=== PATIENT | female | born 1945 | race Caucasian/White ===

== ENCOUNTER → 2016-04-26 | Outpatient (CLI) | payer MEDICARE ==
[2016-04-26 08:53] LABS: Cholesterol 144 mg/dL (<200); HDL Cholesterol 44 mg/dL (40-60); Triglycerides 267 mg/dL (<150)
== END | disposition home or self-care (01) ==
LOC: LABWHC1 07:55
PROVIDERS: ATTEND Internal Medicine Interventional Cardiology
DX: E78.00 Pure hypercholesterolemia, unspecified (principal)
CPT/HCPCS: 36415; 80061

== ENCOUNTER → 2016-08-18 | Outpatient (CLI) | payer MEDICARE ==
[2016-08-18 08:49] LABS: Basophils # (A) 0.1 k/uL (0-0.2); Basophils % (A) 1 %; CHCM 32.4; Eosinophils # (A) 0.1 k/uL (0-0.7); Eosinophils % (A) 1 %; HCT 47.7 % (34.0-46.0); HDW 2.73; HGB 15.3 gm/dL (11.4-16.0); Luc # (Auto) 0.25; Luc % (Auto) 3; Lymphocytes # (A) 3.6 k/uL (1.0-4.8); Lymphocytes % (A) 41 %; MCH 28.8 pg (25.0-35.0); Mean Platelet Volume 6.8; Monocytes # (A) 0.4 k/uL (0-1.0); Monocytes % (A) 5 %; Neutrophils # (A) 4.4 k/uL (1.3-7.7); Neutrophils % (A) 50 %; RDW 14.4 % (11.5-15.5); WBC 8.7 k/uL (3.8-10.6); WBC (Perox) 8.29
[2016-08-18 08:52] LABS: ALT 57 U/L (9-52); AST 35 U/L (14-36); Alkaline Phosphatase 93 U/L (38-126); Anion Gap 12 mmol/L; Blood Urea Nitrogen 15 mg/dL (7-17); Calcium 9.5 mg/dL (8.4-10.2); Carbon Dioxide 25 mmol/L (22-30); Chloride 106 mmol/L (98-107); Cholesterol 184 mg/dL (<200); Glucose 148 mg/dL (74-99); HDL Cholesterol 50 mg/dL (40-60); Non-African American GFR(MDRD) >60 (>60 ml/min/1.73 sqM); Potassium 4.7 mmol/L (3.5-5.1); Sodium 143 mmol/L (137-145); Total Bilirubin 0.6 mg/dL (0.2-1.3); Total Protein 7.4 g/dL (6.3-8.2); Triglycerides 270 mg/dL (<150)
== END | disposition home or self-care (01) ==
LOC: LABWHC1 08:01
PROVIDERS: ATTEND Family Medicine
DX: E11.9 Type 2 diabetes mellitus without complications (principal)
CPT/HCPCS: 36415; 80053; 80061; 82043; 83036; 84443; 85025

== ENCOUNTER → 2017-04-13 | Outpatient (CLI) | payer MEDICARE ==
--- NOTE | 2017-04-17 09:45 | MM ---
Reason for exam: screening (asymptomatic). Last mammogram was performed 1 year and 1 month ago. History: Patient is postmenopausal. Took estrogen for 17 years. Physical Findings: A clinical breast exam by your physician is recommended on an annual basis and results should be correlated with mammographic findings. MG 3D Screening Mammo W/Cad Bilateral CC and MLO view(s) were taken. Prior study comparison: March 20, 2016, left breast MG work up mamm w CAD LT. March 01, 2016, bilateral MG screening mammo w CAD. The breast tissue is heterogeneously dense. This may lower the sensitivity of mammography. Stable benign calcifications. There is no discrete abnormality. No significant changes when compared with prior studies. ASSESSMENT: Benign, BI-RAD 2 RECOMMENDATION: Routine screening mammogram of both breasts in 1 year.
== END | disposition home or self-care (01) ==
LOC: RADMAMWWP 08:10
PROVIDERS: ATTEND Family Medicine
DX: Z12.31 Encounter for screening mammogram for malignant neoplasm of breast (principal)
CPT/HCPCS: 77063; G0202

== ENCOUNTER → 2017-05-08 | Outpatient (CLI) | payer MEDICARE ==
[2017-05-08 07:33] LABS: ALT 100 U/L (9-52); AST 59 U/L (14-36); Cholesterol 141 mg/dL (<200); HDL Cholesterol 46 mg/dL (40-60); LDL Cholesterol,Calculated 22 mg/dL (0-99); Triglycerides 364 mg/dL (<150)
== END | disposition home or self-care (01) ==
LOC: LABWHC1 06:55
PROVIDERS: ATTEND Internal Medicine Interventional Cardiology
DX: E78.2 Mixed hyperlipidemia (principal)
CPT/HCPCS: 36415; 80061; 84450; 84460

== ENCOUNTER → 2017-07-18 | Outpatient (CLI) | payer MEDICARE ==
[2017-07-18 07:47] LABS: Basophils # (A) 0.1 k/uL (0-0.2); Basophils % (A) 1 %; Eosinophils # (A) 0.1 k/uL (0-0.7); Eosinophils % (A) 2 %; HCT 42.1 % (34.0-46.0); HGB 13.8 gm/dL (11.4-16.0); Lymphocytes # (A) 3.3 k/uL (1.0-4.8); Lymphocytes % (A) 48 %; MCH 28.5 pg (25.0-35.0); MCHC 32.7 g/dL (31.0-37.0); MCV 87.2 fL (80.0-100.0); Mean Platelet Volume 7.3; Monocytes # (A) 0.4 k/uL (0-1.0); Monocytes % (A) 6 %; Neutrophils # (A) 2.8 k/uL (1.3-7.7); Neutrophils % (A) 41 %; Platelet Count 222 k/uL (150-450); RBC 4.83 m/uL (3.80-5.40); RDW 14.2 % (11.5-15.5); WBC 6.9 k/uL (3.8-10.6)
[2017-07-18 13:08] LABS: ALT 77 U/L (9-52); AST 56 U/L (14-36); Albumin 4.1 g/dL (3.5-5.0); Alkaline Phosphatase 97 U/L (38-126); Anion Gap 14 mmol/L; Blood Urea Nitrogen 20 mg/dL (7-17); Calcium 9.7 mg/dL (8.4-10.2); Carbon Dioxide 26 mmol/L (22-30); Chloride 106 mmol/L (98-107); Cholesterol 143 mg/dL (<200); Glucose 133 mg/dL (74-99); HDL Cholesterol 54 mg/dL (40-60); LDL Cholesterol,Calculated 58 mg/dL (0-99); Potassium 4.2 mmol/L (3.5-5.1); Sodium 146 mmol/L (137-145); Total Bilirubin 0.5 mg/dL (0.2-1.3); Total Protein 6.9 g/dL (6.3-8.2); Triglycerides 156 mg/dL (<150)
[2017-07-18 13:10] LABS: T4, Free (Free Thyroxine) 1.21 ng/dL (0.78-2.19)
[2017-07-18 20:55] LABS: Hemoglobin A1C 8.5 % (4.0-6.0)
== END | disposition home or self-care (01) ==
LOC: LABWHC1 07:15
PROVIDERS: ATTEND Family Medicine
DX: E11.9 Type 2 diabetes mellitus without complications (principal); E03.9 Hypothyroidism, unspecified
CPT/HCPCS: 36415; 80053; 80061; 82043; 82570; 83036; 84439; 84443; 84481; 85025

== ENCOUNTER → 2017-11-21 | Outpatient (CLI) | payer MEDICARE ==
[2017-11-21 09:06] LABS: ALT 46 U/L (9-52); AST 31 U/L (14-36); Cholesterol 129 mg/dL (<200); HDL Cholesterol 40 mg/dL (40-60); LDL Cholesterol,Calculated 20 mg/dL (0-99); Triglycerides 345 mg/dL (<150)
[2017-11-21 16:06] LABS: Albumin 4.1 g/dL (3.5-5.0); Alkaline Phosphatase 90 U/L (38-126); Anion Gap 8 mmol/L; Blood Urea Nitrogen 18 mg/dL (7-17); Calcium 9.7 mg/dL (8.4-10.2); Carbon Dioxide 26 mmol/L (22-30); Chloride 106 mmol/L (98-107); Glucose 106 mg/dL (74-99); Potassium 4.5 mmol/L (3.5-5.1); Sodium 140 mmol/L (137-145); Total Bilirubin 0.4 mg/dL (0.2-1.3); Total Protein 6.4 g/dL (6.3-8.2)
== END | disposition home or self-care (01) ==
LOC: LABWHC1 06:57
PROVIDERS: ATTEND Internal Medicine Interventional Cardiology
DX: E78.2 Mixed hyperlipidemia (principal)
CPT/HCPCS: 36415; 80053; 80061

== ENCOUNTER → 2018-01-10 | Outpatient (CLI) | payer MEDICARE ==
[2018-01-10 08:51] LABS: ALT 48 U/L (9-52); AST 37 U/L (14-36); Albumin 3.9 g/dL (3.5-5.0); Alkaline Phosphatase 93 U/L (38-126); Anion Gap 10 mmol/L; Blood Urea Nitrogen 17 mg/dL (7-17); Calcium 9.5 mg/dL (8.4-10.2); Carbon Dioxide 24 mmol/L (22-30); Chloride 109 mmol/L (98-107); Cholesterol 129 mg/dL (<200); Glucose 162 mg/dL (74-99); HDL Cholesterol 37 mg/dL (40-60); LDL Cholesterol,Calculated 32 mg/dL (0-99); Potassium 4.5 mmol/L (3.5-5.1); Sodium 143 mmol/L (137-145); Total Bilirubin 0.6 mg/dL (0.2-1.3); Total Protein 6.5 g/dL (6.3-8.2); Triglycerides 302 mg/dL (<150)
[2018-01-10 20:03] LABS: Hemoglobin A1C 7.3 % (4.0-6.0)
== END | disposition home or self-care (01) ==
LOC: LABWHC1 07:28
PROVIDERS: ATTEND Family Medicine
DX: E11.9 Type 2 diabetes mellitus without complications (principal)
CPT/HCPCS: 36415; 80053; 80061; 83036

== ENCOUNTER → 2018-01-22 | Outpatient (CLI) | payer MEDICARE ==
--- NOTE | 2018-01-22 09:52 | US ---
EXAMINATION TYPE: US duplex aorta DATE OF EXAM: 01/22/2018 COMPARISON: NONE CLINICAL HISTORY: I10 Hypertension. EXAM MEASUREMENTS: Abdominal Aorta: Proximal: 2.5 x 2.4 cm Mid: 2.0 x 2.0 cm Distal: 1.6 x 1.6 cm Bifurcation: 1.4 x 1.0 cm 1.2 x 0.9 cm No evidence of AAA Aorta is successfully visualized through the bifurcation without aneurysmal change. IMPRESSION: No ultrasound evidence for AAA.
== END | disposition home or self-care (01) ==
LOC: RADUSWWP 08:41
PROVIDERS: ATTEND Family Medicine
DX: I10 Essential (primary) hypertension (principal)
CPT/HCPCS: 93979

== ENCOUNTER 2018-02-08 12:12 | Emergency (ER) | payer MEDICARE ==
--- NOTE | 2018-02-08 12:29 | ED ---
General Adult HPI - General Chief complaint: Syncope Stated complaint: Syncope Time Seen by Provider: 02/08/18 12:16 Source: patient, EMS, RN notes reviewed Mode of arrival: EMS Limitations: no limitations - History of Present Illness Initial comments: Patient is a pleasant 72-year-old female presenting to the emergency department following possible syncopal episode. Patient was at a . Patient states she felt like she was going to pass out and then does not remember what happened until EMS arrived. Patient agrees that she may have passed out for a couple of minutes. Patient states she has had possible near syncopal episodes in the past however that was usually associated with bowel problems. Patient has no abdominal pain at this point. No chest pain or dyspnea. No confusion. No headache. No weakness. Patient states at this time she feels normal. Patient denies any injury. - Related Data Home Medications Medication Instructions Recorded Confirmed Albuterol Inhaler [Ventolin Hfa 1 - 2 puff INHALATION RT-Q6H PRN 02/08/18 Inhaler] Aspirin EC [Ecotrin Low Dose] 81 mg PO HS 02/08/18 02/08/18 Budesonide/Formoterol Fumarate 2 puff INHALATION RT-BID PRN 02/08/18 02/08/18 [Symbicort 80-4.5 Mcg Inhaler] Calcium Carbonate/Vitamin D3 1 tab PO DAILY 02/08/18 02/08/18 [Caltrate 600 Plus D3 Tablet] Levothyroxine Sodium [Synthroid] 50 mcg PO DAILY 02/08/18 02/08/18 Losartan Potassium [Cozaar] 25 mg PO DAILY 02/08/18 02/08/18 Mometasone Furoate [Nasonex Nasal 2 spr EA NOSTRIL DAILY PRN 02/08/18 02/08/18 [place]] Multivitamins, Thera [Multivitamin 1 tab PO DAILY 02/08/18 02/08/18 (formulary)] Pioglitazone HCl 30 mg PO DAILY 02/08/18 02/08/18 Power Beets 1 tab PO DAILY 02/08/18 02/08/18 Tolterodine [Detrol] 2 mg PO BID 02/08/18 02/08/18 Turmeric Root Extract [Turmeric] 500 mg PO DAILY 02/08/18 02/08/18 glipiZIDE XL [Glucotrol XL] 2.5 mg PO AC-SUPPER 02/08/18 02/08/18 metFORMIN HCL 1,000 mg PO HS 02/08/18 02/08/18 metFORMIN HCL 500 mg PO QAM 02/08/18 02/08/18 Allergies Allergy/AdvReac Type Severity Reaction Status Date / Time amoxicillin [From Augmentin] Allergy Rash/Hives Verified 02/08/18 13:43 clavulanic acid Allergy Rash/Hives Verified 02/08/18 13:43 [From Augmentin] Sulfa (Sulfonamide Allergy Itching Verified 02/08/18 13:43 Antibiotics) Review of Systems ROS Statement: Those systems with pertinent positive or pertinent negative responses have been documented in the HPI. ROS Other: All systems not noted in ROS Statement are negative. Constitutional: Denies: fever Eyes: Denies: eye pain ENT: Denies: ear pain Respiratory: Denies: cough, dyspnea Cardiovascular: Denies: chest pain Endocrine: Denies: fatigue Gastrointestinal: Denies: abdominal pain Genitourinary: Denies: dysuria Musculoskeletal: Denies: back pain Skin: Denies: rash Neurological: Denies: headache, weakness, paresthesias, confusion Past Medical History Past Medical History: Diabetes Mellitus, Hyperlipidemia History of Any Multi-Drug Resistant Organisms: None Reported Past Surgical History: Adenoidectomy, Bladder Surgery, Section, Cholecystectomy, Tonsillectomy Additional Past Surgical History / Comment(s): x 3, 2 bladder suspension and 1 bowel lift Past Psychological History: No Psychological Hx Reported Smoking Status: Never smoker Past Alcohol Use History: Occasional Past Drug Use History: None Reported General Exam Limitations: no limitations General appearance: alert, in no apparent distress Head exam: Present: atraumatic Eye exam: Present: normal appearance, PERRL, EOMI. Absent: nystagmus ENT exam: Present: normal oropharynx Neck exam: Present: normal inspection Respiratory exam: Present: normal lung sounds bilaterally Cardiovascular Exam: Present: regular rate, normal rhythm Expanded Peripheral pulses: 2+: Radial (R), Radial (L), Posterior Tibialis (R), Posterior Tibialis (L) GI/Abdominal exam: Present: soft. Absent: tenderness Extremities exam: Present: normal inspection. Absent: pedal edema, calf tenderness Neurological exam: Present: alert, oriented X3, CN II-XII intact. Absent: motor sensory deficit Expanded Neurological exam: Present: protecting the airway Patient oriented to: Present: person, place, time Speech: Present: fluid speech Cranial nerves: EOM's Intact: Normal, Facial Sensation: Normal Sensory exam: Upper Extremity Light Touch: Normal, Lower Extremity Light Touch: Normal Motor strength exam: RUE: 5, LUE: 5, RLE: 5, LLE: 5 Eye Response: (4) open spontaneously Motor Response: (6) obeys commands Verbal Response: (5) oriented Psychiatric exam: Present: normal affect, normal mood Skin exam: Present: normal color Course Vital Signs 02/08/18 02/08/18 02/08/18 12:13 12:30 13:30 Temperature 97.4 F L Pulse Rate 75 68 75 Respiratory 16 12 15 Rate Blood Pressure 138/74 138/74 163/82 O2 Sat by Pulse 93 L 97 96 Oximetry 02/08/18 14:00 Temperature Pulse Rate 75 Respiratory 14 Rate Blood Pressure 151/72 O2 Sat by Pulse 97 Oximetry - Reevaluation(s) Reevaluation #1: 02/08/18 12:30 Ultrasound and 01/22/2018 shows no evidence of abdominal aortic aneurysm. Patient states this was done secondary to questionable findings when x-rays were done by chiropractor. EKG Findings - EKG Comments: EKG Findings:: Normal sinus rhythm 71. HI 160. QRS 74. QT 408. QTC 443. Normal axis. Normal QRS. No acute ST change. Medical Decision Making - Medical Decision Making Patient reevaluated and resting comfortably in bed. Patient remains symptom- free at this time. Patient updated on results. Patient recommended admission for further evaluation for syncope. This does include echo and carotid Doppler and medicine and cardiology evaluation as well as monitoring on telemetry. Despite this patient refuses. Patient does them straight medical decision making. Family is present. Patient is agreeable that she will follow-up with her doctor and tumbling barrel painter on Sunday. - Lab Data Result diagrams: 02/08/18 12:28 02/08/18 12:28 Lab Results 02/08/18 02/08/18 02/08/18 Range/Units 12:28 12:28 12:28 WBC 6.7 (3.8-10.6) k/uL RBC 4.43 (3.80-5.40) m/uL Hgb 12.7 (11.4-16.0) gm/dL Hct 38.8 (34.0-46.0) % MCV 87.5 (80.0-100.0) fL MCH 28.6 (25.0-35.0) pg MCHC 32.7 (31.0-37.0) g/dL RDW 14.0 (11.5-15.5) % Plt Count 187 (150-450) k/uL Neutrophils % 54 % Lymphocytes % 36 % Monocytes % 6 % Eosinophils % 2 % Basophils % 1 % Neutrophils # 3.7 (1.3-7.7) k/uL Lymphocytes # 2.4 (1.0-4.8) k/uL Monocytes # 0.4 (0-1.0) k/uL Eosinophils # 0.1 (0-0.7) k/uL Basophils # 0.0 (0-0.2) k/uL PT (9.0-12.0) sec INR (<1.2) APTT (22.0-30.0) sec D-Dimer (<0.60) mg/L FEU Sodium 144 (137-145) mmol/L Potassium 4.6 (3.5-5.1) mmol/L Chloride 109 H (98-107) mmol/L Carbon Dioxide 24 (22-30) mmol/L Anion Gap 11 mmol/L BUN 20 H (7-17) mg/dL Creatinine 0.74 (0.52-1.04) mg/dL Est GFR (CKD-EPI)AfAm >90 (>60 ml/min/1.73 sqM) Est GFR (CKD-EPI)NonAf 81 (>60 ml/min/1.73 sqM) Glucose 156 H (74-99) mg/dL POC Glucose (mg/dL) (75-99) mg/dL POC Glu Char Filter Tank Tender ID Calcium 9.6 (8.4-10.2) mg/dL Magnesium 1.5 L (1.6-2.3) mg/dL Total Bilirubin 0.5 (0.2-1.3) mg/dL AST 37 H (14-36) U/L ALT 45 (9-52) U/L Alkaline Phosphatase 86 (38-126) U/L Total Creatine Kinase 61 (30-135) U/L CK-MB (CK-2) 1.2 (0.0-2.4) ng/mL CK-MB (CK-2) Rel Index 2.0 Troponin I <0.012 (0.000-0.034) ng/mL Total Protein 6.5 (6.3-8.2) g/dL Albumin 3.9 (3.5-5.0) g/dL Urine Color Urine Appearance (Clear) Urine pH (5.0-8.0) Ur Specific [place] (1.001-1.035) Urine Protein (Negative) Urine Glucose (UA) (Negative) Urine Ketones (Negative) Urine Blood (Negative) Urine Nitrite (Negative) Urine Bilirubin (Negative) Urine Urobilinogen (<2.0) mg/dL Ur Leukocyte Esterase (Negative) Urine RBC (0-5) /hpf Urine WBC (0-5) /hpf Ur Squamous Epith Cells (0-4) /hpf Urine Mucus (None) /hpf 02/08/18 02/08/18 02/08/18 Range/Units 12:28 12:38 15:05 WBC (3.8-10.6) k/uL RBC (3.80-5.40) m/uL Hgb (11.4-16.0) gm/dL Hct (34.0-46.0) % MCV (80.0-100.0) fL MCH (25.0-35.0) pg MCHC (31.0-37.0) g/dL RDW (11.5-15.5) % Plt Count (150-450) k/uL Neutrophils % % Lymphocytes % % Monocytes % % Eosinophils % % Basophils % % Neutrophils # (1.3-7.7) k/uL Lymphocytes # (1.0-4.8) k/uL Monocytes # (0-1.0) k/uL Eosinophils # (0-0.7) k/uL Basophils # (0-0.2) k/uL PT 9.5 (9.0-12.0) sec INR 1.0 (<1.2) APTT 20.0 L (22.0-30.0) sec D-Dimer 0.82 H (<0.60) mg/L FEU Sodium (137-145) mmol/L Potassium (3.5-5.1) mmol/L Chloride (98-107) mmol/L Carbon Dioxide (22-30) mmol/L Anion Gap mmol/L BUN (7-17) mg/dL Creatinine (0.52-1.04) mg/dL Est GFR (CKD-EPI)AfAm (>60 ml/min/1.73 sqM) Est GFR (CKD-EPI)NonAf (>60 ml/min/1.73 sqM) Glucose (74-99) mg/dL POC Glucose (mg/dL) 136 H (75-99) mg/dL POC Glu Char Filter Tank Tender ID Pavithra Zaragoza Calcium (8.4-10.2) mg/dL Magnesium (1.6-2.3) mg/dL Total Bilirubin (0.2-1.3) mg/dL AST (14-36) U/L ALT (9-52) U/L Alkaline Phosphatase (38-126) U/L Total Creatine Kinase (30-135) U/L CK-MB (CK-2) (0.0-2.4) ng/mL CK-MB (CK-2) Rel Index Troponin I (0.000-0.034) ng/mL Total Protein (6.3-8.2) g/dL Albumin (3.5-5.0) g/dL Urine Color Light Yellow Urine Appearance Clear (Clear) Urine pH 7.0 (5.0-8.0) Ur Specific [place] 1.027 (1.001-1.035) Urine Protein Negative (Negative) Urine Glucose (UA) Negative (Negative) Urine Ketones Negative (Negative) Urine Blood Negative (Negative) Urine Nitrite Positive H (Negative) Urine Bilirubin Negative (Negative) Urine Urobilinogen <2.0 (<2.0) mg/dL Ur Leukocyte Esterase Negative (Negative) Urine RBC 3 (0-5) /hpf Urine WBC 2 (0-5) /hpf Ur Squamous Epith Cells <1 (0-4) /hpf Urine Mucus Occasional H (None) /hpf - Radiology Data Radiology results: report reviewed (Computed tomography scan of the brain reveals no acute process. CT angios chest shows no acute process.), image reviewed (Chest x-ray shows possible density right lateral first rib region.) Disposition Clinical Impression: Syncope Disposition: HOME SELF-CARE Condition: Stable Instructions: Syncope (ED) Additional Instructions: Please follow-up with primary care physician Sunday. Please also follow-up with a tumbling barrel painter in the beginning of the week. Return for chest pain, abnormal heart rate, confusion, weakness, passing out, abdominal pain, worsening symptoms or any other concerns. Is patient prescribed a controlled substance at d/c from ED?: No Referrals: Reuben Almeida MD [Primary Care Provider] - 1-2 days Rosemarie Jacome MD [STAFF PHYSICIAN] - 1-2 days Time of Disposition: 15:43
[2018-02-08 12:40] LABS: Glucose,Whole Blood 136 mg/dL (75-99)
[2018-02-08 12:51] LABS: Basophils % (A) 1 %; Eosinophils # (A) 0.1 k/uL (0-0.7); Eosinophils % (A) 2 %; HCT 38.8 % (34.0-46.0); HGB 12.7 gm/dL (11.4-16.0); Lymphocytes # (A) 2.4 k/uL (1.0-4.8); Lymphocytes % (A) 36 %; MCH 28.6 pg (25.0-35.0); MCHC 32.7 g/dL (31.0-37.0); MCV 87.5 fL (80.0-100.0); Mean Platelet Volume 7.2; Monocytes # (A) 0.4 k/uL (0-1.0); Monocytes % (A) 6 %; Neutrophils # (A) 3.7 k/uL (1.3-7.7); Neutrophils % (A) 54 %; Platelet Count 187 k/uL (150-450); RBC 4.43 m/uL (3.80-5.40); WBC 6.7 k/uL (3.8-10.6)
--- NOTE | 2018-02-08 13:00 | XR ---
EXAMINATION TYPE: XR chest 2V DATE OF EXAM: 02/08/2018 COMPARISON: NONE HISTORY: Syncope TECHNIQUE: Frontal and lateral views of the chest are obtained. FINDINGS: There is no focal air space opacity, pleural effusion, or pneumothorax seen. The cardiac silhouette size is within normal limits. The osseous structures are intact, asymmetric increased de nsity noted along the lateral right first rib as compared to left. There are overlying cardiac leads. Surgical clips present in the right upper quadrant. IMPRESSION: No acute cardiopulmonary process. Indeterminate increased density superimposed over the lateral first rib on the right. Consider apical lordotic chest x-ray, bone scan, chest CT as indicate d.
[2018-02-08 13:04] LABS: ALT 45 U/L (9-52); AST 37 U/L (14-36); Albumin 3.9 g/dL (3.5-5.0); Alkaline Phosphatase 86 U/L (38-126); Anion Gap 11 mmol/L; Blood Urea Nitrogen 20 mg/dL (7-17); Calcium 9.6 mg/dL (8.4-10.2); Carbon Dioxide 24 mmol/L (22-30); Chloride 109 mmol/L (98-107); Glucose 156 mg/dL (74-99); Magnesium 1.5 mg/dL (1.6-2.3); Potassium 4.6 mmol/L (3.5-5.1); Sodium 144 mmol/L (137-145); Total Bilirubin 0.5 mg/dL (0.2-1.3); Total Protein 6.5 g/dL (6.3-8.2)
[2018-02-08 13:11] LABS: Creatine Kinase 61 U/L (30-135)
--- NOTE | 2018-02-08 13:21 | CT ---
EXAMINATION TYPE: CT brain wo con DATE OF EXAM: 02/08/2018 COMPARISON: None INDICATION: Dizziness, possible syncopal episode DLP: 959.5 mGycm, Automated exposure control for dose reduction was used. CONTRAST: None CT of the brain is performed utilizing 3 mm thick sections through the posterior fossa and 3 mm thick sections through the remaining calvarium. Study is performed within 24 hours of arrival to the hosp [facility]. No abnormal hyperdensity is present to suggest an acute intracranial hemorrhage. No mass lesion is evident. No acute infarcts are evident. There is some periventricular white matter hypodensity, most likely on the basis of chronic white matter ischemic change. Ventricles and sulci are appropriate for the patient age. Paranasal sinuses and mastoid air cells within the [id number] are clear. IMPRESSIONS: 1. Mild Chronic appearing periventricular white matter ischemic type changes.
[2018-02-08 13:23] LABS: Prothrombin Time 9.5 sec (9.0-12.0)
[2018-02-08 13:26] LABS: Creatine Kinase MB 1.2 ng/mL (0.0-2.4); Troponin I <0.012 ng/mL (0.000-0.034)
[2018-02-08 13:41] LABS: D-Dimer 0.82 mg/L FEU (<0.60)
[2018-02-08] MEDS ORDERED: MAGNESIUM SULFATE-D5W PMX 1 GM in DEXTROSE/WATER 1 100ML.BAG IVPB ONE (13:44)
--- NOTE | 2018-02-08 14:50 | CT ---
EXAMINATION TYPE: CT angio chest DATE OF EXAM: 02/08/2018 COMPARISON: None HISTORY: Weakness, Dizziness CT DLP: 292.7 mGycm CONTRAST: CT chest with contrast and 3D reconstruction with MIP imaging is performed without and with IV Contra st, patient injected with 100 ml mL of Isovue 370. Contrast-enhanced CT of the chest was performed through the course of the pulmonary arteries with lindsay g and mediastinal window settings submitted. 3D reconstruction with MIP imaging was also performed. PULMONARY ARTERIES: The pulmonary arteries and their major tributaries are patent. I do not see gordon dence for sizable filling defect to suggest pulmonary embolic process. LUNGS: The lungs are clear and free of infiltrate. No evidence for atelectasis. No pulmonary nodule or mass is detected. No pleural effusion. MEDIASTINUM: Thoracic aorta is of normal caliber,however, evaluation is limited given timing of the contrast bolus. If there is concern for thoracic aortic pathology consider KAVITA. Correlate clinicall y . The heart is not enlarged. No evidence for mediastinal mass. No mediastinal lymph nodes greater than 1cm. HILAR STRUCTURES: No evidence for mass. No hilar lymph nodes greater than 1 cm. UPPER ABDOMEN: No significant abnormality is seen. IMPRESSION: 1. No evidence for Pulmonary embolism at this time.
[2018-02-08 15:21] LABS: Appearance,Urine Clear (Clear); Bilirubin,Urine Negative (Negative); Blood,Urine Negative (Negative); Color,Urine Light Yellow; Glucose,Urine (UA) Negative (Negative); Ketones,Urine Negative (Negative); Leukocyte Esterase,Urine Negative (Negative); Mucus,Urine Occasional /hpf; Nitrite,Urine Positive (Negative); Protein,Urine Negative (Negative); RBC,Urine 3 /hpf (0-5); Specific Gravity,Urine 1.027 (1.001-1.035); Squamous Epithelial Cell,Urine <1 /hpf (0-4); Urobilinogen,Urine <2.0 mg/dL (<2.0); WBC,Urine 2 /hpf (0-5)
[2018-02-08 16:05] VITALS: BP 158/86; PULSE 76; RESP 18; TEMP 97.3
== END 2018-02-08 16:08 | disposition home or self-care (01) ==
LOC: EC 12:12
DX: R55 Syncope and collapse (principal); E11.9 Type 2 diabetes mellitus without complications; Z88.0 Allergy status to penicillin; Z88.2 Allergy status to sulfonamides; Z79.82 Long term (current) use of aspirin; Z79.84 Long term (current) use of oral hypoglycemic drugs; Z79.899 Other long term (current) drug therapy
CPT/HCPCS: 36415; 93005; 85379; 80053; 82550; 82553; 83735; 84484; 85025; 85610; 85730; 81001; 71046; 70450; 71275; 99285; 96365; J3475; Q9967

== ENCOUNTER → 2018-06-11 | Outpatient (CLI) | payer MEDICARE ==
--- NOTE | 2018-06-13 11:45 | MM ---
Reason for exam: screening (asymptomatic). Last mammogram was performed 1 year and 2 months ago. History: Patient is postmenopausal. Took estrogen for 17 years. Physical Findings: A clinical breast exam by your physician is recommended on an annual basis and results should be correlated with mammographic findings. MG 3D Screening Mammo W/Cad Bilateral CC and MLO view(s) were taken. Prior study comparison: April 13, 2017, bilateral MG 3d screening mammo w/cad. March 20, 2016, left breast MG work up mamm w CAD LT. The breast tissue is heterogeneously dense. This may lower the sensitivity of mammography. Benign calcifications bilaterally. No significant changes when compared with prior studies. ASSESSMENT: Benign, BI-RAD 2 RECOMMENDATION: Routine screening mammogram of both breasts in 1 year.
== END | disposition home or self-care (01) ==
LOC: RADMAMWWP 08:40
PROVIDERS: ATTEND Family Medicine
DX: Z12.31 Encounter for screening mammogram for malignant neoplasm of breast (principal)
CPT/HCPCS: 77063; 77067

== ENCOUNTER → 2018-07-15 | Outpatient (CLI) | payer MEDICARE ==
--- NOTE | 2018-07-16 13:30 | BD ---
EXAMINATION TYPE: Axial Bone Density DATE OF EXAM: 07/15/2018 COMPARISON: DEXA bone scan March 20, 2016 CLINICAL HISTORY: Disorder of the bone per order. Height: 62 Weight: 155.1 FRAX RISK QUESTIONS: Alcohol (3 or more units per day): no Family History (Parent hip fracture): no Glucocorticoids (More than 3mos): no (Ex: prednisone, prednisolone, methylprednisolone, dexamethasone, and hydrocortisone). History of Fracture in Adulthood: no Secondary Osteoporosis: 1. Type 1 Diabetes: no 2. Hyperthyroidism: no 3. Menopause before 45: yes 4. Malnutrition: no 5. Chronic liver disease: no Rheumatoid Arthritis: yes Current Tobacco Use: no RISK FACTORS HISTORY OF: Family History of Osteoporosis: yes Active: yes Diet low in dairy products/other sources of calcium: yes Postmenopausal woman: hysterectomy age 32 Lost more than 2 inches in height since high school: no MEDICATIONS: metformin, blood pressure meds, cholesterol meds, diabetic meds Thyroid Medications: levothyroxine How Lon plus years Additional History: EXAM MEASUREMENTS: Bone mineral densitometry was performed using the [employer] System. Bone mineral density as measured about the Lumbar spine is: ----- L1-L4(G/cm2): 1.043 T Score Values are as follows: ----- L2: -1.8 ----- L3: -0.7 ----- L4: -0.7 ----- L1-L4: -1.1 Bone mineral density has: increased 0.1 % since study of: 03.20.2016 Bone mineral density about the R hip (g/cm2): 0.933 Bone mineral density about the L hip (g/cm2):1.030 T Score values are as follows: -----R Neck: -0.8 -----L Neck: -0.1 -----R Total: -0.8 -----L Total: 0.2 Bone mineral density has: increased 1.5 % since study of: 03.20.2016 IMPRESSION: Osteopenia (T Score between -2.5 and -1) remains present overall in the low back. Bone density fairly stable from prior. There remains slightly increased risk of fracture and the patient may be considered for treatment. Re-Screen 2-5 years. NOTE: T-SCORE=SD OF THE YOUNG ADULT MEAN.
== END | disposition home or self-care (01) ==
LOC: RADBDWWP 07:10
PROVIDERS: ATTEND Family Medicine
DX: M85.88 Other specified disorders of bone density and structure, other site (principal); Z78.0 Asymptomatic menopausal state
CPT/HCPCS: 77080

== ENCOUNTER → 2018-07-26 | Outpatient (CLI) | payer MEDICARE ==
[2018-07-26 09:39] LABS: Basophils # (A) 0.1 k/uL (0-0.2); Basophils % (A) 1 %; Eosinophils # (A) 0.2 k/uL (0-0.7); Eosinophils % (A) 2 %; HCT 40.3 % (34.0-46.0); HGB 12.9 gm/dL (11.4-16.0); Lymphocytes # (A) 2.7 k/uL (1.0-4.8); Lymphocytes % (A) 38 %; MCH 28.5 pg (25.0-35.0); MCHC 32.1 g/dL (31.0-37.0); MCV 88.9 fL (80.0-100.0); Mean Platelet Volume 7.5; Monocytes # (A) 0.3 k/uL (0-1.0); Monocytes % (A) 5 %; Neutrophils # (A) 3.8 k/uL (1.3-7.7); Neutrophils % (A) 53 %; Platelet Count 232 k/uL (150-450); RBC 4.53 m/uL (3.80-5.40); RDW 14.7 % (11.5-15.5); WBC 7.1 k/uL (3.8-10.6)
[2018-07-26 17:24] LABS: Albumin 4.4 g/dL (3.80-4.90); Albumin/Globulin Ratio 2.32 (1.60-3.17); Anion Gap 8.8 mmol/L (4.00-12.00); Calcium 9.5 mg/dL (8.7-10.3); Carbon Dioxide 24.2 mmol/L (21.6-31.8); Globulin 1.9 g/dL (1.6-3.3); LDL Cholesterol,Calculated 29.6 mg/dL (0.0-131.0); Potassium 4.4 mmol/L (3.5-5.5); Total Bilirubin 0.6 mg/dL (0.3-1.2); Total Protein 6.3 g/dL (6.2-8.2); VLDL Calculation 54.4 mg/dL (5.00-40.00)
[2018-07-26 19:43] LABS: Hemoglobin A1C 7.3 % (4.0-6.0)
== END | disposition home or self-care (01) ==
LOC: LABWHC1 08:44
PROVIDERS: ATTEND Family Medicine
DX: E11.9 Type 2 diabetes mellitus without complications (principal); E03.9 Hypothyroidism, unspecified
CPT/HCPCS: 36415; 80053; 80061; 82043; 82570; 83036; 84443; 85025

== ENCOUNTER → 2018-12-11 | Outpatient (CLI) | payer MEDICARE ==
[2018-12-11 11:46] LABS: African American GFR (CKD) 83.6 (60.0-200.0)
== END | disposition home or self-care (01) ==
LOC: LABWHC1 07:36
PROVIDERS: ATTEND Otolaryngology
DX: H93.3X1 Disorders of right acoustic nerve (principal)
CPT/HCPCS: 36415; 82565; 84520

== ENCOUNTER → 2019-02-24 | Outpatient (CLI) | payer MEDICARE ==
[2019-02-24 16:53] LABS: Chol/HDL Ratio 3.61; LDL Cholesterol,Calculated 34.2 mg/dL (0.0-131.0); VLDL Calculation 64.8 mg/dL (5.00-40.00)
== END | disposition home or self-care (01) ==
LOC: LABWHC1 08:54
PROVIDERS: ATTEND Nurse Practitioner Adult Health
DX: E78.2 Mixed hyperlipidemia (principal)
CPT/HCPCS: 36415; 80061; 84450; 84460

== ENCOUNTER → 2019-04-19 | Outpatient (CLI) | payer MEDICARE ==
[2019-04-19 10:30] LABS: Basophils % (A) 0 %; Eosinophils # (A) 0.1 k/uL (0-0.7); Eosinophils % (A) 2 %; HCT 41.1 % (34.0-46.0); HGB 13.1 gm/dL (11.4-16.0); Lymphocytes # (A) 2.9 k/uL (1.0-4.8); Lymphocytes % (A) 42 %; MCH 28.8 pg (25.0-35.0); MCHC 31.9 g/dL (31.0-37.0); MCV 90.3 fL (80.0-100.0); Mean Platelet Volume 7.7; Monocytes # (A) 0.3 k/uL (0-1.0); Monocytes % (A) 5 %; Neutrophils # (A) 3.3 k/uL (1.3-7.7); Neutrophils % (A) 48 %; Platelet Count 217 k/uL (150-450); RBC 4.55 m/uL (3.80-5.40); RDW 14.1 % (11.5-15.5); WBC 6.9 k/uL (3.8-10.6)
[2019-04-19 17:18] LABS: African American GFR (CKD) 83.6 (60.0-200.0); Albumin 4.3 g/dL (3.80-4.90); Albumin/Globulin Ratio 2.53 (1.60-3.17); BUN/Creat Ratio 22.5 Ratio (12.00-20.00); Calcium 9.4 mg/dL (8.7-10.3); Chol/HDL Ratio 2.82; Globulin 1.7 g/dL (1.6-3.3); LDL Cholesterol,Calculated 26.4 mg/dL (0.0-131.0); Non-African American GFR(CKD) 72.1 (60.0-200.0); Potassium 4.2 mmol/L (3.5-5.5); Total Bilirubin 0.6 mg/dL (0.2-1.2); VLDL Calculation 55.6 mg/dL (5.00-40.00)
[2019-04-19 17:54] LABS: Hemoglobin A1C 7.7 % (4.0-6.0)
== END | disposition home or self-care (01) ==
LOC: LABWHC1 10:07
PROVIDERS: ATTEND Family Medicine
DX: E11.9 Type 2 diabetes mellitus without complications (principal)
CPT/HCPCS: 36415; 80053; 80061; 82043; 82570; 83036; 84443; 85025

== ENCOUNTER → 2019-12-01 | Outpatient (CLI) | payer MEDICARE ==
[2019-12-01 15:54] LABS: Albumin 4.5 g/dL (3.80-4.90); Albumin/Globulin Ratio 2.25 (1.60-3.17); Anion Gap 7.7 mmol/L (4.00-12.00); BUN/Creat Ratio 18.75 Ratio (12.00-20.00); Calcium 9.3 mg/dL (8.7-10.3); Carbon Dioxide 24.3 mmol/L (21.6-31.8); Chol/HDL Ratio 3.07; LDL Cholesterol,Calculated 38.2 mg/dL (0.0-131.0); Non-African American GFR(CKD) 71.6 (60.0-200.0); Potassium 4.6 mmol/L (3.5-5.5); Total Bilirubin 0.5 mg/dL (0.2-1.2); Total Protein 6.5 g/dL (6.2-8.2); VLDL Calculation 48.8 mg/dL (5.00-40.00)
[2019-12-01 17:14] LABS: Hemoglobin A1C 6.9 % (4.0-6.0)
== END | disposition home or self-care (01) ==
LOC: LABWHC1 09:35
PROVIDERS: ATTEND Internal Medicine Interventional Cardiology
DX: E11.9 Type 2 diabetes mellitus without complications (principal); I10 Essential (primary) hypertension; E78.2 Mixed hyperlipidemia
CPT/HCPCS: 36415; 80053; 80061; 83036

== ENCOUNTER 2020-01-16 09:59 | Emergency (ER) | payer MEDICARE ==
[2020-01-16] MEDS ORDERED: ONDANSETRON 4 MG/2 ML VIAL IVP STA (10:14)
[2020-01-16] MEDS ORDERED: SODIUM CHLORIDE 0.9% 1,000 ML IV STA (10:14)
--- NOTE | 2020-01-16 10:16 | ED ---
General Adult HPI - General Chief complaint: Nausea/Vomiting/Diarrhea Stated complaint: nausea, vomiting Time Seen by Provider: 01/16/20 10:04 Source: EMS, RN notes reviewed Mode of arrival: EMS Limitations: no limitations - History of Present Illness Initial comments: 74-year-old female with a past medical history of diabetes mellitus, hyperlipidemia, cholecystectomy presents to the emergency room for chief complaint of nausea vomiting diarrhea. Patient reports that this started early this morning. States she has had about 3 bouts of diarrhea. Denies any melena or hematochezia. Patient has also had a few bouts of vomiting that has since resolved. Patient has had nonbilious, non-bloody vomit. She denies any abdominal pain whatsoever. Denies fevers or chills. Denies cough congestion. States that these episodes are making her feel weak. Patient was at home, does not reside in a jail nor has she visited any hospitals or nursing homes. Patient has no other complaints at this time including shortness of breath, chest pain, abdominal pain, headache, or visual changes. - Related Data Home Medications Medication Instructions Recorded Confirmed Calcium Carbonate/Vitamin D3 1 tab PO DAILY 02/08/18 01/16/20 [Caltrate 600 Plus D3 Tablet] Levothyroxine Sodium [Synthroid] 50 mcg PO DAILY 02/08/18 01/16/20 Multivitamins, Thera [Multivitamin 1 tab PO DAILY 02/08/18 01/16/20 (formulary)] Pioglitazone HCl 30 mg PO DAILY 02/08/18 01/16/20 glipiZIDE XL [Glucotrol XL] 2.5 mg PO AC-SUPPER 02/08/18 01/16/20 metFORMIN HCL 1,000 mg PO HS 02/08/18 01/16/20 metFORMIN HCL 500 mg PO QAM 02/08/18 01/16/20 Candesartan Cilexetil 8 mg PO DAILY 01/16/20 01/16/20 Fluticasone Nasal [place] [Flonase 1 spr EA NOSTRIL DAILY PRN 01/16/20 01/16/20 Nasal [place]] Previous Rx's Medication Instructions Recorded Cephalexin [Keflex] 500 mg PO Q12H 10 Days #20 cap 01/16/20 Loperamide [Imodium] 2 mg PO ONCE PRN 1 Days #2 capsule 01/16/20 Ondansetron [Zofran ODT] 4 mg PO Q8HR PRN #15 tab 01/16/20 Allergies Allergy/AdvReac Type Severity Reaction Status Date / Time amoxicillin [From Augmentin] Allergy Rash/Hives Verified 01/16/20 10:54 clavulanic acid Allergy Rash/Hives Verified 01/16/20 10:54 [From Augmentin] Sulfa (Sulfonamide Allergy Itching Verified 01/16/20 10:54 Antibiotics) Review of Systems ROS Statement: Those systems with pertinent positive or pertinent negative responses have been documented in the HPI. ROS Other: All systems not noted in ROS Statement are negative. Past Medical History Past Medical History: Diabetes Mellitus, Hyperlipidemia History of Any Multi-Drug Resistant Organisms: None Reported Past Surgical History: Adenoidectomy, Bladder Surgery, Section, Cholecystectomy, Tonsillectomy Additional Past Surgical History / Comment(s): x 3, 2 bladder suspension and 1 bowel lift Past Psychological History: No Psychological Hx Reported Smoking Status: Never smoker Past Alcohol Use History: Occasional Past Drug Use History: None Reported General Exam Limitations: no limitations General appearance: alert, in no apparent distress Head exam: Present: atraumatic, normocephalic, normal inspection Eye exam: Present: normal appearance, PERRL, EOMI. Absent: scleral icterus, conjunctival injection, periorbital swelling ENT exam: Present: normal exam, mucous membranes moist Neck exam: Present: normal inspection, full ROM. Absent: tenderness, meningismus, lymphadenopathy Respiratory exam: Present: normal lung sounds bilaterally. Absent: respiratory distress, wheezes, rales, rhonchi, stridor Cardiovascular Exam: Present: regular rate, normal rhythm, normal heart sounds. Absent: systolic murmur, diastolic murmur, rubs, gallop, clicks GI/Abdominal exam: Present: soft, normal bowel sounds. Absent: distended, tenderness, guarding, rebound, rigid Neurological exam: Present: alert Course Vital Signs 01/16/20 10:00 Temperature 97.6 F Pulse Rate 86 Respiratory 17 Rate Blood Pressure 178/85 O2 Sat by Pulse 96 Oximetry Medical Decision Making - Medical Decision Making Vitals are stable. CBC is unremarkable. CMP shows mild hyperglycemia, patient does have a history of NIDDM, was given a liter of fluids. Mild transaminitis is chronic, history of cholecystectomy. Urinalysis does show evidence of urinary tract infection. Patient was started on Keflex. At this time patient likely has a viral infection causing nausea vomiting diarrhea. She will be treated with Imodium 1 dose here in the emergency room. She will also be given Zofran. On reevaluation she is feeling much better after fluids and Zofran. Patient is ready for discharge home. I did discuss strict return parameters that she is agreeable to. She will otherwise follow-up with her doctor.I discussed this case with attending Dr. Alonzo who agrees with this assessment and treatment plan. - Lab Data Result diagrams: 01/16/20 10:17 01/16/20 10:17 Lab Results 01/16/20 01/16/20 01/16/20 Range/Units 10: 10: 10:17 WBC 8.3 (3.8-10.6) k/uL RBC 4.68 (3.80-5.40) m/uL Hgb 12.9 (11.4-16.0) gm/dL Hct 41.1 (34.0-46.0) % MCV 87.7 (80.0-100.0) fL MCH 27.5 (25.0-35.0) pg MCHC 31.3 (31.0-37.0) g/dL RDW 14.1 (11.5-15.5) % Plt Count 189 (150-450) k/uL Neutrophils % 60 % Lymphocytes % 32 % Monocytes % 4 % Eosinophils % 1 % Basophils % 1 % Neutrophils # 4.9 (1.3-7.7) k/uL Lymphocytes # 2.7 (1.0-4.8) k/uL Monocytes # 0.3 (0-1.0) k/uL Eosinophils # 0.1 (0-0.7) k/uL Basophils # 0.1 (0-0.2) k/uL Sodium 141 (137-145) mmol/L Potassium 3.9 (3.5-5.1) mmol/L Chloride 109 H (98-107) mmol/L Carbon Dioxide 23 (22-30) mmol/L Anion Gap 9 mmol/L BUN 17 (7-17) mg/dL Creatinine 0.66 (0.52-1.04) mg/dL Est GFR (CKD-EPI)AfAm >90 (>60 ml/min/1.73 sqM) Est GFR (CKD-EPI)NonAf 86 (>60 ml/min/1.73 sqM) Glucose 213 H (74-99) mg/dL Calcium 9.2 (8.4-10.2) mg/dL Total Bilirubin 0.5 (0.2-1.3) mg/dL AST 40 H (14-36) U/L ALT 35 H (4-34) U/L Alkaline Phosphatase 89 (38-126) U/L Total Protein 6.7 (6.3-8.2) g/dL Albumin 4.2 (3.5-5.0) g/dL Amylase 43 (30-110) U/L Lipase 64 (23-300) U/L Urine Color Yellow Urine Appearance Clear (Clear) Urine pH 5.5 (5.0-8.0) Ur Specific [place] 1.014 (1.001-1.035) Urine Protein 1+ H (Negative) Urine Glucose (UA) Negative (Negative) Urine Ketones Negative (Negative) Urine Blood Negative (Negative) Urine Nitrite Negative (Negative) Urine Bilirubin Negative (Negative) Urine Urobilinogen <2.0 (<2.0) mg/dL Ur Leukocyte Esterase Large H (Negative) Urine WBC 30 H (0-5) /hpf Ur Squamous Epith Cells 2 (0-4) /hpf Urine Bacteria Rare H (None) /hpf Hyaline Casts 8 H (0-2) /lpf Urine Mucus Rare H (None) /hpf Disposition Clinical Impression: Nausea vomiting and diarrhea Disposition: HOME SELF-CARE Condition: Good Instructions (If sedation given, give patient instructions): Acute Nausea and Vomiting (ED), Acute Diarrhea (ED) Additional Instructions: Please take antibiotic as directed. If you're still having diarrhea tonight take Imodium. Drink plenty of fluids. If you have any worsening symptoms return to the emergency room. Prescriptions: Loperamide [Imodium] 2 mg PO ONCE PRN 1 Days #2 capsule PRN Reason: Diarrhea Cephalexin [Keflex] 500 mg PO Q12H 10 Days #20 cap Ondansetron [Zofran ODT] 4 mg PO Q8HR PRN #15 tab PRN Reason: Nausea Is patient prescribed a controlled substance at d/c from ED?: No Referrals: Reuben Almeida MD [Primary Care Provider] - 1-2 days Time of Disposition: :13
[2020-01-16 10:31] LABS: Basophils # (A) 0.1 k/uL (0-0.2); Basophils % (A) 1 %; Eosinophils # (A) 0.1 k/uL (0-0.7); Eosinophils % (A) 1 %; HCT 41.1 % (34.0-46.0); HGB 12.9 gm/dL (11.4-16.0); Lymphocytes # (A) 2.7 k/uL (1.0-4.8); Lymphocytes % (A) 32 %; MCH 27.5 pg (25.0-35.0); MCHC 31.3 g/dL (31.0-37.0); MCV 87.7 fL (80.0-100.0); Mean Platelet Volume 7.2; Monocytes # (A) 0.3 k/uL (0-1.0); Monocytes % (A) 4 %; Neutrophils # (A) 4.9 k/uL (1.3-7.7); Neutrophils % (A) 60 %; Platelet Count 189 k/uL (150-450); RBC 4.68 m/uL (3.80-5.40); RDW 14.1 % (11.5-15.5); WBC 8.3 k/uL (3.8-10.6)
[2020-01-16 10:34] LABS: Appearance,Urine Clear (Clear); Bacteria,Urine Rare /hpf; Bilirubin,Urine Negative (Negative); Blood,Urine Negative (Negative); Color,Urine Yellow; Glucose,Urine (UA) Negative (Negative); Hyaline Casts,Urine 8 /lpf (0-2); Ketones,Urine Negative (Negative); Leukocyte Esterase,Urine Large (Negative); Mucus,Urine Rare /hpf; Nitrite,Urine Negative (Negative); PH, Urine 5.5 (5.0-8.0); Protein,Urine 1+ (Negative); Specific Gravity,Urine 1.014 (1.001-1.035); Squamous Epithelial Cell,Urine 2 /hpf (0-4); Urobilinogen,Urine <2.0 mg/dL (<2.0); WBC,Urine 30 /hpf (0-5)
[2020-01-16 10:49] LABS: ALT 35 U/L (4-34); AST 40 U/L (14-36); African American GFR (CKD) >90 (>60 ml/min/1.73 sqM); Albumin 4.2 g/dL (3.5-5.0); Alkaline Phosphatase 89 U/L (38-126); Amylase 43 U/L (30-110); Anion Gap 9 mmol/L; Blood Urea Nitrogen 17 mg/dL (7-17); Calcium 9.2 mg/dL (8.4-10.2); Carbon Dioxide 23 mmol/L (22-30); Chloride 109 mmol/L (98-107); Glucose 213 mg/dL (74-99); Non-African American GFR(CKD) 86 (>60 ml/min/1.73 sqM); Potassium 3.9 mmol/L (3.5-5.1); Sodium 141 mmol/L (137-145); Total Bilirubin 0.5 mg/dL (0.2-1.3); Total Protein 6.7 g/dL (6.3-8.2)
[2020-01-16] MEDS ORDERED: CEPHALEXIN 500MG STARTER PACK 4 CAP BTL PO STA (11:11)
[2020-01-16] MEDS ORDERED: LOPERAMIDE 2 MG CAP PO STA (11:12)
[2020-01-16 11:27] VITALS: BP 159/74; PULSE 77; RESP 18; TEMP 98
== END 2020-01-16 11:27 | disposition home or self-care (01) ==
LOC: EC 09:59
DX: R11.2 Nausea with vomiting, unspecified (principal); R19.7 Diarrhea, unspecified; N39.0 Urinary tract infection, site not specified; E11.65 Type 2 diabetes mellitus with hyperglycemia; Z79.84 Long term (current) use of oral hypoglycemic drugs; Z88.0 Allergy status to penicillin; Z88.1 Allergy status to other antibiotic agents; Z88.2 Allergy status to sulfonamides; Z90.49 Acquired absence of other specified parts of digestive tract; Z90.89 Acquired absence of other organs
CPT/HCPCS: 36415; 80053; 81001; 82150; 83690; 85025; 87077; 87086; 87186; 96360; 99284

== ENCOUNTER → 2020-02-23 | Outpatient (CLI) | payer MEDICARE ==
--- NOTE | 2020-02-24 09:43 | MM ---
Reason for exam: screening (asymptomatic). Last mammogram was performed 1 year and 8 months ago. History: Patient is postmenopausal. Took estrogen for 17 years. Physical Findings: A clinical breast exam by your physician is recommended on an annual basis and results should be correlated with mammographic findings. MG 3D Screening Mammo W/Cad Bilateral CC and MLO view(s) were taken. Prior study comparison: June 11, 2018, bilateral MG 3d screening mammo w/cad. April 13, 2017, bilateral MG 3d screening mammo w/cad. The breast tissue is heterogeneously dense. This may lower the sensitivity of mammography. Stable benign calcifications. There is no discrete abnormality. No significant changes when compared with prior studies. ASSESSMENT: Benign, BI-RAD 2 RECOMMENDATION: Routine screening mammogram of both breasts in 1 year.
== END | disposition home or self-care (01) ==
LOC: RADMAMWWP 09:08
PROVIDERS: ATTEND Family Medicine
DX: Z12.31 Encounter for screening mammogram for malignant neoplasm of breast (principal)
CPT/HCPCS: 77063; 77067

== ENCOUNTER → 2020-07-14 | Outpatient (CLI) | payer MEDICARE ==
[2020-07-14 14:50] LABS: Basophils # (A) 0.05 X 10*3/uL (0.00-0.10); Basophils % (A) 0.7 %; Eosinophils # (A) 0.09 X 10*3/uL (0.04-0.35); Eosinophils % (A) 1.3 %; HCT 40.1 % (37.2-46.3); HGB 12.7 g/dL (12.0-15.0); Lymphocytes # (A) 2.85 X 10*3/uL (0.90-5.00); Lymphocytes % (A) 40.8 %; MCH 28.6 pg (27.0-32.0); MCHC 31.7 g/dL (32.0-37.0); MCV 90.3 fL (80.0-97.0); Monocytes # (A) 0.56 X 10*3/uL (0.20-1.00); Neutrophils # (A) 3.41 X 10*3/uL (1.80-7.70); Neutrophils % (A) 48.8 %; Platelet Count 232 X 10*3/uL (140-440); RBC 4.44 X 10*6/uL (4.10-5.20); RDW 13.6 % (11.5-14.5); WBC 6.99 X 10*3/uL (4.50-10.00)
[2020-07-14 17:43] LABS: Albumin 4.6 g/dL (3.80-4.90); Albumin/Globulin Ratio 2.42 (1.60-3.17); Anion Gap 13.3 mmol/L (4.00-12.00); BUN/Creat Ratio 23.33 Ratio (12.00-20.00); Carbon Dioxide 20.7 mmol/L (21.6-31.8); Chol/HDL Ratio 3.95; Globulin 1.9 g/dL (1.6-3.3); LDL Cholesterol,Calculated 54.4 mg/dL (0.0-131.0); Non-African American GFR(CKD) 62.1 (60.0-200.0); Potassium 4.8 mmol/L (3.5-5.5); Total Bilirubin 0.5 mg/dL (0.2-1.2); Total Protein 6.5 g/dL (6.2-8.2); VLDL Calculation 69.6 mg/dL (5.00-40.00)
[2020-07-14 20:03] LABS: Urine Creatinine 89.9 mg/dL
== END | disposition home or self-care (01) ==
LOC: LABWHC1 10:16
PROVIDERS: ATTEND Family Medicine
DX: E03.9 Hypothyroidism, unspecified (principal); E11.9 Type 2 diabetes mellitus without complications
CPT/HCPCS: 36415; 80053; 80061; 82043; 82570; 83036; 84443; 84481; 85025

== ENCOUNTER 2020-07-16 05:15 | Emergency (ER) | payer MEDICARE ==
[2020-07-16] MEDS ORDERED: SODIUM CHLORIDE 0.9% 1,000 ML IV STA (05:21)
--- NOTE | 2020-07-16 05:21 | ED ---
Syncope HPI - General Stated Complaint: Syncopy Time Seen by Provider: 07/16/20 05:21 Source: RN notes reviewed, old records reviewed Limitations: no limitations - History of Present Illness Initial Comments: This is a 74-year-old female to the ER for evaluation patient she presents today for evaluation regards to syncopal event. Patient here in the patient patient became increasingly stressed out has syncopal event in the patient room. After patient syncopal event she feels no headache no chest pain no shortness breath or abdominal pain. No prior history of similar syncopal events MD Complaint: loss of consciousness, almost passed out, collapsed -: minutes(s) Prodromal Symptoms: none -: second(s) Witnessed: yes - by bystander, yes - by EMS Injuries Sustained Associated with Event: None Current Symptoms: back to baseline History: previous syncopal episode Context: standing up Treatments Prior to Arrival: none - Related Data Home Medications Medication Instructions Recorded Confirmed Calcium Carbonate/Vitamin D3 1 tab PO DAILY 02/08/18 01/16/20 [Caltrate 600 Plus D3 Tablet] Levothyroxine Sodium [Synthroid] 50 mcg PO DAILY 02/08/18 01/16/20 Multivitamins, Thera [Multivitamin 1 tab PO DAILY 02/08/18 01/16/20 (formulary)] Pioglitazone HCl 30 mg PO DAILY 02/08/18 01/16/20 glipiZIDE XL [Glucotrol XL] 2.5 mg PO AC-SUPPER 02/08/18 01/16/20 metFORMIN HCL 1,000 mg PO HS 02/08/18 01/16/20 metFORMIN HCL 500 mg PO QAM 02/08/18 01/16/20 Candesartan Cilexetil 8 mg PO DAILY 01/16/20 01/16/20 Fluticasone Nasal [place] [Flonase 1 spr EA NOSTRIL DAILY PRN 01/16/20 01/16/20 Nasal [place]] Previous Rx's Medication Instructions Recorded Cephalexin [Keflex] 500 mg PO Q12H 10 Days #20 cap 01/16/20 Loperamide [Imodium] 2 mg PO ONCE PRN 1 Days #2 capsule 01/16/20 Ondansetron [Zofran ODT] 4 mg PO Q8HR PRN #15 tab 01/16/20 Allergies Allergy/AdvReac Type Severity Reaction Status Date / Time amoxicillin [From Augmentin] Allergy Rash/Hives Verified 07/16/20 05:27 clavulanic acid Allergy Rash/Hives Verified 07/16/20 05:27 [From Augmentin] Sulfa (Sulfonamide Allergy Itching Verified 07/16/20 05:27 Antibiotics) Review of Systems ROS Statement: Those systems with pertinent positive or pertinent negative responses have been documented in the HPI. ROS Other: All systems not noted in ROS Statement are negative. Past Medical History Past Medical History: Diabetes Mellitus, Hyperlipidemia History of Any Multi-Drug Resistant Organisms: None Reported Past Surgical History: Adenoidectomy, Bladder Surgery, Section, [place] cystectomy, Tonsillectomy Additional Past Surgical History / Comment(s): x 3, 2 bladder suspension and 1 bowel lift Past Psychological History: No Psychological Hx Reported Smoking Status: Never smoker Past Alcohol Use History: Occasional Past Drug Use History: None Reported General Exam General appearance: alert, in no apparent distress Head exam: Present: atraumatic, normocephalic, normal inspection Eye exam: Present: normal appearance, PERRL, EOMI. Absent: scleral icterus, conjunctival injection, periorbital swelling ENT exam: Present: normal exam, mucous membranes moist Neck exam: Present: normal inspection. Absent: tenderness, meningismus, lymphadenopathy Respiratory exam: Present: normal lung sounds bilaterally. Absent: respiratory distress, wheezes, rales, rhonchi, stridor Cardiovascular Exam: Present: regular rate, normal rhythm, normal heart sounds. Absent: systolic murmur, diastolic murmur, rubs, gallop, clicks GI/Abdominal exam: Present: soft, normal bowel sounds. Absent: distended, tenderness, guarding, rebound, rigid Extremities exam: Present: normal inspection, full ROM, normal capillary refill. Absent: tenderness, pedal edema, joint swelling, calf tenderness Back exam: Present: normal inspection Neurological exam: Present: alert, oriented X3, CN II-XII intact Psychiatric exam: Present: normal affect, normal mood Skin exam: Present: warm, dry, intact, normal color. Absent: rash Course Vital Signs 07/16/20 05:21 Temperature 99.3 F Pulse Rate 84 Respiratory 20 Rate Blood Pressure 107/72 O2 Sat by Pulse 96 Oximetry - Reevaluation(s) Reevaluation #1: 07/16/20 05:35 Medical record is reviewed Medical Decision Making - Lab Data Result diagrams: 07/16/20 05:36 07/16/20 05:36 Lab Results 07/16/20 07/16/20 07/16/20 Range/Units 05:36 05:36 05:36 WBC 7.4 (3.8-10.6) k/uL RBC 4.38 (3.80-5.40) m/uL Hgb 12.6 (11.4-16.0) gm/dL Hct 38.4 (34.0-46.0) % MCV 87.5 (80.0-100.0) fL MCH 28.8 (25.0-35.0) pg MCHC 32.9 (31.0-37.0) g/dL RDW 14.0 (11.5-15.5) % Plt Count 211 (150-450) k/uL MPV 7.5 Neutrophils % 52 % Lymphocytes % 37 % Monocytes % 6 % Eosinophils % 1 % Basophils % 1 % Neutrophils # 3.9 (1.3-7.7) k/uL Lymphocytes # 2.8 (1.0-4.8) k/uL Monocytes # 0.5 (0-1.0) k/uL Eosinophils # 0.1 (0-0.7) k/uL Basophils # 0.1 (0-0.2) k/uL PT 9.6 (9.0-12.0) sec INR 0.9 (<1.2) APTT 21.5 L (22.0-30.0) sec D-Dimer 2.17 H (<0.60) mg/L FEU Sodium 138 (137-145) mmol/L Potassium 4.3 (3.5-5.1) mmol/L Chloride 105 (98-107) mmol/L Carbon Dioxide 24 (22-30) mmol/L Anion Gap 9 mmol/L BUN 23 H (7-17) mg/dL Creatinine 0.84 (0.52-1.04) mg/dL Est GFR (CKD-EPI)AfAm 78 (>60 ml/min/1.73 sqM) Est GFR (CKD-EPI)NonAf 68 (>60 ml/min/1.73 sqM) Glucose 182 H (74-99) mg/dL Calcium 9.8 (8.4-10.2) mg/dL Phosphorus 2.6 (2.5-4.5) mg/dL Magnesium 1.6 (1.6-2.3) mg/dL Total Bilirubin 0.4 (0.2-1.3) mg/dL AST 33 (14-36) U/L ALT 29 (4-34) U/L Alkaline Phosphatase 98 (38-126) U/L Troponin I (0.000-0.034) ng/mL Total Protein 6.6 (6.3-8.2) g/dL Albumin 4.1 (3.5-5.0) g/dL 07/16/20 Range/Units 05:36 WBC (3.8-10.6) k/uL RBC (3.80-5.40) m/uL Hgb (11.4-16.0) gm/dL Hct (34.0-46.0) % MCV (80.0-100.0) fL MCH (25.0-35.0) pg MCHC (31.0-37.0) g/dL RDW (11.5-15.5) % Plt Count (150-450) k/uL MPV Neutrophils % % Lymphocytes % % Monocytes % % Eosinophils % % Basophils % % Neutrophils # (1.3-7.7) k/uL Lymphocytes # (1.0-4.8) k/uL Monocytes # (0-1.0) k/uL Eosinophils # (0-0.7) k/uL Basophils # (0-0.2) k/uL PT (9.0-12.0) sec INR (<1.2) APTT (22.0-30.0) sec D-Dimer (<0.60) mg/L FEU Sodium (137-145) mmol/L Potassium (3.5-5.1) mmol/L Chloride (98-107) mmol/L Carbon Dioxide (22-30) mmol/L Anion Gap mmol/L BUN (7-17) mg/dL Creatinine (0.52-1.04) mg/dL Est GFR (CKD-EPI)AfAm (>60 ml/min/1.73 sqM) Est GFR (CKD-EPI)NonAf (>60 ml/min/1.73 sqM) Glucose (74-99) mg/dL Calcium (8.4-10.2) mg/dL Phosphorus (2.5-4.5) mg/dL Magnesium (1.6-2.3) mg/dL Total Bilirubin (0.2-1.3) mg/dL AST (14-36) U/L ALT (4-34) U/L Alkaline Phosphatase (38-126) U/L Troponin I <0.012 (0.000-0.034) ng/mL Total Protein (6.3-8.2) g/dL Albumin (3.5-5.0) g/dL Disposition Clinical Impression: Vasovagal syncope, Dehydration Disposition: HOME SELF-CARE Condition: Good Instructions (If sedation given, give patient instructions): Syncope (ED) Is patient prescribed a controlled substance at d/c from ED?: No Referrals: Reuben Almeida MD [Primary Care Provider] - 1-2 days
[2020-07-16 05:27] VITALS: RESP 20; TEMP 99.3
[2020-07-16 05:46] LABS: Basophils # (A) 0.1 k/uL (0-0.2); Basophils % (A) 1 %; Eosinophils # (A) 0.1 k/uL (0-0.7); Eosinophils % (A) 1 %; HCT 38.4 % (34.0-46.0); HGB 12.6 gm/dL (11.4-16.0); Lymphocytes # (A) 2.8 k/uL (1.0-4.8); Lymphocytes % (A) 37 %; MCH 28.8 pg (25.0-35.0); MCHC 32.9 g/dL (31.0-37.0); MCV 87.5 fL (80.0-100.0); Mean Platelet Volume 7.5; Monocytes # (A) 0.5 k/uL (0-1.0); Monocytes % (A) 6 %; Neutrophils # (A) 3.9 k/uL (1.3-7.7); Neutrophils % (A) 52 %; Platelet Count 211 k/uL (150-450); RBC 4.38 m/uL (3.80-5.40); WBC 7.4 k/uL (3.8-10.6)
[2020-07-16 05:56] LABS: Albumin 4.1 g/dL (3.5-5.0); Calcium 9.8 mg/dL (8.4-10.2); Magnesium 1.6 mg/dL (1.6-2.3); Phosphorus 2.6 mg/dL (2.5-4.5); Potassium 4.3 mmol/L (3.5-5.1); Total Bilirubin 0.4 mg/dL (0.2-1.3); Total Protein 6.6 g/dL (6.3-8.2)
[2020-07-16 06:08] LABS: INR 0.9 (<1.2); Partial Thromboplastin Time 21.5 sec (22.0-30.0); Prothrombin Time 9.6 sec (9.0-12.0)
[2020-07-16 06:19] LABS: D-Dimer 2.17 mg/L FEU (<0.60)
[2020-07-16 07:38] VITALS: BP 132/71; PULSE 80
--- NOTE | 2020-07-16 07:46 | CT ---
EXAMINATION TYPE: CT angio chest DATE OF EXAM: 07/16/2020 COMPARISON: 02/08/2018 HISTORY: 74-year-old female shortness of breath, Elevated d-dimer TECHNIQUE: Contiguous axial scanning of the chest performed with IV Contrast, patient injected with 1 00 mL of Isovue 370. Coronal/sagittal MIP reconstructions performed. CT DLP: 344.8 mGycm Automated exposure control for dose reduction was used. FINDINGS: Heart upper limits of normal size without pericardial effusion. No flattening of the interventricular septum or reflux of contrast into the hepatic veins. Borderline ectatic ascending aorta 3.5 cm. There is direct takeoff of the left vertebral artery direc tly from the aortic arch. There is cupu-zd-nhlxuald focal stenosis of the proximal left subclavian ar starla of approximately 50%. While there is satisfactory opacification pulmonary arterial system, there is mild breathing motion a rtifact. No evidence for pulmonary embolus. Some borderline-sized bilateral hilar and subcarinal lymph nodes measuring up to 1.2 cm, relatively s imilar. Mildly enlarged 1.0 cm right pericardiac lymph node is new. Mild biapical pleural-parenchymal scarring. Suggestion of some septal lines in the upper lungs. Bandl ruperto subpleural opacities appear segment right lower lobe, probably atelectasis or scarring. Some maty tional septal lines in the lower lungs and mild diffuse bronchial wall thickening. Mild dependent ate lectasis. No tami consolidation or pleural effusion. Mild perisplenic ascites of uncertain etiology. Trace perihepatic ascites. 1.3 cm enlarged gastrohepa tic ligament lymph node of uncertain etiology. Cholecystectomy clips. Bones: [facility] within the lower thoracic spine. IMPRESSION: 1. NO EVIDENCE FOR PULMONARY EMBOLUS. 2. SCATTERED MILD SEPTAL LINES IN THE UPPER AND LOWER LUNGS MAY REFLECT SUBTLE UNDERLYING INTERSTITIA L FIBROSIS. GIVEN MILD UPPER ABDOMINAL ASCITES FLUID, CORRELATE WITH PATIENT'S FLUID STATUS AND BNP T O EXCLUDE MILD PULMONARY VASCULAR CONGESTION. IF NO SIGNS OF FLUID OVERLOAD, FURTHER CLINICAL CORRELA TION IS RECOMMENDED TO THE ETIOLOGY OF THE PATIENT'S MILD ASCITES. 3. BORDERLINE TO MILDLY ENLARGED SUBCARINAL AND HILAR LYMPH NODES MEASURING UP TO 1.2 CM, RELATIVELY UNCHANGED. HOWEVER, A 1.0 CM RIGHT PERICARDIAC LYMPH NODE AND A 1.3 CM GASTROHEPATIC LIGAMENT LYMPH N ODE IN THE UPPER ABDOMEN ARE NEW. THESE ARE PROBABLY REACTIVE. 3 MONTH FOLLOW-UP CT RECOMMENDED TO EN SURE STABILITY/RESOLUTION.
== END 2020-07-16 08:25 | disposition home or self-care (01) ==
LOC: EC 05:15
DX: R55 Syncope and collapse (principal); E86.0 Dehydration; E78.5 Hyperlipidemia, unspecified; E11.9 Type 2 diabetes mellitus without complications; Z79.84 Long term (current) use of oral hypoglycemic drugs
CPT/HCPCS: 93005; 85379; 83880; 80053; 83735; 84100; 84484; 85025; 85610; 85730; 71275; 99284; 96360; 96361; Q9967

== ENCOUNTER → 2020-09-30 | Outpatient (CLI) | payer MEDICARE ==
--- NOTE | 2020-10-02 06:25 | BD ---
EXAMINATION TYPE: Axial Bone Density DATE OF EXAM: 09/30/2020 COMPARISON: 07.15.2018 CLINICAL HISTORY: 75 YR OLD FEMALE.....ICD-10 CODE: Z78.0 POST MENOPAUSAL Height: 61.4 Weight: 155 FRAX RISK QUESTIONS: Family History (Parent hip fracture): NOT HIP FX, SPINE FXs Glucocorticoids (More than 3mos): YES (Ex: prednisone, prednisolone, methylprednisolone, dexamethasone, and hydrocortisone). History of Fracture in Adulthood: YES Secondary Osteoporosis: YES 3. Menopause before 45: YES RISK FACTORS HISTORY OF: HX OF RT FOOT FX AN ADULT Family History of Osteoporosis: YES, HER MOTHER AND SISTER, WITH VERTEBRAL FXS Diet low in dairy products/other sources of calcium: YES Postmenopausal woman: YES, IN HER EARLY 40s Take estrogen and/or progesterone medications: YES, IN THE PAST FOR ABOUT 17 YRS Lost more than 2 inches in height since high school: YES Hyperparathyroidism: NO Adrenal Insufficiency: NO MEDICATIONS: Prednisone or other steroids: YES, FOR ASTHMA, FOR YRS Thyroid Medications: YES, SYNTHROID FOR 40 + YRS Additional Medications: BLOOD THINNER, CHOLESTEROL MEDS, REFLUX MEDS, METFORMIN AND GLUCOSIDE, VIT D AND CALCIUM, Additional History: CHOLESTEROL, REFLUX, DIABETIC, OSTEOARTHRITIS, EXAM MEASUREMENTS: Bone mineral densitometry was performed using the [employer] System. Bone mineral density as measured about the Lumbar spine is: ----- L1-L4(G/cm2): 1.057 T Score Values are as follows: ----- L1: -0.4 ----- L2: -1.7 ----- L3: -1.3 ----- L4: -0.8 ----- L1-L4: -1.0 Bone mineral density has: Decreased -2.5% since study of: 07.15.2018 Bone mineral density about the R hip (g/cm2): 0.879 Bone mineral density about the L hip (g/cm2): 1.018 T Score values are as follows: -----R Neck: -1.0 -----L Neck: -0.6 -----R Total: -1.0 -----L Total: 0.1 Bone mineral density has: Decreased -2.1% since study of: 07.15.2018 FRAX%s: THERE IS A 23.6% CHANCE FOR A MAJOR OSTEOPOROTIC FX AND A 4.2% FOR HIP......PROBABILITY FO R FX IN 10 YRS TIME IMPRESSION: Osteopenia (T Score between -2.5 and -1) remains present. There remains slightly increased risk of fracture and the patient may be considered for treatment. Re-Screen 2-5 years. NOTE: T-SCORE=SD OF THE YOUNG ADULT MEAN.
== END | disposition home or self-care (01) ==
LOC: RADBDWWP 09:10
PROVIDERS: ATTEND Family Medicine
DX: Z13.820 Encounter for screening for osteoporosis (principal); M85.89 Other specified disorders of bone density and structure, multiple sites; Z78.0 Asymptomatic menopausal state
CPT/HCPCS: 77080

== ENCOUNTER → 2021-01-18 | Outpatient (CLI) | payer MEDICARE ==
[2021-01-19 03:12] LABS: Chol/HDL Ratio 3.63 Ratio; HDL Cholesterol 37.5 mg/dL (40.00-60.00); LDL Cholesterol,Calculated 42.5 mg/dL (0.0-131.0)
[2021-01-19 04:35] LABS: African American GFR (CKD) 101.9 (60.0-200.0); Albumin 4.5 g/dL (3.8-4.9); Albumin/Globulin Ratio 1.88 (1.60-3.17); Anion Gap 17.6 mmol/L (4.00-12.00); BUN/Creat Ratio 29.17 Ratio (12.00-20.00); Blood Urea Nitrogen 17.5 mg/dL (9.0-27.0); Calcium 9.6 mg/dL (8.7-10.3); Carbon Dioxide 17.4 mmol/L (21.6-31.8); Globulin 2.4 g/dL (1.6-3.3); Non-African American GFR(CKD) 87.9 (60.0-200.0); Potassium 4.7 mmol/L (3.5-5.5); Total Bilirubin 0.4 mg/dL (0.30-1.20); Total Protein 6.9 g/dL (6.2-8.2)
== END | disposition home or self-care (01) ==
LOC: LABWHC1 09:29
PROVIDERS: ATTEND Internal Medicine Interventional Cardiology
DX: E11.9 Type 2 diabetes mellitus without complications (principal); E78.2 Mixed hyperlipidemia
CPT/HCPCS: 36415; 80053; 80061; 83036

== ENCOUNTER → 2021-07-27 | Outpatient (CLI) | payer MEDICARE ==
--- NOTE | 2021-07-29 10:41 | MM ---
Reason for exam: screening (asymptomatic). Last mammogram was performed 1 year and 5 months ago. History: Patient is postmenopausal. Took estrogen for 17 years. Physical Findings: A clinical breast exam by your physician is recommended on an annual basis and results should be correlated with mammographic findings. MG 3D Screening Mammo W/Cad Bilateral CC and MLO view(s) were taken. Technologist: Felicia Malin RT (R)(M) Prior study comparison: February 23, 2020, bilateral MG 3d screening mammo w/cad. June 11, 2018, bilateral MG 3d screening mammo w/cad. The breast tissue is heterogeneously dense. This may lower the sensitivity of mammography. No significant changes when compared with prior studies. ASSESSMENT: Negative, BI-RAD 1 RECOMMENDATION: Routine screening mammogram of both breasts in 1 year.
== END | disposition home or self-care (01) ==
LOC: RADMAMWWP 11:36
PROVIDERS: ATTEND Family Medicine
DX: Z12.31 Encounter for screening mammogram for malignant neoplasm of breast (principal)
CPT/HCPCS: 77063; 77067

== ENCOUNTER → 2021-07-28 | Outpatient (CLI) | payer MEDICARE ==
[2021-07-28 14:36] LABS: African American GFR (CKD) 50.1 (60.0-200.0); Anion Gap 11.2 mmol/L (10.00-18.00); BUN/Creat Ratio 20.42 Ratio (12.00-20.00); Blood Urea Nitrogen 24.5 mg/dL (9.0-27.0); Calcium 9.6 mg/dL (8.7-10.3); Carbon Dioxide 22.8 mmol/L (20.0-27.5); Non-African American GFR(CKD) 43.3 (60.0-200.0); Potassium 4.7 mmol/L (3.5-5.5)
== END | disposition home or self-care (01) ==
LOC: LABWHC1 10:22
PROVIDERS: ATTEND Family Medicine
DX: R94.4 Abnormal results of kidney function studies (principal)
CPT/HCPCS: 36415; 80048

== ENCOUNTER → 2021-08-25 | Outpatient (CLI) | payer MEDICARE ==
[2021-08-25 10:44] LABS: ALT 11 U/L (8-44); AST 26 U/L (13-35); African American GFR (CKD) 45.5 (60.0-200.0); BUN/Creat Ratio 14.77 Ratio (12.00-20.00); Blood Urea Nitrogen 19.2 mg/dL (9.0-27.0); Calcium 9.2 mg/dL (8.7-10.3); Carbon Dioxide 22.3 mmol/L (20.0-27.5); Chloride 105 mmol/L (96-109); Chol/HDL Ratio 5.54 Ratio; Glucose 137 mg/dL (70-110); LDL Cholesterol,Calculated 103.1 mg/dL (0.0-131.0); Non-African American GFR(CKD) 39.3 (60.0-200.0); Potassium 4.6 mmol/L (3.5-5.5); Sodium 139 mmol/L (135-145)
== END | disposition home or self-care (01) ==
LOC: LABWHC1 07:16
PROVIDERS: ATTEND Nurse Practitioner Adult Health
DX: I10 Essential (primary) hypertension (principal); E78.2 Mixed hyperlipidemia; R94.4 Abnormal results of kidney function studies
CPT/HCPCS: 36415; 80048; 80061; 84450; 84460

== ENCOUNTER 2021-09-21 21:04 | Inpatient (IN) | payer MEDICARE ==
[2021-09-21 23:09] LABS: Appearance,Urine Clear (Clear); Bilirubin,Urine Negative (Negative); Blood,Urine Negative (Negative); Color,Urine Yellow; Glucose,Urine (UA) Negative (Negative); Ketones,Urine 1+ (Negative); Leukocyte Esterase,Urine Negative (Negative); Nitrite,Urine Negative (Negative); PH, Urine 5.5 (5.0-8.0); Protein,Urine Trace (Negative); Specific Gravity,Urine 1.021 (1.001-1.035); Urobilinogen,Urine <2.0 mg/dL (<2.0)
--- NOTE | 2021-09-21 23:14 | XR ---
EXAMINATION TYPE: XR KUB DATE OF EXAM: 09/21/2021 COMPARISON: NONE HISTORY: Back pain TECHNIQUE: 2 views upright FINDINGS: Bowel gas pattern is normal. No sign of intestinal obstruction or pneumoperitoneum. Fecal p attern is normal. There are clips from cholecystectomy. No evidence of a mass. IMPRESSION: Nonacute abdomen.
--- NOTE | 2021-09-22 01:04 | ED ---
General Adult HPI - General Chief complaint: Back Pain/Injury Stated complaint: Lower right side back pain/Abd pain Time Seen by Provider: 09/22/21 00:53 Source: patient Mode of arrival: ambulatory Limitations: no limitations - History of Present Illness Initial comments: This patient is 76-year-old woman who presents with low back and abdominal cramping type pain. She states that it had come on around 3 in afternoon after she had returned home from a balance class. She states that she tried to manage pain is at home but they kept recurring into the evening so she came here for evaluation. Onset/Timin -: hour(s) Location: back, abdomen Radiation: non-radiation Quality: other (Cramping) Consistency: intermittent Improves with: none Worsens with: none Associated Symptoms: denies other symptoms Treatments Prior to Arrival: none - Related Data Home Medications Medication Instructions Recorded Confirmed Calcium Carbonate/Vitamin D3 1 tab PO DAILY 02/08/18 07/16/20 [Caltrate 600 Plus D3 Tablet] Levothyroxine Sodium [Synthroid] 50 mcg PO DAILY 02/08/18 07/16/20 Multivitamins, Thera [Multivitamin 1 tab PO HS 02/08/18 07/16/20 (formulary)] Pioglitazone HCl 30 mg PO DAILY 02/08/18 07/16/20 glipiZIDE XL [Glucotrol XL] 2.5 mg PO AC-SUPPER 02/08/18 07/16/20 metFORMIN HCL 1,000 mg PO HS 02/08/18 07/16/20 metFORMIN HCL 500 mg PO QAM 02/08/18 07/16/20 Candesartan Cilexetil 8 mg PO DAILY 01/16/20 07/16/20 Fluticasone Nasal [place] [Flonase 1 spr EA NOSTRIL DAILY PRN 01/16/20 07/16/20 Nasal [place]] Evolocumab [Repatha Sureclick] 140 mg SQ Q14D 07/16/20 07/16/20 L.acidoph,Paracasei, B.lactis 1 cap PO HS 07/16/20 07/16/20 [Probiotic] Multivitamins, Thera [Multivitamin 1 tab PO HS 07/16/20 07/16/20 (formulary)] Rosuvastatin Calcium [Crestor] 20 mg PO DAILY 07/16/20 07/16/20 Allergies Allergy/AdvReac Type Severity Reaction Status Date / Time amoxicillin [From Augmentin] Allergy Rash/Hives Verified 09/21/21 22:39 clavulanic acid Allergy Rash/Hives Verified 09/21/21 22:39 [From Augmentin] Sulfa (Sulfonamide Allergy Itching Verified 09/21/21 22:39 Antibiotics) Review of Systems ROS Statement: Those systems with pertinent positive or pertinent negative responses have been documented in the HPI. ROS Other: All systems not noted in ROS Statement are negative. Constitutional: Denies: fever Respiratory: Denies: cough, dyspnea Cardiovascular: Denies: chest pain, palpitations Gastrointestinal: Reports: abdominal pain. Denies: nausea, vomiting, diarrhea, constipation Genitourinary: Denies: dysuria, hematuria Musculoskeletal: Reports: back pain Skin: Denies: rash Neurological: Denies: headache, weakness, numbness Past Medical History Past Medical History: Diabetes Mellitus, Hyperlipidemia History of Any Multi-Drug Resistant Organisms: None Reported Past Surgical History: Adenoidectomy, Bladder Surgery, Section, Cholecystectomy, Tonsillectomy Additional Past Surgical History / Comment(s): x 3, 2 bladder suspension and 1 bowel lift Past Psychological History: No Psychological Hx Reported Smoking Status: Never smoker Past Alcohol Use History: Rare Past Drug Use History: None Reported General Exam Limitations: no limitations General appearance: alert, in no apparent distress Head exam: Present: atraumatic, normocephalic Eye exam: Present: normal appearance. Absent: scleral icterus, conjunctival injection Neck exam: Present: normal inspection Respiratory exam: Present: normal lung sounds bilaterally. Absent: respiratory distress, wheezes, rales, rhonchi, stridor Cardiovascular Exam: Present: regular rate, normal rhythm, normal heart sounds. Absent: systolic murmur, diastolic murmur, rubs, gallop GI/Abdominal exam: Present: soft, tenderness (There is mild diffuse tenderness without rebound or guarding). Absent: distended, guarding, rebound, rigid, mass Extremities exam: Present: normal inspection, normal capillary refill. Absent: pedal edema, calf tenderness Back exam: Present: normal inspection. Absent: CVA tenderness (R), CVA tenderness (L) Neurological exam: Present: alert Skin exam: Present: warm, dry, intact, normal color. Absent: rash Course Vital Signs 09/21/21 09/22/21 22:34 02:12 Pulse Rate 68 66 Respiratory 20 18 Rate Blood Pressure 196/84 129/65 O2 Sat by Pulse 99 99 Oximetry Medical Decision Making - Lab Data Result diagrams: 09/22/21 00:55 09/22/21 00:55 Lab Results 09/21/21 09/22/21 09/22/21 Range/Units 22:53 00:55 00:55 WBC 10.7 H (3.8-10.6) k/uL RBC 4.64 (3.80-5.40) m/uL Hgb 12.5 (11.4-16.0) gm/dL Hct 40.3 (34.0-46.0) % MCV 86.9 (80.0-100.0) fL MCH 26.9 (25.0-35.0) pg MCHC 31.0 (31.0-37.0) g/dL RDW 14.2 (11.5-15.5) % Plt Count 238 (150-450) k/uL MPV 7.7 Neutrophils % 76 % Lymphocytes % 18 % Monocytes % 4 % Eosinophils % 1 % Basophils % 1 % Neutrophils # 8.2 H (1.3-7.7) k/uL Lymphocytes # 1.9 (1.0-4.8) k/uL Monocytes # 0.4 (0-1.0) k/uL Eosinophils # 0.1 (0-0.7) k/uL Basophils # 0.1 (0-0.2) k/uL Sodium 138 (137-145) mmol/L Potassium 4.7 (3.5-5.1) mmol/L Chloride 106 (98-107) mmol/L Carbon Dioxide 21 L (22-30) mmol/L Anion Gap 11 mmol/L BUN 23 H (7-17) mg/dL Creatinine 1.11 H (0.52-1.04) mg/dL Est GFR (CKD-EPI)AfAm 55 (>60 ml/min/1.73 sqM) Est GFR (CKD-EPI)NonAf 48 (>60 ml/min/1.73 sqM) Glucose 150 H (74-99) mg/dL Calcium 9.5 (8.4-10.2) mg/dL Total Bilirubin 0.8 (0.2-1.3) mg/dL AST 28 (14-36) U/L ALT 12 (4-34) U/L Alkaline Phosphatase 90 (38-126) U/L Total Protein 7.4 (6.3-8.2) g/dL Albumin 4.5 (3.5-5.0) g/dL Urine Color Yellow Urine Appearance Clear (Clear) Urine pH 5.5 (5.0-8.0) Ur Specific [place] 1.021 (1.001-1.035) Urine Protein Trace H (Negative) Urine Glucose (UA) Negative (Negative) Urine Ketones 1+ H (Negative) Urine Blood Negative (Negative) Urine Nitrite Negative (Negative) Urine Bilirubin Negative (Negative) Urine Urobilinogen <2.0 (<2.0) mg/dL Ur Leukocyte Esterase Negative (Negative) Disposition Clinical Impression: Calculus of kidney, Ascites, Abdominal pain Disposition: [facility] Condition: Good Is patient prescribed a controlled substance at d/c from ED?: No Referrals: Reuben Almeida MD [Primary Care Provider] - 1-2 days Time of Disposition: 03:00
[2021-09-22 01:13] LABS: Basophils # (A) 0.1 k/uL (0-0.2); Basophils % (A) 1 %; Eosinophils # (A) 0.1 k/uL (0-0.7); Eosinophils % (A) 1 %; HCT 40.3 % (34.0-46.0); HGB 12.5 gm/dL (11.4-16.0); Lymphocytes # (A) 1.9 k/uL (1.0-4.8); Lymphocytes % (A) 18 %; MCH 26.9 pg (25.0-35.0); MCV 86.9 fL (80.0-100.0); Mean Platelet Volume 7.7; Monocytes # (A) 0.4 k/uL (0-1.0); Monocytes % (A) 4 %; Neutrophils # (A) 8.2 k/uL (1.3-7.7); Neutrophils % (A) 76 %; Platelet Count 238 k/uL (150-450); RBC 4.64 m/uL (3.80-5.40); RDW 14.2 % (11.5-15.5); WBC 10.7 k/uL (3.8-10.6)
[2021-09-22 01:30] LABS: Albumin 4.5 g/dL (3.5-5.0); Calcium 9.5 mg/dL (8.4-10.2); Potassium 4.7 mmol/L (3.5-5.1); Total Bilirubin 0.8 mg/dL (0.2-1.3); Total Protein 7.4 g/dL (6.3-8.2)
--- NOTE | 2021-09-22 01:40 | CT ---
EXAMINATION TYPE: CT abdomen pelvis wo con DATE OF EXAM: 09/22/2021 COMPARISON: None HISTORY: Abdominal pain CT DLP: 596.6 mGycm Automated exposure control for dose reduction was used. Images obtained from the diaphragm to the floor the pelvis with no contrast. There is right pleural effusion. Heart size is normal. There is no pericardial effusion. Liver and sp duy are intact. There are clips from cholecystectomy. There is abdominal ascites fluid in the upper abdomen. There is no adrenal mass. The right kidney shows moderate hydronephrosis and hydroureter. Th ere appears to be calculus in the distal right ureter that measures 3 mm. Urinary bladder is large. T here is some wall thickening on the left lateral urinary bladder. Left kidney shows no sign of obstru ction. There is apparent large diverticulum of the urinary bladder on the left side. No inguinal jennifer ia. No free fluid in the pelvis. There are multiple distended fluid-filled small bowel loops througho ut the abdomen. No free air. Lumbar vertebrae have normal alignment. No compression fracture. The bon y pelvis is intact. The hip joints are intact. Appendix not seen. IMPRESSION: Right pleural effusion. Abdominal ascites fluid in the upper abdomen. Moderately severe hydronephrosis and hydroureter ureter on the right side with apparent obstructing d istal ureteral calculus. Significant bladder deformity with diverticulum and irregular wall thickening. Bladder tumor is possi ble. Follow-up is recommended. Distended fluid-filled small bowel loops suggestive of ileus.
[2021-09-22] MEDS ORDERED: MORPHINE SULFATE 4 MG/ML SYRINGE IV STA ×2 (02:08→03:01)
[2021-09-22] MEDS ORDERED: ONDANSETRON 4 MG/2 ML VIAL IVP STA (02:27)
[2021-09-22] MEDS ORDERED: NALOXONE 0.4 MG/ML 1 ML VIAL IV PRN (03:08)
[2021-09-22] MEDS ORDERED: MORPHINE SULFATE 4 MG/ML SYRINGE IV PRN (03:08)
[2021-09-22] MEDS ORDERED: ONDANSETRON 4 MG/2 ML VIAL IVP PRN (03:08)
[2021-09-22] MEDS ORDERED: ACETAMINOPHEN TAB 325 MG TAB PO PRN (03:08)
--- NOTE | 2021-09-22 03:50 | P.HPIM ---
History of Present Illness H&P Date: 09/22/21 The patient is 76-year-old female with a PMH of type II DM and hyperlipidemia who presents to the emergency room with complaints of right flank pain. Patient reports her symptoms started earlier today at around 3 PM with right flank pain, 8 out of 10, radiating to the entire abdomen, aching and colicky in nature, with no alleviating features. The patient reports pain has improved significantly a fter receiving pain medications in the emergency room. Reports nausea with 3-4 episodes of vomiting since symptom onset. Denies any urinary complaints, or fever. Also denies chest discomfort, shortness of breath, diarrhea. CT abdomen and pelvis revealed 3 mm right-sided obstructing distal ureteral calculus with severe hydronephrosis and hydroureter as well as abdominal ascites and significant bladder deformity with diverticulum, consistent with possible tumor. Patient denied urinary complaints including hematuria. Laboratory evaluation was remarkable for diabetes count 10.7, BUN 23, creatinine 1.11, and an unremarkable UA. Review of systems: Pertinent positives and negatives as discussed in HPI, a complete review of systems was performed and all other systems are negative. Physical examination: General: non toxic, no distress, appears at stated age, overweight Derm: no unusual rashes/lesions, warm Head: atraumatic, normocephalic, symmetric Eyes: EOMI, no lid lag, anicteric sclera, pupils equal round reactive to light ENT: Nose and ears atraumatic Neck: No cervical lymphadenopathy, trachea midline, supple Mouth: no lip lesion, mucus membranes moist Cardiovascular: S1S2 reg, no murmur, positive dorsalis pedis pulse bilateral, no edema Lungs: CTA bilateral, no rhonchi, no rales, no accessory muscle use Abdominal: soft, mild right flank tenderness, no guarding Ext: muscle strength 5 out of 5 in all 4 extremities grossly, no gross muscle atrophy, no contractures, Neuro: CN II-XI grossly intact, no gross focal neuro deficits Psych: Alert, oriented, appropriate affect Assessment/plan 3 mm Right ureteral stone with hydronephrosis -IV fluids -Urology consulted -Pain control -Antiemetics Bladder abnormality with possible tumor -Ascites may be malignant -Urology consulted for guidance regarding transurethral bladder biopsy versus IR guided diagnostic paracentesis Chronic conditions: Hyperlipidemia, type II DM -Insulin sliding scale blood glucose monitoring -Continue with home meds DVT prophylaxis -Heparin subcu The patient is admitted with an anticipated greater than 2 midnight stay for evaluation of ureteral stone CODE STATUS: Full Code Discussed with: Patient Anticipated discharge date: 09/[address]: Home Past Medical History Past Medical History: Diabetes Mellitus, Hyperlipidemia History of Any Multi-Drug Resistant Organisms: None Reported Past Surgical History: Adenoidectomy, Bladder Surgery, Section, Cholecystectomy, Tonsillectomy Additional Past Surgical History / Comment(s): x 3, 2 bladder suspension and 1 bowel lift Past Psychological History: No Psychological Hx Reported Smoking Status: Never smoker Past Alcohol Use History: Rare Past Drug Use History: None Reported - Past Family History Father Family Medical History: Hypertension Medications and Allergies Home Medications Medication Instructions Recorded Confirmed Type Calcium Carbonate/Vitamin D3 1 tab PO DAILY 02/08/18 07/16/20 History [Caltrate 600 Plus D3 Tablet] Levothyroxine Sodium [Synthroid] 50 mcg PO DAILY 02/08/18 07/16/20 History Multivitamins, Thera [Multivitamin 1 tab PO HS 02/08/18 07/16/20 History (formulary)] Pioglitazone HCl 30 mg PO DAILY 02/08/18 07/16/20 History glipiZIDE XL [Glucotrol XL] 2.5 mg PO AC-SUPPER 02/08/18 07/16/20 History metFORMIN HCL 1,000 mg PO HS 02/08/18 07/16/20 History metFORMIN HCL 500 mg PO QAM 02/08/18 07/16/20 History Candesartan Cilexetil 8 mg PO DAILY 01/16/20 07/16/20 History Fluticasone Nasal [place] [Flonase 1 spr EA NOSTRIL DAILY PRN 01/16/20 07/16/20 History Nasal [place]] Evolocumab [Repatha Sureclick] 140 mg SQ Q14D 07/16/20 07/16/20 History L.acidoph,Paracasei, B.lactis 1 cap PO HS 07/16/20 07/16/20 History [Probiotic] Multivitamins, Thera [Multivitamin 1 tab PO HS 07/16/20 07/16/20 History (formulary)] Rosuvastatin Calcium [Crestor] 20 mg PO DAILY 07/16/20 07/16/20 History Allergies Allergy/AdvReac Type Severity Reaction Status Date / Time amoxicillin [From Augmentin] Allergy Rash/Hives Verified 09/21/21 22:39 clavulanic acid Allergy Rash/Hives Verified 09/21/21 22:39 [From Augmentin] Sulfa (Sulfonamide Allergy Itching Verified 09/21/21 22:39 Antibiotics) Physical Exam Vitals: Vital Signs Pulse Resp BP Pulse Ox 09/22/21 02:12 66 18 129/65 99 09/21/21 22:34 68 20 196/84 99 Intake and Output 09/21/21 09/21/21 09/22/21 14:59 22:59 06:59 Other: Weight 66.224 kg Results CBC & Chem 7: 09/22/21 00:55 09/22/21 00:55 Labs: Abnormal Lab Results - Last 24 Hours (Table) 09/21/21 09/22/21 09/22/21 Range/Units 22:53 00:55 00:55 WBC 10.7 H (3.8-10.6) k/uL Neutrophils # 8.2 H (1.3-7.7) k/uL Carbon Dioxide 21 L (22-30) mmol/L BUN 23 H (7-17) mg/dL Creatinine 1.11 H (0.52-1.04) mg/dL Glucose 150 H (74-99) mg/dL Urine Protein Trace H (Negative) Urine Ketones 1+ H (Negative)
[2021-09-22 07:33] LABS: Glucose,Whole Blood 128 mg/dL (75-99)
[2021-09-22] MEDS: HEPARIN SODIUM,PORCINE/PF 5,000 UNIT/0.5 ML SYRINGE SQ SCH ×3 (07:39→23:35)
[2021-09-22] MEDS: INSULIN ASPART (NovoLOG) 100 UNIT/ML VIAL SQ SCH ×4 (07:39→20:55)
--- NOTE | 2021-09-22 07:55 | P.GSCN ---
History of Present Illness Consult date: 09/22/21 History of present illness: 76 yo female we were asked to see for a possible right ureteral stone, hydronephrosis right and a possible bladder mass. The patient came to the er with severe back pain on the right since yesterday. In hind sight she states that it has gone on for some time to a milder degree. SHe had a ct scan in the er identifying severe hydro on the right possibly due to a stone near the uvj. The bladder also is irregular on ct scan. the ua is negative. there is also ascites on the ct scan of indeterminate etiology. SHe has not had hematuria, fevers. She has not had previous stones.SHe is diabetic. THere is no histroy of cancer. SHe has had a chelcystectomy and two bladder suspensions in the past. Review of Systems All systems: negative - Constitutional Denies fever, Denies weight loss - EENT Eyes: denies blurred vision Ears, nose, mouth and throat: Denies dysphagia - Cardiovascular Denies chest pain, Denies shortness of breath - Respiratory Denies cough, Denies 7 - Gastrointestinal Reports as per HPI - Genitourinary Genitourinary: Denies dysuria, Denies hematuria - Integumentary Denies rash, Denies unusual bruising - Neurological Denies headaches, Denies syncope - Hematologic/Lymphatic Denies easy bleeding, Denies easy bruising Past Medical History Past Medical History: Diabetes Mellitus, Hyperlipidemia History of Any Multi-Drug Resistant Organisms: None Reported Past Surgical History: Adenoidectomy, Bladder Surgery, Section, Cholecystectomy, Tonsillectomy Additional Past Surgical History / Comment(s): x 3, 2 bladder suspension and 1 bowel lift Past Psychological History: No Psychological Hx Reported Smoking Status: Never smoker Past Alcohol Use History: Rare Past Drug Use History: None Reported - Past Family History Father Family Medical History: Hypertension Medications and Allergies Home Medications Medication Instructions Recorded Confirmed Type Calcium Carbonate/Vitamin D3 1 tab PO DAILY 02/08/18 07/16/20 History [Caltrate 600 Plus D3 Tablet] Levothyroxine Sodium [Synthroid] 50 mcg PO DAILY 02/08/18 07/16/20 History Pioglitazone HCl 30 mg PO DAILY 02/08/18 07/16/20 History glipiZIDE XL [Glucotrol XL] 2.5 mg PO AC-SUPPER 02/08/18 07/16/20 History Candesartan Cilexetil 8 mg PO DAILY 01/16/20 07/16/20 History Fluticasone Nasal [place] [Flonase 1 spr EA NOSTRIL DAILY PRN 01/16/20 07/16/20 History Nasal [place]] Evolocumab [Repatha Sureclick] 140 mg SQ Q14D 07/16/20 09/22/21 History L.acidoph,Paracasei, B.lactis 1 cap PO HS 07/16/20 07/16/20 History [Probiotic] Multivitamins, Thera [Multivitamin 1 tab PO HS 07/16/20 07/16/20 History (formulary)] Rosuvastatin Calcium [Crestor] 20 mg PO DAILY 07/16/20 07/16/20 History Allergies Allergy/AdvReac Type Severity Reaction Status Date / Time amoxicillin [From Augmentin] Allergy Rash/Hives Verified 09/22/21 07:15 clavulanic acid Allergy Rash/Hives Verified 09/22/21 07:15 [From Augmentin] Sulfa (Sulfonamide Allergy Itching Verified 09/22/21 07:15 Antibiotics) Surgical - Exam Vital Signs Pulse Resp BP Pulse Ox 68 20 196/84 99 09/21/21 22:34 09/21/21 22:34 09/21/21 22:34 09/21/21 22:34 - General mild discomfort well developed, well nourished - Eyes PERRL - ENT no hearing loss - Neck no masses - Respiratory normal expansion, normal respiratory effort - Cardiovascular Rhythm: regular - Abdomen slight tenderness in the rlq Abdomen: soft - Integumentary no rash, no growths - Neurologic normal coordination, normal sensation - Musculoskeletal normal posture - Psychiatric oriented to time, oriented to person, oriented to place, speech is normal, memory intact Results - Labs 09/22/21 00:55 09/22/21 00:55 Abnormal Lab Results - Last 24 Hours (Table) 09/21/21 09/22/21 09/22/21 Range/Units 22:53 00:55 00:55 WBC 10.7 H (3.8-10.6) k/uL Neutrophils # 8.2 H (1.3-7.7) k/uL Carbon Dioxide 21 L (22-30) mmol/L BUN 23 H (7-17) mg/dL Creatinine 1.11 H (0.52-1.04) mg/dL Glucose 150 H (74-99) mg/dL POC Glucose (mg/dL) (75-99) mg/dL Urine Protein Trace H (Negative) Urine Ketones 1+ H (Negative) 09/22/21 Range/Units 07:32 WBC (3.8-10.6) k/uL Neutrophils # (1.3-7.7) k/uL Carbon Dioxide (22-30) mmol/L BUN (7-17) mg/dL Creatinine (0.52-1.04) mg/dL Glucose (74-99) mg/dL POC Glucose (mg/dL) 128 H (75-99) mg/dL Urine Protein (Negative) Urine Ketones (Negative) Diabetes panel 09/22/21 Range/Units 00:55 Sodium 138 (137-145) mmol/L Potassium 4.7 (3.5-5.1) mmol/L Chloride 106 (98-107) mmol/L Carbon Dioxide 21 L (22-30) mmol/L BUN 23 H (7-17) mg/dL Creatinine 1.11 H (0.52-1.04) mg/dL Glucose 150 H (74-99) mg/dL Calcium 9.5 (8.4-10.2) mg/dL AST 28 (14-36) U/L ALT 12 (4-34) U/L Alkaline Phosphatase 90 (38-126) U/L Total Protein 7.4 (6.3-8.2) g/dL Albumin 4.5 (3.5-5.0) g/dL Calcium panel 09/22/21 Range/Units 00:55 Calcium 9.5 (8.4-10.2) mg/dL Albumin 4.5 (3.5-5.0) g/dL Pituitary panel 09/22/21 Range/Units 00:55 Sodium 138 (137-145) mmol/L Potassium 4.7 (3.5-5.1) mmol/L Chloride 106 (98-107) mmol/L Carbon Dioxide 21 L (22-30) mmol/L BUN 23 H (7-17) mg/dL Creatinine 1.11 H (0.52-1.04) mg/dL Glucose 150 H (74-99) mg/dL Calcium 9.5 (8.4-10.2) mg/dL Adrenal panel 09/22/21 Range/Units 00:55 Sodium 138 (137-145) mmol/L Potassium 4.7 (3.5-5.1) mmol/L Chloride 106 (98-107) mmol/L Carbon Dioxide 21 L (22-30) mmol/L BUN 23 H (7-17) mg/dL Creatinine 1.11 H (0.52-1.04) mg/dL Glucose 150 H (74-99) mg/dL Calcium 9.5 (8.4-10.2) mg/dL Total Bilirubin 0.8 (0.2-1.3) mg/dL AST 28 (14-36) U/L ALT 12 (4-34) U/L Alkaline Phosphatase 90 (38-126) U/L Total Protein 7.4 (6.3-8.2) g/dL Albumin 4.5 (3.5-5.0) g/dL - Imaging CT scan - abdomen: report reviewed, image reviewed CT scan - pelvis: report reviewed, image reviewed Assessment and Plan Assessment: Impression: rt sided abdominal pain with significant hydro, chronic, possibly due to a stone at the uvj. Abnormal bladder on ct scan. Ascites of indetermiante etiology Plan: cysto with right retrograde, possible stone manipulation, possible stent.
[2021-09-22] MEDS: SODIUM CHLORIDE 0.9% 1,000 ML IV SCH ×2 (09:00→16:13)
[2021-09-22] MEDS ORDERED: IV FLUID CONTINUATION 1,000 ML IV ONE (12:40)
[2021-09-22 12:55] LABS: Glucose,Whole Blood 111 mg/dL (75-99)
[2021-09-22] MEDS ORDERED: DEXAMETHASONE SOD PHOSPHATE 4 MG/ML 1 ML VIAL IVP ONE (12:55)
[2021-09-22] MEDS ORDERED: fentaNYL (PF) 50 MCG/ML 2 ML AMP ONE (13:40)
[2021-09-22] MEDS ORDERED: SUCCINYLCHOLINE CHLORIDE 100 MG/5 ML SYR IV ONE (13:40)
[2021-09-22] MEDS ORDERED: ePHEDrine 50 MG/ML 1 ML VIAL ONE (13:40)
[2021-09-22] MEDS ORDERED: PROPOFOL 10 MG/ML 20 ML VIAL IV ONE (13:40)
[2021-09-22] MEDS ORDERED: LIDOCAINE 2% INJ 20 MG/ML (2 ML VIAL) ONE (13:40)
[2021-09-22] MEDS ORDERED: IOPAMIDOL-370 50ML BTL MISCELLANE ONE (14:21)
[2021-09-22] MEDS ORDERED: PANTOPRAZOLE 40 MG TABLET PO PRN (14:26)
--- NOTE | 2021-09-22 14:46 | P.PN ---
Subjective Progress Note Date: 09/22/21 Hospital course: The patient is 76-year-old female with a past medical history of type II DM, hypothyroidism and hyperlipidemia. She presented to the emergency room overnight with complaints of sudden onset right flank pain. She underwent full evaluation and was found to have leukocytosis with WBC count of 10.7, BUN of 23, creatinine 1.11, and GFR 48. Urinalysis negative for blood or infection. KUB negative for acute process showing nonacute abdomen. CT abdomen and pelvis re vealing moderately severe hydronephrosis and hydroureter of right side with apparent obstructing distal ureteral calculus along with significant bladder deformity with diverticulum and irregular wall thickening, unable to rule out bladder tumor. Patient was admitted under our services of consultation to urology. Physical examination: Patient seen and fully evaluated at bedside this morning. Patient currently reports pain is being managed appropriately, states it remains but with medication administered and as long she does not move it is tolerable. Patient preparing to go down for cystoscopy General: non toxic, no distress, appears at stated age Derm: warm, dry Head: atraumatic, normocephalic, symmetric Eyes: EOMI, no lid lag, anicteric sclera Mouth: no lip lesion, mucus membranes moist Cardiovascular: S1S2 reg, no murmur, positive posterior tibial pulse bilateral, Lungs: CTA bilateral, no rhonchi, no rales , no accessory muscle use Abdominal: soft, tenderness upon palpation to right lower quadrant, left lower quadrant, and suprapubic region no guarding, no appreciable organomegaly Ext: no gross muscle atrophy, no edema, no contractures Neuro: CN II-XI grossly intact, no focal neuro deficits Psych: Alert, oriented, appropriate affect Assessment and plan of care: Obstructing distal ureteral calculus with severe hydronephrosis and hydroureter of right-side -IV fluids -Urology following, planning to take patient for cystoscopy with possible stone manipulation versus stent -Pain control -Antiemetics Bladder abnormality, CT revealing significant bladder deformity unable to rule out bladder tumor -Ascites may be malignant -Urology consulted for guidance regarding transurethral bladder biopsy versus IR guided diagnostic paracentesis Hypertension -Monitor vital signs and continue daily medication regimen with candesartan. Hypothyroidism -Continue daily medication regimen with the levothyroxine. Diabetes mellitus -Hold oral hypoglycemic medications and patient placed on glycemic protocol with NovoLog sliding scale. CODE STATUS: Full code DVT prophylaxis: Heparin Discussed with: Patient and RN Anticipated discharge date: Clinical course to determine Anticipated discharge place: Home A total of 39 minutes was spent on the care of this complex patient more than 50% of the time was spent in counseling and care coordination. I reviewed the documentation as provided by the SERA above, who is the original author of this note. I agree with the documented assessment and plan, with the following changes: none Objective - Vital Signs Vital signs: Vital Signs Temp 97.6 F 09/22/21 12:42 Pulse 60 09/22/21 12:42 Resp 18 09/22/21 12:50 BP 140/68 09/22/21 12:42 Pulse Ox 97 09/22/21 12:42 FiO2 Intake & Output 09/21/21 09/22/21 09/22/21 18:59 06:59 18:59 Intake Total 300 Balance 300 Weight 66.224 kg Intake: IV 300 - Labs CBC & Chem 7: 09/22/21 00:55 09/22/21 00:55 Labs: Abnormal Lab Results - Last 24 Hours (Table) 09/21/21 09/22/21 09/22/21 Range/Units 22:53 00:55 00:55 WBC 10.7 H (3.8-10.6) k/uL Neutrophils # 8.2 H (1.3-7.7) k/uL Carbon Dioxide 21 L (22-30) mmol/L BUN 23 H (7-17) mg/dL Creatinine 1.11 H (0.52-1.04) mg/dL Glucose 150 H (74-99) mg/dL POC Glucose (mg/dL) (75-99) mg/dL Urine Protein Trace H (Negative) Urine Ketones 1+ H (Negative) 09/22/21 09/22/21 Range/Units 07:32 12:53 WBC (3.8-10.6) k/uL Neutrophils # (1.3-7.7) k/uL Carbon Dioxide (22-30) mmol/L BUN (7-17) mg/dL Creatinine (0.52-1.04) mg/dL Glucose (74-99) mg/dL POC Glucose (mg/dL) 128 H 111 H (75-99) mg/dL Urine Protein (Negative) Urine Ketones (Negative)
--- NOTE | 2021-09-22 14:57 | P.OP ---
Date of Procedure: 09/22/21 Preoperative Diagnosis: Right-sided hydronephrosis due to presumed distal ureteral calculus. Postoperative Diagnosis: Right-sided hydronephrosis due to extrinsic compressing cystic pelvic mass Procedure(s) Performed: Cystoscopy, right ureteroscopy with retrograde pyelogram, placement of 6 x 26 stent Anesthesia: AHSAN Surgeon: Mati Reyes Estimated Blood Loss (ml): 0 Pathology: none sent Condition: stable Disposition: PACU Indications for Procedure: Patient is a 76-year-old female who came to the hospital sudden severe right lower quadrant and right sided pain. She had a computed tomography scan identifying a right-sided hydronephrosis a presumed distal ureteral calculus on the right new-onset ascites and what appeared to be an irregular bladder with a diverticulum. She come for cystoscopy retrograde pyelogram and stone extraction if possible. Description of Procedure: Patient brought to the operating suite. Given general anesthesia. Placed lithotomy position with sterile prep and drape. Cystoscopy was performed identifying a very distorted bladder due to an extrinsic mass. Eventually finding the right ureteral orifice. I attempted to intubated with an 8 cone-tip catheter and it is very difficult. I then passed the ureteroscope up the ureter and find that there is a significant extrinsic compression in the intramural tunnel such that I cannot advance the scope. I dilated the orifice enough such that a retrograde pyelogram can be performed and there is a marked lateral displacement of the ureter with significant compression due to a pelvic mass. I'm able to get an 035 wire up into the very tortuous ureter up into the kidney. Over the wire pass a double-J catheter 6 x 26 and coils in the proximal ureter that is dilated and the bladder. I again reinspected the bladder there is no urothelial abnormality other than extrinsic compression. I do a bimanual examination at the end of the procedure and there is indeed a ballotable cystic pelvic mass that is quite large. Impression pelvic mass causing distortion of right ureter and hydronephrosis treated with double-J catheter. The patient will get a gynecologic consultation to assess the pelvic mass and ascites.
[2021-09-22 15:19] LABS: Glucose,Whole Blood 123 mg/dL (75-99)
[2021-09-22] MEDS ORDERED: ONDANSETRON 4 MG/2 ML VIAL IVP ONE (15:29)
--- NOTE | 2021-09-22 15:54 | FL ---
EXAMINATION TYPE: FL guidance operating room DATE OF EXAM: 09/22/2021 HISTORY: Fluoroscopy time 1 minute and 10 seconds of fluoroscopy provided. IMPRESSION: 1. Fluoroscopy time.
[2021-09-22 17:30] LABS: Glucose,Whole Blood 140 mg/dL (75-99)
--- NOTE | 2021-09-22 18:54 | P.OBCN ---
History of Present Illness Consult date: 09/22/21 Requesting physician: Deyvi Morrison Reason for consult: pelvic pain, pelvic mass Chief complaint: Lower abdominal pain. History of present illness: This patient is a pleasant 76-year-old 3 para 3 female who was admitted to the emergency department yesterday with complaints of lower abdominal and back pain. Patient states that the pain came on sometime in the afternoon and became worse to the point where she felt she needed to come to the emergency department for evaluation. Patient subsequently had a CT which showed moderately severe hydronephrosis on the right side with an obstruction with a calculus. She also had a questionable large bladder diverticulum with irregular wall thickening. There was concern for bladder tumor. Patient was subsequently taken to the operating room by Dr. Reyes and had a cystoscopy with a right ureteral stent placement. At the time of cystoscopy no bladder mass was noted and there was no bladder diverticulum. On bimanual examination under anesthesia however he was able to feel a large cystic mass of the pelvis. Patient's past gynecologic history is significant for a hysterectomy and left salpingo- oophorectomy. Patient states this was done for uterine fibroids and recurrent infections. She did have her right ovary left behind. She's had 3 sections. Patient has not seen a grant coordinator in many years but has had no sign ificant problems. I did order a stat pelvic ultrasound which is not read at this time but visually looking at the images it appears she has a 9.7 x 16.7 cm midline cystic pelvic mass that does have some nodularity and solid components. I also ordered a CA-125 which is pending at this time. Patient's pain does appear to be tolerable at this moment. Review of Systems Constitutional: Reports as per HPI Gastrointestinal: Reports change in bowel habits Genitourinary: Reports as per HPI, Reports pelvic pain Menstruation: Reports amenorrhea Past Medical History Past Medical History: Diabetes Mellitus, Hyperlipidemia History of Any Multi-Drug Resistant Organisms: None Reported Past Surgical History: Adenoidectomy, Bladder Surgery, Section, Cholecystectomy, Hysterectomy, Tonsillectomy Additional Past Surgical History / Comment(s): x 3, 2 bladder suspension and 1 bowel lift; total abdominal hysterectomy and left salpingo- oophorectomy Smoking Status: Never smoker - Past Family History Father Family Medical History: Hypertension Medications and Allergies Home Medications Medication Instructions Recorded Confirmed Type Calcium Carbonate/Vitamin D3 1 tab PO DAILY 02/08/18 09/22/21 History [Caltrate 600 Plus D3 Tablet] Levothyroxine Sodium [Synthroid] 50 mcg PO DAILY 02/08/18 09/22/21 History Pioglitazone HCl 30 mg PO DAILY 02/08/18 09/22/21 History Candesartan Cilexetil 8 mg PO DAILY 01/16/20 09/22/21 History Fluticasone Nasal [place] [Flonase 1 spr EA NOSTRIL DAILY PRN 01/16/20 09/22/21 History Nasal [place]] Evolocumab [Repatha Sureclick] 140 mg SQ Q14D 07/16/20 09/22/21 History Albuterol Sulfate [Ventolin HFA] 1 - 2 puff INHALATION RT-Q6H PRN 09/22/21 09/22/21 History Glucosam/Chond/Hyalu/Cf Borate 1 tab PO DAILY 09/22/21 09/22/21 History [Move Free Joint Health Tablet] Multivit-Min/FA/Lycopen/Lutein 1 tab PO DAILY 09/22/21 09/22/21 History [Centrum Silver Tablet] Omeprazole Magnesium [PriLOSEC] 20 mg PO DAILY PRN 09/22/21 09/22/21 History Sertraline HCl [Zoloft] 50 mg PO DAILY 09/22/21 09/22/21 History Allergies Allergy/AdvReac Type Severity Reaction Status Date / Time amoxicillin [From Augmentin] Allergy Rash/Hives Verified 09/22/21 07:15 clavulanic acid Allergy Rash/Hives Verified 09/22/21 07:15 [From Augmentin] Sulfa (Sulfonamide Allergy Itching Verified 09/22/21 07:15 Antibiotics) Exam Vital Signs Temp Pulse Pulse Pulse Pulse Resp BP 09/22/21 17:29 69 09/22/21 16:58 65 09/22/21 16:43 70 09/22/21 16:28 97.4 F L 68 16 09/22/21 15:58 72 16 09/22/21 15:38 70 16 09/22/21 15:23 70 16 09/22/21 15:08 76 16 09/22/21 14:53 97.8 F 83 18 09/22/21 12:50 18 09/22/21 12:42 97.6 F 60 20 09/22/21 10:54 65 18 114/97 09/22/21 08:57 65 18 148/71 09/22/21 07:34 97.7 F 63 16 133/68 09/22/21 04:10 98.0 F 70 18 159/78 09/22/21 02:12 66 18 129/65 09/21/21 22:34 68 20 196/84 BP BP Pulse Ox 09/22/21 17:29 157/70 09/22/21 16:58 103/58 09/22/21 16:43 165/66 09/22/21 16:28 171/74 98 09/22/21 15:58 96 09/22/21 15:38 172/80 97 09/22/21 15:23 170/76 96 09/22/21 15:08 170/78 99 09/22/21 14:53 179/84 100 09/22/21 12:50 09/22/21 12:42 140/68 97 09/22/21 10:54 94 L 09/22/21 08:57 96 09/22/21 07:34 97 09/22/21 04:10 92 L 09/22/21 02:12 99 09/21/21 22:34 99 Intake and Output 09/22/21 09/22/21 09/22/21 06:59 14:59 22:59 Intake Total 600 390 Output Total 0 Balance 600 390 Intake: IV 600 350 Intake, IV Titration 40 Amount Sodium Chloride 0.9% 1, 40 000 ml @ 20 mls/hr IV . Q24H [facility] Rx#:[id number] Output: Estimated Blood Loss 0 Other: # Voids 1 Weight 66.224 kg - OBG Physical Exam Abdomen: Examination is limited to her abdomen. She localizes her tenderness to the mid pelvic area. There is no rebound or guarding Results Result Diagrams: 09/22/21 00:55 09/22/21 00:55 Abnormal Lab Results - Last 24 Hours (Table) 09/21/21 09/22/21 09/22/21 Range/Units 22:53 00:55 00:55 WBC 10.7 H (3.8-10.6) k/uL Neutrophils # 8.2 H (1.3-7.7) k/uL Carbon Dioxide 21 L (22-30) mmol/L BUN 23 H (7-17) mg/dL Creatinine 1.11 H (0.52-1.04) mg/dL Glucose 150 H (74-99) mg/dL POC Glucose (mg/dL) (75-99) mg/dL Urine Protein Trace H (Negative) Urine Ketones 1+ H (Negative) 09/22/21 09/22/21 09/22/21 Range/Units 07:32 12:53 15:16 WBC (3.8-10.6) k/uL Neutrophils # (1.3-7.7) k/uL Carbon Dioxide (22-30) mmol/L BUN (7-17) mg/dL Creatinine (0.52-1.04) mg/dL Glucose (74-99) mg/dL POC Glucose (mg/dL) 128 H 111 H 123 H (75-99) mg/dL Urine Protein (Negative) Urine Ketones (Negative) 09/22/21 Range/Units 17:29 WBC (3.8-10.6) k/uL Neutrophils # (1.3-7.7) k/uL Carbon Dioxide (22-30) mmol/L BUN (7-17) mg/dL Creatinine (0.52-1.04) mg/dL Glucose (74-99) mg/dL POC Glucose (mg/dL) 140 H (75-99) mg/dL Urine Protein (Negative) Urine Ketones (Negative) Assessment and Plan Assessment: This is a pleasant 76-year-old 3 para 3 female with fairly sudden onset of right sided back pain and lower pelvic pain. Preliminary gynecologic evaluation does suggest a large cystic pelvic mass with some excrescences and probable solid component. There is also questionable septation on the imaging. Does appear to be near the bladder but this is typical in a patient whose had a hysterectomy. CA-125 is pending and the official ultrasound reading is pending. I had a long discussion with the patient and her daughter in regards to my concerns. Certainly one has to worry about bleeding ovarian neoplasm. In speaking with Dr. Reyes, it appears this patient did have a CT at [facility] in the last 6 months and apparently this mass was not present. Plan is to await the final results of her blood tests and ultrasound. Most likely we'll recommend referral to a [facility]OOFER oncologist for further evaluation and treatment. This can be done as an outpatient if the patient stable and pain is controlled. Thank you very much for this consultation. I will continue to follow with you. (1) Pelvic pain Current Visit: Yes Status: Acute Code(s): R10.2 - PELVIC AND PERINEAL PAIN SNOMED Code(s): 31417642 (2) Pelvic mass Current Visit: Yes Status: Acute Code(s): R19.00 - INTRA-ABD AND PELVIC SWELLING, MASS AND LUMP, UNSP SITE SNOMED Code(s): 42304127 (3) Ascites Current Visit: Yes Status: Acute Code(s): R18.8 - OTHER ASCITES SNOMED Code(s): 619481669
[2021-09-22 19:49] VITALS: RESP 18
[2021-09-22 20:23] LABS: Glucose,Whole Blood 228 mg/dL (75-99)
--- NOTE | 2021-09-22 22:20 | US ---
EXAMINATION TYPE: US pelvis complete transvag DATE OF EXAM: 09/22/2021 COMPARISON: CT 2021 CLINICAL HISTORY: Pelvic mass seen on recent CT TECHNIQUE: Transabdominal sonographic images of the pelvis were acquired. Transvaginal sonographic i mages were medically necessary to better assess the following anatomy: right ovary Date of LMP: History of hysterectomy EXAM MEASUREMENTS: Right Ovary: not seen 1. Uterus: surgically absent 2. Endometrium: surgically absent 3. Right Ovary: not seen 4. Left Ovary: surgically absent 5. Bilateral Adnexa: 16.7 x 9.7 x 12.5cm complex vascular mass seen midline pelvis and right adnexa 6. Posterior cul-de-sac: no free fluid IMPRESSION: The complex cystic/solid mass may be ovarian in etiology. Soft tissue characterization is limited and , therefore, consideration of MRI is suggested.
[2021-09-23 05:56] VITALS: TEMP 97.8
[2021-09-23] MEDS ORDERED: LEVOTHYROXINE 50 MCG TAB PO SCH (06:30)
[2021-09-23 06:49] LABS: Glucose,Whole Blood 120 mg/dL (75-99)
--- NOTE | 2021-09-23 06:56 | P.PN ---
Progress Note - Text Progress Note Date: 09/23/21 Patient is seen this morning and states that she has rested overnight and has no significant pain. Ultrasound report confirms a 16.7 x 9.7 x 12.5 cm complex mass in the midline the pelvis and right adnexa. CA-125 is elevated at 189. Unfortunately these findings in conjunction with the ascites is consistent with possible ovarian neoplasm. I discussed this with the patient and have recommended she see (gynecologic oncologist) at [facility] for evaluation and treatment. I will begin this referral process this morning. From my standpoint patient is clear for discharge to follow up with him as an outpatient. Thank you very much for this consultation.
[2021-09-23] MEDS: INSULIN ASPART (NovoLOG) 100 UNIT/ML VIAL SQ SCH (07:03)
[2021-09-23 07:25] VITALS: BP 161/69; PULSE 62
[2021-09-23] MEDS: HEPARIN SODIUM,PORCINE/PF 5,000 UNIT/0.5 ML SYRINGE SQ SCH (07:25)
--- NOTE | 2021-09-23 07:30 | P.PN ---
Subjective Progress Note Date: 09/23/21 The patient underwent cystoscopy and placement of stent in the right ureter. The patient has a pelvic mass that appears to be consistent with an ovarian neoplasm on the right. Dr. Morrison has seen the patient and his arranging for referral to a ASSESSMENT EXPERT oncologist in the [facility]. We appreciate this. I will see the patient follow-up for the stent placement this has been discussed with the patient. Objective - Vital Signs Vital signs: Vital Signs Temp 97.8 F 09/23/21 04:40 Pulse 62 09/23/21 07:24 Resp 18 09/23/21 04:40 BP 161/69 09/23/21 07:24 Pulse Ox 97 09/23/21 07:24 FiO2 Intake & Output 09/22/21 09/23/21 09/23/21 18:59 06:59 18:59 Intake Total 990 240 Output Total 0 Balance 990 240 Weight 66.224 kg Intake: IV 950 Intake, IV Titration 40 Amount Sodium Chloride 0.9% 1, 40 000 ml @ 20 mls/hr IV . Q24H [facility] Rx#:[id number] Oral 240 Output: Estimated Blood Loss 0 Other: Voiding Method Toilet # Voids 1 2 - Labs CBC & Chem 7: 09/22/21 00:55 09/22/21 00:55 Labs: Abnormal Lab Results - Last 24 Hours (Table) 09/22/21 09/22/21 09/22/21 Range/Units 00:55 07:32 12:53 POC Glucose (mg/dL) 128 H 111 H (75-99) mg/dL CA 125 Antigen 189.0 H (0.0-30.1) U/mL 09/22/21 09/22/21 09/22/21 Range/Units 15:16 17:29 20:21 POC Glucose (mg/dL) 123 H 140 H 228 H (75-99) mg/dL CA 125 Antigen (0.0-30.1) U/mL 09/23/21 Range/Units 06:47 POC Glucose (mg/dL) 120 H (75-99) mg/dL CA 125 Antigen (0.0-30.1) U/mL
[2021-09-23] MEDS ORDERED: SERTRALINE 50 MG TAB PO SCH (09:00)
[2021-09-23] MEDS ORDERED: LOSARTAN 50 MG TAB PO SCH (09:00)
[2021-09-23] MEDS ORDERED: MULTIVITAMINS, THERA 1 EACH TAB PO SCH (09:00)
[2021-09-23] MEDS ORDERED: CALCIUM CARB-VIT D 500 MG-5 MCG TAB PO SCH (09:00)
[2021-09-23 10:33] LABS: HCT 37.5 % (37.2-46.3); HGB 11.4 g/dL (12.0-15.0); MCHC 30.4 g/dL (32.0-37.0); MCV 88.9 fL (80.0-97.0); Mean Platelet Volume 10.3 fL (9.5-12.2); NRBC Per 100 WBC 0 /100 WBCS (0.0-0.0); Platelet Count 240 X 10*3/uL (140-440); RBC 4.22 X 10*6/uL (4.10-5.20); RDW 14.8 % (11.5-14.5); WBC 8.27 X 10*3/uL (4.50-10.00)
[2021-09-23 10:56] LABS: African American GFR (CKD) 38.3 (60.0-200.0); Albumin 4.2 g/dL (3.8-4.9); Albumin/Globulin Ratio 1.75 (1.60-3.17); Anion Gap 11.2 mmol/L (10.00-18.00); Calcium 9.1 mg/dL (8.7-10.3); Carbon Dioxide 22.8 mmol/L (20.0-27.5); Globulin 2.4 g/dL (1.6-3.3); Magnesium 1.9 mg/dL (1.5-2.4); Potassium 4.9 mmol/L (3.5-5.5); Total Bilirubin 0.4 mg/dL (0.30-1.20); Total Protein 6.6 g/dL (6.2-8.2)
[2021-09-23 11:10] LABS: Glucose,Whole Blood 154 mg/dL (75-99)
--- NOTE | 2021-09-23 11:43 | P.DS ---
Providers Date of admission: 09/22/21 03:08 Expected date of discharge: 09/23/21 Attending physician: Jorge Riley MD Consults: 09/22/21 03:08 Consult Physician Routine Consulting Provider: Mati Reyes Consult Reason/Comments: Kidney stone. Bladder wall irregularity Do you want consulting provider notified?: Yes 09/22/21 15:04 Consult Physician Urgent Consulting Provider: Deyvi Morrison Consult Reason/Comments: Lg pelvic mass w/ ascites causing distortion of R ureter & hydronephrosis Do you want consulting provider notified?: Yes Primary care physician: [facility] Course: Discharge Diagnosis: Obstructing distal ureteral calculus with severe hydronephrosis and hydroureter of right-side, status post cystoscopy with right ureteroscopy with retrograde pyelogram resulting in placement of 6 x 26 stent. Patient to follow up outpatient with Dr. Reyes in 3 weeks. Complex pelvic mass measuring 16.7 x 9.7 x 12.5 cm accompanied by surrounding ascites and elevated CA-125 marker of 189. Findings consistent with possible ovarian neoplasm. Patient recommended to follow up with gynecologic oncologist, Dr. Howard Figueroa at [facility]. Hypertension/. Monitor vital signs and continue daily medication regimen with candesartan. Hypothyroidism. Continue daily medication regimen with the levothyroxine. Diabetes mellitus. Continue daily medication regimen with pioglitazone. Hospital Course: The patient is 76-year-old female with a past medical history of type II DM, hypothyroidism and hyperlipidemia. She presented to the emergency room overnight with complaints of sudden onset right flank pain. She underwent full evaluation and was found to have leukocytosis with WBC count of 10.7, BUN of 23, creatinine 1.11, and GFR 48. Urinalysis negative for blood or infection. KUB negative for acute process showing nonacute abdomen. CT abdomen and pelvis revealing moderately severe hydronephrosis and hydroureter of right side with apparent obstructing distal ureteral calculus along with significant bladder de formity with diverticulum and irregular wall thickening, unable to rule out bladder tumor. Patient was admitted under our services of consultation to urology. Patient underwent cystoscopy with right ureteroscopy with retrograde pyelogram resulting in placement of 6 x 26 stent. During examination, Dr. Reyes performed a bimanual examination and noted a large cystic pelvic mass with surrounding ascites causing distortion of right ureter and hydronephrosis. RADIOLOGIST DIAGNOSTIC consult was placed. Patient was seen and fully evaluated by Dr. Morrison, chain machine operator. A pelvic/transvaginal ultrasound was then completed confirming a 16.7 x 9.7 x 12.5 cm complex mass in the midline pelvis and right adnexa. CTA/125 marker was elevated at 189. These findings in conjunction with the ascites is consistent with possible ovarian neoplasm, gynecology recommending patient follow-up with gynecologic oncologist at [facility] for evaluation and treatment. Dr. Morrison initiating referral process at this time. Patient is medically stable. She is being discharged at this time and to follow up with PCP in 1-2 days, Dr. Reyes (urologist) in [address] Howard Figueroa at [facility] as soon as possible. Again, referral was started and patient given contact information to call for appointment today. Physical examination: General: non toxic, no distress, appears at stated age Derm: warm, dry Head: atraumatic, normocephalic, symmetric Eyes: EOMI, no lid lag, anicteric sclera Mouth: no lip lesion, mucus membranes moist Cardiovascular: S1S2 reg, no murmur, positive posterior tibial pulse bilateral, Lungs: CTA bilateral, no rhonchi, no rales , no accessory muscle use Abdominal: soft, patient reports that she can feel slightly uncomfortable when we palpate suprapubic region but reports currently pain is much much improved, no appreciable organomegaly Ext: no gross muscle atrophy, no edema, no contractures Neuro: CN II-XI grossly intact, no focal neuro deficits Psych: Alert, oriented, appropriate affect A total of 35 minutes of time were spent preparing this complex discharge summary. Pt was discharged on 09/23/21 at 11:36 AM. I reviewed the documentation as provided by the SERA above, who is the original author of this note. I agree with the documented assessment and plan, with the following changes: none Patient Condition at Discharge: Stable Plan - Discharge Summary Discharge Rx Participant: No New Discharge Prescriptions: New HYDROcodone/APAP 7.5-325MG [[place] 7.5-325] 1 tab PO Q4H PRN 3 Days #18 tab PRN Reason: Pain Continue Levothyroxine Sodium [Synthroid] 50 mcg PO DAILY Calcium Carbonate/Vitamin D3 [Caltrate 600 Plus D3 20 Mcg (800 Iu)] 1 tab PO DAILY Pioglitazone HCl 30 mg PO DAILY Candesartan Cilexetil 8 mg PO DAILY Fluticasone Nasal [place] [Flonase Nasal [place]] 1 spr EA NOSTRIL DAILY PRN PRN Reason: Allergy Symptoms Evolocumab [Repatha Sureclick] 140 mg SQ Q14D Albuterol Sulfate [Ventolin HFA] 1 - 2 puff INHALATION RT-Q6H PRN PRN Reason: Shortness Of Breath Sertraline HCl [Zoloft] 50 mg PO DAILY Multivit-Min/FA/Lycopen/Lutein [Centrum Silver Tablet] 1 tab PO DAILY Omeprazole Magnesium [PriLOSEC] 20 mg PO DAILY PRN PRN Reason: GERD Glucosam/Chond/Hyalu/Cf Borate [Move Free Joint Health Tablet] 1 tab PO DAILY Discharge Medication List Calcium Carbonate/Vitamin D3 [Caltrate 600 Plus D3 20 Mcg (800 Iu)] 1 tab PO DAILY 02/08/18 [History] Levothyroxine Sodium [Synthroid] 50 mcg PO DAILY 02/08/18 [History] Pioglitazone HCl 30 mg PO DAILY 02/08/18 [History] Candesartan Cilexetil 8 mg PO DAILY 01/16/20 [History] Fluticasone Nasal [place] [Flonase Nasal [place]] 1 spr EA NOSTRIL DAILY PRN 01/16/20 [History] Evolocumab [Repatha Sureclick] 140 mg SQ Q14D 07/16/20 [History] Albuterol Sulfate [Ventolin HFA] 1 - 2 puff INHALATION RT-Q6H PRN 09/22/21 [History] Glucosam/Chond/Hyalu/Cf Borate [Move Free Joint Health Tablet] 1 tab PO DAILY 09/22/21 [History] Multivit-Min/FA/Lycopen/Lutein [Centrum Silver Tablet] 1 tab PO DAILY 09/22/21 [History] Omeprazole Magnesium [PriLOSEC] 20 mg PO DAILY PRN 09/22/21 [History] Sertraline HCl [Zoloft] 50 mg PO DAILY 09/22/21 [History] HYDROcodone/APAP 7.5-325MG [[place] 7.5-325] 1 tab PO Q4H PRN 3 Days #18 tab 09/23/21 [Rx] Follow up Appointment(s)/Referral(s): Reuben Almeida MD [Primary Care Provider] - 1-2 days Mati Reyes MD [STAFF PHYSICIAN] - 3 Weeks Patient Instructions/Handouts: Acute Abdominal Pain (DC) Activity/Diet/Wound Care/Special Instructions: Activity: As tolerated. Take breaks as needed. Diet: Heart healthy and carb consistent diet. Avoid salts, or foods with hidden salts such as canned or boxed foods and frozen dinners. Extra salt makes your heart work harder and traps the fluid in your body for longer. Special Instructions: Take all of your medications as directed and remember to keep all of your doctor's appointments and follow-up as needed. Remember, as we discussed stay determined and call for follow-up with gynecologic oncologist, Dr. Howard Figueroa at [facility] [address] [place] [phone] [facility] [phone] Thank you for allowing us to participate in your care, it was truly a pleasure having you for our patient!!! I wish you nothing but the best, good luck with everything!!! Discharge Disposition: HOME SELF-CARE
== END 2021-09-23 12:17 | disposition home or self-care (01) | DRG 660 ==
LOC: EC 21:04 → 5NMEDONC 09-22 03:08
PROVIDERS: ADMIT Internal Medicine; ATTEND Internal Medicine
PROC: 0T768DZ Dilation of Right Ureter with Intraluminal Device, Via Natural or Artificial Opening Endoscopic (ICD-10-PCS; principal; 2021-09-22 08:40)
PROC: BT1D1ZZ Fluoroscopy of Right Kidney, Ureter and Bladder using Low Osmolar Contrast (ICD-10-PCS; 2021-09-22 08:40)
DX: N13.2 Hydronephrosis with renal and ureteral calculous obstruction (principal); R18.8 Other ascites; D72.829 Elevated white blood cell count, unspecified; E03.9 Hypothyroidism, unspecified; E11.9 Type 2 diabetes mellitus without complications; E78.5 Hyperlipidemia, unspecified; N32.3 Diverticulum of bladder; I10 Essential (primary) hypertension; Z79.84 Long term (current) use of oral hypoglycemic drugs; Z79.890 Hormone replacement therapy; Z88.1 Allergy status to other antibiotic agents; Z88.2 Allergy status to sulfonamides; Z88.8 Allergy status to other drugs, medicaments and biological substances; Z79.899 Other long term (current) drug therapy; Z82.49 Family history of ischemic heart disease and other diseases of the circulatory system; Z90.710 Acquired absence of both cervix and uterus; Z90.49 Acquired absence of other specified parts of digestive tract; D49.59 Neoplasm of unspecified behavior of other genitourinary organ
CPT/HCPCS: 36415; 74018; 74176; 76830; 76856; 80053; 81003; 83735; 85025; 85027; 86304; 96374; 96375; 96376; 99285

== ENCOUNTER 2021-10-23 08:18 | Emergency (ER) | payer MEDICARE ==
[2021-10-23 08:26] VITALS: TEMP 98.9
[2021-10-23] MEDS ORDERED: MORPHINE SULFATE 2 MG/ML SYRINGE IVP STA (08:40)
[2021-10-23] MEDS ORDERED: SODIUM CHLORIDE 0.9% 1,000 ML IV STA (08:40)
[2021-10-23] MEDS ORDERED: ONDANSETRON 4 MG/2 ML VIAL IVP STA (08:40)
[2021-10-23] MEDS ORDERED: FAMOTIDINE 20 MG/2 ML VIAL IV STA (08:41)
--- NOTE | 2021-10-23 08:43 | ED ---
General Adult HPI - General Chief complaint: Abdominal Pain Stated complaint: nausea/vomiting Time Seen by Provider: 10/23/21 08:22 Source: patient, EMS, RN notes reviewed Mode of arrival: EMS Limitations: no limitations - History of Present Illness Initial comments: Patient is a pleasant 76-year-old female presenting to the emergency Department with abdominal discomfort. Onset of symptoms was last night. Patient does have some associated nausea and has vomited a couple of times this morning. Nausea remains. No constipation. Patient did have some diarrhea yesterday. Patient does have history of some abdominal discomfort chronically from recent diagnosis of ovarian cancer with metastasis. Patient did have surgery however it has spread father than anticipated and no significant surgical procedure was done. Patient is seen, Dr. Slaughter. Patient does have plans of upcoming chemotherapy. Discomfort today is worse from normal. No fever. - Related Data Home Medications Medication Instructions Recorded Confirmed Calcium Carbonate/Vitamin D3 1 tab PO DAILY 02/08/18 09/22/21 [Caltrate 600 Plus D3 20 Mcg (800 Iu)] Levothyroxine Sodium [Synthroid] 50 mcg PO DAILY 02/08/18 09/22/21 Pioglitazone HCl 30 mg PO DAILY 02/08/18 09/22/21 Candesartan Cilexetil 8 mg PO DAILY 01/16/20 09/22/21 Fluticasone Nasal [place] [Flonase 1 spr EA NOSTRIL DAILY PRN 01/16/20 09/22/21 Nasal [place]] Evolocumab [Repatha Sureclick] 140 mg SQ Q14D 07/16/20 09/22/21 Albuterol Sulfate [Ventolin HFA] 1 - 2 puff INHALATION RT-Q6H PRN 09/22/21 09/22/21 Glucosam/Chond/Hyalu/Cf Borate 1 tab PO DAILY 09/22/21 09/22/21 [Move Free Joint Health Tablet] Multivit-Min/FA/Lycopen/Lutein 1 tab PO DAILY 09/22/21 09/22/21 [Centrum Silver Tablet] Omeprazole Magnesium [PriLOSEC] 20 mg PO DAILY PRN 09/22/21 09/22/21 Sertraline HCl [Zoloft] 50 mg PO DAILY 09/22/21 09/22/21 Previous Rx's Medication Instructions Recorded HYDROcodone/APAP 7.5-325MG [[place] 1 tab PO Q4H PRN 3 Days #18 tab 09/23/21 7.5-325] Allergies Allergy/AdvReac Type Severity Reaction Status Date / Time amoxicillin [From Augmentin] Allergy Rash/Hives Verified 10/23/21 08:27 clavulanic acid Allergy Rash/Hives Verified 10/23/21 08:27 [From Augmentin] Sulfa (Sulfonamide Allergy Itching Verified 10/23/21 08:27 Antibiotics) Review of Systems ROS Statement: Those systems with pertinent positive or pertinent negative responses have been documented in the HPI. ROS Other: All systems not noted in ROS Statement are negative. Constitutional: Denies: fever Eyes: Denies: eye pain ENT: Denies: ear pain Respiratory: Denies: cough Cardiovascular: Denies: chest pain Endocrine: Denies: fatigue Gastrointestinal: Reports: as per HPI, abdominal pain, nausea, vomiting Genitourinary: Denies: dysuria Musculoskeletal: Denies: back pain Skin: Denies: rash Neurological: Denies: weakness Past Medical History Past Medical History: Asthma, Cancer, Diabetes Mellitus, Hyperlipidemia Additional Past Medical History / Comment(s): Ovarian cancer History of Any Multi-Drug Resistant Organisms: None Reported Past Surgical History: Adenoidectomy, Bladder Surgery, Section, Cholecystectomy, Hysterectomy, Tonsillectomy Additional Past Surgical History / Comment(s): x 3, 2 bladder suspension and 1 bowel lift; total abdominal hysterectomy and left salpingo- oophorectomy Past Anesthesia/Blood Transfusion Reactions: Previous Problems w/ Anesthesia Additional Past Anesthesia/Blood Transfusion Reaction / Comment(s): years ago had a problem with anesthesia in [place], but has had anesthesia several times since then and has had no problem Past Psychological History: No Psychological Hx Reported Smoking Status: Never smoker Past Alcohol Use History: None Reported Past Drug Use History: None Reported - Past Family History Father Family Medical History: Hypertension General Exam Limitations: no limitations General appearance: alert, in no apparent distress Head exam: Present: normocephalic Eye exam: Present: normal appearance Neck exam: Present: normal inspection Respiratory exam: Present: normal lung sounds bilaterally Cardiovascular Exam: Present: regular rate, normal rhythm Expanded Peripheral pulses: 2+: Posterior Tibialis (R), Posterior Tibialis (L), Dorsalis Pedis (R), Dorsalis Pedis (L) GI/Abdominal exam: Present: soft, tenderness (Moderate diffuse tenderness), normal bowel sounds. Absent: guarding, rebound, rigid, pulsatile mass Extremities exam: Present: normal inspection Neurological exam: Present: alert Psychiatric exam: Present: normal affect, normal mood Skin exam: Present: normal color Course Vital Signs 10/23/21 10/23/21 08:20 10:37 Temperature 98.9 F Pulse Rate 78 67 Respiratory 16 15 Rate Blood Pressure 166/80 121/62 O2 Sat by Pulse 98 95 Oximetry Medical Decision Making - Medical Decision Making Patient reevaluated and resting comfortably in bed. Patient is feeling much better. Abdomen soft and nontender. Case was discussed with Dr. Gtz including computed tomography scan who is comfortable with patient discharge and follow- up. - Lab Data Result diagrams: 10/23/21 09:02 10/23/21 09:02 Lab Results 10/23/21 10/23/21 10/23/21 Range/Units 09:02 09:02 09:02 WBC 9.4 (3.8-10.6) k/uL RBC 4.66 (3.80-5.40) m/uL Hgb 13.4 (11.4-16.0) gm/dL Hct 40.8 (34.0-46.0) % MCV 87.5 (80.0-100.0) fL MCH 28.7 (25.0-35.0) pg MCHC 32.9 (31.0-37.0) g/dL RDW 14.1 (11.5-15.5) % Plt Count 252 (150-450) k/uL MPV 8.0 Neutrophils % 70 % Lymphocytes % 24 % Monocytes % 5 % Eosinophils % 0 % Basophils % 0 % Neutrophils # 6.6 (1.3-7.7) k/uL Lymphocytes # 2.2 (1.0-4.8) k/uL Monocytes # 0.5 (0-1.0) k/uL Eosinophils # 0.0 (0-0.7) k/uL Basophils # 0.0 (0-0.2) k/uL PT 10.4 (9.0-12.0) sec INR 0.9 (<1.2) APTT 22.2 (22.0-30.0) sec Sodium (137-145) mmol/L Potassium (3.5-5.1) mmol/L Chloride (98-107) mmol/L Carbon Dioxide (22-30) mmol/L Anion Gap mmol/L BUN (7-17) mg/dL Creatinine (0.52-1.04) mg/dL Est GFR (CKD-EPI)AfAm (>60 ml/min/1.73 sqM) Est GFR (CKD-EPI)NonAf (>60 ml/min/1.73 sqM) Glucose (74-99) mg/dL Calcium (8.4-10.2) mg/dL Total Bilirubin (0.2-1.3) mg/dL AST (14-36) U/L ALT (4-34) U/L Alkaline Phosphatase (38-126) U/L Total Protein (6.3-8.2) g/dL Albumin (3.5-5.0) g/dL Amylase (30-110) U/L Lipase (23-300) U/L Urine Color Yellow Urine Appearance Cloudy H (Clear) Urine pH 5.5 (5.0-8.0) Ur Specific [place] 1.023 (1.001-1.035) Urine Protein 1+ H (Negative) Urine Glucose (UA) Negative (Negative) Urine Ketones 1+ H (Negative) Urine Blood Negative (Negative) Urine Nitrite Positive H (Negative) Urine Bilirubin Negative (Negative) Urine Urobilinogen <2.0 (<2.0) mg/dL Ur Leukocyte Esterase Large H (Negative) Urine RBC 9 H (0-5) /hpf Urine WBC 50 H (0-5) /hpf Ur Squamous Epith Cells 6 H (0-4) /hpf Urine Bacteria Moderate H (None) /hpf Urine Mucus Occasional H (None) /hpf 10/23/21 Range/Units 09:02 WBC (3.8-10.6) k/uL RBC (3.80-5.40) m/uL Hgb (11.4-16.0) gm/dL Hct (34.0-46.0) % MCV (80.0-100.0) fL MCH (25.0-35.0) pg MCHC (31.0-37.0) g/dL RDW (11.5-15.5) % Plt Count (150-450) k/uL MPV Neutrophils % % Lymphocytes % % Monocytes % % Eosinophils % % Basophils % % Neutrophils # (1.3-7.7) k/uL Lymphocytes # (1.0-4.8) k/uL Monocytes # (0-1.0) k/uL Eosinophils # (0-0.7) k/uL Basophils # (0-0.2) k/uL PT (9.0-12.0) sec INR (<1.2) APTT (22.0-30.0) sec Sodium 138 (137-145) mmol/L Potassium 4.4 (3.5-5.1) mmol/L Chloride 108 H (98-107) mmol/L Carbon Dioxide 18 L (22-30) mmol/L Anion Gap 12 mmol/L BUN 18 H (7-17) mg/dL Creatinine 1.06 H (0.52-1.04) mg/dL Est GFR (CKD-EPI)AfAm 58 (>60 ml/min/1.73 sqM) Est GFR (CKD-EPI)NonAf 51 (>60 ml/min/1.73 sqM) Glucose 157 H (74-99) mg/dL Calcium 8.9 (8.4-10.2) mg/dL Total Bilirubin 0.8 (0.2-1.3) mg/dL AST 22 (14-36) U/L ALT 10 (4-34) U/L Alkaline Phosphatase 87 (38-126) U/L Total Protein 6.7 (6.3-8.2) g/dL Albumin 4.1 (3.5-5.0) g/dL Amylase 47 (30-110) U/L Lipase 71 (23-300) U/L Urine Color Urine Appearance (Clear) Urine pH (5.0-8.0) Ur Specific [place] (1.001-1.035) Urine Protein (Negative) Urine Glucose (UA) (Negative) Urine Ketones (Negative) Urine Blood (Negative) Urine Nitrite (Negative) Urine Bilirubin (Negative) Urine Urobilinogen (<2.0) mg/dL Ur Leukocyte Esterase (Negative) Urine RBC (0-5) /hpf Urine WBC (0-5) /hpf Ur Squamous Epith Cells (0-4) /hpf Urine Bacteria (None) /hpf Urine Mucus (None) /hpf - Radiology Data Radiology results: report reviewed (Computed tomography scan of abdomen and pelvis shows improved right hydronephrosis with ureter stent. Questionable partial small bowel obstruction, improved from prior. No complete obstruction. No suspicious findings. Large pelvic mass redemonstrated.) Disposition Clinical Impression: Abdominal pain, Pelvic mass, Vomiting Disposition: HOME SELF-CARE Condition: Stable Instructions (If sedation given, give patient instructions): Abdominal Pain (ED) Additional Instructions: Please do follow-up with your primary care physician, oncologist, and surgeon beginning of the week. Return for increased pain, vomiting, fever, worsening or changing symptoms or any other concerns. Is patient prescribed a controlled substance at d/c from ED?: No Referrals: Reuben Almeida MD [Primary Care Provider] - 1-2 days Time of Disposition: 12:04
[2021-10-23 09:13] LABS: Basophils % (A) 0 %; Eosinophils % (A) 0 %; HCT 40.8 % (34.0-46.0); HGB 13.4 gm/dL (11.4-16.0); Lymphocytes # (A) 2.2 k/uL (1.0-4.8); Lymphocytes % (A) 24 %; MCH 28.7 pg (25.0-35.0); MCHC 32.9 g/dL (31.0-37.0); MCV 87.5 fL (80.0-100.0); Monocytes # (A) 0.5 k/uL (0-1.0); Monocytes % (A) 5 %; Neutrophils # (A) 6.6 k/uL (1.3-7.7); Neutrophils % (A) 70 %; Platelet Count 252 k/uL (150-450); RBC 4.66 m/uL (3.80-5.40); RDW 14.1 % (11.5-15.5); WBC 9.4 k/uL (3.8-10.6)
[2021-10-23 09:19] LABS: Appearance,Urine Cloudy (Clear); Bacteria,Urine Moderate /hpf; Bilirubin,Urine Negative (Negative); Blood,Urine Negative (Negative); Color,Urine Yellow; Glucose,Urine (UA) Negative (Negative); Ketones,Urine 1+ (Negative); Leukocyte Esterase,Urine Large (Negative); Mucus,Urine Occasional /hpf; Nitrite,Urine Positive (Negative); PH, Urine 5.5 (5.0-8.0); Protein,Urine 1+ (Negative); RBC,Urine 9 /hpf (0-5); Specific Gravity,Urine 1.023 (1.001-1.035); Squamous Epithelial Cell,Urine 6 /hpf (0-4); Urobilinogen,Urine <2.0 mg/dL (<2.0); WBC,Urine 50 /hpf (0-5)
[2021-10-23 09:25] LABS: INR 0.9 (<1.2); Partial Thromboplastin Time 22.2 sec (22.0-30.0); Prothrombin Time 10.4 sec (9.0-12.0)
[2021-10-23 09:27] LABS: Albumin 4.1 g/dL (3.5-5.0); Calcium 8.9 mg/dL (8.4-10.2); Potassium 4.4 mmol/L (3.5-5.1); Total Bilirubin 0.8 mg/dL (0.2-1.3); Total Protein 6.7 g/dL (6.3-8.2)
--- NOTE | 2021-10-23 10:46 | CT ---
EXAMINATION TYPE: CT abdomen pelvis w con DATE OF EXAM: 10/23/2021 HISTORY: Nausea, vomiting, diarrhea, RLQ pain moves to Lt. Possible ovarian CA, no official diagnosis CT DLP: 941.5mGycm Automated Exposure Control for Dose Reduction was Utilized. CONTRAST: CT scan of the abdomen and pelvis is performed without oral but with IV Contrast, patient injected wi th 80 mL of Isovue 370. COMPARISON: CT abdomen and pelvis September 22, 2021 FINDINGS: LUNG BASES: Stable small to tiny right pleural effusion. LIVER/GB: Cholecystectomy clips are redemonstrated. PANCREAS: Truncated appearance to distal pancreas redemonstrated. SPLEEN: Posterior curvilinear calcification in the spleen redemonstrated. ADRENALS: No significant abnormality is seen. KIDNEYS: Symmetric, especially uptake and excretion with benign thin-walled cyst centrally in the lef t kidney and small simple appearing thin-walled cyst anteriorly in the right kidney. Some cortical th inning bilaterally. There is distal right ureter stent now identified with improved right-sided hydro nephrosis. BOWEL: A few slightly more prominent fluid-filled small bowel loops in the left abdomen with air-flui d levels. No greater than 3.0 cm dilatation. Findings less prominent versus prior. Stomach poorly dis tended and thus suboptimally evaluated. No large bowel dilatation. UTERUS/ADNEXA: Persistent heterogeneous well-defined oval-shaped right pelvic mass with local mass ef fect measuring 15.8 x 8.9 cm axial image 74 x 14.9 cm cranial caudal dimension sagittal image 74. LYMPH NODES: Low dense masses upper to mid abdomen above right renal artery could reflect low dense a denopathy aortocaval space for reference 2.1 x 2.0 cm lesion axial image 31. OSSEOUS STRUCTURES: Some sclerosis and right vallecular prominence in region of left superior acetabu lum redemonstrated. OTHER: Mild calcified plaque of the aorta extends into branch vessels. Small amount of upper abdomina l nonsimple ascites similar to prior. IMPRESSION: Improved right-sided hydronephrosis after ureter stent placement. No delayed excretion cu rrently. Possible partial small bowel obstruction improved from prior. No complete obstruction. No leon spicious new acute findings. Large right pelvic mass suspicious for ovarian carcinoma redemonstrated with local mass effect.
[2021-10-23] MEDS ORDERED: ONDANSETRON 4 MG ODT STARTER PACK 2 TAB BTL PO STA (12:04)
[2021-10-23 12:25] VITALS: BP 116/62; PULSE 65; RESP 16
== END 2021-10-23 12:45 | disposition home or self-care (01) ==
LOC: EC 08:18
DX: N13.30 Unspecified hydronephrosis (principal); R19.00 Intra-abdominal and pelvic swelling, mass and lump, unspecified site; E11.9 Type 2 diabetes mellitus without complications; J45.909 Unspecified asthma, uncomplicated; Z88.2 Allergy status to sulfonamides; Z88.1 Allergy status to other antibiotic agents; Z88.0 Allergy status to penicillin; Z79.84 Long term (current) use of oral hypoglycemic drugs
CPT/HCPCS: 36415; 80053; 82150; 83690; 85025; 85610; 85730; 81001; 87086; 74177; 99284; 96374; 96375; 96361; J2405; J2270; S0119; Q9967

== ENCOUNTER 2021-11-18 06:47 | Emergency (ER) | payer MEDICARE ==
[2021-11-18 06:51] VITALS: RESP 18; TEMP 97.8
[2021-11-18] MEDS ORDERED: SODIUM CHLORIDE 0.9% 1,000 ML IV STA (07:31)
--- NOTE | 2021-11-18 07:35 | ED ---
General Adult HPI - General Chief complaint: Syncope Stated complaint: Syncope Time Seen by Provider: 11/18/21 07:10 Source: patient, EMS, RN notes reviewed, old records reviewed Mode of arrival: EMS Limitations: no limitations - History of Present Illness Initial comments: This is a 76-year-old female with a past medical history significant for stage I V ovarian cancer. Patient was supposed to get up early this morning and have a port placed. Patient states she went and took a very hot bath and when she went to get up she was unable to get out of the bathtub and she had a couple episodes of near syncope. Patient did vomit one time as well. Patient states currently she feels much better she is not is lightheaded. Patient denied any chest pain shortness of breath or difficulty breathing. Patient denied any palpitations. Patient states prior to this episode she had been eating and drinking normally. Patient denies any recent fever chills. Patient denies any swelling to the legs or tenderness to the legs. Patient states her ovarian cancer is metastatic throughout her abdomen and into her lungs - Related Data Home Medications Medication Instructions Recorded Confirmed Levothyroxine Sodium [Synthroid] 50 mcg PO DAILY 02/08/18 11/16/21 Pioglitazone HCl 30 mg PO DAILY 02/08/18 11/16/21 Evolocumab [Repatha Sureclick] 140 mg SQ Q14D 07/16/20 11/16/21 Albuterol Sulfate [Ventolin HFA] 1 - 2 puff INHALATION RT-Q6H PRN 09/22/21 11/16/21 Omeprazole Magnesium [PriLOSEC] 20 mg PO DAILY 09/22/21 11/16/21 Acetaminophen/Diphenhydramine 1 tab PO HS 11/16/21 11/16/21 [Tylenol PM 500-25mg] Docusate [Colace] 100 mg PO DAILY PRN 11/16/21 11/16/21 L.acidoph,Paracasei, B.lactis 1 each PO DAILY 11/16/21 11/16/21 [Probiotic] OLANZapine [ZyPREXA] 2.5 mg PO HS 11/16/21 11/16/21 Ondansetron [Zofran] 4 mg PO DIRECTED PRN 11/16/21 11/16/21 Sennosides/Docusate Sodium [Senna 1 each PO DIRECTED PRN 11/16/21 11/16/21 Plus 8.6-50 mg Tablet] Previous Rx's Medication Instructions Recorded HYDROcodone/APAP 7.5-325MG [[place] 1 tab PO Q4H PRN 3 Days #18 tab 09/23/21 7.5-325] Allergies Allergy/AdvReac Type Severity Reaction Status Date / Time amoxicillin [From Augmentin] Allergy Rash/Hives/ Verified 11/18/21 06:51 itching clavulanic acid Allergy Rash/Hives/ Verified 11/18/21 06:51 [From Augmentin] itching Sulfa (Sulfonamide Allergy Itching Verified 11/18/21 06:51 Antibiotics) Review of Systems ROS Statement: Those systems with pertinent positive or pertinent negative responses have been documented in the HPI. ROS Other: All systems not noted in ROS Statement are negative. Past Medical History Past Medical History: Cancer, Diabetes Mellitus, GERD/Reflux, Hyperlipidemia, Osteoarthritis (OA), Thyroid Disorder Additional Past Medical History / Comment(s): Ovarian cancer(started Chemo 11/14/21), constipation, hx hiatal hernia, "Dr watching liver enzymes", urinary incontinence, vertigo History of Any Multi-Drug Resistant Organisms: None Reported Past Surgical History: Adenoidectomy, Bladder Surgery, Section, Cholecystectomy, Hysterectomy, Tonsillectomy Additional Past Surgical History / Comment(s): x 3, 2 bladder suspension and 1 bowel lift; Past Anesthesia/Blood Transfusion Reactions: Previous Problems w/ Anesthesia, Postoperative Nausea & Vomiting (PONV) Additional Past Anesthesia/Blood Transfusion Reaction / Comment(s): years ago had a problem with anesthesia(vomiting) in [place], but has had anesthesia several times since then and has had no problem, recent vertigo Past Psychological History: No Psychological Hx Reported Smoking Status: Never smoker - Past Family History Brother(s) Family Medical History: Cancer General Exam - General Exam Comments Initial Comments: GENERAL: Patient is well-developed and well-nourished. Patient is nontoxic and well- hydrated and is in mild distress. ENT: Neck is soft and supple. No significant lymphadenopathy is noted. Oropharynx is clear. Moist mucous membranes. Neck has full range of motion without eliciting any pain. EYES: The sclera were anicteric and conjunctiva were pink and moist. Extraocular movements were intact and pupils were equal round and reactive to light. Eyelids were unremarkable. PULMONARY: Unlabored respirations. Good breath sounds bilaterally. No audible rales rhonchi or wheezing was noted. CARDIOVASCULAR: There is a regular rate and rhythm without any murmurs gallops or rubs. ABDOMEN: Patient's abdomen is diffusely mildly tender she states this is been the way it has been since she was diagnosed with ovarian cancer. SKIN: Skin is clear with no lesions or rashes and otherwise unremarkable. NEUROLOGIC: Patient is alert and oriented x3. Cranial nerves II through XII are grossly intact. Motor and sensory are also intact. Normal speech, volume and content. Symmetrical smile. MUSCULOSKELETAL: Normal extremities with adequate strength and full range of motion. LYMPHATICS: No significant lymphadenopathy is noted PSYCHIATRIC: Normal psychiatric evaluation. Limitations: no limitations Course Vital Signs 11/18/21 11/18/21 06:47 09:45 Temperature 97.8 F Pulse Rate 85 Pulse Rate [ 75 Sitting Automatic Stacker] Pulse Rate [ 79 Standing Automatic Stacker ] Pulse Rate [ 73 Supine Automatic Stacker] Respiratory 18 Rate Blood Pressure 153/69 Blood Pressure 164/76 [Left Arm Sitting] Blood Pressure 166/73 [Left Arm Standing] Blood Pressure 166/76 [Left Arm Supine] O2 Sat by Pulse 94 L Oximetry Medical Decision Making - Medical Decision Making EKG shows sinus rhythm at 76 bpm ID interval 166 QRS is 145 Q-T intervals 422 QTC is 453 per patient's EKG shows left bundle branch block. Dr. Manuel came down to the emergency department to see the patient. Patient was no longer lightheaded with standing and she was able to ambulate around the emergency department without problem. Patient was requesting to go home and follow-up as an outpatient. - Lab Data Result diagrams: 11/18/21 08:00 11/18/21 08:00 Lab Results 11/18/21 11/18/21 11/18/21 Range/Units 08:00 08:00 08:00 WBC 4.7 (3.8-10.6) k/uL RBC 4.03 (3.80-5.40) m/uL Hgb 11.4 (11.4-16.0) gm/dL Hct 35.3 (34.0-46.0) % MCV 87.7 (80.0-100.0) fL MCH 28.3 (25.0-35.0) pg MCHC 32.3 (31.0-37.0) g/dL RDW 14.0 (11.5-15.5) % Plt Count 100 L D (150-450) k/uL MPV 8.1 Neutrophils % 77 % Lymphocytes % 17 % Monocytes % 3 % Eosinophils % 1 % Basophils % 0 % Neutrophils # 3.7 (1.3-7.7) k/uL Lymphocytes # 0.8 L (1.0-4.8) k/uL Monocytes # 0.1 (0-1.0) k/uL Eosinophils # 0.1 (0-0.7) k/uL Basophils # 0.0 (0-0.2) k/uL PT 9.8 (9.0-12.0) sec INR 0.9 (<1.2) APTT 16.6 L (22.0-30.0) sec Sodium 138 (137-145) mmol/L Potassium 4.5 (3.5-5.1) mmol/L Chloride 112 H (98-107) mmol/L Carbon Dioxide 20 L (22-30) mmol/L Anion Gap 6 mmol/L BUN 22 H (7-17) mg/dL Creatinine 1.01 (0.52-1.04) mg/dL Est GFR (CKD-EPI)AfAm 62 (>60 ml/min/1.73 sqM) Est GFR (CKD-EPI)NonAf 54 (>60 ml/min/1.73 sqM) Glucose 161 H (74-99) mg/dL Plasma Lactic Acid Renaldo (0.7-2.0) mmol/L Calcium 8.5 (8.4-10.2) mg/dL Magnesium 1.6 (1.6-2.3) mg/dL Total Bilirubin 0.6 (0.2-1.3) mg/dL AST 26 (14-36) U/L ALT 13 (4-34) U/L Alkaline Phosphatase 79 (38-126) U/L Troponin I (0.000-0.034) ng/mL Total Protein 6.3 (6.3-8.2) g/dL Albumin 3.8 (3.5-5.0) g/dL 11/18/21 11/18/21 Range/Units 08:00 08:00 WBC (3.8-10.6) k/uL RBC (3.80-5.40) m/uL Hgb (11.4-16.0) gm/dL Hct (34.0-46.0) % MCV (80.0-100.0) fL MCH (25.0-35.0) pg MCHC (31.0-37.0) g/dL RDW (11.5-15.5) % Plt Count (150-450) k/uL MPV Neutrophils % % Lymphocytes % % Monocytes % % Eosinophils % % Basophils % % Neutrophils # (1.3-7.7) k/uL Lymphocytes # (1.0-4.8) k/uL Monocytes # (0-1.0) k/uL Eosinophils # (0-0.7) k/uL Basophils # (0-0.2) k/uL PT (9.0-12.0) sec INR (<1.2) APTT (22.0-30.0) sec Sodium (137-145) mmol/L Potassium (3.5-5.1) mmol/L Chloride (98-107) mmol/L Carbon Dioxide (22-30) mmol/L Anion Gap mmol/L BUN (7-17) mg/dL Creatinine (0.52-1.04) mg/dL Est GFR (CKD-EPI)AfAm (>60 ml/min/1.73 sqM) Est GFR (CKD-EPI)NonAf (>60 ml/min/1.73 sqM) Glucose (74-99) mg/dL Plasma Lactic Acid Renaldo 1.3 (0.7-2.0) mmol/L Calcium (8.4-10.2) mg/dL Magnesium (1.6-2.3) mg/dL Total Bilirubin (0.2-1.3) mg/dL AST (14-36) U/L ALT (4-34) U/L Alkaline Phosphatase (38-126) U/L Troponin I <0.012 (0.000-0.034) ng/mL Total Protein (6.3-8.2) g/dL Albumin (3.5-5.0) g/dL Disposition Clinical Impression: Orthostatic hypotension Disposition: HOME SELF-CARE Condition: Good Instructions (If sedation given, give patient instructions): Hypotension (ED) Is patient prescribed a controlled substance at d/c from ED?: No Referrals: Reuben Almeida MD [Primary Care Provider] - 1-2 days Time of Disposition: 10:48
--- NOTE | 2021-11-18 08:29 | XR ---
EXAMINATION TYPE: XR chest 2V DATE OF EXAM: 11/18/2021 COMPARISON: CTA chest July 16, 2020 HISTORY: Syncope. TECHNIQUE: Frontal and lateral views of the chest are obtained. FINDINGS: There is no suspicious focal air space opacity, pleural effusion, or pneumothorax seen. T he cardiac silhouette size remains within normal limits. Overlying EKG leads on current study. Cholec ystectomy clips are redemonstrated. Bridging osteophytes in the thoracic spine redemonstrated. IMPRESSION: No acute cardiopulmonary process.
[2021-11-18 08:36] LABS: Basophils % (A) 0 %; Eosinophils # (A) 0.1 k/uL (0-0.7); Eosinophils % (A) 1 %; HCT 35.3 % (34.0-46.0); HGB 11.4 gm/dL (11.4-16.0); Lymphocytes # (A) 0.8 k/uL (1.0-4.8); Lymphocytes % (A) 17 %; MCH 28.3 pg (25.0-35.0); MCHC 32.3 g/dL (31.0-37.0); MCV 87.7 fL (80.0-100.0); Mean Platelet Volume 8.1; Monocytes # (A) 0.1 k/uL (0-1.0); Monocytes % (A) 3 %; Neutrophils # (A) 3.7 k/uL (1.3-7.7); Neutrophils % (A) 77 %; RBC 4.03 m/uL (3.80-5.40); WBC 4.7 k/uL (3.8-10.6)
[2021-11-18 08:40] LABS: INR 0.9 (<1.2); Prothrombin Time 9.8 sec (9.0-12.0)
[2021-11-18 08:41] LABS: Albumin 3.8 g/dL (3.5-5.0); Calcium 8.5 mg/dL (8.4-10.2); Magnesium 1.6 mg/dL (1.6-2.3); Potassium 4.5 mmol/L (3.5-5.1); Total Bilirubin 0.6 mg/dL (0.2-1.3); Total Protein 6.3 g/dL (6.3-8.2)
[2021-11-18 08:58] LABS: Platelet Count 100 k/uL (150-450)
[2021-11-18 09:21] LABS: Partial Thromboplastin Time 16.6 sec (22.0-30.0)
[2021-11-18 09:47] VITALS: BP 166/76; PULSE 73
--- NOTE | 2021-11-18 10:21 | P.PN ---
Progress Note - Text Progress Note Date: 11/18/21 Notified by ER the patient was present for syncopal episode. Patient cleared by ER provider. Patient was scheduled for port placement today. Rescheduled for Sunday, November 21. All questions addressed.
--- NOTE | 2021-11-25 23:36 | P.GSCN ---
History of Present Illness Consult date: 11/18/21 History of present illness: REASON FOR CONSULTATION: Syncopal episode HISTORY OF PRESENT ILLNESS: The patient is a 76-year-old female who was scheduled for elective port placement. She had a syncopal episode this morning with fainting. No reports of DVT. No reports of pulmonary embolism. Diagnostic studies demonstrated no pulmonary embolism. PAST MEDICAL HISTORY: See list and reviewed PAST SURGICAL HISTORY: See list and reviewed MEDICATIONS: See list and reviewed ALLERGIES: See list and reviewed SOCIAL HISTORY: See list and reviewed FAMILY HISTORY: See list and reviewed REVIEW OF ORGAN SYSTEMS: CONSTITUTIONAL: No fevers or chills. No recent weight loss. EYES: Denies any trouble with vision. No glasses. HEENT: No difficulties with hearing. No nosebleeds. No difficulty swallowing. RESPIRATORY: Has chronic obstructive pulmonary disease. CARDIOVASCULAR: Denies any chest pain, palpitations, or recent heart attacks. GASTROINTESTINAL: Has gastroesophageal reflux disease. Has postoperative nausea or vomiting GENITOURINARY: Denies any blood in urine or increased urinary frequency. Ovarian cancer. NEUROLOGICAL: Denies any numbness or tingling along the distal extremities. No seizure disorders or headaches. MUSCULOSKELETAL: Has back pain, stiffness or joint arthritis. SKIN: No current skin cancer. No rash. PSYCHIATRIC: Denies current depression or suicidal thoughts. ENDOCRINE: Has hypothyroidism. Has diabetes type 2. HEME/LYMPHATIC: Denies any lumps and bumps around the neck. No recent deep venous thrombosis. ALLERGY/IMMUNOLOGY: No immunoglobulin therapy. No immune deficiencies. BREAST: Denies current breast lumps, pain or nipple discharge. PHYSICAL EXAM: VITALS: Reviewed Vital Signs Temp Pulse Resp BP Pulse Ox 97.8 F 85 18 153/69 94 L 11/18/21 06:47 11/18/21 06:47 11/18/21 06:47 11/18/21 06:47 11/18/21 06:47 CONSTITUTIONAL: Well developed and in no acute distress. EYES: Conjuctivae without sclera icterus. Extraocular movements grossly inta ct. HEAD, EARS, NOSE, THROAT: Moist buccal mucosa. Head is atraumatic, normocephalic. Hears conversational speech. No nasal drainage. NECK: Supple. No JV distention. No thyroidomegaly. RESPIRATORY: Non-labored respirations and equal bilateral excursions. No gross wheezes. CARDIOVASCULAR: Palpable 2+ radial pulses. ABDOMEN: Nontender. LYMPH: No neck lymphadenopathy. MUSCULOSKELETAL: Nail and fingers with good capillary refill. SKIN: Warm and well perfused with good skin turgor. NEUROLOGIC: Cranial nerves II through XII grossly intact. No focal or lateralizing signs. PSYCH: Appropriate affect. Alert and oriented to person, place and time. Displays appropriate insight. CLINCAL LABS: Reviewed. WBC normal. Platelets low. RADIOLOGY: Report reviewed demonstrates no acute process on chest x-ray EKG: Left bundle branch block ASSESSMENT: 1. Syncopal episode 2. Ovarian cancer PLAN: 1. IV fluid hydration. 2. Follow-up for port placement rescheduled Thank you for this kind consultation. Past Medical History Past Medical History: Cancer, Diabetes Mellitus, GERD/Reflux, Hyperlipidemia, Osteoarthritis (OA), Thyroid Disorder Additional Past Medical History / Comment(s): Ovarian cancer(started Chemo 05/07), constipation, hx hiatal hernia, "Dr watching liver enzymes", urinary incontinence, vertigo History of Any Multi-Drug Resistant Organisms: None Reported Past Surgical History: Adenoidectomy, Bladder Surgery, Section, Cholecystectomy, Hysterectomy, Tonsillectomy Additional Past Surgical History / Comment(s): x 3, 2 bladder suspension and 1 bowel lift; Past Anesthesia/Blood Transfusion Reactions: Previous Problems w/ Anesthesia, Postoperative Nausea & Vomiting (PONV) Additional Past Anesthesia/Blood Transfusion Reaction / Comm: years ago had a pr oblem with anesthesia(vomiting) in [place], but has had anesthesia several times since then and has had no problem, recent vertigo Past Psychological History: No Psychological Hx Reported Smoking Status: Never smoker - Past Family History Brother(s) Family Medical History: Cancer Medications and Allergies Home Medications Medication Instructions Recorded Confirmed Type Levothyroxine Sodium [Synthroid] 50 mcg PO DAILY 02/08/18 11/21/21 History Pioglitazone HCl 30 mg PO DAILY 02/08/18 11/21/21 History Evolocumab [Repatha Sureclick] 140 mg SQ Q14D 07/16/20 11/21/21 History Albuterol Sulfate [Ventolin HFA] 1 - 2 puff INHALATION RT-Q6H PRN 09/22/21 11/21/21 History Omeprazole Magnesium [PriLOSEC] 20 mg PO DAILY 09/22/21 11/21/21 History Acetaminophen/Diphenhydramine 1 tab PO HS 11/16/21 11/21/21 History [Tylenol PM 500-25mg] Docusate [Colace] 100 mg PO DAILY PRN 11/16/21 11/21/21 History L.acidoph,Paracasei, B.lactis 1 cap PO DAILY 11/16/21 11/21/21 History [Probiotic] OLANZapine [ZyPREXA] 2.5 mg PO HS 11/16/21 11/21/21 History Ondansetron [Zofran] 4 mg PO TID 11/16/21 11/21/21 History Sennosides/Docusate Sodium [Senna 1 tab PO DAILY PRN 11/16/21 11/21/21 History Plus 8.6-50 mg Tablet] Acetaminophen Tab [Tylenol] 1,000 mg PO Q6HR PRN 11/18/21 11/21/21 History Dicyclomine HCl 10 mg PO TID 11/18/21 11/21/21 History HYDROcodone/APAP 10-325MG [[place] 1 tab PO Q6H PRN 11/18/21 11/21/21 History 10-325] Loratadine [Claritin] 10 mg PO DAILY 11/18/21 11/21/21 History Ondansetron Odt [Zofran ODT] 4 mg PO Q6H PRN 11/18/21 11/21/21 History Acetaminophen Tab [Tylenol Tab] 1,000 mg PO Q6HR PRN #10 tablet 11/21/21 Rx Allergies Allergy/AdvReac Type Severity Reaction Status Date / Time amoxicillin [From Augmentin] Allergy Rash/Hives/ Verified 11/21/21 06:53 itching clavulanic acid Allergy Rash/Hives/ Verified 11/21/21 06:53 [From Augmentin] itching Sulfa (Sulfonamide Allergy Itching Verified 11/21/21 06:53 Antibiotics) Surgical - Exam Vital Signs Temp Pulse Resp BP Pulse Ox 97.8 F 85 18 153/69 94 L 11/18/21 06:47 11/18/21 06:47 11/18/21 06:47 11/18/21 06:47 11/18/21 06:47 Results - Labs 11/18/21 08:00 11/18/21 08:00 Abnormal Lab Results - Last 24 Hours (Table) 11/18/21 11/18/21 11/18/21 Range/Units 08:00 08:00 08:00 Plt Count 100 L D (150-450) k/uL Lymphocytes # 0.8 L (1.0-4.8) k/uL APTT 16.6 L (22.0-30.0) sec Chloride 112 H (98-107) mmol/L Carbon Dioxide 20 L (22-30) mmol/L BUN 22 H (7-17) mg/dL Glucose 161 H (74-99) mg/dL Diabetes panel 11/18/21 Range/Units 08:00 Sodium 138 (137-145) mmol/L Potassium 4.5 (3.5-5.1) mmol/L Chloride 112 H (98-107) mmol/L Carbon Dioxide 20 L (22-30) mmol/L BUN 22 H (7-17) mg/dL Creatinine 1.01 (0.52-1.04) mg/dL Glucose 161 H (74-99) mg/dL Calcium 8.5 (8.4-10.2) mg/dL AST 26 (14-36) U/L ALT 13 (4-34) U/L Alkaline Phosphatase 79 (38-126) U/L Total Protein 6.3 (6.3-8.2) g/dL Albumin 3.8 (3.5-5.0) g/dL Calcium panel 11/18/21 Range/Units 08:00 Calcium 8.5 (8.4-10.2) mg/dL Albumin 3.8 (3.5-5.0) g/dL Pituitary panel 11/18/21 Range/Units 08:00 Sodium 138 (137-145) mmol/L Potassium 4.5 (3.5-5.1) mmol/L Chloride 112 H (98-107) mmol/L Carbon Dioxide 20 L (22-30) mmol/L BUN 22 H (7-17) mg/dL Creatinine 1.01 (0.52-1.04) mg/dL Glucose 161 H (74-99) mg/dL Calcium 8.5 (8.4-10.2) mg/dL Adrenal panel 11/18/21 Range/Units 08:00 Sodium 138 (137-145) mmol/L Potassium 4.5 (3.5-5.1) mmol/L Chloride 112 H (98-107) mmol/L Carbon Dioxide 20 L (22-30) mmol/L BUN 22 H (7-17) mg/dL Creatinine 1.01 (0.52-1.04) mg/dL Glucose 161 H (74-99) mg/dL Calcium 8.5 (8.4-10.2) mg/dL Total Bilirubin 0.6 (0.2-1.3) mg/dL AST 26 (14-36) U/L ALT 13 (4-34) U/L Alkaline Phosphatase 79 (38-126) U/L Total Protein 6.3 (6.3-8.2) g/dL Albumin 3.8 (3.5-5.0) g/dL
== END 2021-11-18 11:30 | disposition home or self-care (01) ==
LOC: EC 06:47
DX: I95.1 Orthostatic hypotension (principal); E11.9 Type 2 diabetes mellitus without complications; K21.9 Gastro-esophageal reflux disease without esophagitis; E78.5 Hyperlipidemia, unspecified; M19.90 Unspecified osteoarthritis, unspecified site; E07.9 Disorder of thyroid, unspecified; Z88.0 Allergy status to penicillin; Z88.1 Allergy status to other antibiotic agents; Z88.2 Allergy status to sulfonamides; Z79.899 Other long term (current) drug therapy; Z79.84 Long term (current) use of oral hypoglycemic drugs; Z79.4 Long term (current) use of insulin
CPT/HCPCS: 36415; 71046; 80053; 83605; 83735; 84484; 85025; 85610; 85730; 93005; 99284

== ENCOUNTER 2021-11-21 06:41 | Day surgery (SDC) | payer MEDICARE ==
[2021-11-16 12:08] VITALS: BMI 25.6
--- NOTE | 2021-11-18 07:31 | P.PN ---
Progress Note - Text Progress Note Date: 11/18/21 Case canceled. Patient in the emergency room due to syncopal episode
[~2021-11-21 06:41] MED LIST: DEXAMETHASONE SOD PHOSPHATE 4 MG/ML 1 ML VIAL IV ONE; HYDROmorphone 0.5 MG/0.5 ML SYRINGE IVP PRN; LACTATED RINGERS 1,000 ML IV SCH; MIDAZOLAM 2 MG/2 ML VIAL IV PRN; ONDANSETRON 4 MG/2 ML VIAL IVP ONE; Pre Op ABX Message 1 EACH MISC MISCELLANE ONE
[2021-11-21] MEDS ORDERED: ONDANSETRON 4 MG/2 ML VIAL ONE (06:54)
[2021-11-21 07:23] LABS: Glucose,Whole Blood 119 mg/dL (70-110)
[2021-11-21] MEDS ORDERED: ONDANSETRON 4 MG/2 ML VIAL IVP ONE (07:24)
[2021-11-21] MEDS ORDERED: DEXAMETHASONE SOD PHOSPHATE 4 MG/ML 1 ML VIAL IVP ONE (07:24)
--- NOTE | 2021-11-21 07:34 | P.GSHP ---
History of Present Illness H&P Date: 11/21/21 CHIEF COMPLAINT: Ovarian cancer HISTORY OF PRESENT ILLNESS: The patient is a 76-year-old female diagnosed with ovarian cancer. She needs a Mediport placement for chemotherapy. PAST MEDICAL HISTORY: See list and reviewed PAST SURGICAL HISTORY: See list and reviewed CURRENT MEDICATIONS: See list and reviewed ALLERGIES: See list and reviewed SOCIAL HISTORY: See list and reviewed FAMILY HISTORY: See list and reviewed REVIEW OF ORGAN SYSTEMS: CONSTITUTIONAL: No fevers or chills RESPIRATORY: No pneumonia. No dyspnea on exertion. CARDIOVASCULAR: No recent chest pain. No history of blood clots PHYSICAL EXAMINATION: Vital signs: Stable GENERAL: Well developed and in no acute distress. Pleasant. HEENT: No sclera icterus. Extraocular movements grossly intact. Moist buccal mucosa. Head is atraumatic, normocephalic. Hears conversational speech. No nasal drainage. NECK: Supple without lymphadenopathy. No JV distention. CHEST: Non-labored respirations and equal bilateral excursions. CARDIOVASCULAR: Regular rate and rhythm. Palpable 2+ radial pulses. ABDOMEN: Nontender. MUSCULOSKELETAL: No clubbing, cyanosis or edema. NEUROLOGIC: No focal or lateralizing signs. PSYCH: Appropriate affect. Alert and oriented to person, place and time. ASSESSMENT: 1. Ovarian cancer 2. Need for chemotherapeutic access. PLAN: 1. Port-A-Cath placement for chemotherapy access Past Medical History Past Medical History: Cancer, Diabetes Mellitus, GERD/Reflux, Hyperlipidemia, Osteoarthritis (OA), Thyroid Disorder Additional Past Medical History / Comment(s): Ovarian cancer(started Chemo 11/14/21), constipation, hx hiatal hernia, "Dr watching liver enzymes", urinary incontinence, vertigo History of Any Multi-Drug Resistant Organisms: None Reported Past Surgical History: Adenoidectomy, Bladder Surgery, Section, Cholecystectomy, Hysterectomy, Tonsillectomy Additional Past Surgical History / Comment(s): x 3, 2 bladder suspension and 1 bowel lift; Past Anesthesia/Blood Transfusion Reactions: Previous Problems w/ Anesthesia, Postoperative Nausea & Vomiting (PONV) Additional Past Anesthesia/Blood Transfusion Reaction / Comment(s): years ago had a problem with anesthesia(vomiting) in [place], but has had anesthesia several times since then and has had no problem, recent vertigo Past Psychological History: No Psychological Hx Reported Smoking Status: Never smoker - Past Family History Father Family Medical History: Hypertension Brother(s) Family Medical History: Cancer Medications and Allergies Home Medications Medication Instructions Recorded Confirmed Type Levothyroxine Sodium [Synthroid] 50 mcg PO DAILY 02/08/18 11/21/21 History Pioglitazone HCl 30 mg PO DAILY 02/08/18 11/21/21 History Evolocumab [Repatha Sureclick] 140 mg SQ Q14D 07/16/20 11/21/21 History Albuterol Sulfate [Ventolin HFA] 1 - 2 puff INHALATION RT-Q6H PRN 09/22/21 11/21/21 History Omeprazole Magnesium [PriLOSEC] 20 mg PO DAILY 09/22/21 11/21/21 History Acetaminophen/Diphenhydramine 1 tab PO HS 11/16/21 11/21/21 History [Tylenol PM 500-25mg] Docusate [Colace] 100 mg PO DAILY PRN 11/16/21 11/21/21 History L.acidoph,Paracasei, B.lactis 1 cap PO DAILY 11/16/21 11/21/21 History [Probiotic] OLANZapine [ZyPREXA] 2.5 mg PO HS 11/16/21 11/21/21 History Ondansetron [Zofran] 4 mg PO TID 11/16/21 11/21/21 History Sennosides/Docusate Sodium [Senna 1 tab PO DAILY PRN 11/16/21 11/21/21 History Plus 8.6-50 mg Tablet] Acetaminophen Tab [Tylenol Tab] 1,000 mg PO Q6HR PRN 11/18/21 11/21/21 History Dicyclomine HCl 10 mg PO TID 11/18/21 11/21/21 History HYDROcodone/APAP 10-325MG [[place] 1 tab PO Q6H PRN 11/18/21 11/21/21 History 10-325] Loratadine [Claritin] 10 mg PO DAILY 11/18/21 11/21/21 History Ondansetron Odt [Zofran Odt] 4 mg PO Q6H PRN 11/18/21 11/21/21 History Allergies Allergy/AdvReac Type Severity Reaction Status Date / Time amoxicillin [From Augmentin] Allergy Rash/Hives/ Verified 11/21/21 06:53 itching clavulanic acid Allergy Rash/Hives/ Verified 11/21/21 06:53 [From Augmentin] itching Sulfa (Sulfonamide Allergy Itching Verified 11/21/21 06:53 Antibiotics) Surgical - Exam Vital Signs Temp Pulse Resp BP Pulse Ox 97.6 F 76 18 156/69 98 11/21/21 07:06 11/21/21 07:06 11/21/21 07:06 11/21/21 07:06 11/21/21 07:06 Results - Labs Abnormal Lab Results - Last 24 Hours (Table) 11/21/21 Range/Units 07:21 POC Glucose (mg/dL) 119 H (70-110) mg/dL
[2021-11-21] MEDS ORDERED: MIDAZOLAM 2 MG/2 ML VIAL ONE (08:10)
[2021-11-21] MEDS ORDERED: PROPOFOL 10 MG/ML 20 ML VIAL IV ONE (08:10)
[2021-11-21] MEDS ORDERED: fentaNYL (PF) 50 MCG/ML 2 ML AMP ONE (08:10)
[2021-11-21] MEDS ORDERED: HEPARIN SODIUM,PORCINE 100 UNIT/ML 5 ML VIAL IV ONE (08:47)
[2021-11-21] MEDS ORDERED: BUPIVACAIN-EPI 0.25%-1:200,000 30 ML VIAL SQ ONE (08:47)
[2021-11-21 09:28] VITALS: TEMP 97.8
--- NOTE | 2021-11-21 09:29 | P.OP ---
Date of Procedure: 11/21/21 Description of Procedure: SURGEON: BRISA MENDENHALL MD CHEF & OWNER: None. PREOPERATIVE DIAGNOSES: 1. Ovarian cancer 2. Need for chemotherapeutic access. 3. Diabetes type 2, [id number] 4. Hypothyroidism 5. Hyperlipidemia 6. Gastroesophageal reflux disease 7. Postoperative nausea or vomiting POSTOPERATIVE DIAGNOSES: 1. Breast cancer, right 2. Need for chemotherapeutic access. 3. Diabetes type 2, [id number] 4. Hypothyroidism 5. Hyperlipidemia 6. Gastroesophageal reflux disease 7. Postoperative nausea or vomiting PROCEDURES PERFORMED: 1. Ultrasound guided central venous access of the right internal jugular venous vein. 2. Fluoroscopic guidance for central venous access right internal jugular vein less than 1 seconds. 3. Placement of right internal jugular power port 6 Israeli by Wisr, Xcela Plus Port ANESTHESIA: LMA sedation with local. ESTIMATED BLOOD LOSS: 5 mL. SPECIMENS REMOVED: None. COMPLICATIONS: None. FINDINGS: 1. No thrombus encountered along the right carotid artery or internal jugular vein. 2. Access of the right internal jugular vein under ultrasound guidance. 3. Fluoroscopy of less than 1 seconds. INDICATIONS: The patient is a 76-year-old female recently diagnosed with ovarian cancer. She presents for chemotherapeutic access. Benefits and risks of surgical intervention were described including bleeding, infection, mechanical problems with his port. Informed consent was obtained. DESCRIPTION OR PROCEDURE: Patient was brought into the operating room, laid in supine position. After adequate IV sedation, the chest and right neck were prepped and draped in a standard sterile fashion including the shoulder with ChloraPrep. Timeout protocol was confirmed with the surgical team regarding the patient's name, procedure to be performed including preoperative medications for which she received IV antibiotics. Bilateral SCDs were placed. An ultrasound was used to capture views of the right internal jugular vein including right carotid artery, which was patent and without thrombus along its course. The right IJ was then localized using anesthetic for the skin. A 16 Israeli needle was used to access the IJ. A guidewire was advanced into the IJ with dark nonpulsatile venous blood. Two fingerbreadths distal to the clavicle, on the lateral third, a transverse 1.5 to 2 cm incision was deepened into the skin after localizing the skin. A pocket was created for the port. The port on the back table was flushed with heparinized saline and then attached to the catheter tubing. An adapter was fastened to the actual port site over the tubing. The port easily had fit snug into the pocket. A subcutaneous tunneler was placed along the open end of the tubing and brought out through the separate stab incision. Fluoroscopic guidance confirmed no kinking along the tubing and the port site. Next, the J-wire was exchanged for a catheter sheath for which the tubing was cut to 23 cm and then advanced through the catheter sheath. The Peel-away sheath was then removed and the tubing was secured at the junction of the superior vena cava as well as the right atrium. The tubing was found to be crossed however functional. This was all done under fluoroscopic guidance under 1 seconds. Easy pullback as well as return and aspiration was obtained of the port site. The skin incision was closed using layers using 3-0 Vicryl for the subcu followed by 4-0 Monocryl in a running subcuticular fashion. At the stick site this was also reapproximated using 4-0 Monocryl. The incisions were covered with Optifoam, The skin was cleansed and Exofin liquid glue was applied. Optifoam dressing was placed over the port site. A total of 30 mL of local anesthetic was placed. At the end of the procedure, needle, sponge, and instrument count was verified correct by medical or surgical instrument maker. Heparin lock of 5 mL was placed. The patient was awoken and pain free and taken to the second stage postanesthesia care unit. The patient tolerated the procedure well. Plan - Discharge Summary Discharge Rx Participant: No New Discharge Prescriptions: New Acetaminophen Tab [Tylenol Tab] 1,000 mg PO Q6HR PRN #10 tablet PRN Reason: Pain Continue Levothyroxine Sodium [Synthroid] 50 mcg PO DAILY Pioglitazone HCl 30 mg PO DAILY Evolocumab [Repatha Sureclick] 140 mg SQ Q14D Albuterol Sulfate [Ventolin HFA] 1 - 2 puff INHALATION RT-Q6H PRN PRN Reason: Shortness Of Breath Sennosides/Docusate Sodium [Senna Plus 8.6-50 mg Tablet] 1 tab PO DAILY PRN PRN Reason: Constipation L.acidoph,Paracasei, B.lactis [Probiotic] 1 cap PO DAILY Loratadine [Claritin] 10 mg PO DAILY Ondansetron Odt [Zofran ODT] 4 mg PO Q6H PRN PRN Reason: Nausea Dicyclomine HCl 10 mg PO TID Omeprazole Magnesium [PriLOSEC] 20 mg PO DAILY Acetaminophen/Diphenhydramine [Tylenol PM 500-25mg] 1 tab PO HS Docusate [Colace] 100 mg PO DAILY PRN PRN Reason: Constipation Ondansetron [Zofran] 4 mg PO TID OLANZapine [ZyPREXA] 2.5 mg PO HS HYDROcodone/APAP 10-325MG [[place] 10-325] 1 tab PO Q6H PRN PRN Reason: Pain Acetaminophen Tab [Tylenol] 1,000 mg PO Q6HR PRN PRN Reason: Pain Or Fever > 100.5 Discharge Medication List Levothyroxine Sodium [Synthroid] 50 mcg PO DAILY 02/08/18 [History] Pioglitazone HCl 30 mg PO DAILY 02/08/18 [History] Evolocumab [Repatha Sureclick] 140 mg SQ Q14D 07/16/20 [History] Albuterol Sulfate [Ventolin HFA] 1 - 2 puff INHALATION RT-Q6H PRN 09/22/21 [History] Omeprazole Magnesium [PriLOSEC] 20 mg PO DAILY 09/22/21 [History] Acetaminophen/Diphenhydramine [Tylenol PM 500-25mg] 1 tab PO HS 11/16/21 [History] Docusate [Colace] 100 mg PO DAILY PRN 11/16/21 [History] L.acidoph,Paracasei, B.lactis [Probiotic] 1 cap PO DAILY 11/16/21 [History] OLANZapine [ZyPREXA] 2.5 mg PO HS 11/16/21 [History] Ondansetron [Zofran] 4 mg PO TID 11/16/21 [History] Sennosides/Docusate Sodium [Senna Plus 8.6-50 mg Tablet] 1 tab PO DAILY PRN 11/16/21 [History] Acetaminophen Tab [Tylenol] 1,000 mg PO Q6HR PRN 11/18/21 [History] Dicyclomine HCl 10 mg PO TID 11/18/21 [History] HYDROcodone/APAP 10-325MG [[place] 10-325] 1 tab PO Q6H PRN 11/18/21 [History] Loratadine [Claritin] 10 mg PO DAILY 11/18/21 [History] Ondansetron Odt [Zofran ODT] 4 mg PO Q6H PRN 11/18/21 [History] Acetaminophen Tab [Tylenol Tab] 1,000 mg PO Q6HR PRN #10 tablet 11/21/21 [Rx] Follow up Appointment(s)/Referral(s): Brisa Mendenhall MD [STAFF PHYSICIAN] - As Needed Patient Instructions/Handouts: Implanted Venous Access Port (GEN), How to Care for Your Implanted Venous Access Port (DC) Activity/Diet/Wound Care/Special Instructions: Remove dressing on Nov 28. May shower. No bathtub soaks for 2 weeks, Dec 05. No wide motions of the right arm to prevent dislodge of your port for 2 weeks, Dec 05 EXPECT BRUISING AND SLEEP WITH 2 TO 3 PILLOWS. BRUISING RESOLVES IN 2 TO 3 WEEKS. Take Tylenol, Aleve or ibuprofen for pain as needed Discharge Disposition: HOME SELF-CARE
[2021-11-21] MEDS ORDERED: hydrALAZINE HCL 20 MG/ML 1 ML VIAL IV ONE (09:46)
[2021-11-21 10:16] VITALS: RESP 18
--- NOTE | 2021-11-21 10:16 | XR ---
EXAMINATION TYPE: XR chest 1V confirm line [facility] DATE OF EXAM: 11/21/2021 COMPARISON: 11/18/2021 HISTORY: Line placement TECHNIQUE: Single frontal view of the chest is obtained. FINDINGS: There is no focal air space opacity, pleural effusion, or pneumothorax seen. The cardiac silhouette size is within normal limits. The osseous structures are intact. Port catheter seen with the tip overlying the SVC. Subsegmental changes at the left lung base. Arthropathy of the shoulders with diffuse osteopenia. Hypertrophic and degenerative changes of the spine. Surgical clips in the ri ght upper quadrant. IMPRESSION: 1. Basilar atelectasis favored over pneumonia. 2. Mediport catheter seen with the tip overlying the SVC and no sizable pneumothorax.
[2021-11-21 10:26] VITALS: BP 106/67; PULSE 80
--- NOTE | 2021-11-21 10:38 | FL ---
EXAMINATION TYPE: FL guided central line placemt HISTORY: Fluoroscopy time Impression: 1. Fluoroscopy support provided to the referring physician.
== END 2021-11-21 10:44 | disposition home or self-care (01) ==
LOC: OR 06:41
PROVIDERS: ATTEND Surgery Plastic and Reconstructive Surgery
DX: C56.9 Malignant neoplasm of unspecified ovary (principal); C50.911 Malignant neoplasm of unspecified site of right female breast; E11.69 Type 2 diabetes mellitus with other specified complication; E78.5 Hyperlipidemia, unspecified; Z79.4 Long term (current) use of insulin; E03.9 Hypothyroidism, unspecified; K21.9 Gastro-esophageal reflux disease without esophagitis; R11.2 Nausea with vomiting, unspecified; M19.90 Unspecified osteoarthritis, unspecified site; Z88.0 Allergy status to penicillin; Z88.2 Allergy status to sulfonamides; Z88.8 Allergy status to other drugs, medicaments and biological substances; Z79.890 Hormone replacement therapy; Z79.899 Other long term (current) drug therapy; Z80.9 Family history of malignant neoplasm, unspecified; Z82.49 Family history of ischemic heart disease and other diseases of the circulatory system; Z90.49 Acquired absence of other specified parts of digestive tract
CPT/HCPCS: 77001; 36561; C1788; J2250; J0360; J1642; J1100; J2405; J3010; J2704

== ENCOUNTER 2021-12-11 10:54 | Emergency (ER) | payer MEDICARE ==
[2021-12-11 11:36] VITALS: RESP 16
[2021-12-11] MEDS ORDERED: ASPIRIN 81 MG PO STA (11:36)
--- NOTE | 2021-12-11 11:39 | ED ---
General Adult HPI - General Chief complaint: Chest Pain Stated complaint: weakness,SOB Time Seen by Provider: 12/11/21 11:13 Source: patient, family, RN notes reviewed Mode of arrival: ambulatory Limitations: no limitations - History of Present Illness Initial comments: Patient is a pleasant 76-year-old female presenting to the emergency Department with general weakness. Patient received her second dose of chemotherapy 6 days ago. Symptoms have been present for the past 3-4 days. Past couple of days patient has had some associated chest discomfort and dyspnea that has been intermittent. None at this time. Patient feels fatigued and generally weak. No isolated area of weakness nor confusion. Patient does have history of stage IV ovarian cancer. - Related Data Home Medications Medication Instructions Recorded Confirmed Levothyroxine Sodium [Synthroid] 50 mcg PO DAILY 02/08/18 11/21/21 Pioglitazone HCl 30 mg PO DAILY 02/08/18 11/21/21 Evolocumab [Repatha Sureclick] 140 mg SQ Q14D 07/16/20 11/21/21 Albuterol Sulfate [Ventolin HFA] 1 - 2 puff INHALATION RT-Q6H PRN 09/22/21 11/21/21 Omeprazole Magnesium [PriLOSEC] 20 mg PO DAILY 09/22/21 11/21/21 Acetaminophen/Diphenhydramine 1 tab PO HS 11/16/21 11/21/21 [Tylenol PM 500-25mg] Docusate [Colace] 100 mg PO DAILY PRN 11/16/21 11/21/21 L.acidoph,Paracasei, B.lactis 1 cap PO DAILY 11/16/21 11/21/21 [Probiotic] OLANZapine [ZyPREXA] 2.5 mg PO HS 11/16/21 11/21/21 Ondansetron [Zofran] 4 mg PO TID 11/16/21 11/21/21 Sennosides/Docusate Sodium [Senna 1 tab PO DAILY PRN 11/16/21 11/21/21 Plus 8.6-50 mg Tablet] Acetaminophen Tab [Tylenol] 1,000 mg PO Q6HR PRN 11/18/21 11/21/21 Dicyclomine HCl 10 mg PO TID 11/18/21 11/21/21 HYDROcodone/APAP 10-325MG [Raymond 1 tab PO Q6H PRN 11/18/21 11/21/21 10-325] Loratadine [Claritin] 10 mg PO DAILY 11/18/21 11/21/21 Ondansetron Odt [Zofran ODT] 4 mg PO Q6H PRN 11/18/21 11/21/21 Previous Rx's Medication Instructions Recorded Acetaminophen Tab [Tylenol Tab] 1,000 mg PO Q6HR PRN #10 tablet 11/21/21 Allergies Allergy/AdvReac Type Severity Reaction Status Date / Time amoxicillin [From Augmentin] Allergy Rash/Hives/ Verified 12/11/21 11:03 itching clavulanic acid Allergy Rash/Hives/ Verified 12/11/21 11:03 [From Augmentin] itching Sulfa (Sulfonamide Allergy Itching Verified 12/11/21 11:03 Antibiotics) Review of Systems ROS Statement: Those systems with pertinent positive or pertinent negative responses have been documented in the HPI. ROS Other: All systems not noted in ROS Statement are negative. Constitutional: Denies: fever Eyes: Denies: eye pain ENT: Denies: ear pain Respiratory: Reports: as per HPI. Denies: cough Cardiovascular: Reports: as per HPI, chest pain Endocrine: Reports: fatigue Gastrointestinal: Denies: abdominal pain Genitourinary: Denies: dysuria Musculoskeletal: Denies: back pain Skin: Denies: rash Neurological: Reports: as per HPI. Denies: confusion Past Medical History Past Medical History: Cancer, Diabetes Mellitus, GERD/Reflux, Hyperlipidemia, Osteoarthritis (OA), Thyroid Disorder Additional Past Medical History / Comment(s): Ovarian cancer(started Chemo 11/14/21), constipation, hx hiatal hernia, "Dr watching liver enzymes", urinary incontinence, vertigo History of Any Multi-Drug Resistant Organisms: None Reported Past Surgical History: Adenoidectomy, Bladder Surgery, Section, Cholecystectomy, Hysterectomy, Tonsillectomy Additional Past Surgical History / Comment(s): x 3, 2 bladder suspension and 1 bowel lift; Past Anesthesia/Blood Transfusion Reactions: Previous Problems w/ Anesthesia, Postoperative Nausea & Vomiting (PONV) Additional Past Anesthesia/Blood Transfusion Reaction / Comment(s): years ago had a problem with anesthesia(vomiting) in [place], but has had anesthesia several times since then and has had no problem, recent vertigo Past Psychological History: No Psychological Hx Reported Smoking Status: Never smoker - Past Family History Father Family Medical History: Hypertension Brother(s) Family Medical History: Cancer General Exam Limitations: no limitations General appearance: alert, in no apparent distress Head exam: Present: normocephalic Eye exam: Present: normal appearance ENT exam: Present: mucous membranes dry Neck exam: Present: normal inspection Respiratory exam: Present: normal lung sounds bilaterally Cardiovascular Exam: Present: regular rate, normal rhythm Expanded Peripheral pulses: 2+: Radial (R), Radial (L), Posterior Tibialis (R), Posterior Tibialis (L) GI/Abdominal exam: Present: soft. Absent: tenderness Extremities exam: Present: normal inspection. Absent: pedal edema, calf tenderness Neurological exam: Present: alert Psychiatric exam: Present: normal affect, normal mood Skin exam: Present: normal color Course Vital Signs 12/11/21 12/11/21 12/11/21 10:58 11:18 13:32 Temperature 98 F 98.2 F 98.1 F Pulse Rate 78 76 73 Pulse Rate [ 73 Bilateral] Respiratory 18 16 16 Rate Blood Pressure 157/76 157/77 157/77 O2 Sat by Pulse 99 98 98 Oximetry EKG Findings - EKG Comments: EKG Findings:: Sinus rhythm with a rate of 74. MS 171. QRS 129. QT 414. QTC 441. Left axis. Left bundle branch block. No acute ST change. Medical Decision Making - Medical Decision Making Patient reevaluated. Patient and family updated. Case was discussed with Dr. Hdez, who will admit covering for Dr. Thompson. - Lab Data Result diagrams: 12/11/21 11:42 12/11/21 11:38 Lab Results 12/11/21 12/11/21 12/11/21 Range/Units 11:38 11:38 11:38 WBC (3.8-10.6) k/uL RBC (3.80-5.40) m/uL Hgb (11.4-16.0) gm/dL Hct (34.0-46.0) % MCV (80.0-100.0) fL MCH (25.0-35.0) pg MCHC (31.0-37.0) g/dL RDW (11.5-15.5) % Plt Count (150-450) k/uL MPV Neutrophils % % Lymphocytes % % Monocytes % % Eosinophils % % Basophils % % Neutrophils # (1.3-7.7) k/uL Lymphocytes # (1.0-4.8) k/uL Monocytes # (0-1.0) k/uL Eosinophils # (0-0.7) k/uL Basophils # (0-0.2) k/uL PT (9.0-12.0) sec INR (<1.2) APTT (22.0-30.0) sec D-Dimer (<0.60) mg/L FEU Sodium 139 (137-145) mmol/L Potassium 4.6 (3.5-5.1) mmol/L Chloride 105 (98-107) mmol/L Carbon Dioxide 21 L (22-30) mmol/L Anion Gap 13 mmol/L BUN 33 H (7-17) mg/dL Creatinine 1.21 H (0.52-1.04) mg/dL Est GFR (CKD-EPI)AfAm 50 (>60 ml/min/1.73 sqM) Est GFR (CKD-EPI)NonAf 43 (>60 ml/min/1.73 sqM) Glucose 147 H (74-99) mg/dL Calcium 8.9 (8.4-10.2) mg/dL Magnesium 1.6 (1.6-2.3) mg/dL Total Bilirubin 0.4 (0.2-1.3) mg/dL AST 24 (14-36) U/L ALT 13 (4-34) U/L Alkaline Phosphatase 86 (38-126) U/L Troponin I <0.012 (0.000-0.034) ng/mL NT-Pro-B Natriuret Pep 86 pg/mL Total Protein 6.8 (6.3-8.2) g/dL Albumin 4.2 (3.5-5.0) g/dL Urine Color Urine Appearance (Clear) Urine pH (5.0-8.0) Ur Specific [place] (1.001-1.035) Urine Protein (Negative) Urine Glucose (UA) (Negative) Urine Ketones (Negative) Urine Blood (Negative) Urine Nitrite (Negative) Urine Bilirubin (Negative) Urine Urobilinogen (<2.0) mg/dL Ur Leukocyte Esterase (Negative) Urine RBC (0-5) /hpf Urine WBC (0-5) /hpf Urine WBC Clumps (None) /hpf Ur Squamous Epith Cells (0-4) /hpf Urine Bacteria (None) /hpf Urine Mucus (None) /hpf 12/11/21 12/11/21 12/11/21 Range/Units 11:42 11:42 13:32 WBC 3.5 L (3.8-10.6) k/uL RBC 4.29 (3.80-5.40) m/uL Hgb 12.0 (11.4-16.0) gm/dL Hct 37.9 (34.0-46.0) % MCV 88.3 (80.0-100.0) fL MCH 27.9 (25.0-35.0) pg MCHC 31.6 (31.0-37.0) g/dL RDW 15.1 (11.5-15.5) % Plt Count 112 L (150-450) k/uL MPV 7.9 Neutrophils % 51 % Lymphocytes % 42 % Monocytes % 1 % Eosinophils % 4 % Basophils % 1 % Neutrophils # 1.8 (1.3-7.7) k/uL Lymphocytes # 1.5 (1.0-4.8) k/uL Monocytes # 0.0 (0-1.0) k/uL Eosinophils # 0.1 (0-0.7) k/uL Basophils # 0.0 (0-0.2) k/uL PT 9.5 (9.0-12.0) sec INR 0.8 (<1.2) APTT 23.2 (22.0-30.0) sec D-Dimer 2.85 H (<0.60) mg/L FEU Sodium (137-145) mmol/L Potassium (3.5-5.1) mmol/L Chloride (98-107) mmol/L Carbon Dioxide (22-30) mmol/L Anion Gap mmol/L BUN (7-17) mg/dL Creatinine (0.52-1.04) mg/dL Est GFR (CKD-EPI)AfAm (>60 ml/min/1.73 sqM) Est GFR (CKD-EPI)NonAf (>60 ml/min/1.73 sqM) Glucose (74-99) mg/dL Calcium (8.4-10.2) mg/dL Magnesium (1.6-2.3) mg/dL Total Bilirubin (0.2-1.3) mg/dL AST (14-36) U/L ALT (4-34) U/L Alkaline Phosphatase (38-126) U/L Troponin I (0.000-0.034) ng/mL NT-Pro-B Natriuret Pep pg/mL Total Protein (6.3-8.2) g/dL Albumin (3.5-5.0) g/dL Urine Color Light Yellow Urine Appearance Cloudy H (Clear) Urine pH 6.5 (5.0-8.0) Ur Specific [place] 1.037 H (1.001-1.035) Urine Protein Negative (Negative) Urine Glucose (UA) Negative (Negative) Urine Ketones Negative (Negative) Urine Blood Negative (Negative) Urine Nitrite Positive H (Negative) Urine Bilirubin Negative (Negative) Urine Urobilinogen <2.0 (<2.0) mg/dL Ur Leukocyte Esterase Large H (Negative) Urine RBC 4 (0-5) /hpf Urine WBC 121 H (0-5) /hpf Urine WBC Clumps Few H (None) /hpf Ur Squamous Epith Cells 4 (0-4) /hpf Urine Bacteria Occasional H (None) /hpf Urine Mucus Rare H (None) /hpf - Radiology Data Radiology results: report reviewed (CT angios shows no pulmonary embolism. Small right effusion. Smaller diabetes with gastrophrenic ligament lymph node.) Disposition Clinical Impression: Chest pain, Urinary tract infection Disposition: ADMITTED IP TO THIS HOSP Is patient prescribed a controlled substance at d/c from ED?: No Referrals: Reuben Almeida MD [Primary Care Provider] - 1-2 days Time of Disposition: 14:25
[2021-12-11 11:55] LABS: Basophils % (A) 1 %; Eosinophils # (A) 0.1 k/uL (0-0.7); Eosinophils % (A) 4 %; HCT 37.9 % (34.0-46.0); Lymphocytes # (A) 1.5 k/uL (1.0-4.8); Lymphocytes % (A) 42 %; MCH 27.9 pg (25.0-35.0); MCHC 31.6 g/dL (31.0-37.0); MCV 88.3 fL (80.0-100.0); Mean Platelet Volume 7.9; Monocytes % (A) 1 %; Neutrophils # (A) 1.8 k/uL (1.3-7.7); Neutrophils % (A) 51 %; Platelet Count 112 k/uL (150-450); RBC 4.29 m/uL (3.80-5.40); RDW 15.1 % (11.5-15.5); WBC 3.5 k/uL (3.8-10.6)
[2021-12-11 12:10] LABS: INR 0.8 (<1.2); Partial Thromboplastin Time 23.2 sec (22.0-30.0); Prothrombin Time 9.5 sec (9.0-12.0)
[2021-12-11 12:15] LABS: Albumin 4.2 g/dL (3.5-5.0); Calcium 8.9 mg/dL (8.4-10.2); Magnesium 1.6 mg/dL (1.6-2.3); Potassium 4.6 mmol/L (3.5-5.1); Total Bilirubin 0.4 mg/dL (0.2-1.3); Total Protein 6.8 g/dL (6.3-8.2)
[2021-12-11] MEDS ORDERED: SODIUM CHLORIDE 0.9% 500 ML 500 ML IV STA (12:33)
--- NOTE | 2021-12-11 13:34 | CT ---
EXAMINATION TYPE: CT angio chest CT DLP: 262 mGycm, Automated exposure control for dose reduction was used. DATE OF EXAM: 12/11/2021 1:02 PM COMPARISON: 08/03/2020, CT abdomen pelvis 10/23/2021. CLINICAL INDICATION:Female, 76 years old with history of dyspnea TECHNIQUE/CONTRAST: CTA scan of the thorax is performed with IV Contrast, patient injected with 62ml mL of Isovue 370, pu lmonary embolism protocol. MIP images are created and reviewed. FINDINGS: Pulmonary Artery: There is no evidence for a filling defect within the pulmonary vasculature to sugge st acute pulmonary embolism. The pulmonary artery is of normal size. Lungs/Pleura: Small right pleural effusion. Airway: Large airways are patent. Heart: Heart is within normal limits for size. Lipomatous hypertrophy of the interatrial septum. Vasculature: Mild atherosclerotic calcifications are present throughout the aorta and its branches. R ight chest wall [id number] with distal tip terminating in the superior vena cava. Mediastinum: No gross evidence of adenopathy. Musculoskeletal: Mild degenerative disc disease changes are present throughout the thoracolumbar spin e. Soft Tissues: Unremarkable. Lower neck: No significant findings. Upper Abdomen: Small amount of ascites is seen in the abdomen. The gallbladder is surgically absent. Gastrohepatic ligament lymph nodes measuring up to 9 mm. IMPRESSION: 1. No evidence of pulmonary embolism. 2. Small right pleural effusion. 3. Small ascites with gastrohepatic ligament lymph node. Findings are seen on prior CT on 10/23/2021.
[2021-12-11 13:48] LABS: Appearance,Urine Cloudy (Clear); Bacteria,Urine Occasional /hpf; Bilirubin,Urine Negative (Negative); Blood,Urine Negative (Negative); Color,Urine Light Yellow; Glucose,Urine (UA) Negative (Negative); Ketones,Urine Negative (Negative); Leukocyte Esterase,Urine Large (Negative); Mucus,Urine Rare /hpf; Nitrite,Urine Positive (Negative); PH, Urine 6.5 (5.0-8.0); Protein,Urine Negative (Negative); RBC,Urine 4 /hpf (0-5); Specific Gravity,Urine 1.037 (1.001-1.035); Squamous Epithelial Cell,Urine 4 /hpf (0-4); Urobilinogen,Urine <2.0 mg/dL (<2.0); WBC,Urine 121 /hpf (0-5)
[2021-12-11] MEDS ORDERED: NALOXONE 0.4 MG/ML 1 ML VIAL IV PRN (14:26)
[2021-12-11] MEDS ORDERED: SODIUM CHLORIDE 0.9% 1,000 ML IV SCH (14:30)
[2021-12-11 14:50] VITALS: BP 158/86
[2021-12-11] MEDS ORDERED: LEVOFLOXACIN 750 MG TAB PO STA (14:55)
--- NOTE | 2021-12-11 14:56 | ED ---
Medical Decision Making - Medical Decision Making Patient and family are refusing admission. Patient does demonstrate medical decision making. Patient is receptive to antibiotics and oral dose will be provided here prior to patient leaving AGAINST MEDICAL ADVICE. prescription also written. Need for close follow-up recommended and they do demonstrate understanding for this as well. - Lab Data Result diagrams: 12/11/21 11:42 12/11/21 11:38 Lab Results 12/11/21 12/11/21 12/11/21 Range/Units 11:38 11:38 11:38 WBC (3.8-10.6) k/uL RBC (3.80-5.40) m/uL Hgb (11.4-16.0) gm/dL Hct (34.0-46.0) % MCV (80.0-100.0) fL MCH (25.0-35.0) pg MCHC (31.0-37.0) g/dL RDW (11.5-15.5) % Plt Count (150-450) k/uL MPV Neutrophils % % Lymphocytes % % Monocytes % % Eosinophils % % Basophils % % Neutrophils # (1.3-7.7) k/uL Lymphocytes # (1.0-4.8) k/uL Monocytes # (0-1.0) k/uL Eosinophils # (0-0.7) k/uL Basophils # (0-0.2) k/uL PT (9.0-12.0) sec INR (<1.2) APTT (22.0-30.0) sec D-Dimer (<0.60) mg/L FEU Sodium 139 (137-145) mmol/L Potassium 4.6 (3.5-5.1) mmol/L Chloride 105 (98-107) mmol/L Carbon Dioxide 21 L (22-30) mmol/L Anion Gap 13 mmol/L BUN 33 H (7-17) mg/dL Creatinine 1.21 H (0.52-1.04) mg/dL Est GFR (CKD-EPI)AfAm 50 (>60 ml/min/1.73 sqM) Est GFR (CKD-EPI)NonAf 43 (>60 ml/min/1.73 sqM) Glucose 147 H (74-99) mg/dL Calcium 8.9 (8.4-10.2) mg/dL Magnesium 1.6 (1.6-2.3) mg/dL Total Bilirubin 0.4 (0.2-1.3) mg/dL AST 24 (14-36) U/L ALT 13 (4-34) U/L Alkaline Phosphatase 86 (38-126) U/L Troponin I <0.012 (0.000-0.034) ng/mL NT-Pro-B Natriuret Pep 86 pg/mL Total Protein 6.8 (6.3-8.2) g/dL Albumin 4.2 (3.5-5.0) g/dL Urine Color Urine Appearance (Clear) Urine pH (5.0-8.0) Ur Specific [place] (1.001-1.035) Urine Protein (Negative) Urine Glucose (UA) (Negative) Urine Ketones (Negative) Urine Blood (Negative) Urine Nitrite (Negative) Urine Bilirubin (Negative) Urine Urobilinogen (<2.0) mg/dL Ur Leukocyte Esterase (Negative) Urine RBC (0-5) /hpf Urine WBC (0-5) /hpf Urine WBC Clumps (None) /hpf Ur Squamous Epith Cells (0-4) /hpf Urine Bacteria (None) /hpf Urine Mucus (None) /hpf 12/11/21 12/11/21 12/11/21 Range/Units 11:42 11:42 13:32 WBC 3.5 L (3.8-10.6) k/uL RBC 4.29 (3.80-5.40) m/uL Hgb 12.0 (11.4-16.0) gm/dL Hct 37.9 (34.0-46.0) % MCV 88.3 (80.0-100.0) fL MCH 27.9 (25.0-35.0) pg MCHC 31.6 (31.0-37.0) g/dL RDW 15.1 (11.5-15.5) % Plt Count 112 L (150-450) k/uL MPV 7.9 Neutrophils % 51 % Lymphocytes % 42 % Monocytes % 1 % Eosinophils % 4 % Basophils % 1 % Neutrophils # 1.8 (1.3-7.7) k/uL Lymphocytes # 1.5 (1.0-4.8) k/uL Monocytes # 0.0 (0-1.0) k/uL Eosinophils # 0.1 (0-0.7) k/uL Basophils # 0.0 (0-0.2) k/uL PT 9.5 (9.0-12.0) sec INR 0.8 (<1.2) APTT 23.2 (22.0-30.0) sec D-Dimer 2.85 H (<0.60) mg/L FEU Sodium (137-145) mmol/L Potassium (3.5-5.1) mmol/L Chloride (98-107) mmol/L Carbon Dioxide (22-30) mmol/L Anion Gap mmol/L BUN (7-17) mg/dL Creatinine (0.52-1.04) mg/dL Est GFR (CKD-EPI)AfAm (>60 ml/min/1.73 sqM) Est GFR (CKD-EPI)NonAf (>60 ml/min/1.73 sqM) Glucose (74-99) mg/dL Calcium (8.4-10.2) mg/dL Magnesium (1.6-2.3) mg/dL Total Bilirubin (0.2-1.3) mg/dL AST (14-36) U/L ALT (4-34) U/L Alkaline Phosphatase (38-126) U/L Troponin I (0.000-0.034) ng/mL NT-Pro-B Natriuret Pep pg/mL Total Protein (6.3-8.2) g/dL Albumin (3.5-5.0) g/dL Urine Color Light Yellow Urine Appearance Cloudy H (Clear) Urine pH 6.5 (5.0-8.0) Ur Specific [place] 1.037 H (1.001-1.035) Urine Protein Negative (Negative) Urine Glucose (UA) Negative (Negative) Urine Ketones Negative (Negative) Urine Blood Negative (Negative) Urine Nitrite Positive H (Negative) Urine Bilirubin Negative (Negative) Urine Urobilinogen <2.0 (<2.0) mg/dL Ur Leukocyte Esterase Large H (Negative) Urine RBC 4 (0-5) /hpf Urine WBC 121 H (0-5) /hpf Urine WBC Clumps Few H (None) /hpf Ur Squamous Epith Cells 4 (0-4) /hpf Urine Bacteria Occasional H (None) /hpf Urine Mucus Rare H (None) /hpf Disposition Clinical Impression: Chest pain, Urinary tract infection Disposition: Left Against Medical Advice Instructions (If sedation given, give patient instructions): Chest Pain (ED), Urinary Tract Infection in Women (ED) Additional Instructions: You're leaving AGAINST MEDICAL ADVICE. Please do follow-up with primary care physician and oncologist tomorrow. Prescription for antibiotics has been sent to pharmacy. Please start this tomorrow morning. Return for chest pain, difficulty breathing, increased weakness, worsening symptoms or any other complaint Prescriptions: Levofloxacin [Levaquin] 500 mg PO DAILY #9 tab Is patient prescribed a controlled substance at d/c from ED?: No Referrals: Reuben Almeida MD [Primary Care Provider] - 1-2 days
[2021-12-11 15:16] VITALS: PULSE 75; TEMP 98.2
[2021-12-11] MEDS ORDERED: FAMOTIDINE 20 MG TAB PO SCH ×2 (21:00)
[2021-12-12] MEDS ORDERED: LEVOFLOXACIN 750MG-D5W PMX 750 MG in DEXTROSE/WATER 1 150ML.BAG IVPB SCH (16:00)
== END 2021-12-11 15:20 | disposition left against medical advice (07) ==
LOC: EC 10:54 → 6NMEDSUR 14:26 → UNDOADMOB 14:26 → EC 15:20
DX: N39.0 Urinary tract infection, site not specified (principal); R07.89 Other chest pain; E11.9 Type 2 diabetes mellitus without complications; E78.5 Hyperlipidemia, unspecified; I10 Essential (primary) hypertension; K21.9 Gastro-esophageal reflux disease without esophagitis; Z79.83 Long term (current) use of bisphosphonates; E07.9 Disorder of thyroid, unspecified; Z79.899 Other long term (current) drug therapy; Z88.0 Allergy status to penicillin; Z88.8 Allergy status to other drugs, medicaments and biological substances; Z88.2 Allergy status to sulfonamides
CPT/HCPCS: 36415; 93005; 85379; 83880; 80053; 83735; 84484; 85025; 85610; 85730; 81001; 87086; 71275; 99285; 96360; Q9967

== ENCOUNTER 2021-12-25 09:28 | Emergency (ER) | payer MEDICARE ==
[2021-12-25 09:41] VITALS: TEMP 97.4
--- NOTE | 2021-12-25 11:24 | CT ---
EXAMINATION TYPE: CT brain ezequiel head con DATE OF EXAM: 12/25/2021 COMPARISON: Prior CT brain report 2018 HISTORY: Falling injury with headache and neck pain. CT DLP: 1014 mGycm. Automated Exposure Control for Dose Reduction was Utilized. TECHNIQUE: CT scan of the head and cervical spine are performed without contrast. FINDINGS: There is no acute intracranial hemorrhage or midline shift identified. The ventricles an d sulci are within normal limits in size for patient's age. Mild to moderate low-attenuation in the periventricular white matter. The globes are intact and the visualized sinuses are clear. Small right frontal acute scalp hematoma axial image 32. The calvarium is intact. Cervical spine is visualized in its entirety from C1 through upper thoracic levels and demonstrates s traightened alignment without evidence of acute fracture or dislocation. Prevertebral soft tissue ap pears within normal limits. The C1-C2 articulation is within normal limits on the coronal images. V ertebral body heights are maintained. Moderate multilevel disc space narrowing C4-C5 through the C6-C 7 levels. Posterior spur disc complexes efface the anterior thecal sac at these levels on sagittal an d axial images. Uncovertebral facet degenerative changes cause some multilevel moderate bilateral scotty ral foraminal narrowing. Partial visualization of Mediport catheter in the right upper thorax. Lung a pices show no pneumothorax. At least tiny right pleural effusion is partially imaged. Thyroid gland s omewhat small in size. IMPRESSION: 1. There is no acute fracture or dislocation evident in the cervical spine. 2. No acute intracranial hemorrhage or midline shift is seen.
[2021-12-25] MEDS ORDERED: SODIUM CHLORIDE 0.9% 1,000 ML IV ONE (11:30)
[2021-12-25 12:19] LABS: Anisocytosis Slight; Basophils % (A) 0 %; Eosinophils % (A) 0 %; HCT 34.9 % (34.0-46.0); HGB 11.9 gm/dL (11.4-16.0); Lymphocytes # (A) 1.8 k/uL (1.0-4.8); Lymphocytes % (A) 24 %; MCH 29.4 pg (25.0-35.0); MCV 86.5 fL (80.0-100.0); Mean Platelet Volume 7.4; Monocytes # (A) 0.3 k/uL (0-1.0); Monocytes % (A) 4 %; Neutrophils # (A) 5.3 k/uL (1.3-7.7); Neutrophils % (A) 69 %; Platelet Count 165 k/uL (150-450); RBC 4.04 m/uL (3.80-5.40); RDW 16.1 % (11.5-15.5); WBC 7.6 k/uL (3.8-10.6)
[2021-12-25 12:21] LABS: Calcium 8.7 mg/dL (8.4-10.2); Potassium 4.1 mmol/L (3.5-5.1); Total Bilirubin 0.4 mg/dL (0.2-1.3); Total Protein 6.4 g/dL (6.3-8.2)
[2021-12-25 12:45] VITALS: RESP 18
[2021-12-25] MEDS ORDERED: hydrALAZINE HCL 20 MG/ML 1 ML VIAL IVP STA (13:03)
[2021-12-25 13:15] LABS: Appearance,Urine Clear (Clear); Bilirubin,Urine Negative (Negative); Blood,Urine Negative (Negative); Color,Urine Light Yellow; Glucose,Urine (UA) Negative (Negative); Ketones,Urine Negative (Negative); Leukocyte Esterase,Urine Small (Negative); Mucus,Urine Rare /hpf; Nitrite,Urine Negative (Negative); PH, Urine 5.5 (5.0-8.0); Protein,Urine Trace (Negative); RBC,Urine 2 /hpf (0-5); Specific Gravity,Urine 1.016 (1.001-1.035); Squamous Epithelial Cell,Urine <1 /hpf (0-4); Urobilinogen,Urine <2.0 mg/dL (<2.0); WBC,Urine 6 /hpf (0-5)
--- NOTE | 2021-12-25 13:49 | ED ---
Fall HPI - General Chief Complaint: Fall Stated Complaint: fall, hit head Time Seen by Provider: 12/25/21 09:43 Source: patient, RN notes reviewed Mode of arrival: ambulatory Limitations: no limitations - History of Present Illness Initial Comments: 76-year-old female presents emergency Department chief complaint of a fall. Patient states she was on the bathroom, got up quickly to wash her hands when she became lightheaded and fell the ground. Patient states she's passed out several times in the past [facility]. She presented emergency department for evaluation she has swelling on the right side of her forehead. Patient states she is under chemotherapy treatment for ovarian cancer. Patient states she is scheduled for treatment his upcoming week she also states she was recently treated for UTI. She hasn't once of neck, back or any extremity injury. Patient denies any chest pain no palpitations no other complaints. - Related Data Home Medications Medication Instructions Recorded Confirmed Levothyroxine Sodium [Synthroid] 50 mcg PO DAILY 02/08/18 12/11/21 Pioglitazone HCl 30 mg PO DAILY 02/08/18 12/11/21 Evolocumab [Repatha Sureclick] 140 mg SQ Q14D 07/16/20 12/11/21 Albuterol Sulfate [Ventolin HFA] 1 - 2 puff INHALATION RT-Q6H PRN 09/22/21 12/11/21 Acetaminophen/Diphenhydramine 1 tab PO HS PRN 11/16/21 12/11/21 [Tylenol PM 500-25mg] Docusate [Colace] 100 mg PO DAILY PRN 11/16/21 12/11/21 L.acidoph,Paracasei, B.lactis 1 cap PO DAILY 11/16/21 12/11/21 [Probiotic] OLANZapine [ZyPREXA] 2.5 mg PO HS 11/16/21 12/11/21 Ondansetron [Zofran] 4 mg PO TID PRN 11/16/21 12/11/21 Sennosides/Docusate Sodium [Senna 1 tab PO DAILY PRN 11/16/21 12/11/21 Plus 8.6-50 mg Tablet] Acetaminophen Tab [Tylenol] 1,000 mg PO Q6HR PRN 11/18/21 12/11/21 Dicyclomine HCl 10 mg PO TID PRN 11/18/21 12/11/21 HYDROcodone/APAP 10-325MG [[place] 1 tab PO Q6H PRN 11/18/21 12/11/21 10-325] Loratadine [Claritin] 10 mg PO DAILY 11/18/21 12/11/21 Ondansetron Odt [Zofran ODT] 4 mg PO Q6H PRN 11/18/21 12/11/21 Previous Rx's Medication Instructions Recorded Levofloxacin [Levaquin] 500 mg PO DAILY #9 tab 12/11/21 Allergies Allergy/AdvReac Type Severity Reaction Status Date / Time amoxicillin [From Augmentin] Allergy Rash/Hives/ Verified 12/25/21 09:41 itching clavulanic acid Allergy Rash/Hives/ Verified 12/25/21 09:41 [From Augmentin] itching Sulfa (Sulfonamide Allergy Itching Verified 12/25/21 09:41 Antibiotics) Review of Systems ROS Statement: Those systems with pertinent positive or pertinent negative responses have been documented in the HPI. ROS Other: All systems not noted in ROS Statement are negative. Past Medical History Past Medical History: Cancer, Diabetes Mellitus, GERD/Reflux, Hyperlipidemia, Osteoarthritis (OA), Thyroid Disorder Additional Past Medical History / Comment(s): Ovarian cancer(started Chemo 11/14/21), constipation, hx hiatal hernia, "Dr watching liver enzymes", urinary incontinence, vertigo History of Any Multi-Drug Resistant Organisms: None Reported Past Surgical History: Adenoidectomy, Bladder Surgery, Section, Cholecystectomy, Hysterectomy, Tonsillectomy Additional Past Surgical History / Comment(s): x 3, 2 bladder suspension and 1 bowel lift; Past Anesthesia/Blood Transfusion Reactions: Previous Problems w/ Anesthesia, Postoperative Nausea & Vomiting (PONV) Additional Past Anesthesia/Blood Transfusion Reaction / Comment(s): years ago had a problem with anesthesia(vomiting) in [place], but has had anesthesia several times since then and has had no problem, recent vertigo Past Psychological History: No Psychological Hx Reported Smoking Status: Never smoker Past Alcohol Use History: None Reported Past Drug Use History: None Reported - Past Family History Father Family Medical History: Hypertension Brother(s) Family Medical History: Cancer General Exam Limitations: no limitations General appearance: alert, in no apparent distress Head exam: Present: atraumatic, normocephalic. Absent: normal inspection (Right forehead hematoma) Eye exam: Present: normal appearance, PERRL, EOMI. Absent: scleral icterus, conjunctival injection, periorbital swelling ENT exam: Present: normal exam, mucous membranes moist Neck exam: Present: normal inspection, full ROM. Absent: tenderness, meningismus, lymphadenopathy Respiratory exam: Present: normal lung sounds bilaterally. Absent: respiratory distress, wheezes, rales, rhonchi, stridor Cardiovascular Exam: Present: regular rate, normal rhythm, normal heart sounds. Absent: systolic murmur, diastolic murmur, rubs, gallop, clicks Neurological exam: Present: alert, oriented X3, CN II-XII intact, reflexes normal. Absent: motor sensory deficit Skin exam: Present: warm, dry, intact, normal color. Absent: rash Course Vital Signs 12/25/21 12/25/21 12/25/21 09:38 12:43 12:44 Temperature 97.4 F L Pulse Rate 70 Pulse Rate [ 69 71 Pulse Oximetery ] Respiratory 20 16 18 Rate Blood Pressure 175/81 Blood Pressure 209/76 209/85 [Right Arm Supine] O2 Sat by Pulse 99 99 99 Oximetry 12/25/21 12:45 Temperature Pulse Rate Pulse Rate [ 73 Pulse Oximetery ] Respiratory 18 Rate Blood Pressure Blood Pressure 204/97 [Right Arm Supine] O2 Sat by Pulse 99 Oximetry Medical Decision Making - Medical Decision Making 76-year-old presented for fall, head injury. CT is obtained which is unremarkable. Patient is labs reveal any acute findings. Patient is asy mptomatic patient will be [facility] to [facility] return parameters were discussed. - Lab Data Result diagrams: 12/25/21 11:55 12/25/21 11:55 Lab Results 12/25/21 12/25/21 12/25/21 Range/Units 11:55 11:55 11:55 WBC 7.6 (3.8-10.6) k/uL RBC 4.04 (3.80-5.40) m/uL Hgb 11.9 (11.4-16.0) gm/dL Hct 34.9 (34.0-46.0) % MCV 86.5 (80.0-100.0) fL MCH 29.4 (25.0-35.0) pg MCHC 34.0 (31.0-37.0) g/dL RDW 16.1 H (11.5-15.5) % Plt Count 165 (150-450) k/uL MPV 7.4 Neutrophils % 69 % Lymphocytes % 24 % Monocytes % 4 % Eosinophils % 0 % Basophils % 0 % Neutrophils # 5.3 (1.3-7.7) k/uL Lymphocytes # 1.8 (1.0-4.8) k/uL Monocytes # 0.3 (0-1.0) k/uL Eosinophils # 0.0 (0-0.7) k/uL Basophils # 0.0 (0-0.2) k/uL Anisocytosis Slight Sodium 140 (137-145) mmol/L Potassium 4.1 (3.5-5.1) mmol/L Chloride 107 (98-107) mmol/L Carbon Dioxide 23 (22-30) mmol/L Anion Gap 10 mmol/L BUN 21 H (7-17) mg/dL Creatinine 0.89 (0.52-1.04) mg/dL Est GFR (CKD-EPI)AfAm 72 (>60 ml/min/1.73 sqM) Est GFR (CKD-EPI)NonAf 62 (>60 ml/min/1.73 sqM) Glucose 116 H (74-99) mg/dL Calcium 8.7 (8.4-10.2) mg/dL Total Bilirubin 0.4 (0.2-1.3) mg/dL AST 26 (14-36) U/L ALT 11 (4-34) U/L Alkaline Phosphatase 95 (38-126) U/L Troponin I (0.000-0.034) ng/mL Total Protein 6.4 (6.3-8.2) g/dL Albumin 4.0 (3.5-5.0) g/dL Urine Color Light Yellow Urine Appearance Clear (Clear) Urine pH 5.5 (5.0-8.0) Ur Specific [place] 1.016 (1.001-1.035) Urine Protein Trace H (Negative) Urine Glucose (UA) Negative (Negative) Urine Ketones Negative (Negative) Urine Blood Negative (Negative) Urine Nitrite Negative (Negative) Urine Bilirubin Negative (Negative) Urine Urobilinogen <2.0 (<2.0) mg/dL Ur Leukocyte Esterase Small H (Negative) Urine RBC 2 (0-5) /hpf Urine WBC 6 H (0-5) /hpf Ur Squamous Epith Cells <1 (0-4) /hpf Urine Mucus Rare H (None) /hpf 12/25/21 Range/Units 11:55 WBC (3.8-10.6) k/uL RBC (3.80-5.40) m/uL Hgb (11.4-16.0) gm/dL Hct (34.0-46.0) % MCV (80.0-100.0) fL MCH (25.0-35.0) pg MCHC (31.0-37.0) g/dL RDW (11.5-15.5) % Plt Count (150-450) k/uL MPV Neutrophils % % Lymphocytes % % Monocytes % % Eosinophils % % Basophils % % Neutrophils # (1.3-7.7) k/uL Lymphocytes # (1.0-4.8) k/uL Monocytes # (0-1.0) k/uL Eosinophils # (0-0.7) k/uL Basophils # (0-0.2) k/uL Anisocytosis Sodium (137-145) mmol/L Potassium (3.5-5.1) mmol/L Chloride (98-107) mmol/L Carbon Dioxide (22-30) mmol/L Anion Gap mmol/L BUN (7-17) mg/dL Creatinine (0.52-1.04) mg/dL Est GFR (CKD-EPI)AfAm (>60 ml/min/1.73 sqM) Est GFR (CKD-EPI)NonAf (>60 ml/min/1.73 sqM) Glucose (74-99) mg/dL Calcium (8.4-10.2) mg/dL Total Bilirubin (0.2-1.3) mg/dL AST (14-36) U/L ALT (4-34) U/L Alkaline Phosphatase (38-126) U/L Troponin I <0.012 (0.000-0.034) ng/mL Total Protein (6.3-8.2) g/dL Albumin (3.5-5.0) g/dL Urine Color Urine Appearance (Clear) Urine pH (5.0-8.0) Ur Specific [place] (1.001-1.035) Urine Protein (Negative) Urine Glucose (UA) (Negative) Urine Ketones (Negative) Urine Blood (Negative) Urine Nitrite (Negative) Urine Bilirubin (Negative) Urine Urobilinogen (<2.0) mg/dL Ur Leukocyte Esterase (Negative) Urine RBC (0-5) /hpf Urine WBC (0-5) /hpf Ur Squamous Epith Cells (0-4) /hpf Urine Mucus (None) /hpf Disposition Clinical Impression: Fall, Forehead contusion Disposition: HOME SELF-CARE Condition: Stable Instructions (If sedation given, give patient instructions): Head Injury (ED) Additional Instructions: Please return to the Emergency Department if symptoms worsen or any other concerns. Is patient prescribed a controlled substance at d/c from ED?: No Referrals: Reuben Almeida MD [Primary Care Provider] - 1-2 days Time of Disposition: 13:48
[2021-12-25 14:12] VITALS: BP 168/82; PULSE 89
== END 2021-12-25 14:28 | disposition home or self-care (01) ==
LOC: EC 09:28
DX: S00.83XA Contusion of other part of head, initial encounter (principal); E11.9 Type 2 diabetes mellitus without complications; K21.9 Gastro-esophageal reflux disease without esophagitis; Z79.83 Long term (current) use of bisphosphonates; E78.5 Hyperlipidemia, unspecified; E07.9 Disorder of thyroid, unspecified; Z79.899 Other long term (current) drug therapy; Z88.2 Allergy status to sulfonamides; Z88.0 Allergy status to penicillin; Z88.8 Allergy status to other drugs, medicaments and biological substances; W19.XXXA Unspecified fall, initial encounter
CPT/HCPCS: 36415; 93005; 80053; 84484; 85025; 81001; 72125; 70450; 99284; 96374; 96361; J0360

== ENCOUNTER 2021-12-29 13:34 | Emergency (ER) | payer MEDICARE ==
[2021-12-29 13:41] VITALS: RESP 18; TEMP 98.1
[2021-12-29] MEDS ORDERED: SODIUM CHLORIDE 0.9% 500 ML 500 ML IV STA (13:55)
--- NOTE | 2021-12-29 14:04 | ED ---
General Adult HPI - General Chief complaint: Syncope Stated complaint: Syncope Time Seen by Provider: 12/29/21 13:34 Source: patient, EMS, RN notes reviewed, old records reviewed Mode of arrival: EMS Limitations: no limitations - History of Present Illness Initial comments: This is a 76-year-old female who presents emergency department with past medical history significant for ovarian cancer. Patient had her last chemo treatment on Sunday. According to EMS family found the patient slumped up against the wall in the bathroom patient states earlier today she was lightheaded but after she ate breakfast she didn't feel lightheaded any longer. Patient states she does not remember being lightheaded in the bathroom falling. Patient has no complaints currently. Patient states she has no headache she has no numbness or weakness. Patient states she has no neck pain. Patient denies any chest pain palpitations difficulty breathing shortness of breath. Patient denies any recent fever chills or cough. Patient denies any abdominal pain patient denies any nausea vomiting diarrhea. - Related Data Home Medications Medication Instructions Recorded Confirmed Levothyroxine Sodium [Synthroid] 50 mcg PO DAILY 02/08/18 12/30/21 Evolocumab [Repatha Sureclick] 140 mg SQ Q14D 07/16/20 12/30/21 Albuterol Sulfate [Ventolin HFA] 1 - 2 puff INHALATION RT-Q6H PRN 09/22/21 12/30/21 Docusate [Colace] 100 mg PO DAILY PRN 11/16/21 12/30/21 L.acidoph,Paracasei, B.lactis 1 cap PO DAILY 11/16/21 12/30/21 [Probiotic] OLANZapine [ZyPREXA] 2.5 mg PO DIRECTED 11/16/21 12/30/21 Ondansetron [Zofran] 4 mg PO Q8H PRN 11/16/21 12/30/21 Sennosides/Docusate Sodium [Senna 2 tab PO HS PRN 11/16/21 12/30/21 Plus 8.6-50 mg Tablet] Acetaminophen Tab [Tylenol] 500 mg PO Q6HR PRN 11/18/21 12/30/21 Dicyclomine HCl 10 mg PO TID PRN 11/18/21 12/30/21 HYDROcodone/APAP 10-325MG [[place] 1 tab PO Q6H PRN 11/18/21 12/30/21 10-325] Loratadine [Claritin] 20 mg PO Q6H PRN 11/18/21 12/30/21 Omeprazole 20 mg PO DAILY 12/29/21 12/30/21 Pioglitazone [Actos] 15 mg PO DAILY 12/29/21 12/30/21 Previous Rx's Medication Instructions Recorded amLODIPine [Norvasc] 5 mg PO DAILY #7 tab 12/30/21 Allergies Allergy/AdvReac Type Severity Reaction Status Date / Time amoxicillin [From Augmentin] Allergy Rash/Hives/ Verified 12/30/21 14:56 itching clavulanic acid Allergy Rash/Hives/ Verified 12/30/21 14:56 [From Augmentin] itching Sulfa (Sulfonamide Allergy Itching Verified 12/30/21 14:56 Antibiotics) Review of Systems ROS Statement: Those systems with pertinent positive or pertinent negative responses have been documented in the HPI. ROS Other: All systems not noted in ROS Statement are negative. Past Medical History Past Medical History: Cancer, Diabetes Mellitus, GERD/Reflux, Hyperlipidemia, Osteoarthritis (OA), Thyroid Disorder Additional Past Medical History / Comment(s): Ovarian cancer(started Chemo 11/14/21), constipation, hx hiatal hernia, "Dr watching liver enzymes", urinary incontinence, vertigo History of Any Multi-Drug Resistant Organisms: None Reported Past Surgical History: Adenoidectomy, Bladder Surgery, Section, Cholecystectomy, Hysterectomy, Tonsillectomy Additional Past Surgical History / Comment(s): x 3, 2 bladder suspension and 1 bowel lift; Past Anesthesia/Blood Transfusion Reactions: Previous Problems w/ Anesthesia, Postoperative Nausea & Vomiting (PONV) Additional Past Anesthesia/Blood Transfusion Reaction / Comment(s): years ago had a problem with anesthesia(vomiting) in [place], but has had anesthesia several times since then and has had no problem, recent vertigo Past Psychological History: No Psychological Hx Reported Smoking Status: Never smoker Past Alcohol Use History: None Reported Past Drug Use History: None Reported - Past Family History Father Family Medical History: Hypertension Brother(s) Family Medical History: Cancer General Exam - General Exam Comments Initial Comments: GENERAL: Patient is well-developed and well-nourished. Patient is nontoxic and well- hydrated and is in mild distress. ENT: Neck is soft and supple. No significant lymphadenopathy is noted. Oropharynx is clear. Moist mucous membranes. Neck has full range of motion without eliciting any pain. EYES: The sclera were anicteric and conjunctiva were pink and moist. Extraocular movements were intact and pupils were equal round and reactive to light. Eyelids were unremarkable. PULMONARY: Unlabored respirations. Good breath sounds bilaterally. No audible rales rhonchi or wheezing was noted. CARDIOVASCULAR: There is a regular rate and rhythm without any murmurs gallops or rubs. ABDOMEN: Soft and nontender with normal bowel sounds. SKIN: Patient has some old bruising around the right ear and the right orbit patient states she sort of been evaluated for that it doesn't bother her at this time. NEUROLOGIC: Patient is alert and oriented x3. Cranial nerves II through XII are grossly intact. Motor and sensory are also intact. Normal speech, volume and content. Symmetrical smile. MUSCULOSKELETAL: Normal extremities with adequate strength and full range of motion. No lower extremity swelling or edema. No calf tenderness. LYMPHATICS: No significant lymphadenopathy is noted PSYCHIATRIC: Normal psychiatric evaluation. Limitations: no limitations Course Vital Signs 12/29/21 12/29/21 12/29/21 13:35 14:10 16:52 Temperature 98.1 F Pulse Rate 66 62 Pulse Rate [ 65 Sitting] Pulse Rate [ 73 Standing] Pulse Rate [ 64 Supine] Respiratory 18 18 Rate Blood Pressure 174/73 157/68 Blood Pressure 196/86 [Sitting] Blood Pressure 167/83 [Standing] Blood Pressure 178/78 [Supine] O2 Sat by Pulse 98 96 Oximetry Medical Decision Making - Medical Decision Making EKG shows sinus rhythm at 60 bpm AK interval 172 QRS is 131 Q-T intervals 468 QTC is 416. Patient's EKG shows a left bundle branch block. Patient's chest x-ray shows small pleural effusion. I went back in and reevaluated the patient she was feeling back to her baseline. I recommended patient stay overnight to be further evaluated and kept on a monitor. Patient states she's been in the hospital she did not want to stay she wanted to go home and she states she'll be more careful in the near future. Daughter states she will stay with the patient and help her anywhere she needs to go in the house. - Lab Data Result diagrams: 12/29/21 14:08 12/29/21 14:08 Lab Results 12/29/21 12/29/21 12/29/21 Range/Units 14:08 14:08 14:08 WBC 4.3 (3.8-10.6) k/uL RBC 3.75 L (3.80-5.40) m/uL Hgb 10.7 L (11.4-16.0) gm/dL Hct 33.2 L (34.0-46.0) % MCV 88.4 (80.0-100.0) fL MCH 28.6 (25.0-35.0) pg MCHC 32.3 (31.0-37.0) g/dL RDW 16.2 H (11.5-15.5) % Plt Count 121 L (150-450) k/uL MPV 7.9 Neutrophils % 68 % Lymphocytes % 27 % Monocytes % 3 % Eosinophils % 1 % Basophils % 1 % Neutrophils # 2.9 (1.3-7.7) k/uL Lymphocytes # 1.1 (1.0-4.8) k/uL Monocytes # 0.1 (0-1.0) k/uL Eosinophils # 0.0 (0-0.7) k/uL Basophils # 0.0 (0-0.2) k/uL Anisocytosis Slight PT 9.9 (9.0-12.0) sec INR 0.9 (<1.2) APTT 21.3 L (22.0-30.0) sec Sodium 139 (137-145) mmol/L Potassium 4.7 (3.5-5.1) mmol/L Chloride 105 (98-107) mmol/L Carbon Dioxide 23 (22-30) mmol/L Anion Gap 11 mmol/L BUN 27 H (7-17) mg/dL Creatinine 1.17 H (0.52-1.04) mg/dL Est GFR (CKD-EPI)AfAm 52 (>60 ml/min/1.73 sqM) Est GFR (CKD-EPI)NonAf 45 (>60 ml/min/1.73 sqM) Glucose 163 H (74-99) mg/dL Calcium 8.6 (8.4-10.2) mg/dL Magnesium 1.7 (1.6-2.3) mg/dL Total Bilirubin 0.6 (0.2-1.3) mg/dL AST 26 (14-36) U/L ALT 13 (4-34) U/L Alkaline Phosphatase 72 (38-126) U/L Troponin I (0.000-0.034) ng/mL Total Protein 6.2 L (6.3-8.2) g/dL Albumin 3.8 (3.5-5.0) g/dL 12/29/21 Range/Units 14:08 WBC (3.8-10.6) k/uL RBC (3.80-5.40) m/uL Hgb (11.4-16.0) gm/dL Hct (34.0-46.0) % MCV (80.0-100.0) fL MCH (25.0-35.0) pg MCHC (31.0-37.0) g/dL RDW (11.5-15.5) % Plt Count (150-450) k/uL MPV Neutrophils % % Lymphocytes % % Monocytes % % Eosinophils % % Basophils % % Neutrophils # (1.3-7.7) k/uL Lymphocytes # (1.0-4.8) k/uL Monocytes # (0-1.0) k/uL Eosinophils # (0-0.7) k/uL Basophils # (0-0.2) k/uL Anisocytosis PT (9.0-12.0) sec INR (<1.2) APTT (22.0-30.0) sec Sodium (137-145) mmol/L Potassium (3.5-5.1) mmol/L Chloride (98-107) mmol/L Carbon Dioxide (22-30) mmol/L Anion Gap mmol/L BUN (7-17) mg/dL Creatinine (0.52-1.04) mg/dL Est GFR (CKD-EPI)AfAm (>60 ml/min/1.73 sqM) Est GFR (CKD-EPI)NonAf (>60 ml/min/1.73 sqM) Glucose (74-99) mg/dL Calcium (8.4-10.2) mg/dL Magnesium (1.6-2.3) mg/dL Total Bilirubin (0.2-1.3) mg/dL AST (14-36) U/L ALT (4-34) U/L Alkaline Phosphatase (38-126) U/L Troponin I <0.012 (0.000-0.034) ng/mL Total Protein (6.3-8.2) g/dL Albumin (3.5-5.0) g/dL Disposition Clinical Impression: Syncope and collapse Disposition: HOME SELF-CARE Condition: Good Instructions (If sedation given, give patient instructions): Syncope (ED) Is patient prescribed a controlled substance at d/c from ED?: No Referrals: Reuben Almeida MD [Primary Care Provider] - 1-2 days Time of Disposition: 15:38
[2021-12-29 14:20] LABS: Anisocytosis Slight; Basophils % (A) 1 %; Eosinophils % (A) 1 %; HCT 33.2 % (34.0-46.0); HGB 10.7 gm/dL (11.4-16.0); Lymphocytes # (A) 1.1 k/uL (1.0-4.8); Lymphocytes % (A) 27 %; MCH 28.6 pg (25.0-35.0); MCHC 32.3 g/dL (31.0-37.0); MCV 88.4 fL (80.0-100.0); Mean Platelet Volume 7.9; Monocytes # (A) 0.1 k/uL (0-1.0); Monocytes % (A) 3 %; Neutrophils # (A) 2.9 k/uL (1.3-7.7); Neutrophils % (A) 68 %; Platelet Count 121 k/uL (150-450); RBC 3.75 m/uL (3.80-5.40); RDW 16.2 % (11.5-15.5); WBC 4.3 k/uL (3.8-10.6)
--- NOTE | 2021-12-29 14:27 | XR ---
EXAMINATION TYPE: XR chest 2V DATE OF EXAM: 12/29/2021 COMPARISON: 11/21/2021 TECHNIQUE: PA and lateral views submitted. HISTORY: Chest pain FINDINGS: Mediport catheter is seen. There is no evidence of pneumothorax. Small right pleural effusion. No ove rt failure. Heart size normal. No consolidative pneumonia. IMPRESSION: 1. Small right pleural effusion
[2021-12-29 14:36] LABS: INR 0.9 (<1.2); Prothrombin Time 9.9 sec (9.0-12.0)
[2021-12-29 14:46] LABS: Albumin 3.8 g/dL (3.5-5.0); Calcium 8.6 mg/dL (8.4-10.2); Magnesium 1.7 mg/dL (1.6-2.3); Potassium 4.7 mmol/L (3.5-5.1); Total Bilirubin 0.6 mg/dL (0.2-1.3); Total Protein 6.2 g/dL (6.3-8.2)
[2021-12-29 14:47] LABS: Partial Thromboplastin Time 21.3 sec (22.0-30.0)
[2021-12-29 16:54] VITALS: BP 157/68; PULSE 62
== END 2021-12-29 16:54 | disposition home or self-care (01) ==
LOC: EC 13:34
DX: E11.9 Type 2 diabetes mellitus without complications (principal); K21.9 Gastro-esophageal reflux disease without esophagitis; E78.5 Hyperlipidemia, unspecified; E07.9 Disorder of thyroid, unspecified; M19.90 Unspecified osteoarthritis, unspecified site; Z88.1 Allergy status to other antibiotic agents; Z88.2 Allergy status to sulfonamides; Z79.890 Hormone replacement therapy
CPT/HCPCS: 36415; 71046; 80053; 83735; 84484; 85025; 85610; 85730; 93005; 96360; 99284

== ENCOUNTER 2021-12-30 11:58 | Emergency (ER) | payer MEDICARE ==
[2021-12-30 12:22] VITALS: TEMP 98
[2021-12-30] MEDS ORDERED: SODIUM CHLORIDE 0.9% 1,000 ML IV STA (12:31)
--- NOTE | 2021-12-30 12:34 | ED ---
General Adult HPI - General Chief complaint: Dizziness Stated complaint: from jakob Brownlee Time Seen by Provider: 12/30/21 12:23 Source: patient, family, RN notes reviewed Mode of arrival: wheelchair Limitations: no limitations - History of Present Illness Initial comments: Patient is a pleasant 76-year-old female presenting to emergency department with concerns with lightheadedness. Patient has stage IV ovarian cancer. Patient did have chemotherapy being of the week. Patient has general lightheadedness that is intermittent. Patient denies dyspnea or chest pain. No headache or confusion. No isolated area of weakness. Patient feels she has been eating and drinking well. Patient did have syncopal episodes several times. Patient did hurt her head one time however did have a negative computed tomography scan following this. Patient did go to[facility]. Patient had systolic blood pressure of 200, repeat was 190. - Related Data Home Medications Medication Instructions Recorded Confirmed Levothyroxine Sodium [Synthroid] 50 mcg PO DAILY 02/08/18 12/30/21 Evolocumab [Repatha Sureclick] 140 mg SQ Q14D 07/16/20 12/30/21 Albuterol Sulfate [Ventolin HFA] 1 - 2 puff INHALATION RT-Q6H PRN 09/22/21 12/30/21 Docusate [Colace] 100 mg PO DAILY PRN 11/16/21 12/30/21 L.acidoph,Paracasei, B.lactis 1 cap PO DAILY 11/16/21 12/30/21 [Probiotic] OLANZapine [ZyPREXA] 2.5 mg PO DIRECTED 11/16/21 12/30/21 Ondansetron [Zofran] 4 mg PO Q8H PRN 11/16/21 12/30/21 Sennosides/Docusate Sodium [Senna 2 tab PO HS PRN 11/16/21 12/30/21 Plus 8.6-50 mg Tablet] Acetaminophen Tab [Tylenol] 500 mg PO Q6HR PRN 11/18/21 12/30/21 Dicyclomine HCl 10 mg PO TID PRN 11/18/21 12/30/21 HYDROcodone/APAP 10-325MG [[place] 1 tab PO Q6H PRN 11/18/21 12/30/21 10-325] Loratadine [Claritin] 20 mg PO Q6H PRN 11/18/21 12/30/21 Omeprazole 20 mg PO DAILY 12/29/21 12/30/21 Pioglitazone [Actos] 15 mg PO DAILY 12/29/21 12/30/21 Previous Rx's Medication Instructions Recorded amLODIPine [Norvasc] 5 mg PO DAILY #7 tab 12/30/21 Allergies Allergy/AdvReac Type Severity Reaction Status Date / Time amoxicillin [From Augmentin] Allergy Rash/Hives/ Verified 12/30/21 14:56 itching clavulanic acid Allergy Rash/Hives/ Verified 12/30/21 14:56 [From Augmentin] itching Sulfa (Sulfonamide Allergy Itching Verified 12/30/21 14:56 Antibiotics) Review of Systems ROS Statement: Those systems with pertinent positive or pertinent negative responses have been documented in the HPI. ROS Other: All systems not noted in ROS Statement are negative. Constitutional: Denies: fever Eyes: Denies: eye pain ENT: Denies: ear pain Respiratory: Denies: cough, dyspnea Cardiovascular: Denies: chest pain Endocrine: Denies: fatigue Gastrointestinal: Denies: abdominal pain Genitourinary: Denies: dysuria Musculoskeletal: Denies: back pain Skin: Denies: rash Neurological: Denies: headache, weakness Past Medical History Past Medical History: Cancer, Diabetes Mellitus, GERD/Reflux, Hyperlipidemia, Osteoarthritis (OA), Thyroid Disorder Additional Past Medical History / Comment(s): Ovarian cancer(started Chemo 11/14/21), constipation, hx hiatal hernia, "Dr watching liver enzymes", urinary incontinence, vertigo History of Any Multi-Drug Resistant Organisms: None Reported Past Surgical History: Adenoidectomy, Bladder Surgery, Section, Cholecystectomy, Hysterectomy, Tonsillectomy Additional Past Surgical History / Comment(s): x 3, 2 bladder suspension and 1 bowel lift; Past Anesthesia/Blood Transfusion Reactions: Previous Problems w/ Anesthesia, Postoperative Nausea & Vomiting (PONV) Additional Past Anesthesia/Blood Transfusion Reaction / Comment(s): years ago had a problem with anesthesia(vomiting) in [place], but has had anesthesia several times since then and has had no problem, recent vertigo Past Psychological History: No Psychological Hx Reported Smoking Status: Never smoker Past Alcohol Use History: None Reported Past Drug Use History: None Reported - Past Family History Father Family Medical History: Hypertension Brother(s) Family Medical History: Cancer General Exam Limitations: no limitations General appearance: alert, in no apparent distress Head exam: Present: other (Right forehead ecchymosis) Eye exam: Present: normal appearance, PERRL, EOMI ENT exam: Present: normal oropharynx Neck exam: Present: normal inspection Respiratory exam: Present: normal lung sounds bilaterally Cardiovascular Exam: Present: regular rate, normal rhythm GI/Abdominal exam: Present: soft. Absent: tenderness Neurological exam: Present: alert, CN II-XII intact. Absent: motor sensory deficit Expanded Neurological exam: Present: protecting the airway Speech: Present: fluid speech Cranial nerves: EOM's Intact: Normal Motor strength exam: RUE: 5, LUE: 5, RLE: 5, LLE: 5 Eye Response: (4) open spontaneously Motor Response: (6) obeys commands Verbal Response: (5) oriented Psychiatric exam: Present: normal affect, normal mood Skin exam: Present: other (Right forehead ecchymosis) Course Vital Signs 12/30/21 12/30/21 12/30/21 12:17 12:58 14:00 Temperature 98 F Pulse Rate 66 69 Respiratory 16 18 Rate Blood Pressure 166/72 199/88 Blood Pressure 200/78 [Left Arm Sitting] Blood Pressure 185/73 [Standing] Blood Pressure 203/86 [Supine] O2 Sat by Pulse 99 99 Oximetry 12/30/21 12/30/21 12/30/21 14:36 15:17 15:30 Temperature Pulse Rate 68 68 76 Respiratory 18 14 Rate Blood Pressure 215/95 218/95 208/84 Blood Pressure [Left Arm Sitting] Blood Pressure [Standing] Blood Pressure [Supine] O2 Sat by Pulse 98 98 98 Oximetry 12/30/21 16:00 Temperature Pulse Rate 82 Respiratory 14 Rate Blood Pressure 171/71 Blood Pressure [Left Arm Sitting] Blood Pressure [Standing] Blood Pressure [Supine] O2 Sat by Pulse 98 Oximetry EKG Findings - EKG Comments: EKG Findings:: Sinus rhythm rate 67. MS 171. QRS 133. QT 436. QTc 451. Left axis. Left bundle branch block. Septal Q waves. No acute ST change. Medical Decision Making - Medical Decision Making Patient reevaluated and feeling much better. Blood pressure improved. Patient and family are requesting discharge home. Offered admission however they refused. They will by a home monitor for blood pressure and will be provided a few Norvasc if needed. - Lab Data Result diagrams: 12/30/21 12:43 12/30/21 12:43 Lab Results 12/30/21 12/30/21 12/30/21 Range/Units 12:43 12:43 12:43 WBC 3.9 (3.8-10.6) k/uL RBC 3.67 L (3.80-5.40) m/uL Hgb 10.5 L (11.4-16.0) gm/dL Hct 32.1 L (34.0-46.0) % MCV 87.6 (80.0-100.0) fL MCH 28.6 (25.0-35.0) pg MCHC 32.7 (31.0-37.0) g/dL RDW 16.2 H (11.5-15.5) % Plt Count 120 L (150-450) k/uL MPV 8.1 Neutrophils % 47 % Lymphocytes % 48 % Monocytes % 2 % Eosinophils % 1 % Basophils % 1 % Neutrophils # 1.9 (1.3-7.7) k/uL Lymphocytes # 1.9 (1.0-4.8) k/uL Monocytes # 0.1 (0-1.0) k/uL Eosinophils # 0.1 (0-0.7) k/uL Basophils # 0.0 (0-0.2) k/uL Anisocytosis Slight PT 9.8 (9.0-12.0) sec INR 0.9 (<1.2) APTT 22.5 (22.0-30.0) sec D-Dimer 1.82 H (<0.60) mg/L FEU Sodium 140 (137-145) mmol/L Potassium 4.3 (3.5-5.1) mmol/L Chloride 106 (98-107) mmol/L Carbon Dioxide 24 (22-30) mmol/L Anion Gap 10 mmol/L BUN 24 H (7-17) mg/dL Creatinine 0.84 (0.52-1.04) mg/dL Est GFR (CKD-EPI)AfAm 77 (>60 ml/min/1.73 sqM) Est GFR (CKD-EPI)NonAf 67 (>60 ml/min/1.73 sqM) Glucose 131 H (74-99) mg/dL Calcium 8.7 (8.4-10.2) mg/dL Magnesium 1.6 (1.6-2.3) mg/dL Total Bilirubin 0.4 (0.2-1.3) mg/dL AST 24 (14-36) U/L ALT 12 (4-34) U/L Alkaline Phosphatase 71 (38-126) U/L Total Protein 5.9 L (6.3-8.2) g/dL Albumin 3.7 (3.5-5.0) g/dL - Radiology Data Radiology results: image reviewed (Chest x-ray shows no acute process) Disposition Clinical Impression: Lightheadedness, Hypertension Disposition: HOME SELF-CARE Condition: Stable Instructions (If sedation given, give patient instructions): Dizziness (ED), Hypertension (ED) Additional Instructions: Prescription sent to pharmacy. Please take one daily if needed for systolic blood pressure greater than 160. Return for increased blood pressure, lightheadedness or passing out, worsening symptoms or any other concerns. Please do follow-up with your primary care physician and oncologist being the week for further evaluation Prescriptions: amLODIPine [Norvasc] 5 mg PO DAILY #7 tab Is patient prescribed a controlled substance at d/c from ED?: No Referrals: Reuben Almeida MD [Primary Care Provider] - 1-2 days Time of Disposition: 16:32
[2021-12-30 13:13] LABS: Anisocytosis Slight; Basophils % (A) 1 %; Eosinophils # (A) 0.1 k/uL (0-0.7); Eosinophils % (A) 1 %; HCT 32.1 % (34.0-46.0); HGB 10.5 gm/dL (11.4-16.0); Lymphocytes # (A) 1.9 k/uL (1.0-4.8); Lymphocytes % (A) 48 %; MCH 28.6 pg (25.0-35.0); MCHC 32.7 g/dL (31.0-37.0); MCV 87.6 fL (80.0-100.0); Mean Platelet Volume 8.1; Monocytes # (A) 0.1 k/uL (0-1.0); Monocytes % (A) 2 %; Neutrophils # (A) 1.9 k/uL (1.3-7.7); Neutrophils % (A) 47 %; Platelet Count 120 k/uL (150-450); RBC 3.67 m/uL (3.80-5.40); RDW 16.2 % (11.5-15.5); WBC 3.9 k/uL (3.8-10.6)
[2021-12-30 13:22] LABS: Albumin 3.7 g/dL (3.5-5.0); Calcium 8.7 mg/dL (8.4-10.2); Magnesium 1.6 mg/dL (1.6-2.3); Potassium 4.3 mmol/L (3.5-5.1); Total Bilirubin 0.4 mg/dL (0.2-1.3); Total Protein 5.9 g/dL (6.3-8.2)
[2021-12-30 13:33] LABS: INR 0.9 (<1.2); Partial Thromboplastin Time 22.5 sec (22.0-30.0); Prothrombin Time 9.8 sec (9.0-12.0)
--- NOTE | 2021-12-30 13:55 | XR ---
EXAMINATION TYPE: XR chest 2V DATE OF EXAM: 12/30/2021 COMPARISON: 12/29/2021 HISTORY: Shortness of breath TECHNIQUE: Frontal and lateral views of the chest are obtained. FINDINGS: Scattered senescent parenchymal changes noted. No evidence for infiltrate. No evidence for atelectasis. Heart size is stable. Mediastinal structures are stable and grossly unremarkable. No evidence for hilar prominence. Degenerative changes dorsal spine. IMPRESSION: 1. No evidence for acute pulmonary disease.
[2021-12-30] MEDS ORDERED: hydrALAZINE HCL 20 MG/ML 1 ML VIAL IVP STA (15:07)
[2021-12-30 15:18] VITALS: RESP 14
--- NOTE | 2021-12-30 15:27 | CT ---
EXAMINATION TYPE: CT angio chest DATE OF EXAM: 12/30/2021 COMPARISON: None HISTORY: htn CT DLP: 262.1 mGycm CONTRAST: CT chest with contrast and 3D reconstruction with MIP imaging is performed with IV Contrast, patient injected with 50cc mL of Isovue 300. Contrast-enhanced CT of the chest was performed through the course of the pulmonary arteries with lindsay g and mediastinal window settings submitted. 3D reconstruction with MIP imaging was also performed. PULMONARY ARTERIES: The pulmonary arteries and their major tributaries are patent. I do not see gordon dence for sizable filling defect to suggest pulmonary embolic process. LUNGS: The lungs are clear and free of infiltrate. There is a small right-sided pleural effusion note d with mild compressive atelectasis. MEDIASTINUM: Thoracic aorta is of normal caliber. The heart is not enlarged. No evidence for mediastinal mass. No mediastinal lymph nodes greater than 1cm. HILAR STRUCTURES: No evidence for mass. No hilar lymph nodes greater than 1 cm. UPPER ABDOMEN: Small amount of upper abdominal ascites noted. IMPRESSION: 1. No evidence for Pulmonary embolism at this time.
[2021-12-30 16:43] VITALS: BP 167/79; PULSE 83
== END 2021-12-30 16:43 | disposition home or self-care (01) ==
LOC: EC 11:58
DX: I10 Essential (primary) hypertension (principal); R42 Dizziness and giddiness; I44.7 Left bundle-branch block, unspecified; E11.9 Type 2 diabetes mellitus without complications; K21.9 Gastro-esophageal reflux disease without esophagitis; E78.5 Hyperlipidemia, unspecified; M19.90 Unspecified osteoarthritis, unspecified site; E07.9 Disorder of thyroid, unspecified; Z79.890 Hormone replacement therapy; Z79.899 Other long term (current) drug therapy; Z88.0 Allergy status to penicillin; Z88.1 Allergy status to other antibiotic agents; Z88.2 Allergy status to sulfonamides
CPT/HCPCS: 36415; 93005; 85379; 80053; 83735; 85025; 85610; 85730; 71046; 71275; 99284; 96374; 96361; J0360; Q9967

== ENCOUNTER 2022-01-31 14:40 | Inpatient (IN) | payer MEDICARE ==
[2022-01-31] MEDS ORDERED: SODIUM CHLORIDE 0.9% 500 ML 500 ML IV STA (14:57)
--- NOTE | 2022-01-31 15:05 | ED ---
General Adult HPI - General Chief complaint: Weakness Stated complaint: near syncope Time Seen by Provider: 01/31/22 14:40 Source: patient, EMS, RN notes reviewed, old records reviewed Mode of arrival: EMS Limitations: no limitations - History of Present Illness Initial comments: 76-year-old female presents to the emergency room via ambulance with complaints of generalized weakness and dehydration. Patient is undergoing chemotherapy for ovarian cancer, last chemotherapy was last week Sunday. She states that she normally goes to [facility] for IV fluids to prevent dehydration every Sunday and . Last hydration therapy was last week. Patient was too weak to go today so the family called EMS. She denies any pain or discomfort. On exam patient has a left arm pronator drift. Speech is slurred. Denies any headaches. No recent trauma. No chest pain or shortness of breath. -: hour(s) Radiation: non-radiation Severity scale (1-10): 0 Associated Symptoms: malaise, weakness, other (dehydration) Treatments Prior to Arrival: none - Related Data Home Medications Medication Instructions Recorded Confirmed Levothyroxine Sodium [Synthroid] 50 mcg PO DAILY 02/08/18 01/31/22 Evolocumab [Repatha Sureclick] 140 mg SQ Q14D 07/16/20 01/31/22 Albuterol Sulfate [Ventolin HFA] 1 - 2 puff INHALATION RT-Q6H PRN 09/22/21 01/31/22 Docusate [Colace] 100 mg PO DAILY PRN 11/16/21 01/31/22 L.acidoph,Paracasei, B.lactis 1 cap PO DAILY 11/16/21 01/31/22 [Probiotic] OLANZapine [ZyPREXA] 2.5 mg PO DIRECTED 11/16/21 01/31/22 Ondansetron [Zofran] 4 mg PO Q8H PRN 11/16/21 01/31/22 Sennosides/Docusate Sodium [Senna 2 tab PO HS PRN 11/16/21 01/31/22 Plus 8.6-50 mg Tablet] Acetaminophen Tab [Tylenol] 1,000 mg PO Q6HR PRN 11/18/21 01/31/22 Dicyclomine HCl 10 mg PO TID PRN 11/18/21 01/31/22 HYDROcodone/APAP 10-325MG [[place] 1 tab PO Q6H PRN 11/18/21 01/31/22 10-325] Loratadine [Claritin] 10 mg PO DAILY 11/18/21 01/31/22 Omeprazole 20 mg PO DAILY 12/29/21 01/31/22 Pioglitazone [Actos] 15 mg PO DAILY 12/29/21 01/31/22 Ciprofloxacin HCl [Cipro] 500 mg PO Q12HR 01/31/22 01/31/22 Previous Rx's Medication Instructions Recorded amLODIPine [Norvasc] 5 mg PO DAILY #7 tab 12/30/21 Allergies Allergy/AdvReac Type Severity Reaction Status Date / Time amoxicillin [From Augmentin] Allergy Rash/Hives/ Verified 01/31/22 16:37 itching clavulanic acid Allergy Rash/Hives/ Verified 01/31/22 16:37 [From Augmentin] itching Sulfa (Sulfonamide Allergy Itching Verified 01/31/22 16:37 Antibiotics) Review of Systems ROS Statement: Those systems with pertinent positive or pertinent negative responses have been documented in the HPI. ROS Other: All systems not noted in ROS Statement are negative. Past Medical History Past Medical History: Cancer, Diabetes Mellitus, GERD/Reflux, Hyperlipidemia, Osteoarthritis (OA), Thyroid Disorder Additional Past Medical History / Comment(s): Ovarian cancer(started Chemo 11/14/21), constipation, hx hiatal hernia, "Dr watching liver enzymes", urinary incontinence, vertigo History of Any Multi-Drug Resistant Organisms: None Reported Past Surgical History: Adenoidectomy, Bladder Surgery, Section, Cholecystectomy, Hysterectomy, Tonsillectomy Additional Past Surgical History / Comment(s): x 3, 2 bladder suspension and 1 bowel lift; Past Anesthesia/Blood Transfusion Reactions: Previous Problems w/ Anesthesia, Postoperative Nausea & Vomiting (PONV) Additional Past Anesthesia/Blood Transfusion Reaction / Comment(s): years ago had a problem with anesthesia(vomiting) in [place], but has had anesthesia several times since then and has had no problem, recent vertigo Past Psychological History: No Psychological Hx Reported Smoking Status: Never smoker Past Alcohol Use History: None Reported Past Drug Use History: None Reported - Past Family History Father Family Medical History: Hypertension Brother(s) Family Medical History: Cancer General Exam Limitations: no limitations, language barrier (slurred speech) General appearance: alert, in no apparent distress Head exam: Present: atraumatic, normocephalic Eye exam: Present: normal appearance, EOMI. Absent: scleral icterus, conjunctival injection, nystagmus ENT exam: Present: mucous membranes dry Neck exam: Present: normal inspection. Absent: tenderness, meningismus Respiratory exam: Present: normal lung sounds bilaterally. Absent: respiratory distress, accessory muscle use Cardiovascular Exam: Present: regular rate GI/Abdominal exam: Present: soft. Absent: distended, tenderness, guarding, rebound, rigid Extremities exam: Present: normal capillary refill Neurological exam: Present: alert, oriented X3 Expanded Patient oriented to: Present: person, place, time Speech: Present: expressive aphasia (slurred speech) Cranial nerves: EOM's Intact: Normal, Gag Reflex: Normal, Tongue Deviation: Normal, Facial Sensation: Normal Cerebellar function: Finger to Nose: Abnormal Left, Heel to Munoz: Normal Upper motor neuron: Pronator Drift: Abnormal Left Motor strength exam: RUE: 5, LUE: 3, RLE: 4, LLE: 4 Eye Response: (4) open spontaneously Motor Response: (6) obeys commands Verbal Response: (5) oriented [place] Total: 15 Psychiatric exam: Present: normal affect, normal mood Skin exam: Present: warm, dry. Absent: cyanosis, diaphoretic Course Vital Signs 01/31/22 01/31/22 14:41 17:12 Temperature 98.1 F Pulse Rate 68 71 Respiratory 18 18 Rate Blood Pressure 132/70 169/71 O2 Sat by Pulse 97 96 Oximetry - Reevaluation(s) Reevaluation #1: 01/31/22 15:04 Dr. Renee at bedside to evaluate patient. Time: 15:04 Reevaluation #2: 01/31/22 17:07 On reassessment after patient was hydrated with IV and oral fluids, her speech is clear with no evidence of pronator drift on the left. CT was negative for any acute intracranial process. Patient will be admitted for hypomagnesemia 1.3 is likely the cause of her weakness. Time: 17:07 Medical Decision Making - Medical Decision Making Patient presents with weakness and slurred speech that started earlier this afternoon. She is undergoing chemotherapy for ovarian cancer and was scheduled to go to [facility] for hydration therapy but was too weak. Upon arrival to the emergency room she did have a left pronator drift and speech was slurred. Vital signs are stable, she's been afebrile. CT of the brain performed shows cortical atrophy, age-related chronic small vessel ischemic change. No mention of an acute intracranial process. Chest x-ray shows a small right-sided effusion that is nonspecific similar to x- ray performed 12/30/2021. Electrolytes show mild dehydration. Glucose 112. Troponin is negative at 0.012 and EKG shows normal sinus. No changes compared to old dated 12-30-21. Labs show stable hemoglobin at 9.3. Leukopenia 2.5 Urinalysis does show leukocytosis with some bacteria, due to patient's leukopenia she will be treated with Rocephin for UTI, urine sent for culture. Patient was given IV fluids with improvement of motor function. She no longer has any focal neurological deficits, no left pronator drift. Speech is clear. She is tolerating oral fluids. Patient's weakness is likely due to mild dehydration with a magnesium level of 1.3. She was given magnesium supplementation in the emergency room and will be admitted. Patient and family are agreeable to this plan of care. Case discussed with Dr. Renee who was also at patient's bedside. - Lab Data Result diagrams: 01/31/22 15:53 01/31/22 15:53 Lab Results 01/31/22 01/31/22 01/31/22 Range/Units 15:53 15:53 15:53 WBC 2.5 L (3.8-10.6) k/uL RBC 2.94 L (3.80-5.40) m/uL Hgb 9.3 L (11.4-16.0) gm/dL Hct 26.8 L (34.0-46.0) % MCV 91.2 (80.0-100.0) fL MCH 31.5 (25.0-35.0) pg MCHC 34.5 (31.0-37.0) g/dL RDW 15.6 H (11.5-15.5) % Plt Count 119 L (150-450) k/uL MPV 9.3 Neutrophils % 58 % Lymphocytes % 36 % Monocytes % 3 % Eosinophils % 1 % Basophils % 0 % Neutrophils # 1.4 (1.3-7.7) k/uL Lymphocytes # 0.9 L (1.0-4.8) k/uL Monocytes # 0.1 (0-1.0) k/uL Eosinophils # 0.0 (0-0.7) k/uL Basophils # 0.0 (0-0.2) k/uL PT 10.6 (9.0-12.0) sec INR 1.0 (<1.2) APTT 24.1 (22.0-30.0) sec Sodium 136 L (137-145) mmol/L Potassium 4.6 (3.5-5.1) mmol/L Chloride 108 H (98-107) mmol/L Carbon Dioxide 17 L (22-30) mmol/L Anion Gap 11 mmol/L BUN 30 H (7-17) mg/dL Creatinine 0.98 (0.52-1.04) mg/dL Est GFR (CKD-EPI)AfAm 64 (>60 ml/min/1.73 sqM) Est GFR (CKD-EPI)NonAf 55 (>60 ml/min/1.73 sqM) Glucose 112 H (74-99) mg/dL Plasma Lactic Acid Renaldo (0.7-2.0) mmol/L Calcium 8.3 L (8.4-10.2) mg/dL Magnesium 1.3 L (1.6-2.3) mg/dL Total Bilirubin 0.3 (0.2-1.3) mg/dL AST 26 (14-36) U/L ALT 15 (4-34) U/L Alkaline Phosphatase 75 (38-126) U/L Troponin I (0.000-0.034) ng/mL Total Protein 5.7 L (6.3-8.2) g/dL Albumin 3.5 (3.5-5.0) g/dL Urine Color Urine Appearance (Clear) Urine pH (5.0-8.0) Ur Specific [place] (1.001-1.035) Urine Protein (Negative) Urine Glucose (UA) (Negative) Urine Ketones (Negative) Urine Blood (Negative) Urine Nitrite (Negative) Urine Bilirubin (Negative) Urine Urobilinogen (<2.0) mg/dL Ur Leukocyte Esterase (Negative) Urine RBC (0-5) /hpf Urine WBC (0-5) /hpf Ur Squamous Epith Cells (0-4) /hpf Urine Bacteria (None) /hpf Urine Mucus (None) /hpf 01/31/22 01/31/22 01/31/22 Range/Units 15:53 15:53 16:54 WBC (3.8-10.6) k/uL RBC (3.80-5.40) m/uL Hgb (11.4-16.0) gm/dL Hct (34.0-46.0) % MCV (80.0-100.0) fL MCH (25.0-35.0) pg MCHC (31.0-37.0) g/dL RDW (11.5-15.5) % Plt Count (150-450) k/uL MPV Neutrophils % % Lymphocytes % % Monocytes % % Eosinophils % % Basophils % % Neutrophils # (1.3-7.7) k/uL Lymphocytes # (1.0-4.8) k/uL Monocytes # (0-1.0) k/uL Eosinophils # (0-0.7) k/uL Basophils # (0-0.2) k/uL PT (9.0-12.0) sec INR (<1.2) APTT (22.0-30.0) sec Sodium (137-145) mmol/L Potassium (3.5-5.1) mmol/L Chloride (98-107) mmol/L Carbon Dioxide (22-30) mmol/L Anion Gap mmol/L BUN (7-17) mg/dL Creatinine (0.52-1.04) mg/dL Est GFR (CKD-EPI)AfAm (>60 ml/min/1.73 sqM) Est GFR (CKD-EPI)NonAf (>60 ml/min/1.73 sqM) Glucose (74-99) mg/dL Plasma Lactic Acid Renaldo 0.8 (0.7-2.0) mmol/L Calcium (8.4-10.2) mg/dL Magnesium (1.6-2.3) mg/dL Total Bilirubin (0.2-1.3) mg/dL AST (14-36) U/L ALT (4-34) U/L Alkaline Phosphatase (38-126) U/L Troponin I <0.012 (0.000-0.034) ng/mL Total Protein (6.3-8.2) g/dL Albumin (3.5-5.0) g/dL Urine Color Light Yellow Urine Appearance Clear (Clear) Urine pH 5.5 (5.0-8.0) Ur Specific [place] 1.007 (1.001-1.035) Urine Protein Negative (Negative) Urine Glucose (UA) Negative (Negative) Urine Ketones Negative (Negative) Urine Blood Negative (Negative) Urine Nitrite Negative (Negative) Urine Bilirubin Negative (Negative) Urine Urobilinogen <2.0 (<2.0) mg/dL Ur Leukocyte Esterase Moderate H (Negative) Urine RBC 1 (0-5) /hpf Urine WBC 18 H (0-5) /hpf Ur Squamous Epith Cells <1 (0-4) /hpf Urine Bacteria Few H (None) /hpf Urine Mucus Rare H (None) /hpf - EKG Data EKG shows normal: sinus rhythm (Ventricular rate 70, [place] interval 0.177, QRS 0.136, QTC 0.480; normal axis; left bundle branch block; old EKG) Disposition Clinical Impression: Weakness, Hypomagnesemia, UTI (urinary tract infection), Leukopenia Disposition: ADMITTED IP TO THIS [facility] Decision Date: 01/31/22 Decision Time: 16:55
--- NOTE | 2022-01-31 15:38 | CT ---
EXAMINATION TYPE: CT brain wo con DATE OF EXAM: 01/31/2022 COMPARISON: CT brain 12/25/2021 HISTORY: weakness, ams CT DLP: 1106.4 mGycm Automated exposure control for dose reduction was used. Helical imaging through the brain. FINDINGS: Periventricular white matter shows patchy low attenuation. Ventricles show a stable appearance, mildl y prominent likely in accordance to the degree of cortical atrophy. The calvarium is intact. Paranasa l sinuses and mastoid air cells as visualized are normal. IMPRESSION: SIMILAR VENTRICULAR PROMINENCE MAY BE ON THE BASIS OF CORTICAL ATROPHY, IS LIKELY AGE-RELATED CHRONIC SMALL VESSEL ISCHEMIC CHANGE. BRAIN MRI MAY BE OF BENEFIT.
--- NOTE | 2022-01-31 15:43 | XR ---
EXAMINATION TYPE: XR chest 2V DATE OF EXAM: 01/31/2022 COMPARISON: 12/30/2021 HISTORY: 76-year-old female with weakness and dizziness, history of ovarian cancer taking chemotherap y. TECHNIQUE: AP and lateral views FINDINGS: Right anterior chest wall injection port with catheter tip at the mid SVC level. Heart normal size. A eliseo and pulmonary vasculature within normal limits. There is a small right-sided pleural effusion on the lateral view. Cholecystectomy clips. IMPRESSION: Small right-sided pleural effusion is nonspecific. Similar to 12/30/2021. Otherwise, no acute process seen.
[2022-01-31 15:59] LABS: Basophils % (A) 0 %; Eosinophils % (A) 1 %; HCT 26.8 % (34.0-46.0); HGB 9.3 gm/dL (11.4-16.0); Lymphocytes # (A) 0.9 k/uL (1.0-4.8); Lymphocytes % (A) 36 %; MCH 31.5 pg (25.0-35.0); MCHC 34.5 g/dL (31.0-37.0); MCV 91.2 fL (80.0-100.0); Mean Platelet Volume 9.3; Monocytes # (A) 0.1 k/uL (0-1.0); Monocytes % (A) 3 %; Neutrophils # (A) 1.4 k/uL (1.3-7.7); Neutrophils % (A) 58 %; Platelet Count 119 k/uL (150-450); RBC 2.94 m/uL (3.80-5.40); RDW 15.6 % (11.5-15.5); WBC 2.5 k/uL (3.8-10.6)
[2022-01-31 16:07] LABS: Prothrombin Time 10.6 sec (9.0-12.0)
[2022-01-31 16:08] LABS: Partial Thromboplastin Time 24.1 sec (22.0-30.0)
[2022-01-31 16:26] LABS: Albumin 3.5 g/dL (3.5-5.0); Calcium 8.3 mg/dL (8.4-10.2); Magnesium 1.3 mg/dL (1.6-2.3); Potassium 4.6 mmol/L (3.5-5.1); Total Bilirubin 0.3 mg/dL (0.2-1.3); Total Protein 5.7 g/dL (6.3-8.2)
[2022-01-31] MEDS ORDERED: Magnesium Replacement Protocol 1 EACH MISC MISCELLANE PRN (16:54)
[2022-01-31 17:09] LABS: Appearance,Urine Clear (Clear); Bacteria,Urine Few /hpf; Bilirubin,Urine Negative (Negative); Blood,Urine Negative (Negative); Color,Urine Light Yellow; Glucose,Urine (UA) Negative (Negative); Ketones,Urine Negative (Negative); Leukocyte Esterase,Urine Moderate (Negative); Mucus,Urine Rare /hpf; Nitrite,Urine Negative (Negative); PH, Urine 5.5 (5.0-8.0); Protein,Urine Negative (Negative); RBC,Urine 1 /hpf (0-5); Specific Gravity,Urine 1.007 (1.001-1.035); Squamous Epithelial Cell,Urine <1 /hpf (0-4); Urobilinogen,Urine <2.0 mg/dL (<2.0); WBC,Urine 18 /hpf (0-5)
[2022-01-31] MEDS ORDERED: ONDANSETRON 4 MG TAB PO PRN (17:10)
[2022-01-31] MEDS ORDERED: HYDROcodone/APAP 10-325MG 1 EACH TAB PO PRN (17:10)
[2022-01-31] MEDS ORDERED: DICYCLOMINE 10 MG CAP PO PRN (17:10)
[2022-01-31] MEDS ORDERED: DOCUSATE 100 MG CAP PO PRN (17:10)
[2022-01-31] MEDS ORDERED: OLANZapine 2.5 MG TAB PO SCH (17:15)
[2022-01-31] MEDS ORDERED: NALOXONE 0.4 MG/ML 1 ML VIAL IV PRN (17:16)
[2022-01-31] MEDS ORDERED: cefTRIAXone IN SWFI 1,000 MG/10 ML SYRINGE IVP STA (17:49)
--- NOTE | 2022-01-31 18:55 | P.HPIM ---
History of Present Illness H&P Date: 01/31/22 Chief Complaint: Weakness Patient is a 76-year-old female with a past medical history of ovarian cancer on chemotherapy, diabetes mellitus, hypothyroidism, asthma, GERD who presents to the ED with weakness. Patient is scheduled for IV fluids at [facility] every Sunday and however due to weakness she was not able to go to her appointment so family called EMS who brought her into the emergency room. ED nurse practitioner wanted to admit the patient for dehydration. Family is also concerned that patient has a ureteral stent that was placed in November. There are like to speak with urology and see if this thing can be removed sooner. Patient denies any dysuria or urinary frequency. Patient stated that she's had UTIs in the past and currently is denying any UTI symptoms. Review of Systems 10 ROS reviewed and are negative except as noted in HPI Past Medical History Past Medical History: Cancer, Diabetes Mellitus, GERD/Reflux, Hyperlipidemia, Osteoarthritis (OA), Thyroid Disorder Additional Past Medical History / Comment(s): Ovarian cancer(started Chemo 11/14/21), constipation, hx hiatal hernia, "Dr watching liver enzymes", urinary incontinence, vertigo History of Any Multi-Drug Resistant Organisms: None Reported Past Surgical History: Adenoidectomy, Bladder Surgery, Section, Cholecystectomy, Hysterectomy, Tonsillectomy Additional Past Surgical History / Comment(s): x 3, 2 bladder suspension and 1 bowel lift; Past Anesthesia/Blood Transfusion Reactions: Previous Problems w/ Anesthesia, Postoperative Nausea & Vomiting (PONV) Additional Past Anesthesia/Blood Transfusion Reaction / Comment(s): years ago had a problem with anesthesia(vomiting) in [place], but has had anesthesia s everal times since then and has had no problem, recent vertigo Past Psychological History: No Psychological Hx Reported Smoking Status: Never smoker Past Alcohol Use History: None Reported Past Drug Use History: None Reported - Past Family History Father Family Medical History: Hypertension Brother(s) Family Medical History: Cancer Medications and Allergies Home Medications Medication Instructions Recorded Confirmed Type Levothyroxine Sodium [Synthroid] 50 mcg PO DAILY 02/08/18 01/31/22 History Evolocumab [Repatha Sureclick] 140 mg SQ Q14D 07/16/20 01/31/22 History Albuterol Sulfate [Ventolin HFA] 1 - 2 puff INHALATION RT-Q6H PRN 09/22/21 01/31/22 History Docusate [Colace] 100 mg PO DAILY PRN 11/16/21 01/31/22 History L.acidoph,Paracasei, B.lactis 1 cap PO DAILY 11/16/21 01/31/22 History [Probiotic] OLANZapine [ZyPREXA] 2.5 mg PO DIRECTED 11/16/21 01/31/22 History Ondansetron [Zofran] 4 mg PO Q8H PRN 11/16/21 01/31/22 History Sennosides/Docusate Sodium [Senna 2 tab PO HS PRN 11/16/21 01/31/22 History Plus 8.6-50 mg Tablet] Acetaminophen Tab [Tylenol] 1,000 mg PO Q6HR PRN 11/18/21 01/31/22 History Dicyclomine HCl 10 mg PO TID PRN 11/18/21 01/31/22 History HYDROcodone/APAP 10-325MG [[place] 1 tab PO Q6H PRN 11/18/21 01/31/22 History 10-325] Loratadine [Claritin] 10 mg PO DAILY 11/18/21 01/31/22 History Omeprazole 20 mg PO DAILY 12/29/21 01/31/22 History Pioglitazone [Actos] 15 mg PO DAILY 12/29/21 01/31/22 History amLODIPine [Norvasc] 5 mg PO DAILY #7 tab 12/30/21 01/31/22 Rx Ciprofloxacin HCl [Cipro] 500 mg PO Q12HR 01/31/22 01/31/22 History Allergies Allergy/AdvReac Type Severity Reaction Status Date / Time amoxicillin [From Augmentin] Allergy Rash/Hives/ Verified 01/31/22 16:37 itching clavulanic acid Allergy Rash/Hives/ Verified 01/31/22 16:37 [From Augmentin] itching Sulfa (Sulfonamide Allergy Itching Verified 01/31/22 16:37 Antibiotics) Physical Exam Osteopathic Statement: *. No significant issues noted on an osteopathic structural exam other than those noted in the History and Physical/Consult. Vitals: Vital Signs Temp Pulse Resp BP Pulse Ox 01/31/22 17:12 71 18 169/71 96 01/31/22 14:41 98.1 F 68 18 132/70 97 Intake and Output 01/31/22 01/31/22 01/31/22 06:59 14:59 22:59 Other: Weight 63.503 kg General: [Alert and oriented, well nourished, no acute distress, appears chronically debilitated]. Eye: [PERRL, EOMI, normal conjunctiva]. HENT: [Normocephalic, clear tympanic membranes, normal hearing, dry oral mucosa, no scleral icterus, no sinus tenderness]. Neck: [Supple, non-tender, no carotid bruits, no JVD, no lymphadenopathy]. Lungs: [Clear to auscultation and percussion, non-labored respiration]. Heart: [Normal rate, regular rhythm, no murmur, gallop or edema]. Abdomen: [Soft, non-tender, non-distended, normal bowel sounds, no masses]. Musculoskeletal: [Normal range of motion and strength, no tenderness or swelling]. Skin: [Skin is warm, dry and pink, no rashes or lesions]. Neurologic: [Awake, alert, and oriented X3, CN II-XII intact]. Psychiatric: [Cooperative, appropriate mood and affect]. Results CBC & Chem 7: 01/31/22 15:53 01/31/22 15:53 Labs: Abnormal Lab Results - Last 24 Hours (Table) 01/31/22 01/31/22 01/31/22 Range/Units 15:53 15:53 16:54 WBC 2.5 L (3.8-10.6) k/uL RBC 2.94 L (3.80-5.40) m/uL Hgb 9.3 L (11.4-16.0) gm/dL Hct 26.8 L (34.0-46.0) % RDW 15.6 H (11.5-15.5) % Plt Count 119 L (150-450) k/uL Lymphocytes # 0.9 L (1.0-4.8) k/uL Sodium 136 L (137-145) mmol/L Chloride 108 H (98-107) mmol/L Carbon Dioxide 17 L (22-30) mmol/L BUN 30 H (7-17) mg/dL Glucose 112 H (74-99) mg/dL Calcium 8.3 L (8.4-10.2) mg/dL Magnesium 1.3 L (1.6-2.3) mg/dL Total Protein 5.7 L (6.3-8.2) g/dL Ur Leukocyte Esterase Moderate H (Negative) Urine WBC 18 H (0-5) /hpf Urine Bacteria Few H (None) /hpf Urine Mucus Rare H (None) /hpf Assessment and Plan Assessment: Generalized weakness secondary dehydration Resume IV fluids Hypomagnesemia We'll replete aggressively Ovarian cancer Follow up outpatient with hematology for chemotherapy Chronic ureteral stent placement We'll consult urology to see if the stent can be removed Pancytopenia secondary to chemotherapy Trend CBC Diabetes mellitus Resume insulin regimen Hypothyroidism Resume levothyroxine Asthma Resume inhalers GERD Resume PPI CODE STATUS:full code DVT prophylaxis: mechanical Discussed with: Patient, ER, rn Anticipated length of stay < than [address]: home A total of 50 minutes was spent on the care of this complex patient more than 50% of the time was spent in counseling and care coordination.
[2022-01-31] MEDS ORDERED: DEXTROSE 50% SYRINGE 50 ML IVP PRN ×2 (18:56)
[2022-01-31] MEDS: MAGNESIUM SULFATE-D5W PMX 1 GM in DEXTROSE/WATER 1 100ML.BAG IVPB SCH ×3 (18:58→22:29)
[2022-01-31] MEDS: SODIUM CHLORIDE 0.9% 1,000 ML IV SCH (18:59)
[2022-01-31 22:17] LABS: Glucose,Whole Blood 135 mg/dL (70-110)
[2022-01-31] MEDS: INSULIN ASPART (NovoLOG) 100 UNIT/ML VIAL SQ SCH (22:24)
[2022-01-31] MEDS ORDERED: cloNIDine HCL 0.2 MG TAB PO PRN (22:37)
[2022-02-01] MEDS: ACETAMINOPHEN TAB 500 MG TAB PO PRN (05:09)
[2022-02-01] MEDS: PANTOPRAZOLE 40 MG TABLET PO SCH (06:08)
[2022-02-01] MEDS: LEVOTHYROXINE 50 MCG TAB PO SCH (06:08)
[2022-02-01] MEDS: SODIUM CHLORIDE 0.9% 1,000 ML IV SCH ×2 (06:08→20:49)
[2022-02-01] MEDS: INSULIN ASPART (NovoLOG) 100 UNIT/ML VIAL SQ SCH ×4 (06:09→20:36)
[2022-02-01 06:11] LABS: Glucose,Whole Blood 120 mg/dL (70-110)
[2022-02-01] MEDS: PIOGLITAZONE 15 MG TAB PO SCH (09:30)
[2022-02-01] MEDS: amLODIPine 5 MG TAB PO SCH (09:30)
[2022-02-01] MEDS: LORATADINE 10 MG TAB PO SCH (09:30)
[2022-02-01] MEDS: LACTOBACILLUS ACIDOPH & BULGAR 1 EACH PACKET PO SCH (09:30)
[2022-02-01 11:07] LABS: Glucose,Whole Blood 162 mg/dL (70-110)
--- NOTE | 2022-02-01 11:36 | P.PN ---
Progress Note - Text Progress Note Date: 02/01/22 Patient will need a hospital bed to keep her head of bed at a 40 angle to prevent aspiration.
--- NOTE | 2022-02-01 14:16 | P.PN ---
Subjective Progress Note Date: 02/01/22 Patient says that she is feeling better today. She denies any acute complaints. Patient's son was in the room. He is wondering if his mother can get a hospital bed. I discussed this with the case loader operator. Objective - Vital Signs Vital signs: Vital Signs Temp 97.6 F 02/01/22 11:05 Pulse 71 02/01/22 11:05 Resp 16 02/01/22 11:05 BP 167/70 02/01/22 11:05 Pulse Ox 97 02/01/22 11:05 FiO2 Intake & Output 01/31/22 02/01/22 02/01/22 18:59 06:59 18:59 Intake Total 600 Balance 600 Weight 63.503 kg 63.503 kg Intake: Intake, IV Titration 600 Amount Sodium Chloride 0.9% 1, 600 000 ml @ 75 mls/hr IV . 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 Psych - Calm and cooperative - Labs CBC & Chem 7: 01/31/22 15:53 01/31/22 15:53 Labs: Abnormal Lab Results - Last 24 Hours (Table) 01/31/22 01/31/22 01/31/22 Range/Units 15:53 15:53 16:54 WBC 2.5 L (3.8-10.6) k/uL RBC 2.94 L (3.80-5.40) m/uL Hgb 9.3 L (11.4-16.0) gm/dL Hct 26.8 L (34.0-46.0) % RDW 15.6 H (11.5-15.5) % Plt Count 119 L (150-450) k/uL Lymphocytes # 0.9 L (1.0-4.8) k/uL Sodium 136 L (137-145) mmol/L Chloride 108 H (98-107) mmol/L Carbon Dioxide 17 L (22-30) mmol/L BUN 30 H (7-17) mg/dL Glucose 112 H (74-99) mg/dL POC Glucose (mg/dL) (70-110) mg/dL Calcium 8.3 L (8.4-10.2) mg/dL Magnesium 1.3 L (1.6-2.3) mg/dL Total Protein 5.7 L (6.3-8.2) g/dL Ur Leukocyte Esterase Moderate H (Negative) Urine WBC 18 H (0-5) /hpf Urine Bacteria Few H (None) /hpf Urine Mucus Rare H (None) /hpf 01/31/22 02/01/22 02/01/22 Range/Units 22:11 06:07 11:06 WBC (3.8-10.6) k/uL RBC (3.80-5.40) m/uL Hgb (11.4-16.0) gm/dL Hct (34.0-46.0) % RDW (11.5-15.5) % Plt Count (150-450) k/uL Lymphocytes # (1.0-4.8) k/uL Sodium (137-145) mmol/L Chloride (98-107) mmol/L Carbon Dioxide (22-30) mmol/L BUN (7-17) mg/dL Glucose (74-99) mg/dL POC Glucose (mg/dL) 135 H 120 H 162 H (70-110) mg/dL Calcium (8.4-10.2) mg/dL Magnesium (1.6-2.3) mg/dL Total Protein (6.3-8.2) g/dL Ur Leukocyte Esterase (Negative) Urine WBC (0-5) /hpf Urine Bacteria (None) /hpf Urine Mucus (None) /hpf Microbiology - Last 24 Hours (Table) 01/31/22 16:54 Urine Culture - Preliminary Urine,Voided Assessment and Plan Assessment: Generalized weakness secondary dehydration Resume IV fluids Hypomagnesemia Magnesium has normalized Ovarian cancer Follow up outpatient with hematology for chemotherapy Chronic ureteral stent placement We'll consult urology to see if the stent can be removed Pancytopenia secondary to chemotherapy Trend CBC Diabetes mellitus Resume insulin regimen Hypothyroidism Resume levothyroxine Asthma Resume inhalers GERD Resume PPI CODE STATUS:full code DVT prophylaxis: mechanical Discussed with: Patient, ER, rn Anticipated length of stay : Nephrology has no plans we'll plan on discharging the patient home today. Anticipated discharge place: home .
[2022-02-01 17:09] LABS: Glucose,Whole Blood 139 mg/dL (70-110)
[2022-02-01 20:27] LABS: Glucose,Whole Blood 127 mg/dL (70-110)
[2022-02-02] MEDS: LEVOTHYROXINE 50 MCG TAB PO SCH (05:32)
[2022-02-02 07:13] LABS: Glucose,Whole Blood 133 mg/dL (70-110)
[2022-02-02] MEDS: INSULIN ASPART (NovoLOG) 100 UNIT/ML VIAL SQ SCH ×4 (07:32→20:30)
[2022-02-02] MEDS: LORATADINE 10 MG TAB PO SCH (07:45)
[2022-02-02] MEDS: ACETAMINOPHEN TAB 500 MG TAB PO PRN (07:45)
[2022-02-02] MEDS: PANTOPRAZOLE 40 MG TABLET PO SCH (07:45)
[2022-02-02] MEDS: LACTOBACILLUS ACIDOPH & BULGAR 1 EACH PACKET PO SCH (07:45)
[2022-02-02] MEDS: amLODIPine 5 MG TAB PO SCH (07:46)
[2022-02-02] MEDS: PIOGLITAZONE 15 MG TAB PO SCH (07:46)
[2022-02-02] MEDS: CIPROFLOXACIN HCL 500 MG TAB PO SCH ×2 (09:22→20:35)
--- NOTE | 2022-02-02 11:11 | P.PN ---
Subjective Progress Note Date: 02/02/22 Patient denies any complaints. She said that she did not see anybody from urology yesterday. I spoke with the urology PA who said the patient will be having stent removal tomorrow. Objective - Vital Signs Vital signs: Vital Signs Temp 98.2 F 02/02/22 04:20 Pulse 82 02/02/22 04:20 Resp 16 02/02/22 04:20 BP 168/77 02/02/22 04:20 Pulse Ox 98 02/02/22 04:20 FiO2 21 02/01/22 20:49 Intake & Output 02/01/22 02/02/22 02/02/22 18:59 06:59 18:59 Intake Total 840 Balance 840 Intake: Intake, IV Titration 600 Amount Sodium Chloride 0.9% 1, 600 000 ml @ 75 mls/hr IV . 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 Psych - Calm and cooperative - Labs CBC & Chem 7: 01/31/22 15:53 01/31/22 15:53 Labs: Abnormal Lab Results - Last 24 Hours (Table) 02/01/22 02/01/22 02/01/22 Range/Units 11:06 17:08 20:26 POC Glucose (mg/dL) 162 H 139 H 127 H (70-110) mg/dL 02/02/22 Range/Units 07:11 POC Glucose (mg/dL) 133 H (70-110) mg/dL Microbiology - Last 24 Hours (Table) 01/31/22 16:54 Urine Culture - Final Urine,Voided Assessment and Plan Assessment: Generalized weakness secondary dehydration Resume IV fluids Hypomagnesemia Magnesium has normalized Ovarian cancer Follow up outpatient with hematology for chemotherapy Chronic ureteral stent placement Patient scheduled for ureteral stent placement tomorrow at 7 AM. Pancytopenia secondary to chemotherapy Trend CBC Diabetes mellitus Resume insulin regimen Hypothyroidism Resume levothyroxine Asthma Resume inhalers GERD Resume PPI CODE STATUS:full code DVT prophylaxis: mechanical Anticipated length of stay : Anticipate patient ready for discharge tomorrow after stent placement Anticipated discharge place: home .
[2022-02-02 12:05] LABS: Glucose,Whole Blood 121 mg/dL (70-110)
--- NOTE | 2022-02-02 15:14 | P.GSCN ---
History of Present Illness Consult date: 02/02/22 Reason for Consult: Ureteral stent removal Requesting physician: Polo Guzman History of present illness: Patient is a 76-year-old female with a past medical history of ovarian cancer on chemotherapy. As a result of the malignancy, she had a pelvic mass which caused extrinsic compression and right-sided hydronephrosis. She is patient of Dr. Reyes who, in September 2021 performed a cystoscopy, right ureteroscopy with retrograde pyelogram, placement of 6 x 26 stent. This admission, she presented to the ED on 01/31/2022. She has presented with weakness. The patient and her family were concerned about the ureteral stent and were requesting that it be removed while she is here. They were under the impression that the stent was only temporary and meant to stay in 3-6 months and thought it was ready to come out. However, due to the the obstruction of the ureter caused by the mass the stent would have to be exchanged. Patient denies any dysuria, hematuria, or urinary frequency. Urine culture from 01/31/22 shows NGTD. Review of Systems - Constitutional Reports weakness, Denies chills, Denies fever - Cardiovascular Denies chest pain, Denies shortness of breath - Respiratory Denies cough, Denies 7 - Gastrointestinal Denies nausea, Denies vomiting - Genitourinary Genitourinary: Denies dysuria, Denies flank pain, Denies hematuria, Denies urgency, Denies urinary frequency - Integumentary Denies rash, Denies unusual bruising - Neurological Denies headaches, Denies syncope Past Medical History Past Medical History: Cancer, Diabetes Mellitus, GERD/Reflux, Hyperlipidemia, Osteoarthritis (OA), Thyroid Disorder Additional Past Medical History / Comment(s): Ovarian cancer(started Chemo 11/14/21), constipation, hx hiatal hernia, "Dr watching liver enzymes", urinary incontinence, vertigo History of Any Multi-Drug Resistant Organisms: None Reported Past Surgical History: Adenoidectomy, Bladder Surgery, Section, Cholecystectomy, Hysterectomy, Tonsillectomy Additional Past Surgical History / Comment(s): x 3, 2 bladder jose pension and 1 bowel lift; ureter stent in september 2021 Past Anesthesia/Blood Transfusion Reactions: Previous Problems w/ Anesthesia, Postoperative Nausea & Vomiting (PONV) Additional Past Anesthesia/Blood Transfusion Reaction / Comm: years ago had a pr oblem with anesthesia(vomiting) in [place], but has had anesthesia several times since then and has had no problem, recent vertigo Past Psychological History: No Psychological Hx Reported Smoking Status: Never smoker Past Alcohol Use History: None Reported Past Drug Use History: None Reported - Past Family History Father Family Medical History: Hypertension Brother(s) Family Medical History: Cancer Medications and Allergies Home Medications Medication Instructions Recorded Confirmed Type Levothyroxine Sodium [Synthroid] 50 mcg PO DAILY 02/08/18 01/31/22 History Evolocumab [Repatha Sureclick] 140 mg SQ Q14D 07/16/20 01/31/22 History Albuterol Sulfate [Ventolin HFA] 1 - 2 puff INHALATION RT-Q6H PRN 09/22/21 01/31/22 History Docusate [Colace] 100 mg PO DAILY PRN 11/16/21 01/31/22 History L.acidoph,Paracasei, B.lactis 1 cap PO DAILY 11/16/21 01/31/22 History [Probiotic] OLANZapine [ZyPREXA] 2.5 mg PO DIRECTED 11/16/21 01/31/22 History Ondansetron [Zofran] 4 mg PO Q8H PRN 11/16/21 01/31/22 History Sennosides/Docusate Sodium [Senna 2 tab PO HS PRN 11/16/21 01/31/22 History Plus 8.6-50 mg Tablet] Acetaminophen Tab [Tylenol] 1,000 mg PO Q6HR PRN 11/18/21 01/31/22 History Dicyclomine HCl 10 mg PO TID PRN 11/18/21 01/31/22 History HYDROcodone/APAP 10-325MG [[place] 1 tab PO Q6H PRN 11/18/21 01/31/22 History 10-325] Loratadine [Claritin] 10 mg PO DAILY 11/18/21 01/31/22 History Omeprazole 20 mg PO DAILY 12/29/21 01/31/22 History Pioglitazone [Actos] 15 mg PO DAILY 12/29/21 01/31/22 History amLODIPine [Norvasc] 5 mg PO DAILY #7 tab 12/30/21 01/31/22 Rx Ciprofloxacin HCl [Cipro] 500 mg PO Q12HR 01/31/22 01/31/22 History Allergies Allergy/AdvReac Type Severity Reaction Status Date / Time amoxicillin [From Augmentin] Allergy Rash/Hives/ Verified 01/31/22 16:37 itching clavulanic acid Allergy Rash/Hives/ Verified 01/31/22 16:37 [From Augmentin] itching Sulfa (Sulfonamide Allergy Itching Verified 01/31/22 16:37 Antibiotics) Surgical - Exam Vital Signs Temp Pulse Resp BP Pulse Ox 98.1 F 68 18 132/70 97 01/31/22 14:41 01/31/22 14:41 01/31/22 14:41 01/31/22 14:41 01/31/22 14:41 General: Well developed, well nourished. No acute distress. Chronically ill appearing HEENT: Head is atraumatic, normocephalic. Lungs: Respirations even and nonlabored. Abdomen/GI: Soft..No guarding, rigidity, or abdominal tenderness. Musculoskeletal/ Extremities: + generalized weakness Skin: Warm and dry Neurologic: Awake, alert and oriented times 3. CN II-XII grossly intact. Psychiatric: Appropriate mood and affect. Results - Labs 01/31/22 15:53 01/31/22 15:53 Abnormal Lab Results - Last 24 Hours (Table) 02/01/22 02/01/22 02/02/22 Range/Units 17:08 20:26 07:11 POC Glucose (mg/dL) 139 H 127 H 133 H (70-110) mg/dL 02/02/22 Range/Units 12:04 POC Glucose (mg/dL) 121 H (70-110) mg/dL Microbiology - Last 24 Hours (Table) 01/31/22 16:54 Urine Culture - Final Urine,Voided - Imaging EKG: report reviewed Assessment and Plan Plan: The patient will have to continue to have ureteral stent exchanges every 3-6 months until the pelvic mass reduces in size and is not longer causing compression and obstructing the ureter. - NPO after midnight tonight - Cystoscopy with ureteral stent exchange tomorrow - Cipro 500mg PO twice daily - Continue IV hydration Impression and plan of care have been directed as dictated by the signing physician. Karla Wilcox nurse practitioner acting as scribe for signing physician. Karla Wilcox [facility] Palliative Care/Urology [facility] [id number] Email: [email or web address] I personally performed and participated in history, physical exam and decision making. I agree with the assessment and plan of the CARD DECORATOR Time with Patient: Greater than 30
[2022-02-02 17:02] LABS: Glucose,Whole Blood 185 mg/dL (70-110)
[2022-02-02] MEDS: SODIUM CHLORIDE 0.9% 1,000 ML IV SCH ×2 (18:01→20:31)
[2022-02-02 20:17] LABS: Glucose,Whole Blood 96 mg/dL (70-110)
[2022-02-03] MEDS: LEVOTHYROXINE 50 MCG TAB PO SCH (02:43)
[2022-02-03 06:35] VITALS: RESP 16
[2022-02-03] MEDS ORDERED: ONDANSETRON 4 MG/2 ML VIAL ONE (06:37)
[2022-02-03 06:40] LABS: Glucose,Whole Blood 141 mg/dL (70-110)
[2022-02-03] MEDS ORDERED: ONDANSETRON 4 MG/2 ML VIAL IVP ONE (06:44)
[2022-02-03] MEDS ORDERED: DEXAMETHASONE SOD PHOSPHATE 4 MG/ML 1 ML VIAL IVP ONE (06:44)
[2022-02-03] MEDS ORDERED: IV FLUID CONTINUATION 1,000 ML IV ONE (06:44)
[2022-02-03] MEDS ORDERED: fentaNYL (PF) 50 MCG/ML 2 ML AMP ONE (06:55)
[2022-02-03] MEDS ORDERED: LIDOCAINE 2% INJ 20 MG/ML (2 ML VIAL) ONE (06:55)
[2022-02-03] MEDS ORDERED: PROPOFOL 10 MG/ML 20 ML VIAL IV ONE (06:55)
[2022-02-03] MEDS ORDERED: SODIUM CHLORIDE 0.9% 100 ML with ceFAZolin 2,000 MG IV ONE ×2 (06:59)
[2022-02-03 07:40] LABS: Glucose,Whole Blood 130 mg/dL (70-110)
--- NOTE | 2022-02-03 07:46 | FL ---
Fluoroscopy HISTORY: Stent exchange 4 seconds fluoroscopy time supplied to the referring clinician. 1 intraoperative C-arm images docume nt the procedure. See dictated report from urology.
[2022-02-03] MEDS: SODIUM CHLORIDE 0.9% 1,000 ML IV SCH (07:58)
[2022-02-03] MEDS ORDERED: hydrALAZINE HCL 20 MG/ML 1 ML VIAL IVP ONE (08:24)
[2022-02-03 08:47] VITALS: BP 161/79; PULSE 87
[2022-02-03] MEDS: INSULIN ASPART (NovoLOG) 100 UNIT/ML VIAL SQ SCH (08:47)
[2022-02-03] MEDS: LORATADINE 10 MG TAB PO SCH (09:15)
[2022-02-03] MEDS: LACTOBACILLUS ACIDOPH & BULGAR 1 EACH PACKET PO SCH (09:15)
[2022-02-03] MEDS: CIPROFLOXACIN HCL 500 MG TAB PO SCH (09:15)
[2022-02-03] MEDS: amLODIPine 5 MG TAB PO SCH (09:15)
[2022-02-03] MEDS: PANTOPRAZOLE 40 MG TABLET PO SCH (09:16)
[2022-02-03] MEDS: PIOGLITAZONE 15 MG TAB PO SCH (09:16)
[2022-02-03 09:50] VITALS: TEMP 97.7
--- NOTE | 2022-02-03 10:49 | P.DS ---
Providers Date of admission: 01/31/22 17:19 Attending physician: Polo Guzman MD Consults: 01/31/22 18:49 Consult Physician Routine Consulting Provider: Mati Reyes Consult Reason/Comments: ureteral stent removal Do you want consulting provider notified?: Yes [facility] Hospital Course: Discharge Diagnosis: Generalized weakness secondary to dehydration Hypomagnesemia Ovarian cancer Chronic ureteral stent placement status post replacement on this admission Pancytopenia secondary to chemotherapy Diabetes mellitus Hypothyroidism Asthma GERD Hospital Course: Patient is a 76-year-old female with a past medical history of ovarian cancer on chemotherapy, diabetes mellitus, hypothyroidism, asthma, GERD who presents to the ED with weakness. Patient is scheduled for IV fluids at [facility] every Sunday and however due to weakness she was not able to go to her appointment so family called EMS who brought her into the emergency room. ED nurse practitioner wanted to admit the patient for dehydration. Family is also concerned that patient has a ureteral stent that was placed in November. Patient was given fluids overnight. The following day patient reported that she is feeling much better. Patient is also given magnesium supplements. Her magnesium levels are within normal limits. Patient was seen by urology who exchanged her ureteral stents. Patient then deemed stable for discharge home. Patient seen and examined at bedside.[] Vital signs reviewed and stable. General: [non toxic], [no distress], patient appears chronically debilitated Derm: [warm], [dry] Head: [atraumatic], [normocephalic], [symmetric] Eyes: [EOMI], [no lid lag], [anicteric sclera] Mouth: [no lip lesion], [mucus membranes moist] Cardiovascular: [S1S2 reg], [no murmur], [positive posterior tibial pulse bilateral], Lungs: [CTA bilateral], [no rhonchi, no rales] , [no accessory muscle use] Abdominal: [soft], [ nontender to palpation], [no guarding], [no appreciable organomegaly] Ext: [no gross muscle atrophy], [no edema], [no contractures] Neuro: [ CN II-XI grossly intact], [no focal neuro deficits] Psych: [Alert], [oriented], [appropriate affect] A total of [33] minutes of time were spent preparing this complex discharge summary . Patient Condition at Discharge: Fair Plan - Discharge Summary Discharge Rx Participant: No New Discharge Prescriptions: Continue Levothyroxine Sodium [Synthroid] 50 mcg PO DAILY Evolocumab [Repatha Sureclick] 140 mg SQ Q14D Albuterol Sulfate [Ventolin HFA] 1 - 2 puff INHALATION RT-Q6H PRN PRN Reason: Shortness Of Breath Sennosides/Docusate Sodium [Senna Plus 8.6-50 mg Tablet] 2 tab PO HS PRN PRN Reason: Constipation L.acidoph,Paracasei, B.lactis [Probiotic] 1 cap PO DAILY Loratadine [Claritin] 10 mg PO DAILY Dicyclomine HCl 10 mg PO TID PRN PRN Reason: ibs Pioglitazone [Actos] 15 mg PO DAILY Omeprazole 20 mg PO DAILY amLODIPine [Norvasc] 5 mg PO DAILY #7 tab Ciprofloxacin HCl [Cipro] 500 mg PO Q12HR Docusate [Colace] 100 mg PO DAILY PRN PRN Reason: Constipation Ondansetron [Zofran] 4 mg PO Q8H PRN PRN Reason: Nausea OLANZapine [ZyPREXA] 2.5 mg PO DIRECTED HYDROcodone/APAP 10-325MG [[place] 10-325] 1 tab PO Q6H PRN PRN Reason: Pain Acetaminophen Tab [Tylenol] 1,000 mg PO Q6HR PRN PRN Reason: Pain Or Fever > 100.5 Discharge Medication List Levothyroxine Sodium [Synthroid] 50 mcg PO DAILY 02/08/18 [History] Evolocumab [Repatha Sureclick] 140 mg SQ Q14D 07/16/20 [History] Albuterol Sulfate [Ventolin HFA] 1 - 2 puff INHALATION RT-Q6H PRN 09/22/21 [History] Docusate [Colace] 100 mg PO DAILY PRN 11/16/21 [History] L.acidoph,Paracasei, B.lactis [Probiotic] 1 cap PO DAILY 11/16/21 [History] OLANZapine [ZyPREXA] 2.5 mg PO DIRECTED 11/16/21 [History] Ondansetron [Zofran] 4 mg PO Q8H PRN 11/16/21 [History] Sennosides/Docusate Sodium [Senna Plus 8.6-50 mg Tablet] 2 tab PO HS PRN 11/16/21 [History] Acetaminophen Tab [Tylenol] 1,000 mg PO Q6HR PRN 11/18/21 [History] Dicyclomine HCl 10 mg PO TID PRN 11/18/21 [History] HYDROcodone/APAP 10-325MG [[place] 10-325] 1 tab PO Q6H PRN 11/18/21 [History] Loratadine [Claritin] 10 mg PO DAILY 11/18/21 [History] Omeprazole 20 mg PO DAILY 12/29/21 [History] Pioglitazone [Actos] 15 mg PO DAILY 12/29/21 [History] amLODIPine [Norvasc] 5 mg PO DAILY #7 tab 12/30/21 [Rx] Ciprofloxacin HCl [Cipro] 500 mg PO Q12HR 01/31/22 [History] Follow up Appointment(s)/Referral(s): Reuben Almeida MD [Primary Care Provider] - 1-2 days [facility] [NON-STAFF] - As Needed (CALL ON DAY OF D/C FOR HOSPITAL BED DELIVERY) [facility], [NON-STAFF] - 1-2 Days Discharge Disposition: HOME SELF-CARE
--- NOTE | 2022-02-03 18:18 | P.PN ---
Subjective Progress Note Date: 02/03/22 no acute overnight events, denies any flank pain. Denies any dysuria, currently on Cipro Objective - Vital Signs Vital signs: Vital Signs Temp 97.7 F 02/03/22 08:00 Pulse 87 02/03/22 08:45 Resp 16 02/03/22 08:45 BP 161/79 02/03/22 08:45 Pulse Ox 97 02/03/22 08:45 FiO2 21 02/01/22 20:49 Intake & Output 02/02/22 02/03/22 02/03/22 18:59 06:59 18:59 Intake Total 620 546 Balance 620 546 Intake: IV 500 250 Oral 120 296 Other: Voiding Method Bedside Commode Toilet Toilet Bedside Commode # Voids 2 3 - Labs CBC & Chem 7: 01/31/22 15:53 01/31/22 15:53 Labs: Abnormal Lab Results - Last 24 Hours (Table) 02/03/22 02/03/22 Range/Units 06:39 07:36 POC Glucose (mg/dL) 141 H 130 H (70-110) mg/dL Assessment and Plan Plan: This 76-year-old female with history of a pelvic mass causing right-sided hydronephrosis, currently on chemotherapy and hydronephrosis is being managed by chronic stent. Discussed patient will have to continue to have ureteral stent exchanges every 3-6 months until the pelvic mass reduces in size and is not lo nger causing compression and obstructing the ureter. discussed the risk benefit and alternative of stent. - OR for Cystoscopy with right ureteral stent exchange - Cipro 500mg PO twice daily - Continue IV hydration
--- NOTE | 2022-02-03 18:22 | P.OP ---
Date of Procedure: 02/03/22 Preoperative Diagnosis: right sided hydronephrosis Postoperative Diagnosis: same Procedure(s) Performed: cystoscopy, right stent exchange Implants: 6-[place] by 26 cm stent in the right ureter Anesthesia: [employer] Surgeon: Jesse Dickerson Estimated Blood Loss (ml): 1 Pathology: none sent Condition: stable Disposition: PACU Indications for Procedure: This 76-year-old female with history of a pelvic mass causing right-sided hydronephrosis, currently on chemotherapy and hydronephrosis is being managed by chronic stent, initially stent was placed by Dr. Levy marte in September 2021.. Discussed patient will have to continue to have ureteral stent exchanges every 3-6 months until the pelvic mass reduces in size and is not longer causing compression and obstructing the ureter. discussed the risk benefit and alternative of stent. Description of Procedure: patient brought to the operating room, sedation was induced. She was prepped and draped in sterile fashion and placed in dorsal lithotomy position. Cystoscopy fitted with a 21-[place] sheath was inserted per urethra, cystoscopy was performed which showed no abnormality within the bladder. Next the stent was seen protruding from the right ureteral orifice, which was grasped and removed to the meatus. Next a sensor wire was advanced through the stent and the stent was removed with the wire in place. Next a ureteral stent was passed over the wire, proximal curl was visualized on fluoroscopy and the distal curl was visualized using the cystoscope. The bladder was emptied at the end of the case. Patient thought the procedure well was taken to recovery in stable condition. At this time patient will undergo repeat imaging after completion of chemotherapy, if there is no longer evidence of residual mass compressing the ureter. Plan would be to remove the stent as an outpatient, but it is persistent pelvic mass then the plan is to continue with stent exchange
== END 2022-02-03 12:18 | disposition home health service (06) | DRG 987 ==
LOC: EC 14:40 → 5NMEDONC 17:19
PROVIDERS: ADMIT Internal Medicine; ATTEND Internal Medicine
PROC: 0T768DZ Dilation of Right Ureter with Intraluminal Device, Via Natural or Artificial Opening Endoscopic (ICD-10-PCS; principal; 2022-02-03 07:00)
PROC: 0TP98DZ Removal of Intraluminal Device from Ureter, Via Natural or Artificial Opening Endoscopic (ICD-10-PCS; principal; 2022-02-03 07:00)
DX: E86.0 Dehydration (principal); D61.810 Antineoplastic chemotherapy induced pancytopenia; N13.39 Other hydronephrosis; C56.9 Malignant neoplasm of unspecified ovary; E11.9 Type 2 diabetes mellitus without complications; E83.42 Hypomagnesemia; E03.9 Hypothyroidism, unspecified; T45.1X5A Adverse effect of antineoplastic and immunosuppressive drugs, initial encounter; J45.909 Unspecified asthma, uncomplicated; K44.9 Diaphragmatic hernia without obstruction or gangrene; K59.00 Constipation, unspecified; R32 Unspecified urinary incontinence; E78.5 Hyperlipidemia, unspecified; K21.9 Gastro-esophageal reflux disease without esophagitis; M19.90 Unspecified osteoarthritis, unspecified site; Z79.890 Hormone replacement therapy; Z79.84 Long term (current) use of oral hypoglycemic drugs; Z79.899 Other long term (current) drug therapy; Z87.440 Personal history of urinary (tract) infections; Z88.0 Allergy status to penicillin; Z88.2 Allergy status to sulfonamides; Z88.8 Allergy status to other drugs, medicaments and biological substances
CPT/HCPCS: 36415; 70450; 71046; 80053; 81001; 83605; 83735; 84484; 85025; 85610; 85730; 87086; 93005; 94760; 96361; 96365; 96366; 96375; 99285

== ENCOUNTER 2022-02-17 10:22 | Inpatient (IN) | payer MEDICARE ==
[2022-02-17] MEDS ORDERED: NALOXONE 0.4 MG/ML 1 ML VIAL IVP PRN (10:30)
[2022-02-17] MEDS ORDERED: SODIUM CHLORIDE 0.9% 500 ML 500 ML IV ONE (10:35)
--- NOTE | 2022-02-17 11:11 | XR ---
EXAMINATION TYPE: XR chest 2V DATE OF EXAM: 02/17/2022 COMPARISON: 01/31/2022 TECHNIQUE: PA and lateral views submitted. HISTORY: Altered mental status FINDINGS: The lungs are clear and there is no pneumothorax, pleural effusion, or focal pneumonia. Right-sided Mediport catheter seen. Limited inspiration. No focal pneumonia. Linear changes at the lung bases mos t of the lobe atelectasis. Hypertrophic and degenerative changes of the spine. Surgical clips in the abdomen. Hyperinflation suggests COPD. IMPRESSION: 1. COPD.
[2022-02-17 11:14] LABS: Basophils % (A) 0 %; Eosinophils # (A) 0.1 k/uL (0-0.7); Eosinophils % (A) 1 %; HCT 30.9 % (34.0-46.0); HGB 10.8 gm/dL (11.4-16.0); Lymphocytes # (A) 1.6 k/uL (1.0-4.8); Lymphocytes % (A) 44 %; MCH 31.8 pg (25.0-35.0); MCHC 34.9 g/dL (31.0-37.0); MCV 91.2 fL (80.0-100.0); Monocytes # (A) 0.1 k/uL (0-1.0); Monocytes % (A) 2 %; Neutrophils # (A) 1.9 k/uL (1.3-7.7); Neutrophils % (A) 52 %; Platelet Count 102 k/uL (150-450); RBC 3.39 m/uL (3.80-5.40); RDW 15.6 % (11.5-15.5); WBC 3.6 k/uL (3.8-10.6)
[2022-02-17 11:16] LABS: Albumin 3.8 g/dL (3.5-5.0); Calcium 8.4 mg/dL (8.4-10.2); Potassium 4.1 mmol/L (3.5-5.1); Total Bilirubin 0.6 mg/dL (0.2-1.3)
--- NOTE | 2022-02-17 11:23 | CT ---
EXAMINATION TYPE: CT brain wo con DATE OF EXAM: 02/17/2022 COMPARISON: 01/31/2022 HISTORY: altered mental status CT DLP: 3289.4 mGycm Automated exposure control for dose reduction was used. FINDINGS: Exam is extremely limited due to severe patient motion artifact. There appears to be mild t o moderate generalized degenerative change with nonspecific low attenuation white matter. Assessment for hemorrhage extremely limited. No obvious midline shift. Assessment of the calvarium limited due t o motion artifact IMPRESSION: MARKEDLY LIMITED EXAM DUE TO MOTION ARTIFACT DEMONSTRATES NO OBVIOUS SIZABLE INTRAPARENCHYMAL HEMORRH AGE. DEGENERATIVE AND NONSPECIFIC WHITE MATTER CHANGES ARE MOST SUGGESTIVE OF REMOTE ISCHEMIA. GIVEN LIMITATION EXAM CORRELATED WITH MRI CLINICALLY WARRANTED FOR ACUTE ISCHEMIA
--- NOTE | 2022-02-17 11:36 | ED ---
General Adult HPI - General Chief complaint: Altered Mental Status Stated complaint: AMS Time Seen by Provider: 02/17/22 10:30 Source: patient, EMS, RN notes reviewed, old records reviewed Mode of arrival: EMS Limitations: altered mental status - History of Present Illness Initial comments: This is a 76-year-old female who presents emergency Department with a history of ovarian cancer. Patient is just finishing up a 5 day course of chemo. Patient was found on the toilet unresponsive by the family. When EMS arrived she was alert and oriented 1. Patient has no complaints but again she is a very poor historian because of her altered mental status. Patient patient does deny any pain. There is no one with the patient this times no further history is available - Related Data Home Medications Medication Instructions Recorded Confirmed Levothyroxine Sodium [Synthroid] 50 mcg PO DAILY 02/08/18 02/17/22 Evolocumab [Repatha Sureclick] 140 mg SQ Q14D 07/16/20 02/17/22 Albuterol Sulfate [Ventolin HFA] 1 - 2 puff INHALATION RT-Q6H PRN 09/22/21 02/17/22 Docusate [Colace] 100 mg PO DAILY PRN 11/16/21 02/17/22 L.acidoph,Paracasei, B.lactis 1 cap PO DAILY 11/16/21 02/17/22 [Probiotic] OLANZapine [ZyPREXA] 2.5 mg PO DIRECTED 11/16/21 02/17/22 Ondansetron [Zofran] 4 mg PO Q8H PRN 11/16/21 02/17/22 Sennosides/Docusate Sodium [Senna 2 tab PO HS PRN 11/16/21 02/17/22 Plus 8.6-50 mg Tablet] Acetaminophen Tab [Tylenol] 1,000 mg PO Q6HR PRN 11/18/21 02/17/22 Dicyclomine HCl 10 mg PO TID PRN 11/18/21 02/17/22 HYDROcodone/APAP 10-325MG [[employer] Mdl 1 tab PO Q6H PRN 11/18/21 02/17/22 10-325] Loratadine [Claritin] 10 mg PO DAILY 11/18/21 02/17/22 Omeprazole 20 mg PO DAILY 12/29/21 02/17/22 Pioglitazone [Actos] 15 mg PO DAILY 12/29/21 02/17/22 Previous Rx's Medication Instructions Recorded amLODIPine [Norvasc] 5 mg PO DAILY #7 tab 12/30/21 Allergies Allergy/AdvReac Type Severity Reaction Status Date / Time amoxicillin [From Augmentin] Allergy Rash/Hives/ Verified 02/17/22 12:26 itching clavulanic acid Allergy Rash/Hives/ Verified 02/17/22 12:26 [From Augmentin] itching Sulfa (Sulfonamide Allergy Itching Verified 02/17/22 12:26 Antibiotics) Review of Systems ROS Statement: Those systems with pertinent positive or pertinent negative responses have been documented in the HPI. ROS Other: All systems not noted in ROS Statement are negative. Past Medical History Past Medical History: Cancer, Diabetes Mellitus, GERD/Reflux, Hyperlipidemia, Osteoarthritis (OA), Thyroid Disorder Additional Past Medical History / Comment(s): Ovarian cancer(started Chemo 11/14/21), constipation, hx hiatal hernia, "Dr watching liver enzymes", urinary incontinence, vertigo History of Any Multi-Drug Resistant Organisms: None Reported Past Surgical History: Adenoidectomy, Bladder Surgery, Section, Cho lecystectomy, Hysterectomy, Tonsillectomy Additional Past Surgical History / Comment(s): x 3, 2 bladder suspension and 1 bowel lift; ureter stent in september 2021 Past Anesthesia/Blood Transfusion Reactions: Previous Problems w/ Anesthesia, Po stoperative Nausea & Vomiting (PONV) Additional Past Anesthesia/Blood Transfusion Reaction / Comment(s): years ago had a problem with anesthesia(vomiting) in [place], but has had anesthesia several times since then and has had no problem, recent vertigo Past Psychological History: No Psychological Hx Reported Smoking Status: Never smoker Past Alcohol Use History: None Reported Past Drug Use History: None Reported - Past Family History Father Family Medical History: Hypertension Brother(s) Family Medical History: Cancer General Exam - General Exam Comments Initial Comments: GENERAL: Patient is well-developed and well-nourished. Patient is nontoxic and well- hydrated and is in no acute distress. ENT: Neck is soft and supple. No significant lymphadenopathy is noted. Oropharynx is clear. Moist mucous membranes. Neck has full range of motion without eliciting any pain. EYES: The sclera were anicteric and conjunctiva were pink and moist. Extraocular movements were intact and pupils were equal round and reactive to light. Eyelids were unremarkable. PULMONARY: Unlabored respirations. Good breath sounds bilaterally. No audible rales rhonchi or wheezing was noted. CARDIOVASCULAR: There is a regular rate and rhythm without any murmurs gallops or rubs. ABDOMEN: Soft and nontender with normal bowel sounds. No palpable organomegaly was noted. There is no palpable pulsatile mass. SKIN: Patient's skin is very pale NEUROLOGIC: Patient is alert and oriented 1. Cranial nerves II through XII are grossly intact. Motor and sensory are also intact. Normal speech, volume and content. Symmetrical smile. MUSCULOSKELETAL: Normal extremities with adequate strength and full range of motion. No lower extremity swelling or edema. No calf tenderness. LYMPHATICS: No significant lymphadenopathy is noted PSYCHIATRIC: Unable to assess Limitations: altered mental status Course Vital Signs 02/17/22 02/17/22 02/17/22 10:30 10:49 12:47 Temperature 97.8 F Pulse Rate 73 84 Respiratory 14 20 20 Rate Blood Pressure 161/74 212/101 O2 Sat by Pulse 96 97 Oximetry 02/17/22 13:00 Temperature Pulse Rate 90 Respiratory 20 Rate Blood Pressure 168/74 O2 Sat by Pulse 99 Oximetry Medical Decision Making - Medical Decision Making EKG is interpreted by me shows a sinus rhythm at 74 bpm ME interval 166 dresses 142 QT interval 440 QTC is 467. Patient's EKG shows a left bundle branch block. I went back into the room to reevaluate the patient she was alert and oriented 2 at this time and she was much improved but was not back to her baseline and was not capable of walking steadily by herself. I read the computed tomography scan and it showed no acute abnormality however there was quite a bit of motion artifact. I read the chest x-ray. Chest x-ray showed no infiltrate. I spoke was found physicians and they agreed to admit the patient admitted the patient wrote admitting orders. - Lab Data Result diagrams: 02/17/22 10:45 02/17/22 10:45 Lab Results 02/17/22 02/17/22 02/17/22 Range/Units 10:45 10:45 10:45 WBC 3.6 L (3.8-10.6) k/uL RBC 3.39 L (3.80-5.40) m/uL Hgb 10.8 L (11.4-16.0) gm/dL Hct 30.9 L (34.0-46.0) % MCV 91.2 (80.0-100.0) fL MCH 31.8 (25.0-35.0) pg MCHC 34.9 (31.0-37.0) g/dL RDW 15.6 H (11.5-15.5) % Plt Count 102 L (150-450) k/uL MPV 8.0 Neutrophils % 52 % Lymphocytes % 44 % Monocytes % 2 % Eosinophils % 1 % Basophils % 0 % Neutrophils # 1.9 (1.3-7.7) k/uL Lymphocytes # 1.6 (1.0-4.8) k/uL Monocytes # 0.1 (0-1.0) k/uL Eosinophils # 0.1 (0-0.7) k/uL Basophils # 0.0 (0-0.2) k/uL PT (9.0-12.0) sec INR (<1.2) APTT (22.0-30.0) sec Sodium 137 (137-145) mmol/L Potassium 4.1 (3.5-5.1) mmol/L Chloride 109 H (98-107) mmol/L Carbon Dioxide 18 L (22-30) mmol/L Anion Gap 10 mmol/L BUN 27 H (7-17) mg/dL Creatinine 0.79 (0.52-1.04) mg/dL Est GFR (CKD-EPI)AfAm 84 (>60 ml/min/1.73 sqM) Est GFR (CKD-EPI)NonAf 73 (>60 ml/min/1.73 sqM) Glucose 150 H (74-99) mg/dL Calcium 8.4 (8.4-10.2) mg/dL Total Bilirubin 0.6 (0.2-1.3) mg/dL AST 25 (14-36) U/L ALT 15 (4-34) U/L Alkaline Phosphatase 63 (38-126) U/L Troponin I (0.000-0.034) ng/mL Total Protein 6.0 L (6.3-8.2) g/dL Albumin 3.8 (3.5-5.0) g/dL Urine Color Urine Appearance (Clear) Urine pH (5.0-8.0) Ur Specific [place] (1.001-1.035) Urine Protein (Negative) Urine Glucose (UA) (Negative) Urine Ketones (Negative) Urine Blood (Negative) Urine Nitrite (Negative) Urine Bilirubin (Negative) Urine Urobilinogen (<2.0) mg/dL Ur Leukocyte Esterase (Negative) Urine RBC (0-5) /hpf Urine WBC (0-5) /hpf Ur Squamous Epith Cells (0-4) /hpf Amorphous Sediment (None) /hpf Urine Bacteria (None) /hpf Urine Mucus (None) /hpf Urine Opiates Screen Detected H (NotDetected) Ur Oxycodone Screen Not Detected (NotDetected) Urine Methadone Screen Not Detected (NotDetected) Ur Propoxyphene Screen Not Detected (NotDetected) Ur Barbiturates Screen Not Detected (NotDetected) U Tricyclic Antidepress Not Detected (NotDetected) Ur Phencyclidine Scrn Not Detected (NotDetected) Ur Amphetamines Screen Not Detected (NotDetected) U Methamphetamines Scrn Not Detected (NotDetected) U Benzodiazepines Scrn Not Detected (NotDetected) Urine Cocaine Screen Not Detected (NotDetected) U Marijuana (THC) Screen Detected H (NotDetected) 02/17/22 02/17/22 02/17/22 Range/Units 10:45 10:45 12:05 WBC (3.8-10.6) k/uL RBC (3.80-5.40) m/uL Hgb (11.4-16.0) gm/dL Hct (34.0-46.0) % MCV (80.0-100.0) fL MCH (25.0-35.0) pg MCHC (31.0-37.0) g/dL RDW (11.5-15.5) % Plt Count (150-450) k/uL MPV Neutrophils % % Lymphocytes % % Monocytes % % Eosinophils % % Basophils % % Neutrophils # (1.3-7.7) k/uL Lymphocytes # (1.0-4.8) k/uL Monocytes # (0-1.0) k/uL Eosinophils # (0-0.7) k/uL Basophils # (0-0.2) k/uL PT 9.9 (9.0-12.0) sec INR 0.9 (<1.2) APTT 19.2 L (22.0-30.0) sec Sodium (137-145) mmol/L Potassium (3.5-5.1) mmol/L Chloride (98-107) mmol/L Carbon Dioxide (22-30) mmol/L Anion Gap mmol/L BUN (7-17) mg/dL Creatinine (0.52-1.04) mg/dL Est GFR (CKD-EPI)AfAm (>60 ml/min/1.73 sqM) Est GFR (CKD-EPI)NonAf (>60 ml/min/1.73 sqM) Glucose (74-99) mg/dL Calcium (8.4-10.2) mg/dL Total Bilirubin (0.2-1.3) mg/dL AST (14-36) U/L ALT (4-34) U/L Alkaline Phosphatase (38-126) U/L Troponin I <0.012 (0.000-0.034) ng/mL Total Protein (6.3-8.2) g/dL Albumin (3.5-5.0) g/dL Urine Color Yellow Urine Appearance Clear (Clear) Urine pH 5.5 (5.0-8.0) Ur Specific [place] 1.014 (1.001-1.035) Urine Protein 1+ H (Negative) Urine Glucose (UA) Negative (Negative) Urine Ketones Negative (Negative) Urine Blood Trace H (Negative) Urine Nitrite Negative (Negative) Urine Bilirubin Negative (Negative) Urine Urobilinogen <2.0 (<2.0) mg/dL Ur Leukocyte Esterase Trace H (Negative) Urine RBC 2 (0-5) /hpf Urine WBC 3 (0-5) /hpf Ur Squamous Epith Cells <1 (0-4) /hpf Amorphous Sediment Occasional H (None) /hpf Urine Bacteria Rare H (None) /hpf Urine Mucus Rare H (None) /hpf Urine Opiates Screen (NotDetected) Ur Oxycodone Screen (NotDetected) Urine Methadone Screen (NotDetected) Ur Propoxyphene Screen (NotDetected) Ur Barbiturates Screen (NotDetected) U Tricyclic Antidepress (NotDetected) Ur Phencyclidine Scrn (NotDetected) Ur Amphetamines Screen (NotDetected) U Methamphetamines Scrn (NotDetected) U Benzodiazepines Scrn (NotDetected) Urine Cocaine Screen (NotDetected) U Marijuana (THC) Screen (NotDetected) Disposition Clinical Impression: Altered mental status Disposition: ADMITTED IP TO THIS HOSP Referrals: Nonstaff,Physician [REFERRING] - 1-2 days Time of Disposition: 14:18
[2022-02-17 12:14] LABS: Amorphous Sediment,Urine Occasional /hpf; Appearance,Urine Clear (Clear); Bacteria,Urine Rare /hpf; Bilirubin,Urine Negative (Negative); Blood,Urine Trace (Negative); Color,Urine Yellow; Glucose,Urine (UA) Negative (Negative); Ketones,Urine Negative (Negative); Leukocyte Esterase,Urine Trace (Negative); Mucus,Urine Rare /hpf; Nitrite,Urine Negative (Negative); PH, Urine 5.5 (5.0-8.0); Protein,Urine 1+ (Negative); RBC,Urine 2 /hpf (0-5); Specific Gravity,Urine 1.014 (1.001-1.035); Squamous Epithelial Cell,Urine <1 /hpf (0-4); Urobilinogen,Urine <2.0 mg/dL (<2.0); WBC,Urine 3 /hpf (0-5)
[2022-02-17 12:33] LABS: Amphetamine Screen,Urine Not Detected (NotDetected); Barbiturate Screen,Urine Not Detected (NotDetected); Benzodiazepines Screen,Urine Not Detected (NotDetected); Cocaine Screen,Urine Not Detected (NotDetected); Methadone Screen, Urine Not Detected (NotDetected); Opiate Screen,Urine Detected (NotDetected); Oxycodone Screen, Urine Not Detected (NotDetected); Phencyclidine Screen,Urine Not Detected (NotDetected); Tricyclic Antidepressant,Urine Not Detected (NotDetected); Urn Cannabinoid Scrn Detected (NotDetected)
[2022-02-17 12:42] LABS: INR 0.9 (<1.2); Prothrombin Time 9.9 sec (9.0-12.0)
[2022-02-17 12:44] LABS: Partial Thromboplastin Time 19.2 sec (22.0-30.0)
[2022-02-17] MEDS ORDERED: hydrALAZINE HCL 20 MG/ML 1 ML VIAL IVP STA (12:52)
[2022-02-17] MEDS ORDERED: ONDANSETRON 4 MG/2 ML VIAL IVP STA (12:52)
[2022-02-17] MEDS ORDERED: SODIUM CHLORIDE 0.9% 1,000 ML IV ONE (14:18)
[2022-02-17] MEDS ORDERED: HYDROcodone/APAP 10-325MG 1 EACH TAB PO PRN (16:42)
[2022-02-17] MEDS ORDERED: DICYCLOMINE 10 MG CAP PO PRN (16:42)
[2022-02-17] MEDS ORDERED: ONDANSETRON 4 MG TAB PO PRN (16:42)
[2022-02-17] MEDS ORDERED: ASPIRIN 325 MG TAB PO STA (16:50)
--- NOTE | 2022-02-17 17:42 | P.HPIM ---
History of Present Illness H&P Date: 02/17/22 History of Presenting Illness: Patient is a very pleasant 76-year-old female with a past medical history of ovarian cancer currently undergoing chemotherapy and completed second round of chemotherapy on Sunday02/13/22, hypertension, [id number] diabetes mellitus, GERD, asthma/COPD and hypothyroidism. She presented to the emergency department after reportedly being found unresponsive on the toilet by her family. Family reports patient typically has a rough time after her chemotherapy treatments but has never been this rough. Daughter at bedside reports her mother recently underwent treatment for a urinary tract infection and does get them frequently, but states she has not reported any symptoms or shown any signs. Patient currently with aphasia and having a difficult time answering questions. RN at bedside reports patient initially had clear speech and answering questions and following commands without any difficulties but since arrival to Hospital has had intermittent garbled speech and aphasia as well as episodes of nausea and vomiting followed by increased confusion. Upon evaluation patient did have moderate aphasia she also reports headache, lightheadedness, dizziness, and nausea but denies having any changes in vision, hearing, chest pain, palpitations, shortness of breath, or experiencing any numbness/tingling/weakness/swelling in her extremities at this time. Patient was unable to remember events leading up to episode of unresponsiveness or immediately after. Patient underwent full evaluation in the emergency department. CBC revealing pancytopenia with WBC count of 3.6, hemoglobin 10.8, platelet count of 102. CMP showing no significant abnormalities and urinalysis negative for infection. Urine drug screen positive for opiates and marijuana. EKG was completed showing normal sinus rhythm at 74 bpm with a left bundle branch block. CT head negative for acute process revealing degenerative and nonspecific white matter changes most suggestive of remote ischemia, however exam was limited and cannot rule out acute ischemia. Chest x-ray negative of acute process revealing hyperinflation consistent with COPD. patient has been admitted under our services with consultation to neurology. Review of systems: Pertinent positives and negatives as discussed in HPI, a complete review of systems was performed and all other systems are negative. Physical exam: Vital signs reviewed and stable. General: Nontoxic, appears chronically ill. Frail. Derm: Skin warm and dry, pallor Head: Atraumatic, normocephalic and symmetric. Eyes: EOMs intact, no lid lag, and anicteric sclera pupils pinpoint.. Mouth: no lip lesions, mucus membranes moist Cardiovascular: regular rate and rhythm with normal S1S2, systolic murmur, positive posterior tibial pulses bilaterally, and cap refill < 2 seconds. Lungs: Respirations even, regular, and unlabored on room air. Lungs CTA bilaterally, no rhonchi, no rales, no wheezing, and no accessory muscle usage. Abdominal: soft, nontender to palpation, no guarding, no appreciable organomegaly Ext: ROM intact. No gross muscle atrophy, no edema, no contractures Neuro: Speech garbled at times and patient with moderate aphasia, face symmetrical and CN II-XII grossly intact with no other noted focal neuro deficits at this time. Psych: Alert and awake. Patient currently with moderate aphasia and difficulty answering questions. Assessment and Plan of Care: Unresponsive episode followed by moderate confusion and waxing and waning episodes of aphasia and garbled speech, rule out CVA Aphasia Acute Alteration in mental status -CT head negative for acute process revealing degenerative and nonspecific white matter changes most suggestive of remote ischemia, however exam was limited and cannot rule out acute ischemia. -MRI without contrast to be completed -Neurology consulted -Patient to be given aspirin and atorvastatin -Telemetry monitoring -Neuro checks every 4 hours -Fall precautions -TSH, lipid profile, and hemoglobin A1c -Echocardiogram Ovarian cancer -Oncology consulted, appreciate further recommendations. Hypothyroidism -Continue daily medication regimen with the levothyroxine. -TSH with free T4 to be obtained. Hypertension -At this time we will allow for permissive hypertension and patient may resume daily medication regimen with amlodipine 5 mg daily tomorrow morning. CODE STATUS: Full code DVT prophylaxis: Lovenox Discussed with: Patient, RN and patient's daughter Anticipated discharge date: 1-2 days pending clinical course Anticipated discharge place: Home A total of 46 minutes was spent on the care of this complex patient more than 50% of the time was spent in counseling and care coordination. I reviewed the documentation as provided by the SERA above, who is the original author of this note. I agree with the documented assessment and plan, with the following changes: none Past Medical History Past Medical History: Cancer, Diabetes Mellitus, GERD/Reflux, Hyperlipidemia, Osteoarthritis (OA), Thyroid Disorder Additional Past Medical History / Comment(s): Ovarian cancer(started Chemo 11/14/21), constipation, hx hiatal hernia, "Dr watching liver enzymes", urinary incontinence, vertigo History of Any Multi-Drug Resistant Organisms: None Reported Past Surgical History: Adenoidectomy, Bladder Surgery, Section, Cholecystectomy, Hysterectomy, Tonsillectomy Additional Past Surgical History / Comment(s): x 3, 2 bladder suspension and 1 bowel lift; ureter stent in september 2021 Past Anesthesia/Blood Transfusion Reactions: Previous Problems w/ Anesthesia, Postoperative Nausea & Vomiting (PONV) Additional Past Anesthesia/Blood Transfusion Reaction / Comment(s): years ago had a problem with anesthesia(vomiting) in [place], but has had anesthesia several times since then and has had no problem, recent vertigo Past Psychological History: No Psychological Hx Reported Smoking Status: Never smoker Past Alcohol Use History: None Reported Past Drug Use History: None Reported - Past Family History Father Family Medical History: Hypertension Brother(s) Family Medical History: Cancer Medications and Allergies Home Medications Medication Instructions Recorded Confirmed Type Levothyroxine Sodium [Synthroid] 50 mcg PO DAILY 02/08/18 02/17/22 History Evolocumab [Repatha Sureclick] 140 mg SQ Q14D 07/16/20 02/17/22 History Albuterol Sulfate [Ventolin HFA] 1 - 2 puff INHALATION RT-Q6H PRN 09/22/21 02/17/22 History Docusate [Colace] 100 mg PO DAILY PRN 11/16/21 02/17/22 History L.acidoph,Paracasei, B.lactis 1 cap PO DAILY 11/16/21 02/17/22 History [Probiotic] OLANZapine [ZyPREXA] 2.5 mg PO DIRECTED 11/16/21 02/17/22 History Ondansetron [Zofran] 4 mg PO Q8H PRN 11/16/21 02/17/22 History Sennosides/Docusate Sodium [Senna 2 tab PO HS PRN 11/16/21 02/17/22 History Plus 8.6-50 mg Tablet] Acetaminophen Tab [Tylenol] 1,000 mg PO Q6HR PRN 11/18/21 02/17/22 History Dicyclomine HCl 10 mg PO TID PRN 11/18/21 02/17/22 History HYDROcodone/APAP 10-325MG [[place] 1 tab PO Q6H PRN 11/18/21 02/17/22 History 10-325] Loratadine [Claritin] 10 mg PO DAILY 11/18/21 02/17/22 History Omeprazole 20 mg PO DAILY 12/29/21 02/17/22 History Pioglitazone [Actos] 15 mg PO DAILY 12/29/21 02/17/22 History amLODIPine [Norvasc] 5 mg PO DAILY #7 tab 12/30/21 02/17/22 Rx Allergies Allergy/AdvReac Type Severity Reaction Status Date / Time amoxicillin [From Augmentin] Allergy Rash/Hives/ Verified 02/17/22 12:26 itching clavulanic acid Allergy Rash/Hives/ Verified 02/17/22 12:26 [From Augmentin] itching Sulfa (Sulfonamide Allergy Itching Verified 02/17/22 12:26 Antibiotics) Physical Exam Osteopathic Statement: *. No significant issues noted on an osteopathic structural exam other than those noted in the History and Physical/Consult. Vitals: Vital Signs Temp Pulse Resp BP Pulse Ox 02/17/22 14:20 90 20 122/84 96 02/17/22 13:00 90 20 168/74 99 02/17/22 12:47 84 20 212/101 97 02/17/22 10:49 20 02/17/22 10:30 97.8 F 73 14 161/74 96 Intake and Output 02/16/22 02/17/22 02/17/22 22:59 06:59 14:59 Other: Weight 72.575 kg Results CBC & Chem 7: 02/17/22 10:45 02/17/22 10:45 Labs: Abnormal Lab Results - Last 24 Hours (Table) 02/17/22 02/17/22 02/17/22 Range/Units 10:45 10:45 10:45 WBC 3.6 L (3.8-10.6) k/uL RBC 3.39 L (3.80-5.40) m/uL Hgb 10.8 L (11.4-16.0) gm/dL Hct 30.9 L (34.0-46.0) % RDW 15.6 H (11.5-15.5) % Plt Count 102 L (150-450) k/uL APTT (22.0-30.0) sec Chloride 109 H (98-107) mmol/L Carbon Dioxide 18 L (22-30) mmol/L BUN 27 H (7-17) mg/dL Glucose 150 H (74-99) mg/dL Total Protein 6.0 L (6.3-8.2) g/dL Urine Protein (Negative) Urine Blood (Negative) Ur Leukocyte Esterase (Negative) Amorphous Sediment (None) /hpf Urine Bacteria (None) /hpf Urine Mucus (None) /hpf Urine Opiates Screen Detected H (NotDetected) U Marijuana (THC) Screen Detected H (NotDetected) 02/17/22 02/17/22 Range/Units 10:45 12:05 WBC (3.8-10.6) k/uL RBC (3.80-5.40) m/uL Hgb (11.4-16.0) gm/dL Hct (34.0-46.0) % RDW (11.5-15.5) % Plt Count (150-450) k/uL APTT 19.2 L (22.0-30.0) sec Chloride (98-107) mmol/L Carbon Dioxide (22-30) mmol/L BUN (7-17) mg/dL Glucose (74-99) mg/dL Total Protein (6.3-8.2) g/dL Urine Protein 1+ H (Negative) Urine Blood Trace H (Negative) Ur Leukocyte Esterase Trace H (Negative) Amorphous Sediment Occasional H (None) /hpf Urine Bacteria Rare H (None) /hpf Urine Mucus Rare H (None) /hpf Urine Opiates Screen (NotDetected) U Marijuana (THC) Screen (NotDetected)
[2022-02-17] MEDS: OLANZapine 2.5 MG TAB PO SCH (21:18)
[2022-02-17] MEDS: ATORVASTATIN 40 MG TAB PO SCH (21:18)
[2022-02-17] MEDS ORDERED: hydrALAZINE HCL 25 MG TAB PO STA (22:49)
[2022-02-18] MEDS: PANTOPRAZOLE 40 MG TABLET PO SCH (10:06)
[2022-02-18] MEDS: ENOXAPARIN 40 MG/0.4 ML SYRINGE SQ SCH (10:06)
[2022-02-18] MEDS: ASPIRIN 81 MG PO SCH (10:06)
[2022-02-18] MEDS: INSULIN ASPART (NovoLOG) 100 UNIT/ML VIAL SQ SCH ×4 (10:06→20:26)
[2022-02-18] MEDS: LEVOTHYROXINE 50 MCG TAB PO SCH (10:06)
[2022-02-18] MEDS: LACTOBACILLUS ACIDOPH & BULGAR 1 EACH PACKET PO SCH (10:06)
[2022-02-18] MEDS: amLODIPine 5 MG TAB PO SCH (10:06)
[2022-02-18] MEDS: LORATADINE 10 MG TAB PO SCH (10:07)
--- NOTE | 2022-02-18 11:23 | P.CNNES ---
History of Present Illness Consult date: 02/18/22 Requesting physician: David Fernando Reason for Consult: altered mental status, difficulties speech History of Present Illness: This is a 76-year-old woman with medical history of ovarian cancer who is currently undergoing chemotherapy, hypertension, non-insulin diabetes, hypothyroidism who presented the to the emergency department for unresponsiveness. Some of the history is obtained from the patient's daughter (who is at bedside). Yesterday the patient went to the bathroom and was sitting on toilet then was found unresponsive by the daughter. She was found to be leaning forward with eyes rolling back. No jerking of extremities or foaming around the mouth. She was no responsive and not following commands. Per the daughter, episode lasted for 1--12 minutes then was took a lot of time to be back to baseline. It seems she has some speech difficulty yesterday but feels back to baseline. Patient does not recall the episode and denies any aura prior to episode. Denies tongue bite or soreness. Denies history of stroke or seizures. Yesterday her blood pressure was checked by EMS and was notified it was normal per daughter. She had possible episode of fall within the past month. It seems the patient had the recent urinary tract infection and that has frequent episodes of year tract infection. Of note the patient completed her second round of chemotherapy on 02/13/2022. She is on Alleve PRN. Some of the workup during this hospital visit consisted of: White blood cells 3.6 thousand, hemoglobin 7.8, platelet is 102,000. Initial serum glucose is 150, sodium, calcium, AST and ALT as well as creatinine are within normal limits. Urine analysis shows positive leukocyte esterase which is trace and the bacteria was rare. Urine drug screen is positive for opiates as well as marijuana. CT of the head is reported as markedly limited exam due to motion artifact demonstrated. No obvious sizable intraparenchymal hemorrhage. Degenerative and nonspecific white matter changes most suggestive of remote ischemia. Given limitation exam correlate with MRI as clinically warranted for acute ischemia. I attempted to personally reviewed the CT of the head but could not because of issues with the system. Review of Systems Review of system: The 12 point system was reviewed and apparent positive and negative per HPI. Past Medical History Past Medical History: Cancer, Diabetes Mellitus, GERD/Reflux, Hyperlipidemia, Osteoarthritis (OA), Thyroid Disorder Additional Past Medical History / Comment(s): Ovarian cancer(started Chemo 11/14/21), constipation, hx hiatal hernia, "Dr watching liver enzymes", urinary incontinence, vertigo History of Any Multi-Drug Resistant Organisms: None Reported Past Surgical History: Adenoidectomy, Bladder Surgery, Section, Cholecystectomy, Hysterectomy, Tonsillectomy Additional Past Surgical History / Comment(s): x 3, 2 bladder suspension and 1 bowel lift; ureter stent in september 2021 Past Anesthesia/Blood Transfusion Reactions: Previous Problems w/ Anesthesia, Postoperative Nausea & Vomiting (PONV) Additional Past Anesthesia/Blood Transfusion Reaction / Comment(s): years ago had a problem with anesthesia(vomiting) in [place], but has had anesthesia several times since then and has had no problem, recent vertigo Past Psychological History: No Psychological Hx Reported Smoking Status: Never smoker Past Alcohol Use History: None Reported Past Drug Use History: None Reported - Past Family History Father Family Medical History: Hypertension Brother(s) Family Medical History: Cancer Medications and Allergies Home Medications Medication Instructions Recorded Confirmed Type Levothyroxine Sodium [Synthroid] 50 mcg PO DAILY 02/08/18 02/17/22 History Evolocumab [Repatha Sureclick] 140 mg SQ Q14D 07/16/20 02/17/22 History Albuterol Sulfate [Ventolin HFA] 1 - 2 puff INHALATION RT-Q6H PRN 09/22/21 02/17/22 History Docusate [Colace] 100 mg PO DAILY PRN 11/16/21 02/17/22 History L.acidoph,Paracasei, B.lactis 1 cap PO DAILY 11/16/21 02/17/22 History [Probiotic] OLANZapine [ZyPREXA] 2.5 mg PO DIRECTED 11/16/21 02/17/22 History Ondansetron [Zofran] 4 mg PO Q8H PRN 11/16/21 02/17/22 History Sennosides/Docusate Sodium [Senna 2 tab PO HS PRN 11/16/21 02/17/22 History Plus 8.6-50 mg Tablet] Acetaminophen Tab [Tylenol] 1,000 mg PO Q6HR PRN 11/18/21 02/17/22 History Dicyclomine HCl 10 mg PO TID PRN 11/18/21 02/17/22 History HYDROcodone/APAP 10-325MG [[place] 1 tab PO Q6H PRN 11/18/21 02/17/22 History 10-325] Loratadine [Claritin] 10 mg PO DAILY 11/18/21 02/17/22 History Omeprazole 20 mg PO DAILY 12/29/21 02/17/22 History Pioglitazone [Actos] 15 mg PO DAILY 12/29/21 02/17/22 History amLODIPine [Norvasc] 5 mg PO DAILY #7 tab 12/30/21 02/17/22 Rx Allergies Allergy/AdvReac Type Severity Reaction Status Date / Time amoxicillin [From Augmentin] Allergy Rash/Hives/ Verified 02/17/22 12:26 itching clavulanic acid Allergy Rash/Hives/ Verified 02/17/22 12:26 [From Augmentin] itching Sulfa (Sulfonamide Allergy Itching Verified 02/17/22 12:26 Antibiotics) Physical Examination - Vital Signs Vital Signs: Vital Signs Temp Pulse Pulse Resp BP BP Pulse Ox 02/18/22 00:56 133/67 02/17/22 22:40 171/69 02/17/22 22:30 98.3 F 90 16 165/80 02/17/22 21:00 16 02/17/22 19:48 97 02/17/22 19:06 98 20 146/98 98 02/17/22 17:00 95 16 135/86 98 02/17/22 15:00 85 20 148/90 99 02/17/22 14:20 90 20 122/84 96 02/17/22 13:00 90 20 168/74 99 02/17/22 12:47 84 20 212/101 97 02/17/22 10:49 20 02/17/22 10:30 97.8 F 73 14 161/74 96 FiO2 02/18/22 00:56 02/17/22 22:40 02/17/22 22:30 02/17/22 21:00 02/17/22 19:48 21 02/17/22 19:06 02/17/22 17:00 02/17/22 15:00 02/17/22 14:20 02/17/22 13:00 02/17/22 12:47 02/17/22 10:49 02/17/22 10:30 Intake and Output 02/17/22 02/18/22 02/18/22 22:59 06:59 14:59 Other: Voiding Method Bedside Commode Weight 72.575 kg GENERAL: The patient is lying in bed and is not in acute distress. CHEST: The heart rate is regular rate rhythm. No murmurs to auscultation. No carotid bruit bilaterally. LUNG: Clear to auscultation bilaterally no wheezing noted throughout. Not labored breathing. ABDOMEN/GI: Bowel sounds present in all 4 quadrants. No tenderness to palpation throughout. NEUROLOGICAL: Higher mental function: The patient is awake, alert, oriented to self, place and time. Patient is following commands. No aphasia and no neglect. Cranial nerves: The pupils are round, equal and reactive to light and a ccommodation. Visual aguilar are full to confrontation throughout. Extraocular movement is intact no nystagmus is noted. Facial sensation is normal to touch throughout. The facial strength is normal throughout. Hearing is normal bilaterally to hand rub. Tongue is midline and moved [id number] without any difficulty. No dysarthria is noted. Shoulder shrug is normal bilaterally. Motor: The strength is 5 over 5 throughout. Normal tone and bulk. Cerebellum: Normal finger to nose heel to go bilaterally. Sensation: Sensation is normal to touch throughout. Reflexes (right/left): 2+ throughout. Plantars are downgoing bilaterally. Results - Laboratory Findings CBC and BMP: 02/17/22 10:45 02/17/22 10:45 Abnormal Lab Findings: Abnormal Labs 02/17/22 02/17/22 02/17/22 10:45 10:45 10:45 WBC 3.6 L RBC 3.39 L Hgb 10.8 L Hct 30.9 L RDW 15.6 H Plt Count 102 L APTT Chloride 109 H Carbon Dioxide 18 L BUN 27 H Glucose 150 H Total Protein 6.0 L Urine Protein Urine Blood Ur Leukocyte Esterase Amorphous Sediment Urine Bacteria Urine Mucus Urine Opiates Screen Detected H U Marijuana (THC) Screen Detected H 02/17/22 02/17/22 10:45 12:05 WBC RBC Hgb Hct RDW Plt Count APTT 19.2 L Chloride Carbon Dioxide BUN Glucose Total Protein Urine Protein 1+ H Urine Blood Trace H Ur Leukocyte Esterase Trace H Amorphous Sediment Occasional H Urine Bacteria Rare H Urine Mucus Rare H Urine Opiates Screen U Marijuana (THC) Screen Assessment and Plan Assessment: Episode of unresponsiveness with eye rolling and speech difficulty (had prolonged time to regain to baseline): Rule out seizure as result brain mets (rarely does ovarian cancer mets to brain) vs acute stroke History of ovarian cancer on chemotherapy Insulin diabetes mellitus Hypothyroidism Plan: MRI the brain, 2D echo, TSH, hemoglobin A1c, lipid panel are ordered by the primary team are pending. I spoke with primary team and will obtain MRA neck. Patient does not want to stay till Sunday for EEG (no tech till Sunday) and wants to obtain it as outpatient. If negative and continues to have syncopal episodes recommend prolonged EEG. Patient is currently on aspirin 81 mg and Lipitor 40 mg daily at bedtime. If the patient does have a stroke then will place the patient on dual antiplatelets ball hold off for now. I consulted physical therapy occupational therapy and speech therapy. Continue neuro checks Cardiac monitoring will defer the rest of the medical management to primary team Oncologist team is consulted. For DVT prophylaxis the patient is on enoxaparin per the primary team. Recommend patient to follow-up with neurologist as outpatient within 1-2 weeks. The plan is discussed with patient and her daughter who is at bedside as well primary team. Thank you for the consultation. Time with Patient: Greater than 30
[2022-02-18 11:37] LABS: Glucose,Whole Blood 118 mg/dL (70-110)
[2022-02-18 12:23] LABS: Glucose,Whole Blood 163 mg/dL (70-110)
[2022-02-18 13:13] LABS: HCT 31.6 % (34.0-46.0); HGB 10.4 gm/dL (11.4-16.0); MCH 31.3 pg (25.0-35.0); MCV 95.1 fL (80.0-100.0); Platelet Count 101 k/uL (150-450); RBC 3.32 m/uL (3.80-5.40); RDW 15.7 % (11.5-15.5); WBC 3.1 k/uL (3.8-10.6)
--- NOTE | 2022-02-18 14:00 | MR ---
EXAMINATION TYPE: MR brain wo/w mra neck wo/wcon DATE OF EXAM: 02/18/2022 COMPARISON: CT brain from 08/03/2021. HISTORY: Altered mental status, evaluate for stroke. Hx ovarian cancer. TECHNIQUE: Multiplanar, multisequence images of the brain and brainstem is performed without and with IV contras t, utilizing 7 mL intravenous Gadavist . Multiplanar, multi-sequence imaging as well as [id number] and phase contrast imaging was performe d extracranial vasculature of the neck. The patient was given 7 cc of Gadavist intravenously. 3-D r eformatted images and maximum intensity projection reformatted images were submitted for evaluation a nd created on a separate workstation. NASCET criteria was utilized. FINDINGS: Diffusion weighted images demonstrate no evidence of a recent infarct or other diffusion ab normality. There is no extra-axial fluid collection. Scattered high T2 signal seen throughout the de ep white matter.. The ventricular system and cisternal spaces are normal in size and appearance. Th e brain volume is age appropriate. Susceptibility weighted imaging demonstrates scattered foci of blo oming artifact most pronounced in the cerebellar hemispheres but also affecting the cerebral hemisphe res. Midline structures demonstrate normal morphology. The craniocervical junction appears within normal limits. Post contrast images demonstrate no abnormal enhancement. The dural venous sinuses appear pa tent globes demonstrate bilateral aphakia. No significant paranasal sinus disease. RIGHT CAROTID SYSTEM: The internal carotid artery appears unremarkable. The right common carotid art khushboo and external carotid artery are unremarkable. LEFT CAROTID SYSTEM: The internal carotid artery appears unremarkable. The left common carotid yoel ry and external carotid artery are unremarkable. The origins of the great vessels and vertebral arteries appear unremarkable. The vertebral arteries are unremarkable. IMPRESSIONS: 1. Normal MRA of the carotid arteries. 2. No evidence for arterial dissection. 3. Scattered foci of blooming artifact which could represent microhemorrhages or cerebral amyloid ang iopathy (CAA). 4. No evidence of intracranial mass or acute/subacute infarct. 5. Nonspecific white matter changes, likely secondary to small vessel ischemic disease.
--- NOTE | 2022-02-18 14:43 | CA ---
Transthoracic Echo Report Name: Geeta Raymond Age: 76 Gender: F : 1945 Exam Date: 02/18/2022 12:46 Exam Location: [facility] Ht (in): 64 Wt (lb): 160 Ordering Physician: David Fernando Attending/Referring Phys: Inspector Set Up And Lay Out Jessica Archuleta RDCS Procedure CPT: Indications: unresponsive episode Cardiac Hx: Technical Quality: Good Contrast 1: Total Dose (mL): Contrast 2: Total Dose (mL): MEASUREMENTS (Male / Female) Normal Values 2D ECHO LV Diastolic Diameter PLAX 4.0 cm 4.2 - 5.9 / 3.9 - 5.3 cm LV Systolic Diameter PLAX 3.0 cm IVS Diastolic Thickness 1.0 cm 0.6 - 1.0 / 0.6 - 0.9 cm LVPW Diastolic Thickness 0.9 cm 0.6 - 1.0 / 0.6 - 0.9 cm LV Relative Wall Thickness 0.5 RV Internal Dim ED PLAX 2.8 cm LA Systolic Diameter LX 3.1 cm 3.0 - 4.0 / 2.7 - 3.8 cm LV Diastolic Volume MOD 4C 67.6 cm??? LV Systolic Volume MOD 4C 36.6 cm??? LV Ejection Fraction MOD 4C 45.9 % LV Diastolic Length 4C 7.8 cm LV Systolic Length 4C 6.7 cm LV Diastolic Volume MOD 2C 49.1 cm??? LV Systolic Volume MOD 2C 29.0 cm??? LV Ejection Fraction MOD 2C 41.0 % LV Diastolic Length 2C 7.0 cm LV Systolic Length 2C 6.1 cm LA Volume 29.5 cm??? 18 - 58 / 22 - 52 cm??? M-MODE Aortic Root Diameter MM 2.9 cm MV E Point Septal Separation 0.9 cm AV Cusp Separation MM 1.6 cm DOPPLER AV Peak Velocity 126.7 cm/s AV Peak Gradient 6.4 mmHg MV Area PHT 2.5 cm??? Mitral E Point Velocity 66.4 cm/s Mitral A Point Velocity 90.2 cm/s Mitral E to A Ratio 0.7 MV Deceleration Time 306.7 ms MV E' Velocity 3.2 cm/s Mitral E to MV E' Ratio 20.8 TR Peak Velocity 256.1 cm/s TR Peak Gradient 26.2 mmHg Right Ventricular Systolic Press 31.2 mmHg FINDINGS Left Ventricle Left ventricular ejection fraction is estimated at 55-60 %. left ventricular cavity size normal. Left ventricular wall thickness normal. Right Ventricle Normal right ventricular size and function. Right ventricular systolic pressure within normal limits. Right Atrium Normal right atrial size. Left Atrium Normal left atrial size. No evidence for an atrial septal defect. Mitral Valve Mild mitral annular calcification. No mitral stenosis, or prolapse. Trace to mild regurgitation Aortic Valve Trileaflet aortic valve. No aortic valve stenosis or regurgitation. Aortic sclerosis with no evidence of stenosis Tricuspid Valve Mild tricuspid regurgitation. No tricuspid stenosis. No tricuspid prolapse. Pulmonic Valve Pulmonic valve not well visualized. Pericardium Normal pericardium. No pericardial effusion. Aorta Normal size aortic root and proximal ascending aorta. CONCLUSIONS 1. Normal left ventricle size and systolic function 2. Mild tricuspid regurgitation with trace to mild mitral regurgitation 3. No pericardial effusion. Previewed by: Dr. Rosemarie Jacome MD (Electronically Signed) Final Date: 18 February 2022 14:42
--- NOTE | 2022-02-18 14:47 | P.PN ---
Subjective Progress Note Date: 02/18/22 History of Presenting Illness: Patient is a very pleasant 76-year-old female with a past medical history of ovarian cancer currently undergoing chemotherapy and completed second round of chemotherapy on Sunday02/13/22, hypertension, [id number] diabetes mellitus, GERD, asthma/COPD and hypothyroidism. She presented to the emergency department after reportedly being found unresponsive on the toilet by her family. Family reports patient typically has a rough time after her chemotherapy treatments but has never been this rough. Daughter at bedside reports her mother recently underwent treatment for a urinary tract infection and does get them frequently, but states she has not reported any symptoms or shown any signs. Patient currently with aphasia and having a difficult time answering questions. RN at bedside reports patient initially had clear speech and answering questions and following commands without any difficulties but since arrival to Hospital has had intermittent garbled speech and aphasia as well as episodes of nausea and vomiting followed by increased confusion. Upon evaluation patient did have moderate aphasia she also reports headache, lightheadedness, dizziness, and nausea but denies having any changes in vision, hearing, chest pain, palpitations, shortness of breath, or experiencing any numbness/tingling/weakness/swelling in her extremities at this time. Patient was unable to remember events leading up to episode of unresponsiveness or immediately after. Patient underwent full evaluation in the emergency depa rtment. CBC revealing pancytopenia with WBC count of 3.6, hemoglobin 10.8, platelet count of 102. CMP showing no significant abnormalities and urinalysis negative for infection. Urine drug screen positive for opiates and marijuana. EKG was completed showing normal sinus rhythm at 74 bpm with a left bundle branch block. CT head negative for acute process revealing degenerative and nonspecific white matter changes most suggestive of remote ischemia, however exam was limited and cannot rule out acute ischemia. Chest x-ray negative of acute process revealing hyperinflation consistent with COPD. Patient has been admitted under our services with consultation to neurology. Physical exam: Patient seen and fully evaluated at bedside this morning. Patient has had full resolution of previous aphasia/garbled speech. Currently her speech is clear and patient is alert to person, place, time, and situation. Patient denies having any pain or complaints at this time. Morning labs pending results. Patient seen and fully evaluated at the bedside Vital signs reviewed and stable. General: Nontoxic, appears chronically ill. Frail. Derm: Skin warm and dry, pallor Head: Atraumatic, normocephalic and symmetric. Eyes: EOMs intact, no lid lag, and anicteric sclera pupils pinpoint.. Mouth: no lip lesions, mucus membranes moist Cardiovascular: regular rate and rhythm with normal S1S2, systolic murmur, positive posterior tibial pulses bilaterally, and cap refill < 2 seconds. Lungs: Respirations even, regular, and unlabored on room air. Lungs CTA bilaterally, no rhonchi, no rales, no wheezing, and no accessory muscle usage. Abdominal: soft, nontender to palpation, no guarding, no appreciable organomegaly Ext: ROM intact. No gross muscle atrophy, no edema, no contractures Neuro: Speech clear at this time. GCS 15, cranial nerves II through XII intact and patient showing no neurological focal deficits at this time. Psych: Alert and awake. Pleasant and cooperative. Assessment and Plan of Care: Unresponsive episode followed by moderate confusion and waxing and waning episodes of aphasia and garbled speech, rule out CVA Aphasia Acute Alteration in mental status -CT head negative for acute process revealing degenerative and nonspecific white matter changes most suggestive of remote ischemia, however exam was limited and cannot rule out acute ischemia. -Neurology following. Recommended changing MRI to MRI brain with and without contrast and obtaining an MRA of neck and orders placed. -Patient to be given aspirin and atorvastatin -Telemetry monitoring -Neuro checks every 4 hours -Fall precautions -TSH, lipid profile, and hemoglobin A1c -Echocardiogram Ovarian cancer -Oncology consulted, appreciate further recommendations. Pancytopenia, chemotherapy induced -We will continue to monitor with repeat a.m. labs. Hypothyroidism -Continue daily medication regimen with the levothyroxine. -TSH with free T4 to be obtained. Hypertension -At this time we will allow for permissive hypertension and patient may resume daily medication regimen with amlodipine 5 mg daily tomorrow morning. CODE STATUS: Full code DVT prophylaxis: Lovenox Discussed with: Patient, neurologist, RN and patient's daughter, patient's son, and patient's [id number] Anticipated discharge date: 1-2 days pending clinical course Anticipated discharge place: Home A total of 35 minutes was spent on the care of this complex patient more than 50% of the time was spent in counseling and care coordination. Objective - Vital Signs Vital signs: Vital Signs Temp 98.3 F 02/17/22 22:30 Pulse 90 02/17/22 22:30 Resp 16 02/17/22 22:30 BP 133/67 02/18/22 00:56 Pulse Ox 97 02/17/22 19:48 FiO2 21 02/17/22 19:48 Intake & Output 02/17/22 02/18/22 02/18/22 18:59 06:59 18:59 Weight 72.575 kg 72.575 kg Other: Voiding Method Bedside Commode - Labs CBC & Chem 7: 02/18/22 06:00 02/17/22 10:45 Labs: Abnormal Lab Results - Last 24 Hours (Table) 02/17/22 02/17/22 02/17/22 Range/Units 10:45 10:45 10:45 WBC 3.6 L (3.8-10.6) k/uL RBC 3.39 L (3.80-5.40) m/uL Hgb 10.8 L (11.4-16.0) gm/dL Hct 30.9 L (34.0-46.0) % RDW 15.6 H (11.5-15.5) % Plt Count 102 L (150-450) k/uL APTT (22.0-30.0) sec Chloride 109 H (98-107) mmol/L Carbon Dioxide 18 L (22-30) mmol/L BUN 27 H (7-17) mg/dL Glucose 150 H (74-99) mg/dL Total Protein 6.0 L (6.3-8.2) g/dL Urine Protein (Negative) Urine Blood (Negative) Ur Leukocyte Esterase (Negative) Amorphous Sediment (None) /hpf Urine Bacteria (None) /hpf Urine Mucus (None) /hpf Urine Opiates Screen Detected H (NotDetected) U Marijuana (THC) Screen Detected H (NotDetected) 02/17/22 02/17/22 Range/Units 10:45 12:05 WBC (3.8-10.6) k/uL RBC (3.80-5.40) m/uL Hgb (11.4-16.0) gm/dL Hct (34.0-46.0) % RDW (11.5-15.5) % Plt Count (150-450) k/uL APTT 19.2 L (22.0-30.0) sec Chloride (98-107) mmol/L Carbon Dioxide (22-30) mmol/L BUN (7-17) mg/dL Glucose (74-99) mg/dL Total Protein (6.3-8.2) g/dL Urine Protein 1+ H (Negative) Urine Blood Trace H (Negative) Ur Leukocyte Esterase Trace H (Negative) Amorphous Sediment Occasional H (None) /hpf Urine Bacteria Rare H (None) /hpf Urine Mucus Rare H (None) /hpf Urine Opiates Screen (NotDetected) U Marijuana (THC) Screen (NotDetected)
[2022-02-18 16:03] VITALS: BMI 27.4
[2022-02-18 17:27] LABS: Glucose,Whole Blood 97 mg/dL (70-110)
[2022-02-18 19:45] LABS: Chol/HDL Ratio 5.23 Ratio; LDL Cholesterol,Calculated 92.7 mg/dL (0.0-131.0)
[2022-02-18 20:04] LABS: Glucose,Whole Blood 176 mg/dL (70-110)
[2022-02-18] MEDS: ATORVASTATIN 40 MG TAB PO SCH (20:26)
[2022-02-18] MEDS: OLANZapine 2.5 MG TAB PO SCH (20:26)
--- NOTE | 2022-02-19 00:18 | P.CONS ---
History of Present Illness - Reason for Consult Consult date: 02/17/22 Ovarian Ca on chemo - History of Present Illness Ms Raymond is a pleasant white female well known to our service. She is followed by Dr. Sahu in the outpatient setting. the patient was diagnosed with ovarian cancer in 11/04. At diagnosis she had evidence of peritoneal, for abdominal lymph node involvement, as well as suspicious nodule adjacent to the pericardium. The patient was treated with 3 cycles of carboplatin, Taxol and bevacizumab in a neoadjuvant fashion. Tolerance was comparatively due to fatigue, decreased oral intake, and episodes of dehydration. Patient was evaluated by [facility] after 3 cycles,. Additional chemotherapy was recommended. The patient has had 2 more cycles (total of 5) after resumption. She has been doing better with hydration the office regularly. The patient came into the hospital because acute onset of weakness, transient unresponsiveness, followed by confusion, generalized weakness and difficulty in speech. Most of the history was obtained from the daughter was at the bedside. she confirmed that the patient did not actually pass out. She stated that the patient has previously had episodes of lightheadedness, syncope and near syncope related to her dehydration but this was quite different. The patient apparently was feeling fairly reasonable when she got up in the morning, but subsequently developed acute onset of symptoms as described above. These have improved since admission, but according to the daughter comprehension, cognition and word finding are still slower than normal. There is no prior history of strokes. The patient did note subjectively feel any extremity weakness. Review of Systems Constitutional: Reports fatigue, Reports weakness Eyes: denies blurred vision, denies pain Ears: deny: decreased hearing, ear discharge, earache, tinnitus Ears, nose, mouth and throat: Denies headache, Denies sore throat Cardiovascular: Reports decreased exercise tolerance Respiratory: Denies cough Gastrointestinal: Reports abdominal pain Genitourinary: Denies dysuria, Denies hematuria Menstruation: Reports postmenopausal Musculoskeletal: Reports muscle weakness Integumentary: Denies pruritus, Denies rash Neurological: Reports as per HPI, Reports aphasia, Reports change in mentation, Reports confusion, Reports weakness Psychiatric: Denies anxiety, Denies depression Endocrine: Reports fatigue Hematologic/Lymphatic: Reports as per HPI Allergic/Immunologic: Reports as per HPI Past Medical History Past Medical History: Cancer, Diabetes Mellitus, GERD/Reflux, Hyperlipidemia, Osteoarthritis (OA), Thyroid Disorder Additional Past Medical History / Comment(s): Ovarian cancer(started Chemo 11/14/21), constipation, hx hiatal hernia, "Dr watching liver enzymes", urinary incontinence, vertigo History of Any Multi-Drug Resistant Organisms: None Reported Past Surgical History: Adenoidectomy, Bladder Surgery, Section, Cholecystectomy, Hysterectomy, Tonsillectomy Additional Past Surgical History / Comment(s): x 3, 2 bladder suspension and 1 bowel lift; ureter stent in september 2021 Past Anesthesia/Blood Transfusion Reactions: Previous Problems w/ Anesthesia, Postoperative Nausea & Vomiting (PONV) Additional Past Anesthesia/Blood Transfusion Reaction / Comm: years ago had a problem with anesthesia(vomiting) in [place], but has had anesthesia several times since then and has had no problem, recent vertigo Past Psychological History: No Psychological Hx Reported Smoking Status: Never smoker Past Alcohol Use History: None Reported Past Drug Use History: None Reported - Past Family History Father Family Medical History: Hypertension Brother(s) Family Medical History: Cancer Medications and Allergies Home Medications Medication Instructions Recorded Confirmed Type Levothyroxine Sodium [Synthroid] 50 mcg PO DAILY 02/08/18 02/17/22 History Evolocumab [Repatha Sureclick] 140 mg SQ Q14D 07/16/20 02/17/22 History Albuterol Sulfate [Ventolin HFA] 1 - 2 puff INHALATION RT-Q6H PRN 09/22/21 02/17/22 History Docusate [Colace] 100 mg PO DAILY PRN 11/16/21 02/17/22 History L.acidoph,Paracasei, B.lactis 1 cap PO DAILY 11/16/21 02/17/22 History [Probiotic] OLANZapine [ZyPREXA] 2.5 mg PO DIRECTED 11/16/21 02/17/22 History Ondansetron [Zofran] 4 mg PO Q8H PRN 11/16/21 02/17/22 History Sennosides/Docusate Sodium [Senna 2 tab PO HS PRN 11/16/21 02/17/22 History Plus 8.6-50 mg Tablet] Acetaminophen Tab [Tylenol] 1,000 mg PO Q6HR PRN 11/18/21 02/17/22 History Dicyclomine HCl 10 mg PO TID PRN 11/18/21 02/17/22 History HYDROcodone/APAP 10-325MG [[place] 1 tab PO Q6H PRN 11/18/21 02/17/22 History 10-325] Loratadine [Claritin] 10 mg PO DAILY 11/18/21 02/17/22 History Omeprazole 20 mg PO DAILY 12/29/21 02/17/22 History Pioglitazone [Actos] 15 mg PO DAILY 12/29/21 02/17/22 History amLODIPine [Norvasc] 5 mg PO DAILY #7 tab 12/30/21 02/17/22 Rx Allergies Allergy/AdvReac Type Severity Reaction Status Date / Time amoxicillin [From Augmentin] Allergy Rash/Hives/ Verified 02/17/22 12:26 itching clavulanic acid Allergy Rash/Hives/ Verified 02/17/22 12:26 [From Augmentin] itching Sulfa (Sulfonamide Allergy Itching Verified 02/17/22 12:26 Antibiotics) Physical Exam Vitals: Vital Signs Temp Pulse Resp BP BP BP BP 02/18/22 20:47 98.0 F 82 18 116/63 116/65 127/45 02/18/22 20:05 18 02/18/22 12:00 98.1 F 77 16 108/64 99/64 122/65 02/18/22 00:56 133/67 Pulse Ox 02/18/22 20:47 97 02/18/22 20:05 02/18/22 12:00 96 02/18/22 00:56 Intake and Output 02/18/22 02/18/22 02/19/22 14:59 22:59 05:59 Other: Voiding Method Bedside Commode Bedside Commode # Voids 1 Weight 72.575 kg - Constitutional General appearance: no acute distress - EENT Eyes: EOMI, PERRLA ENT: hearing grossly normal, normal oropharynx - Neck Neck: no lymphadenopathy Thyroid: bilateral: normal size - Respiratory Respiratory: bilateral: CTA - Cardiovascular Rhythm: regular Heart sounds: normal: S1, S2 - Gastrointestinal General gastrointestinal: normal bowel sounds, soft - Integumentary Integumentary: normal - Neurologic possible mild tongue deviation to the right Neurologic: focal deficits (possible slight weakness of right upper extremity c ompared to the left. cognition and mentation is slightly slow. Mild difficulty finding words) - Musculoskeletal Musculoskeletal: generalized weakness, strength equal bilaterally - Psychiatric affect is slightly slow Psychiatric: A&O x's 3, appropriate affect Results CBC & Chem 7: 02/18/22 06:00 02/17/22 10:45 Labs: Abnormal Lab Results - Last 24 Hours (Table) 02/18/22 02/18/22 02/18/22 Range/Units 06:00 07:03 12:13 WBC 3.1 L (3.8-10.6) k/uL RBC 3.32 L (3.80-5.40) m/uL Hgb 10.4 L (11.4-16.0) gm/dL Hct 31.6 L (34.0-46.0) % RDW 15.7 H (11.5-15.5) % Plt Count 101 L (150-450) k/uL POC Glucose (mg/dL) 118 H 163 H (70-110) mg/dL Triglycerides (0.00-149.00) mg/dL VLDL Cholesterol, Calc (5.00-40.00) mg/dL HDL Cholesterol (40.00-60.00) mg/dL 02/18/22 02/18/22 Range/Units 13:17 20:02 WBC (3.8-10.6) k/uL RBC (3.80-5.40) m/uL Hgb (11.4-16.0) gm/dL Hct (34.0-46.0) % RDW (11.5-15.5) % Plt Count (150-450) k/uL POC Glucose (mg/dL) 176 H (70-110) mg/dL Triglycerides 236.00 H (0.00-149.00) mg/dL VLDL Cholesterol, Calc 47.20 H (5.00-40.00) mg/dL HDL Cholesterol 33.10 L (40.00-60.00) mg/dL Comments: EKG report and images reviewed - LBBB - pre exisiting Chest x-ray: report reviewed CT Scan - head: report reviewed Assessment and Plan (1) Altered mental status Narrative/Plan: the patient presented with the above, with associated symptoms as described in the HPI she has previously had weakness, as well as syncope/near syncope that appears to be due to dehydration. This is responded well to IV hydration. The patient's daughter confirmed that her presenting symptom this time are quite different from her previous episodes - Possible etiologies were discussed with them. CT of the brain was negative. However based on clinical exam a neurologic event such as CVA or TIA does appear more likely. - Neurology consult in process. MRI of the brain ordered, and is upcoming. Current Visit: Yes Status: Acute Code(s): R41.82 - ALTERED MENTAL STATUS, UNSPECIFIED SNOMED Code(s): 436010296 (2) Ovarian cancer Narrative/Plan: diagnostic and therapeutic circumstances as described. The patient will resume treatment after discharge, once acute condition has resolved sufficiently Current Visit: No Status: Acute Code(s): C56.9 - MALIGNANT NEOPLASM OF UNSPECIFIED OVARY SNOMED Code(s): 294847602 (3) Leukopenia Narrative/Plan: due to chemotherapy. Counts are in a safe range, with ANC greater than 1000. Continue to monitor, as patients may be approaching her nuria in the next few days. Supplement as needed to keep hemoglobin greater than 7, and platelets greater than 10. Current Visit: No Status: Acute Code(s): D72.819 - DECREASED WHITE BLOOD CELL COUNT, UNSPECIFIED SNOMED Code(s): 00607352
[2022-02-19] MEDS: LEVOTHYROXINE 50 MCG TAB PO SCH (05:40)
[2022-02-19 07:05] LABS: Glucose,Whole Blood 110 mg/dL (70-110)
[2022-02-19] MEDS: INSULIN ASPART (NovoLOG) 100 UNIT/ML VIAL SQ SCH ×4 (07:31→20:17)
[2022-02-19] MEDS: LACTOBACILLUS ACIDOPH & BULGAR 1 EACH PACKET PO SCH (08:40)
[2022-02-19] MEDS: amLODIPine 5 MG TAB PO SCH (08:40)
[2022-02-19] MEDS: PANTOPRAZOLE 40 MG TABLET PO SCH (08:40)
[2022-02-19] MEDS: ASPIRIN 81 MG PO SCH (08:40)
[2022-02-19] MEDS: LORATADINE 10 MG TAB PO SCH (08:40)
[2022-02-19] MEDS: ENOXAPARIN 40 MG/0.4 ML SYRINGE SQ SCH (08:41)
[2022-02-19 09:06] LABS: Glucose,Whole Blood 188 mg/dL (70-110)
[2022-02-19 09:14] LABS: African American GFR (CKD) 64.2 (60.0-200.0); Albumin 3.7 g/dL (3.8-4.9); Albumin/Globulin Ratio 1.97 (1.60-3.17); Anion Gap 9.4 mmol/L (10.00-18.00); BUN/Creat Ratio 27.71 Ratio (12.00-20.00); Blood Urea Nitrogen 27.1 mg/dL (9.0-27.0); Calcium 8.7 mg/dL (8.7-10.3); Carbon Dioxide 23.1 mmol/L (20.0-27.5); Globulin 1.9 g/dL (1.6-3.3); Magnesium 1.9 mg/dL (1.5-2.4); Non-African American GFR(CKD) 55.4 (60.0-200.0); Potassium 4.9 mmol/L (3.5-5.5); Total Bilirubin 0.6 mg/dL (0.30-1.20); Total Protein 5.5 g/dL (6.2-8.2)
[2022-02-19 09:15] LABS: HCT 28.5 % (37.2-46.3); HGB 9.3 g/dL (12.0-15.0); MCH 30.4 pg (27.0-32.0); MCHC 32.6 g/dL (32.0-37.0); MCV 93.1 fL (80.0-97.0); Mean Platelet Volume 10.9 fL (9.5-12.2); NRBC Per 100 WBC 0 /100 WBCS (0.0-0.0); Platelet Count 86 X 10*3/uL (140-440); RBC 3.06 X 10*6/uL (4.10-5.20); WBC 3.38 X 10*3/uL (4.50-10.00)
--- NOTE | 2022-02-19 11:43 | P.PN ---
Subjective Progress Note Date: 02/19/22 The patient is seen at bedside and no further passing out episodes yesterday or overnight. She feels back to baseline. Then later in the morning today, she was in the bathroom on toilet trying to have a bowel movement the had episode of passing out. She initially called her daughter that she felt off and felt possibly blurry vision prior to episode then felt confused and daughter felt some tremors of hands but no tonic or clonic activity, no rolling eyes. Denies tongue bite or soreness of tongue. As result a nurse came to evaluate her and per nurse her confusion lasted 2-3 minutes. Her vitals were checked and she was not hypotensive. Objective - Vital Signs Vital signs: Vital Signs Temp 97.8 F 02/19/22 04:15 Pulse 73 02/19/22 09:05 Resp 16 02/19/22 04:15 BP 132/65 02/19/22 09:05 Pulse Ox 97 02/19/22 09:00 FiO2 21 02/17/22 19:48 Intake & Output 02/18/22 02/19/22 02/19/22 19:59 06:59 18:59 Intake Total Balance Weight Intake: Oral Other: Voiding Method # Voids - Exam GENERAL: The patient is lying in bed and is not in acute distress. NEUROLOGICAL: Higher mental function: The patient is awake, alert, oriented to self, place and time. Patient is following commands. No aphasia and no neglect. Cranial nerves: The pupils are round, equal and reactive to light and accommodation. Visual aguilar are full to confrontation throughout. Extraocular movement is intact no nystagmus is noted. Facial sensation is normal to touch throughout. The facial strength is normal throughout. Hearing is normal bilaterally to hand rub. Tongue is midline and moved [id number] without any difficulty. No dysarthria is noted. Shoulder shrug is normal bilaterally. Motor: The strength is 5 over 5 throughout. Normal tone and bulk. Cerebellum: Normal finger to nose heel to go bilaterally. Sensation: Sensation is normal to touch throughout. Reflexes (right/left): 2+ throughout. Plantars are downgoing bilaterally. Some of the workup during this hospital visit consisted of: Lipid panel is a triglyceride of 236, cholesterol 173, LDL is 92 and HDL 33. Urine analysis shows positive leukocyte esterase which is trace and the bacteria was rare. Urine drug screen is positive for opiates as well as marijuana. CT of the head is reported as markedly limited exam due to motion artifact demonstrated. No obvious sizable intraparenchymal hemorrhage. Degenerative and nonspecific white matter changes most suggestive of remote ischemia. Given limitation exam correlate with MRI as clinically warranted for acute ischemia. I attempted to personally reviewed the CT of the head but could not because of issues with the system. MRI the brain is reported as scattered foci of blooming artifact which could represent micro-hemorrhage or cerebral amyloid angiopathy. No evidence of intr acranial mass or acute/subacute infarct. Nonspecific white matter changes, likely secondary due to small vessel is ischemic disease. I personally could not review the MRI because issues with system. MRA of the neck was reported as normal MRA of carotid arteries. No evidence for arterial dissection. 2-D echo was reported as normal left ventricular size and systolic function. Mild tricuspid regurgitation with a trace to mild mitral regurgitation. No pericardial effusion. - Labs CBC & Chem 7: 02/19/22 05:36 02/19/22 05:36 Labs: Abnormal Lab Results - Last 24 Hours (Table) 02/18/22 02/18/22 02/18/22 Range/Units 06:00 13:17 20:02 WBC 3.1 L (3.8-10.6) k/uL RBC 3.32 L (3.80-5.40) m/uL Hgb 10.4 L (11.4-16.0) gm/dL Hct 31.6 L (34.0-46.0) % RDW 15.7 H (11.5-15.5) % Plt Count 101 L (150-450) k/uL Anion Gap (10.00-18.00) mmol/L BUN (9.0-27.0) mg/dL Est GFR (CKD-EPI)NonAf (60.0-200.0) BUN/Creatinine Ratio (12.00-20.00) Ratio POC Glucose (mg/dL) 176 H (70-110) mg/dL Total Protein (6.2-8.2) g/dL Albumin (3.8-4.9) g/dL Triglycerides 236.00 H (0.00-149.00) mg/dL VLDL Cholesterol, Calc 47.20 H (5.00-40.00) mg/dL HDL Cholesterol 33.10 L (40.00-60.00) mg/dL 02/19/22 02/19/22 02/19/22 Range/Units 05:36 05:36 09:04 WBC 3.38 L (3.8-10.6) k/uL RBC 3.06 L (3.80-5.40) m/uL Hgb 9.3 L (11.4-16.0) gm/dL Hct 28.5 L (34.0-46.0) % RDW 16.0 H (11.5-15.5) % Plt Count 86 L (150-450) k/uL Anion Gap 9.40 L (10.00-18.00) mmol/L BUN 27.1 H (9.0-27.0) mg/dL Est GFR (CKD-EPI)NonAf 55.4 L (60.0-200.0) BUN/Creatinine Ratio 27.71 H (12.00-20.00) Ratio POC Glucose (mg/dL) 188 H (70-110) mg/dL Total Protein 5.5 L (6.2-8.2) g/dL Albumin 3.7 L (3.8-4.9) g/dL Triglycerides (0.00-149.00) mg/dL VLDL Cholesterol, Calc (5.00-40.00) mg/dL HDL Cholesterol (40.00-60.00) mg/dL Assessment and Plan Assessment: Episode of unresponsiveness with eye rolling and speech difficulty (had prolonged time to regain to baseline): Possible seizure. NO mass or acute/sub acute stroke on MRI Brain. Also has recurrent passing out episode. Some of the episodes are syncopal episodes (Seem vasovagal). Scattered foci of blooming artifact which could represent micro-hemorrhage or cerebral amyloid angiopathy reported on MRI Brain Ovarian cancer on chemotherapy Insulin diabetes mellitus Hypothyroidism Plan: Ordered routine EEG which will be performed tomorrow. If the EEG is normal I would recommend an prolonged EEG/epilepsy monitoring unit as an outpatient to capture her episodes I notified that the patient and daughter if EEG is normal, possibly consideration of starting antiepileptic drug because of her recurrent episodes of passing out and few episode are seizure because of prolonged post-ictal state. I spoke with primary team and will obtain MRA neck. Patient is currently on aspirin 81 mg and Lipitor 40 mg daily at bedtime. Physical therapy occupational therapy and speech therapy. Continue neuro checks Cardiac monitoring will defer the rest of the medical management to primary team Oncologist team is consulted. For DVT prophylaxis the patient is on enoxaparin per the primary team. Recommend patient to follow-up with neurologist as outpatient within 1-2 weeks. The plan is discussed with patient and her daughter who is at bedside. Also updated primary team of the plan. Time with Patient: Less than 30
[2022-02-19 12:05] LABS: Glucose,Whole Blood 223 mg/dL (70-110)
--- NOTE | 2022-02-19 12:42 | P.PN ---
Subjective Progress Note Date: 02/19/22 History of Presenting Illness: Patient is a very pleasant 76-year-old female with a past medical history of ovarian cancer currently undergoing chemotherapy and completed second round of chemotherapy on Sunday02/13/22, hypertension, [id number] diabetes mellitus, GERD, asthma/COPD and hypothyroidism. She presented to the emergency department after reportedly being found unresponsive on the toilet by her family. Family reports patient typically has a rough time after her chemotherapy treatments but has never been this rough. Daughter at bedside reports her mother recently underwent treatment for a urinary tract infection and does get them frequently, but states she has not reported any symptoms or shown any signs. Patient currently with aphasia and having a difficult time answering questions. RN at bedside reports patient initially had clear speech and answering questions and following commands without any difficulties but since arrival to Hospital has had intermittent garbled speech and aphasia as well as episodes of nausea and vomiting followed by increased confusion. Upon evaluation patient did have moderate aphasia she also reports headache, lightheadedness, dizziness, and nausea but denies having any changes in vision, hearing, chest pain, palpitations, shortness of breath, or experiencing any numbness/tingling/weakness/swelling in her extremities at this time. Patient was unable to remember events leading up to episode of unresponsiveness or immediately after. Patient underwent full evaluation in the emergency depa rtment. CBC revealing pancytopenia with WBC count of 3.6, hemoglobin 10.8, platelet count of 102. CMP showing no significant abnormalities and urinalysis negative for infection. Urine drug screen positive for opiates and marijuana. EKG was completed showing normal sinus rhythm at 74 bpm with a left bundle branch block. CT head negative for acute process revealing degenerative and nonspecific white matter changes most suggestive of remote ischemia, however exam was limited and cannot rule out acute ischemia. Chest x-ray negative of acute process revealing hyperinflation consistent with COPD. Patient has been admitted under our services with consultation to neurology. MRI brain revealing scattered foci of blooming artifact which could represent microhemorrhages or cerebral amyloid angiopathy, however stating and no evidence of intracranial mass or subacute/acute infarct. MRA neck showing normal MRA of the carotid arteries with no evidence for arterial dissection. Echocardiogram revealing normal left ventricular size and systolic function with mild tricuspid and mitral regurgitation. Physical exam: Patient seen and fully evaluated at bedside this morning. Initial plan this morning was for discharge and outpatient follow-up for EEG. However, patient had another episode this morning. She was again sitting in the restroom trying to have a bowel movement and had a witnessed loss of consciousness. RN reports vital signs at time of loss of consciousness were 132/65, heart rate 73, respiratory rate 16, and SpO2 of 97%. It was reported that patient did report having blurry vision prior to episode and then was reported to stare off and not responding with mild tremors in her hands lasting approximately 2-3 minutes followed by an episode of confusion lasting again another 2-3 minutes. There was no loss of bowel or bladder, no reported tonic clonic activity and no biting of tongue during this episode of nonresponsiveness. And again vital signs were checked by nursing staff during event and patient was not hypotensive nor bradycardic during this time. Blood glucose was 188. Upon evaluation after event, patient was again alert and oriented to person, place, time, and situation. Speech was clear. Patient's daughter denies patient having any slurred or garbled speech during this event. Discussed with neurologist, we will consult cardiology for evaluation and plan for patient to undergo EEG tomorrow morning. Patient seen and fully evaluated at the bedside Vital signs reviewed and stable. General: Nontoxic, appears chronically ill. Frail. Derm: Skin warm and dry, pallor Head: Atraumatic, normocephalic and symmetric. Eyes: EOMs intact, no lid lag, and anicteric sclera pupils pinpoint.. Mouth: no lip lesions, mucus membranes moist Cardiovascular: regular rate and rhythm with normal S1S2, systolic murmur, positive posterior tibial pulses bilaterally, and cap refill < 2 seconds. Lungs: Respirations even, regular, and unlabored on room air. Lungs CTA bilaterally, no rhonchi, no rales, no wheezing, and no accessory muscle usage. Abdominal: soft, nontender to palpation, no guarding, no appreciable organomegaly Ext: ROM intact. No gross muscle atrophy, no edema, no contractures Neuro: Speech clear at this time. GCS 15, cranial nerves II through XII intact and patient showing no neurological focal deficits at this time. Psych: Alert and awake. Pleasant and cooperative. Assessment and Plan of Care: Unresponsive episode followed by moderate confusion and waxing and waning episodes of aphasia and garbled speech, rule out CVA Aphasia Acute Alteration in mental status -CT head negative for acute process revealing degenerative and nonspecific white matter changes most suggestive of remote ischemia, however exam was limited and cannot rule out acute ischemia. -Neurology following. Recommended changing MRI to MRI brain with and without contrast and obtaining an MRA of neck and orders placed. -Patient to be given aspirin and atorvastatin -Telemetry monitoring -Neuro checks every 4 hours -Fall precautions -TSH, lipid profile, and hemoglobin A1c -Echocardiogram Ovarian cancer -Oncology consulted, appreciate further recommendations. Pancytopenia, chemotherapy induced -We will continue to monitor with repeat a.m. labs. Hypothyroidism -Continue daily medication regimen with the levothyroxine. -TSH with free T4 to be obtained. Hypertension -At this time we will allow for permissive hypertension and patient may resume daily medication regimen with amlodipine 5 mg daily tomorrow morning. CODE STATUS: Full code DVT prophylaxis: Lovenox Discussed with: Patient, neurologist, RN and patient's daughter Anticipated discharge date: Pending clinical course Anticipated discharge place: Home A total of 35 minutes was spent on the care of this complex patient more than 50% of the time was spent in counseling and care coordination. I reviewed the documentation as provided by the SERA above, who is the original author of this note. I agree with the documented assessment and plan, with the following changes: none Objective - Vital Signs Vital signs: Vital Signs Temp 97.8 F 02/19/22 04:15 Pulse 82 02/19/22 04:15 Resp 16 02/19/22 04:15 BP 138/82 02/19/22 04:15 Pulse Ox 98 02/19/22 04:15 FiO2 21 02/17/22 19:48 Intake & Output 02/18/22 02/19/22 02/19/22 19:59 06:59 18:59 Intake Total Balance Weight Intake: Oral Other: Voiding Method # Voids - Labs CBC & Chem 7: 02/19/22 05:36 02/19/22 05:36 Labs: Abnormal Lab Results - Last 24 Hours (Table) 02/18/22 02/18/22 02/18/22 Range/Units 06:00 07:03 12:13 WBC 3.1 L (3.8-10.6) k/uL RBC 3.32 L (3.80-5.40) m/uL Hgb 10.4 L (11.4-16.0) gm/dL Hct 31.6 L (34.0-46.0) % RDW 15.7 H (11.5-15.5) % Plt Count 101 L (150-450) k/uL POC Glucose (mg/dL) 118 H 163 H (70-110) mg/dL Triglycerides (0.00-149.00) mg/dL VLDL Cholesterol, Calc (5.00-40.00) mg/dL HDL Cholesterol (40.00-60.00) mg/dL 02/18/22 02/18/22 Range/Units 13:17 20:02 WBC (3.8-10.6) k/uL RBC (3.80-5.40) m/uL Hgb (11.4-16.0) gm/dL Hct (34.0-46.0) % RDW (11.5-15.5) % Plt Count (150-450) k/uL POC Glucose (mg/dL) 176 H (70-110) mg/dL Triglycerides 236.00 H (0.00-149.00) mg/dL VLDL Cholesterol, Calc 47.20 H (5.00-40.00) mg/dL HDL Cholesterol 33.10 L (40.00-60.00) mg/dL
--- NOTE | 2022-02-19 13:39 | P.CRDCN ---
History of Present Illness Consult date: 02/19/22 History of present illness: History of Present Illness: The patient is a 76-year-old female who presented with syncopal episodes. She has a known history of diabetes and hypertension, was diagnosed with ovarian cancer in October and has been undergoing chemotherapy since. Since October she had episodes of syncope, occurring while she is sitting on the commode but not rest raining. The duration has been variable, at times for a few minutes and at times longer. She does not have any associated palpitations, change in her breathing or chest discomfort. She feels tunnel vision before and somewhat sweaty according to her family. Prior to admission she had a prolonged episode with some change in mental status. She feels fatigued all over after but not focal. Yesterday she had an episode while in the hospital, on telemetry there was no evidence of tachycardia or bradycardia. She had an echocardiogram done yesterday that showed a preserved systolic function with mild tricuspid and trace to mild mitral regurgitation. Her brain MRI did not show any mass. She h as lost weight since she started chemotherapy. She has no prior documented history of malignant arrhythmia, CHF or syncope. Her blood pressure has been labile recently. Her coronary risks factor are positive for hypertension, hyperlipidemia and diabetes. Medications: As outpatient Norvasc 5 mg daily, Actos, Synthroid,Repatha, Ventolin, Zofran, omeprazole Review of Systems: Respiratory: No history of asthma, bronchitis or recent cough. GI: No vomiting . No history of peptic ulcer disease. No recent GI bleed. She has nausea with the chemotherapy : No hematuria or dysuria. Nervous System: No stroke or recent documented seizure. Physical Examination: 76-year-old female, alert and oriented no apparent distress,Blood pressure 132/60, Heart rate 70 Head: Normocephalic. Eyes: Sclerae nonicteric. Neck: Good carotid upstroke, no bruit, no jugular venous distention. Lungs: Clear to auscultation. Heart: Regular rate and rhythm, S1-S2, no S3, no rub. No murmur. Abdomen: Soft nontender, positive bowel sounds no organomegaly. Extremities: No edema, intact distal pulses. Labs: White Blood cell 3.38, hemoglobin 9.3, platelets 86. Potassium 4.9. Creatinine 1.0. EKG: Sinus mechanism with left bundle branch block Impression: 1. Ovarian cancer, receiving chemotherapy 2. Syncopal episode, etiology unclear. Her pattern is not consistent with vasovagal or orthostatic hypotension. There is no documentations of significant bradycardia or tachycardia or hypotension during the episode. She is scheduled to undergo EEG tomorrow to rule out seizure activity 3. History of hypertension 4. History of diabetes 5. History of hyperlipidemia Plan: 1. Continue telemetry 2. She has no evidence of abnormalities on her EEG then I would recommend to proceed with a loop recorder placement. I discussed those findings with the patient and her daughter 3. Follow blood pressure 4. Depending on her progress further recommendations will be made 5. Thank you for this consult we will follow with you. Past Medical History Past Medical History: Cancer, Diabetes Mellitus, GERD/Reflux, Hyperlipidemia, Osteoarthritis (OA), Thyroid Disorder Additional Past Medical History / Comment(s): Ovarian cancer(started Chemo 11/14/21), constipation, hx hiatal hernia, "Dr watching liver enzymes", urinary incontinence, vertigo History of Any Multi-Drug Resistant Organisms: None Reported Past Surgical History: Adenoidectomy, Bladder Surgery, Section, Cholecystectomy, Hysterectomy, Tonsillectomy Additional Past Surgical History / Comment(s): x 3, 2 bladder suspension and 1 bowel lift; ureter stent in september 2021 Past Anesthesia/Blood Transfusion Reactions: Previous Problems w/ Anesthesia, Postoperative Nausea & Vomiting (PONV) Additional Past Anesthesia/Blood Transfusion Reaction / Comment(s): years ago had a problem with anesthesia(vomiting) in [place], but has had anesthesia several times since then and has had no problem, recent vertigo Past Psychological History: No Psychological Hx Reported Smoking Status: Never smoker Past Alcohol Use History: None Reported Past Drug Use History: None Reported - Past Family History Father Family Medical History: Hypertension Brother(s) Family Medical History: Cancer Medications and Allergies Home Medications Medication Instructions Recorded Confirmed Type Levothyroxine Sodium [Synthroid] 50 mcg PO DAILY 02/08/18 02/17/22 History Evolocumab [Repatha Sureclick] 140 mg SQ Q14D 07/16/20 02/17/22 History Albuterol Sulfate [Ventolin HFA] 1 - 2 puff INHALATION RT-Q6H PRN 09/22/21 02/17/22 History Docusate [Colace] 100 mg PO DAILY PRN 11/16/21 02/17/22 History L.acidoph,Paracasei, B.lactis 1 cap PO DAILY 11/16/21 02/17/22 History [Probiotic] OLANZapine [ZyPREXA] 2.5 mg PO DIRECTED 11/16/21 02/17/22 History Ondansetron [Zofran] 4 mg PO Q8H PRN 11/16/21 02/17/22 History Sennosides/Docusate Sodium [Senna 2 tab PO HS PRN 11/16/21 02/17/22 History Plus 8.6-50 mg Tablet] Acetaminophen Tab [Tylenol] 1,000 mg PO Q6HR PRN 11/18/21 02/17/22 History Dicyclomine HCl 10 mg PO TID PRN 11/18/21 02/17/22 History HYDROcodone/APAP 10-325MG [[place] 1 tab PO Q6H PRN 11/18/21 02/17/22 History 10-325] Loratadine [Claritin] 10 mg PO DAILY 11/18/21 02/17/22 History Omeprazole 20 mg PO DAILY 12/29/21 02/17/22 History Pioglitazone [Actos] 15 mg PO DAILY 12/29/21 02/17/22 History amLODIPine [Norvasc] 5 mg PO DAILY #7 tab 12/30/21 02/17/22 Rx Allergies Allergy/AdvReac Type Severity Reaction Status Date / Time amoxicillin [From Augmentin] Allergy Rash/Hives/ Verified 02/17/22 12:26 itching clavulanic acid Allergy Rash/Hives/ Verified 02/17/22 12:26 [From Augmentin] itching Sulfa (Sulfonamide Allergy Itching Verified 02/17/22 12:26 Antibiotics) Physical Exam Vitals: Vital Signs Temp Pulse Resp BP BP BP Pulse Ox 02/19/22 11:56 97.5 F L 72 18 159/74 96 02/19/22 09:05 73 132/65 02/19/22 09:00 52 L 114/74 97 02/19/22 04:15 97.8 F 82 16 138/82 98 02/18/22 20:47 98.0 F 82 18 116/63 116/65 127/45 97 02/18/22 20:05 18 Intake and Output 02/18/22 02/19/22 02/19/22 23:59 06:59 14:59 Intake Total Balance Intake: Oral Other: Voiding Method Toilet Bedside Commode # Voids Results 02/19/22 05:36 02/19/22 05:36 Cardiac Enzymes 02/19/22 Range/Units 05:36 AST 20 (13-35) U/L Lipids 02/18/22 Range/Units 13:17 Triglycerides 236.00 H (0.00-149.00) mg/dL Cholesterol 173.00 (0.00-200.00) mg/dL HDL Cholesterol 33.10 L (40.00-60.00) mg/dL Cholesterol/HDL Ratio 5.23 Ratio CBC 02/19/22 Range/Units 05:36 WBC 3.38 L (4.50-10.00) X 10*3/uL RBC 3.06 L (4.10-5.20) X 10*6/uL Hgb 9.3 L (12.0-15.0) g/dL Hct 28.5 L (37.2-46.3) % Plt Count 86 L (140-440) X 10*3/uL Comprehensive Metabolic Panel 02/19/22 Range/Units 05:36 Sodium 142 (135-145) mmol/L Potassium 4.9 (3.5-5.5) mmol/L Chloride 109 (96-109) mmol/L Carbon Dioxide 23.1 (20.0-27.5) mmol/L BUN 27.1 H (9.0-27.0) mg/dL Creatinine 1.0 (0.6-1.5) mg/dL Glucose 108 (70-110) mg/dL Calcium 8.7 (8.7-10.3) mg/dL AST 20 (13-35) U/L ALT 12 (8-44) U/L Alkaline Phosphatase 62 (41-126) U/L Total Protein 5.5 L (6.2-8.2) g/dL Albumin 3.7 L (3.8-4.9) g/dL Current Medications Generic Name Dose Route Start Last Admin Trade Name Freq PRN Reason Stop Dose Admin Hydrocodone Bitart/Acetaminophen 1 each 02/17/22 16:42 Hydrocodone/Apap 10-325mg 1 Each Tab PO Q6H PRN Pain Amlodipine Besylate 5 mg 02/18/22 09:00 02/19/22 08:40 Amlodipine 5 Mg Tab PO 5 mg DAILY JESSICA Administration Aspirin 81 mg 02/18/22 09:00 02/19/22 08:40 Aspirin 81 Mg PO 81 mg DAILY JESSICA Administration Atorvastatin Calcium 40 mg 02/17/22 21:00 02/18/22 20:26 Atorvastatin 40 Mg Tab PO 40 mg HS JESSICA Administration Dicyclomine HCl 10 mg 02/17/22 16:42 Dicyclomine 10 Mg Cap PO TID PRN ibs Enoxaparin Sodium 40 mg 02/18/22 09:00 02/19/22 08:41 Enoxaparin 40 Mg/0.4 Ml Syringe SQ 40 mg DAILY JESSICA Administration Insulin Aspart 0 unit 02/18/22 07:30 02/19/22 12:41 Insulin Aspart (Novolog) 100 Unit/Ml Vial SQ 6 unit ACHS JESSICA Administration Protocol Lactobacillus Acidoph/Bulgaricus 1 each 02/18/22 09:00 02/19/22 08:40 Lactobacillus Acidoph & Bulgar 1 Each Packet PO 1 each DAILY JESSICA Administration Levothyroxine Sodium 50 mcg 02/18/22 06:30 02/19/22 05:40 Levothyroxine 50 Mcg Tab PO 50 mcg DAILY@0630 JESSICA Administration Loratadine 10 mg 02/18/22 09:00 02/19/22 08:40 Loratadine 10 Mg Tab PO 10 mg DAILY JESSICA Administration Naloxone HCl 0.2 mg 02/17/22 10:30 02/17/22 10:49 Naloxone 0.4 Mg/Ml 1 Ml Vial IVP 0.2 mg Q2M PRN Administration Opioid Reversal Ondansetron HCl 4 mg 02/17/22 16:42 Ondansetron 4 Mg Tab PO Q8H PRN Nausea Pantoprazole Sodium 40 mg 02/18/22 07:30 02/19/22 08:40 Pantoprazole 40 Mg Tablet PO 40 mg [id number] JESSICA Administration Intake and Output 02/18/22 02/19/22 02/19/22 23:59 06:59 14:59 Intake Total Balance Intake: Oral Other: Voiding Method Toilet Bedside Commode # Voids 02/19/22 05:36 02/19/22 05:36
[2022-02-19 17:05] LABS: Glucose,Whole Blood 106 mg/dL (70-110)
[2022-02-19 20:14] LABS: Glucose,Whole Blood 101 mg/dL (70-110)
[2022-02-19] MEDS: ATORVASTATIN 40 MG TAB PO SCH (20:17)
[2022-02-20] MEDS: LEVOTHYROXINE 50 MCG TAB PO SCH (05:26)
[2022-02-20 07:00] LABS: Glucose,Whole Blood 108 mg/dL (70-110)
[2022-02-20] MEDS: INSULIN ASPART (NovoLOG) 100 UNIT/ML VIAL SQ SCH ×4 (07:58→20:47)
[2022-02-20] MEDS: PANTOPRAZOLE 40 MG TABLET PO SCH (09:33)
[2022-02-20] MEDS: LORATADINE 10 MG TAB PO SCH (09:33)
[2022-02-20] MEDS: amLODIPine 5 MG TAB PO SCH (09:33)
[2022-02-20] MEDS: LACTOBACILLUS ACIDOPH & BULGAR 1 EACH PACKET PO SCH (09:33)
[2022-02-20] MEDS: ENOXAPARIN 40 MG/0.4 ML SYRINGE SQ SCH (09:33)
--- NOTE | 2022-02-20 11:56 | P.PN ---
Subjective Progress Note Date: 02/20/22 HISTORY OF PRESENT ILLNESS: The patient is a 76-year-old female who presented with syncopal episodes. She has a known history of diabetes and hypertension, was diagnosed with ovarian cancer in October and has been undergoing chemotherapy since. Since October she had episodes of syncope, occurring while she is sitting on the commode but not restraining. The duration has been variable, at times for a few minutes and at times longer. She does not have any associated palpitations, change in her breathing or chest discomfort. She feels tunnel vision before and somewhat sweaty according to her family. Prior to admission she had a prolonged episode with some change in mental status. She feels fatigued all over after but not focal. Yesterday she had an episode while in the hospital, on telemetry there was no evidence of tachycardia or bradycardia. She had an echocardiogram done yesterday that showed a preserved systolic function with mild tricuspid and trace to mild mitral regurgitation. Her brain MRI did not show any mass. She has lost weight since she started chemotherapy. She has no prior documented history of malignant arrhythmia, CHF or syncope. Her blood pressure has been labile recently. Her coronary risks factor are positive for hypertension, hyperlipidemia and diabetes. 02/20/2022 Patient examined at the bedside. Patient denies chest pain or pressure. Denies SOB. Vital signs are stable. No dizziness or lightheadedness. PHYSICAL EXAM: VITAL SIGNS: Reviewed. GENERAL: Well-developed in no acute distress. NECK: Supple. No JVD or thyromegaly LUNGS: Respirations even and unlabored. Lungs essentially clear to auscultation bilaterally. HEART: Regular rate and rhythm. S1 and S2 heard. EXTREMITIES: Normal range of motion. No clubbing or cyanosis. Peripheral pulses intact. No lower extremity edema ASSESSMENT: 1. Ovarian cancer, receiving chemotherapy 2. Syncopal episode, etiology unclear. Her pattern is not consistent with vasovagal or orthostatic hypotension. There is no documentations of significant bradycardia or tachycardia or hypotension during the episode. She is scheduled to undergo EEG tomorrow to rule out seizure activity 3. History of hypertension 4. History of diabetes 5. History of hyperlipidemia PLAN: Continue to monitor telemetry and blood pressure Await results of EEG Possible loop recorder if EEG is negative Further recommendations pending patient course Nurse practitioner note has been reviewed by physician. Signing provider agrees with the documented findings, assessment, and plan of care. Objective - Vital Signs Vital signs: Vital Signs Temp 97.5 F L 02/20/22 04:15 Pulse 78 02/20/22 08:00 Resp 18 02/20/22 04:15 BP 150/82 02/20/22 04:15 Pulse Ox 98 02/20/22 04:15 FiO2 21 02/17/22 19:48 Intake & Output 02/19/22 02/20/22 02/20/22 18:59 06:59 18:59 Intake Total 650 Balance 650 Intake: Oral 650 Other: Voiding Method Toilet Toilet Toilet Bedside Commode Bedside Commode Bedside Commode # Voids 2 2 - Labs CBC & Chem 7: 02/19/22 05:36 02/19/22 05:36 Labs: Abnormal Lab Results - Last 24 Hours (Table) 02/19/22 02/19/22 Range/Units 05:36 12:02 POC Glucose (mg/dL) 223 H (70-110) mg/dL Hemoglobin A1c 6.5 H (0.0-6.0) %
[2022-02-20 12:53] LABS: Glucose,Whole Blood 156 mg/dL (70-110)
--- NOTE | 2022-02-20 13:08 | P.PN ---
Subjective Progress Note Date: 02/20/22 The patient is seen at bedside and feels back to baseline and no further syncopal episodes or episodes of unresponsiveness. Objective - Vital Signs Vital signs: Vital Signs Temp 98.1 F 02/20/22 10:50 Pulse 88 02/20/22 10:50 Resp 18 02/20/22 04:15 BP 149/88 02/20/22 10:50 Pulse Ox 98 02/20/22 10:50 FiO2 21 02/17/22 19:48 Intake & Output 02/19/22 02/20/22 02/20/22 18:59 06:59 18:59 Intake Total 650 Balance 650 Intake: Oral 650 Other: Voiding Method Toilet Toilet Toilet Bedside Commode Bedside Commode Bedside Commode # Voids 2 2 - Exam GENERAL: The patient is lying in bed and is not in acute distress. NEUROLOGICAL: Higher mental function: The patient is awake, alert, oriented to self, place and time. Patient is following commands. No aphasia and no neglect. Cranial nerves: The pupils are round, equal and reactive to light and accommodation. Visual aguilar are full to confrontation throughout. Extraocular movement is intact no nystagmus is noted. Facial sensation is normal to touch throughout. The facial strength is normal throughout. Hearing is normal bilaterally to hand rub. Tongue is midline and moved [id number] without any difficulty. No dysarthria is noted. Shoulder shrug is normal bilaterally. Motor: The strength is 5 over 5 throughout. Normal tone and bulk. Cerebellum: Normal finger to nose heel to go bilaterally. Sensation: Sensation is normal to touch throughout. Reflexes (right/left): 2+ throughout. Plantars are downgoing bilaterally. Some of the workup during this hospital visit consisted of: Lipid panel is a triglyceride of 236, cholesterol 173, LDL is 92 and HDL 33. Urine analysis shows positive leukocyte esterase which is trace and the bacteria was rare. Urine drug screen is positive for opiates as well as marijuana. CT of the head is reported as markedly limited exam due to motion artifact demonstrated. No obvious sizable intraparenchymal hemorrhage. Degenerative and nonspecific white matter changes most suggestive of remote ischemia. Given limitation exam correlate with MRI as clinically warranted for acute ischemia. I attempted to personally reviewed the CT of the head but could not because of issues with the system. MRI the brain is reported as scattered foci of blooming artifact which could represent micro-hemorrhage or cerebral amyloid angiopathy. No evidence of intracranial mass or acute/subacute infarct. Nonspecific white matter changes, likely secondary due to small vessel is ischemic disease. I personally could no t review the MRI because issues with system. MRA of the neck was reported as normal MRA of carotid arteries. No evidence for arterial dissection. 2-D echo was reported as normal left ventricular size and systolic function. Mild tricuspid regurgitation with a trace to mild mitral regurgitation. No pericardial effusion. - Labs CBC & Chem 7: 02/19/22 05:36 02/19/22 05:36 Labs: Abnormal Lab Results - Last 24 Hours (Table) 02/19/22 02/20/22 Range/Units 05:36 12:51 POC Glucose (mg/dL) 156 H (70-110) mg/dL Hemoglobin A1c 6.5 H (0.0-6.0) % Assessment and Plan Assessment: Episode of unresponsiveness with eye rolling and speech difficulty (had prolonged time to regain to baseline): Possible seizure. NO mass or acute/subacute stroke on MRI Brain. Also has recurrent passing out episode. Some of the episodes are syncopal episodes (Seem vasovagal) and maybe questionable orthostatic from history Scattered foci of blooming artifact which could represent micro-hemorrhage or cerebral amyloid angiopathy reported on MRI Brain Ovarian cancer on chemotherapy Insulin diabetes mellitus Hypothyroidism Plan: Pending routine EEG. Preliminary is normal. R recommend an prolonged EEG/epilepsy monitoring unit as an outpatient to capture her episodes. I ordered ambulatory EEG and will be coordinated by aviation safety technician. I notified that the patient and daughter if EEG is normal, possibly consideration of starting antiepileptic drug because of her recurrent episodes of passing out and few episodes cannot rule out seizure because of prolonged pos t-ictal state. The patient agreed to be Keppra as prophylaxis and will start 500mg 1 tab bid. She was notified of side-effect of medication. Patient is currently on aspirin 81 mg and Lipitor 40 mg daily at bedtime. From neurological perspective patient does not need ASA since no stroke and because of microhemarrhage on MRI Brain there is increase risk of bleed. Physical therapy occupational therapy and speech therapy. Continue neuro checks Cardiology is consulted and they do not feel vasovagal or orthostatic. Will defer the rest of the medical management to primary team Oncologist team is consulted. For DVT prophylaxis the patient is on enoxaparin per the primary team. Recommend patient to follow-up with neurologist as outpatient within 1-2 weeks. Patient is clear for discharged from neurological perspective. The plan is discussed with patient and her daughter who is at bedside. Time with Patient: Less than 30
--- NOTE | 2022-02-20 13:22 | P.PN ---
Subjective Progress Note Date: 02/20/22 History of Presenting Illness: Patient is a very pleasant 76-year-old female with a past medical history of ovarian cancer currently undergoing chemotherapy and completed second round of chemotherapy on Sunday02/13/22, hypertension, [id number] diabetes mellitus, GERD, asthma/COPD and hypothyroidism. She presented to the emergency department after reportedly being found unresponsive on the toilet by her family. Family reports patient typically has a rough time after her chemotherapy treatments but has never been this rough. Daughter at bedside reports her mother recently underwent treatment for a urinary tract infection and does get them frequently, but states she has not reported any symptoms or shown any signs. Patient currently with aphasia and having a difficult time answering questions. RN at bedside reports patient initially had clear speech and answering questions and following commands without any difficulties but since arrival to Hospital has had intermittent garbled speech and aphasia as well as episodes of nausea and vomiting followed by increased confusion. Upon evaluation patient did have moderate aphasia she also reports headache, lightheadedness, dizziness, and nausea but denies having any changes in vision, hearing, chest pain, palpitations, shortness of breath, or experiencing any numbness/tingling/weakness/swelling in her extremities at this time. Patient was unable to remember events leading up to episode of unresponsiveness or immediately after. Patient underwent full evaluation in the emergency depa rtment. CBC revealing pancytopenia with WBC count of 3.6, hemoglobin 10.8, platelet count of 102. CMP showing no significant abnormalities and urinalysis negative for infection. Urine drug screen positive for opiates and marijuana. EKG was completed showing normal sinus rhythm at 74 bpm with a left bundle branch block. CT head negative for acute process revealing degenerative and nonspecific white matter changes most suggestive of remote ischemia, however exam was limited and cannot rule out acute ischemia. Chest x-ray negative of acute process revealing hyperinflation consistent with COPD. Patient has been admitted under our services with consultation to neurology. MRI brain revealing scattered foci of blooming artifact which could represent microhemorrhages or cerebral amyloid angiopathy, however stating and no evidence of intracranial mass or subacute/acute infarct. MRA neck showing normal MRA of the carotid arteries with no evidence for arterial dissection. Echocardiogram revealing normal left ventricular size and systolic function with mild tricuspid and mitral regurgitation. Microhemorrhages noted on MRI of brain were discussed with neurologist and aspirin has been discontinued per his recommendation at this time. Physical exam: Patient seen and fully evaluated at bedside this morning. She returned from the EEG this morning and appears to be doing well. She reports she's had no further episodes of syncope/unresponsiveness. She denies having any headache, lightheadedness, dizziness, chest pain, palpitations, shortness of breath, or experiencing any numbness/tingling/weakness in her extremities. Patient is wo rking with physical therapy at this time. Awaiting EEG results and further recommendations from neurology and cardiology. Aspirin was discontinued secondary to findings of microhemorrhages on MRI. Patient seen and fully evaluated at the bedside Vital signs reviewed and stable. General: Nontoxic, appears chronically ill. Frail. Derm: Skin warm and dry, pallor Head: Atraumatic, normocephalic and symmetric. Eyes: EOMs intact, no lid lag, and anicteric sclera pupils pinpoint.. Mouth: no lip lesions, mucus membranes moist Cardiovascular: regular rate and rhythm with normal S1S2, systolic murmur, positive posterior tibial pulses bilaterally, and cap refill < 2 seconds. Lungs: Respirations even, regular, and unlabored on room air. Lungs CTA bilaterally, no rhonchi, no rales, no wheezing, and no accessory muscle usage. Abdominal: soft, nontender to palpation, no guarding, no appreciable organomegaly Ext: ROM intact. No gross muscle atrophy, no edema, no contractures Neuro: Speech clear at this time. GCS 15, cranial nerves II through XII intact and patient showing no neurological focal deficits at this time. Psych: Alert and awake. Pleasant and cooperative. Assessment and Plan of Care: Recurrent syncopal episodes with reports of Unresponsive episode followed by moderate confusion and waxing and waning episodes including aphasia and garbled speech. CVA ruled out. Aphasia Acute Alteration in mental status -CT head negative for acute process revealing degenerative and nonspecific white matter changes most suggestive of remote ischemia, however exam was limited and cannot rule out acute ischemia. -Neurology following. -Patient to be given aspirin and atorvastatin -Telemetry monitoring -Neuro checks every 4 hours -Fall precautions -Echocardiogram revealing normal left ventricular size and systolic function with mild tricuspid and mitral regurgitation. -MRI revealing concerns of microhemorrhages or cerebral amyloid angiopathy, but negative for intracranial mass or subacute/acute infarct. -MRA neck showing normal MRA of the carotid arteries with no evidence for arterial dissection. -Cardiology also following for recurrent syncopal episodes. -EEG completed this morning, pending results. Ovarian cancer -Oncology consulted, appreciate further recommendations. Pancytopenia, chemotherapy induced -We will continue to monitor with repeat a.m. labs. Hypothyroidism -Continue daily medication regimen with the levothyroxine. -TSH with free T4 to be obtained. Hypertension -At this time we will allow for permissive hypertension and patient may resume daily medication regimen with amlodipine 5 mg daily tomorrow morning. CODE STATUS: Full code DVT prophylaxis: Lovenox Discussed with: Patient, neurologist, RN and patient's daughter Anticipated discharge date: Pending clinical course Anticipated discharge place: Home A total of 35 minutes was spent on the care of this complex patient more than 5 0% of the time was spent in counseling and care coordination. Objective - Vital Signs Vital signs: Vital Signs Temp 98.1 F 02/20/22 10:50 Pulse 88 02/20/22 10:50 Resp 18 02/20/22 04:15 BP 149/88 02/20/22 10:50 Pulse Ox 98 02/20/22 10:50 FiO2 21 02/17/22 19:48 Intake & Output 02/19/22 02/20/22 02/20/22 18:59 06:59 18:59 Intake Total 650 Balance 650 Intake: Oral 650 Other: Voiding Method Toilet Toilet Toilet Bedside Commode Bedside Commode Bedside Commode # Voids 2 2 - Labs CBC & Chem 7: 02/19/22 05:36 02/19/22 05:36 Labs: Abnormal Lab Results - Last 24 Hours (Table) 02/20/22 Range/Units 12:51 POC Glucose (mg/dL) 156 H (70-110) mg/dL
[2022-02-20] MEDS: SODIUM CHLORIDE 0.9% 1,000 ML IV SCH ×2 (13:30→13:48)
[2022-02-20] MEDS: levETIRAcetam 500 MG TAB PO SCH ×2 (13:48→20:47)
[2022-02-20 17:24] LABS: Glucose,Whole Blood 120 mg/dL (70-110)
[2022-02-20 20:36] LABS: Glucose,Whole Blood 148 mg/dL (70-110)
[2022-02-20] MEDS: ATORVASTATIN 40 MG TAB PO SCH (20:47)
[2022-02-20 23:51] LABS: ALT 11 U/L (8-44); AST 18 U/L (13-35); African American GFR (CKD) 59.6 (60.0-200.0); Albumin 3.7 g/dL (3.8-4.9); Albumin/Globulin Ratio 2.02 (1.60-3.17); Alkaline Phosphatase 63 U/L (41-126); BUN/Creat Ratio 26.44 Ratio (12.00-20.00); Blood Urea Nitrogen 27.5 mg/dL (9.0-27.0); Calcium 8.9 mg/dL (8.7-10.3); Carbon Dioxide 20.4 mmol/L (20.0-27.5); Chloride 108 mmol/L (96-109); Globulin 1.8 g/dL (1.6-3.3); Glucose 109 mg/dL (70-110); Magnesium 1.8 mg/dL (1.5-2.4); Non-African American GFR(CKD) 51.4 (60.0-200.0); Potassium 4.9 mmol/L (3.5-5.5); Sodium 142 mmol/L (135-145); Total Protein 5.5 g/dL (6.2-8.2)
--- NOTE | 2022-02-21 03:19 | EEG ---
ELECTROENCEPHALOGRAM REPORT DATE OF SERVICE: 02/20/2022 CLINICAL HISTORY: This is a 76-year-old woman with episode of unresponsiveness. The video EEG is obtained to evaluate for seizure epileptiform activity. RELEVANT MEDICATION: The patient is not on any antiepileptic drugs. EEG TYPE: This is a routine 21-channel EEG is performed with video using the 10/20 electrode system. DESCRIPTION: Wakefulness is only obtained. During awake state, the posterior-dominant rhythm consists of low to moderate voltage of 9-9.5 hertz activity that is well modulated, well sustained. There is no physiological sleep architecture seen. There is no stage 2 sleep architecture seen. There is no focal slowing. Interictal and ictal is none. ACTIVATION PROCEDURE: Photic stimulation did not evoke a posterior driving response. There is no abnormality during photic stimulation. Hyperventilation is not performed. CLINICAL INTERPRETATION: This is a normal routine EEG. There is no focal slowing, epileptiform discharge or seizure on the EEG. A normal routine EEG, does not exclude epilepsy. Clinical correlation is recommended. MMGRACY / CLEVE: [id number] /
[2022-02-21 04:24] VITALS: RESP 18
[2022-02-21] MEDS: LEVOTHYROXINE 50 MCG TAB PO SCH (04:44)
[2022-02-21 07:14] LABS: Glucose,Whole Blood 114 mg/dL (70-110)
[2022-02-21] MEDS: INSULIN ASPART (NovoLOG) 100 UNIT/ML VIAL SQ SCH ×2 (10:53→13:10)
[2022-02-21] MEDS: ENOXAPARIN 40 MG/0.4 ML SYRINGE SQ SCH (10:54)
[2022-02-21] MEDS ORDERED: LIDOCAINE 1% INJ 10MG/ML (30 ML VIAL-PF) SQ ONE (12:21)
[2022-02-21] MEDS ORDERED: IV FLUID CONTINUATION 925 ML IV ONE (12:22)
--- NOTE | 2022-02-21 12:33 | P.PCN ---
Description of Procedure: Procedure: Insertion of Linq loop recorder Indication: Syncope CONSENT:I have discussed the risks, benefits and alternative therapies for the above-mentioned procedure. The patient has indicated understanding and acceptance of the risks and procedures discussed. PROCEDURE: Patient was brought to the catheterization lab in a fasting state. Patient was prepped and draped in the usual fashion. 1% lidocaine was used to anesthetize the area of the left third intercostal space. Using the loop recorder incision device, a small 0.5 cm incision was made in the left 3rd intercostal space. Next the Linq loop recorder was deployed in the 3rd intercostal space subcutaneously using the insertion tool. Thresholds were checked and were excellent at 0.25V. Next the incision was closed using Dermabond. Steristrips were placed over the incision and the procedure was completed. The patient tolerated the procedure well. The patient was transported to the post cath holding area in stable condition. Linq loop recorder serial number: [id number]
[2022-02-21 12:46] LABS: Glucose,Whole Blood 105 mg/dL (70-110)
[2022-02-21] MEDS: LACTOBACILLUS ACIDOPH & BULGAR 1 EACH PACKET PO SCH (13:05)
[2022-02-21] MEDS: amLODIPine 5 MG TAB PO SCH (13:06)
[2022-02-21] MEDS: levETIRAcetam 500 MG TAB PO SCH (13:06)
[2022-02-21] MEDS: LORATADINE 10 MG TAB PO SCH (13:06)
[2022-02-21] MEDS: PANTOPRAZOLE 40 MG TABLET PO SCH (13:06)
[2022-02-21] MEDS: SODIUM CHLORIDE 0.9% 1,000 ML IV SCH ×2 (13:09)
--- NOTE | 2022-02-21 13:23 | P.DS ---
Providers Date of admission: 02/19/22 12:28 Expected date of discharge: 02/21/22 Attending physician: Kristian Burgess MD Consults: 02/17/22 14:18 Consult Physician Urgent Consulting Provider: Zeferino Sahu Consult Reason/Comments: Ovarian cancer Do you want consulting provider notified?: Yes 02/17/22 16:44 Consult Physician Routine Consulting Provider: Danny Wallace Consult Reason/Comments: Altered mental status, difficulties with speech Do you want consulting provider notified?: Yes 02/19/22 12:32 Consult Physician Routine Consulting Provider: Leandro Ramon Consult Reason/Comments: recurrent syncopal episodes, poss seizure vs vasovagal episode Do you want consulting provider notified?: Yes, Notify in am [facility] Course: Discharge Diagnosis: Recurrent syncopal episodes with reports of Unresponsive episode followed by moderate confusion and waxing and waning episodes including aphasia and garbled speech. CVA ruled out. MRI revealed microhemorrhages. Neurology recommending no aspirin and 23 hour EEG to be completed outpatient. cardiology placed loop recorder prior to discharge. Patient to follow up outpatient with r programmer and neurologist in 1 week and with her primary care provider in 1-2 days. Aphasia, Resolved. Acute Alteration in mental status, Resolved Ovarian cancer, continue to follow up outpatient with oncologist for treatment as scheduled. Pancytopenia, chemotherapy induced. stable. Hypothyroidism. Continue daily medication regimen with the levothyroxine. Hypertension. monitor vital signs and continue daily medication regimen with amlodipine 5 mg daily. Hospital Course: Patient is a very pleasant 76-year-old female with a past medical history of ovarian cancer currently undergoing chemotherapy and completed second round of chemotherapy on Sunday02/13/22, hypertension, wjz-viadnyw-aixhgboiq diabetes mellitus, GERD, asthma/COPD and hypothyroidism. She presented to the emergency department after reportedly being found unresponsive on the toilet by her family. Family reports patient typically has a rough time after her chemotherapy treatments but has never been this rough. Daughter at bedside reports her mother recently underwent treatment for a urinary tract infection and does get them frequently, but states she has not reported any symptoms or shown any signs. Patient currently with aphasia and having a difficult time answering questions. RN at bedside reports patient initially had clear speech and answering questions and following commands without any difficulties but since arrival to Hospital has had intermittent garbled speech and aphasia as well as episodes of nausea and vomiting followed by increased confusion. Upon evaluation patient did have moderate aphasia she also reports headache, lightheadedness, dizziness, and nausea but denies having any changes in vision, hearing, chest pain, palpitations, shortness of breath, or experiencing any numbness/tingling/weakness/swelling in her extremities at this time. Patient was unable to remember events leading up to episode of unresponsiveness or immediately after. Patient underwent full evaluation in the emergency department. CBC revealing pancytopenia with WBC count of 3.6, hemoglobin 10.8, platelet count of 102. CMP showing no significant abnormalities and urinalysis negative for infection. Urine drug screen positive for opiates and marijuana. EKG was completed showing normal sinus rhythm at 74 bpm with a left bundle branch block. CT head negative for acute process revealing degenerative and nonspecific white matter changes most suggestive of remote ischemia, however exam was limited and cannot rule out acute ischemia. Chest x-ray negative of acute process revealing hyperinflation consistent with COPD. Patient has been admitted under our services with consultation to neurology. MRI brain revealing scattered foci of blooming artifact which could represent microhemorrhages or c erebral amyloid angiopathy, however stating and no evidence of intracranial mass or subacute/acute infarct. MRA neck showing normal MRA of the carotid arteries with no evidence for arterial dissection. Echocardiogram revealing normal left ventricular size and systolic function with mild tricuspid and mitral regurgitation. Microhemorrhages noted on MRI of brain were discussed with neurologist and aspirin has been discontinued per his recommendation at this time. EEG was completed and negative however neurology starting patient on Keppra 500 mg twice a day pending 23 hour EEG completion on outpatient basis. Cardiology evaluated and placed loop recorder. Pt is medically stable at this time and is stable for discharge home. Patient to follow up outpatient with PCP in 1-2 days, cardiology in 1 week, and neurology in 1 week. Physical exam: Patient seen and fully evaluated at the bedside Vital signs reviewed and stable. General: Nontoxic, appears chronically ill. Frail. Derm: Skin warm and dry, pallor Head: Atraumatic, normocephalic and symmetric. Eyes: EOMs intact, no lid lag, and anicteric sclera pupils pinpoint.. Mouth: no lip lesions, mucus membranes moist Cardiovascular: regular rate and rhythm with normal S1S2, systolic murmur, positive posterior tibial pulses bilaterally, and cap refill < 2 seconds. Lungs: Respirations even, regular, and unlabored on room air. Lungs CTA bilaterally, no rhonchi, no rales, no wheezing, and no accessory muscle usage. Abdominal: soft, nontender to palpation, no guarding, no appreciable organomegaly Ext: ROM intact. No gross muscle atrophy, no edema, no contractures Neuro: Speech clear at this time. GCS 15, cranial nerves II through XII intact and patient showing no neurological focal deficits at this time. Psych: Alert and awake. Pleasant and cooperative. A total of 34 minutes of time were spent preparing this complex discharge summary. Pt was discharged on 02/21/22 at 9:57 AM Patient Condition at Discharge: Stable Plan - Discharge Summary Discharge Rx Participant: No New Discharge Prescriptions: New levETIRAcetam [Keppra] 500 mg PO Q12HR 30 Days #60 tab Atorvastatin [Lipitor] 40 mg PO HS 30 Days #30 tab Continue Levothyroxine Sodium [Synthroid] 50 mcg PO DAILY Evolocumab [Repatha Sureclick] 140 mg SQ Q14D Albuterol Sulfate [Ventolin HFA] 1 - 2 puff INHALATION RT-Q6H PRN PRN Reason: Shortness Of Breath Sennosides/Docusate Sodium [Senna Plus 8.6-50 mg Tablet] 2 tab PO HS PRN PRN Reason: Constipation L.acidoph,Paracasei, B.lactis [Probiotic] 1 cap PO DAILY Loratadine [Claritin] 10 mg PO DAILY Dicyclomine HCl 10 mg PO TID PRN PRN Reason: ibs Pioglitazone [Actos] 15 mg PO DAILY Omeprazole 20 mg PO DAILY amLODIPine [Norvasc] 5 mg PO DAILY #7 tab Docusate [Colace] 100 mg PO DAILY PRN PRN Reason: Constipation Ondansetron [Zofran] 4 mg PO Q8H PRN PRN Reason: Nausea OLANZapine [ZyPREXA] 2.5 mg PO DIRECTED HYDROcodone/APAP 10-325MG [[place] 10-325] 1 tab PO Q6H PRN PRN Reason: Pain Acetaminophen Tab [Tylenol] 1,000 mg PO Q6HR PRN PRN Reason: Pain Or Fever > 100.5 Discharge Medication List Levothyroxine Sodium [Synthroid] 50 mcg PO DAILY 02/08/18 [History] Evolocumab [Repatha Sureclick] 140 mg SQ Q14D 07/16/20 [History] Albuterol Sulfate [Ventolin HFA] 1 - 2 puff INHALATION RT-Q6H PRN 09/22/21 [History] Docusate [Colace] 100 mg PO DAILY PRN 11/16/21 [History] L.acidoph,Paracasei, B.lactis [Probiotic] 1 cap PO DAILY 11/16/21 [History] OLANZapine [ZyPREXA] 2.5 mg PO DIRECTED 11/16/21 [History] Ondansetron [Zofran] 4 mg PO Q8H PRN 11/16/21 [History] Sennosides/Docusate Sodium [Senna Plus 8.6-50 mg Tablet] 2 tab PO HS PRN 11/16/21 [History] Acetaminophen Tab [Tylenol] 1,000 mg PO Q6HR PRN 11/18/21 [History] Dicyclomine HCl 10 mg PO TID PRN 11/18/21 [History] HYDROcodone/APAP 10-325MG [[place] 10-325] 1 tab PO Q6H PRN 11/18/21 [History] Loratadine [Claritin] 10 mg PO DAILY 11/18/21 [History] Omeprazole 20 mg PO DAILY 12/29/21 [History] Pioglitazone [Actos] 15 mg PO DAILY 12/29/21 [History] amLODIPine [Norvasc] 5 mg PO DAILY #7 tab 12/30/21 [Rx] Atorvastatin [Lipitor] 40 mg PO HS 30 Days #30 tab 02/21/22 [Rx] levETIRAcetam [Keppra] 500 mg PO Q12HR 30 Days #60 tab 02/21/22 [Rx] Follow up Appointment(s)/Referral(s): Leandro Ramon MD [STAFF PHYSICIAN] - 02/27/22 3:00 pm Srikanth Jiang MD [REFERRING] - 04/05/22 9:40 am Jose Sahu MD [Family Provider] - 02/28/22 8:30 am Patient Instructions/Handouts: Cardiac Loop Recorder Insertion (DC), Syncope ( DC) Activity/Diet/Wound Care/Special Instructions: Activity: As tolerated. Take breaks as needed. Diet: Heart healthy and carb consistent diet. Avoid salts, or foods with hidden salts such as canned or boxed foods and frozen dinners. Extra salt makes your heart work harder and traps the fluid in your body for longer. Special Instructions: Take all of your medications as directed and remember to keep all of your doctor's appointments and follow-up as needed. You will need to follow up outpatient with r programmer and neurologist as discussed. Continue to follow with your PCP in [facility]. Neurology recommending no aspirin, until follow up with neurologist outpatient due to microhemorrhages noted on MRI. Continue Keppra until 23 hour EEG can be completed and further instructed by neurologist. Loop recorder placed prior to discharge. Please follow up with the instructions provided by cardiology and continue to follow with their office. Thank you for allowing us to participate in your care, it was truly a pleasure having you for our patient!!! Discharge Disposition: HOME SELF-CARE
[2022-02-21 14:23] VITALS: BP 164/70; PULSE 76; TEMP 97.8
--- NOTE | 2022-02-21 15:51 | P.PN ---
Subjective Progress Note Date: 02/21/22 The patient is seen at bedside and denies any further episodes. Today she went for loop recorder. Objective - Vital Signs Vital signs: Vital Signs Temp 97.8 F 02/21/22 14:20 Pulse 76 02/21/22 14:20 Resp 18 02/21/22 14:20 BP 164/70 02/21/22 14:20 Pulse Ox 97 02/21/22 14:20 FiO2 21 02/17/22 19:48 Intake & Output 02/20/22 02/21/22 02/21/22 18:59 06:59 18:59 Intake Total 600 75 Balance 600 75 Intake: IV 75 Intake, IV Titration 600 Amount Sodium Chloride 0.9% 1, 600 000 ml @ 50 mls/hr IV . Q20H [facility] Rx#:[id number] Other: Voiding Method Toilet Toilet Toilet Bedside Commode Bedside Commode Bedside Commode # Voids 2 1 - Labs CBC & Chem 7: 02/19/22 05:36 02/19/22 05:36 Labs: Abnormal Lab Results - Last 24 Hours (Table) 02/18/22 02/20/22 02/20/22 Range/Units 13:17 17:21 20:35 BUN 27.5 H (9.0-27.0) mg/dL Est GFR (CKD-EPI)AfAm 59.6 L (60.0-200.0) Est GFR (CKD-EPI)NonAf 51.4 L (60.0-200.0) BUN/Creatinine Ratio 26.44 H (12.00-20.00) Ratio POC Glucose (mg/dL) 120 H 148 H (70-110) mg/dL Total Protein 5.5 L (6.2-8.2) g/dL Albumin 3.7 L (3.8-4.9) g/dL 02/21/22 Range/Units 07:13 BUN (9.0-27.0) mg/dL Est GFR (CKD-EPI)AfAm (60.0-200.0) Est GFR (CKD-EPI)NonAf (60.0-200.0) BUN/Creatinine Ratio (12.00-20.00) Ratio POC Glucose (mg/dL) 114 H (70-110) mg/dL Total Protein (6.2-8.2) g/dL Albumin (3.8-4.9) g/dL Assessment and Plan Assessment: Episode of unresponsiveness with eye rolling and speech difficulty (had prolonged time to regain to baseline): Possible seizure. NO mass or acute/subacute stroke on MRI Brain. Also has recurrent passing out episode. Some of the episodes are syncopal episodes (Seem vasovagal) and maybe questionable orthostatic from history Scattered foci of blooming artifact which could represent micro-hemorrhage or cerebral amyloid angiopathy reported on MRI Brain Ovarian cancer on chemotherapy Insulin diabetes mellitus Hypothyroidism Plan: Routine EEG. Preliminary is normal. Recommend an prolonged EEG/epilepsy monitoring unit as an outpatient to capture her episodes. I ordered ambulatory EEG and will be coordinated by loss control technician. I notified that the patient and daughter if EEG is normal, possibly consideration of starting antiepileptic drug because of her recurrent episodes of passing out and few episodes cannot rule out seizure because of prolonged post-ictal state. The patient agreed to be Keppra as prophylaxis and will start 500mg 1 tab bid. She was notified of side-effect of medication. ASA is not needed from neurological perspective since not stroke or TIA. Physical therapy occupational therapy and speech therapy. Continue neuro checks Cardiology is consulted and they do not feel vasovagal or orthostatic. She had loop recorder placement. Will defer the rest of the medical management to primary team Oncologist team is consulted. For DVT prophylaxis the patient is on enoxaparin per the primary team. Recommend patient to follow-up with neurologist as outpatient within 1-2 weeks. Patient is clear for discharged from neurological perspective. The plan is discussed with patient and her daughter who is at bedside. Time with Patient: Less than 30
--- NOTE | 2022-02-21 22:48 | P.PN ---
Subjective Progress Note Date: 02/21/22 Principal diagnosis: ovarian cancer, neurological deficits in follow-up today patient is reporting feeling like she is "in a fog". She has been started on antiseizure medication. She is having additional tests with Neurology today and being discharged. She is tolerating oral intake no nausea, vomiting, difficulty breathing, no pain to report Objective - Vital Signs Vital signs: Vital Signs Temp 97.8 F 02/21/22 14:20 Pulse 76 02/21/22 14:20 Resp 18 02/21/22 14:20 BP 164/70 02/21/22 14:20 Pulse Ox 97 02/21/22 14:20 FiO2 21 02/17/22 19:48 Intake & Output 02/21/22 02/21/22 02/22/22 06:59 18:59 06:59 Intake Total 600 75 Balance 600 75 Intake: IV 75 Intake, IV Titration 600 Amount Sodium Chloride 0.9% 1, 600 000 ml @ 50 mls/hr IV . Q20H [facility] Rx#:[id number] Other: Voiding Method Toilet Toilet Bedside Commode Bedside Commode # Voids 1 - Constitutional General appearance: Present: average body habitus, cooperative, no acute distress - EENT Eyes: Present: anicteric sclerae, EOMI ENT: Present: hearing grossly normal - Respiratory Respiratory: bilateral: CTA - Cardiovascular Rhythm: regular Heart sounds: normal: S1, S2 Abnormal Heart Sounds: Absent: systolic murmur, diastolic murmur, rub, S3 Gallop, S4 Gallop, click, other - Peripheral edema leg Peripheral Edema: bilateral: None - Gastrointestinal General gastrointestinal: Present: normal bowel sounds, soft - Integumentary Integumentary: Present: pale - Neurologic Neurologic: Present: CNII-XII intact - Musculoskeletal Musculoskeletal: Present: strength equal bilaterally - Psychiatric Psychiatric: Present: A&O x's 3, appropriate affect, intact judgment & insight - Labs CBC & Chem 7: 02/19/22 05:36 02/19/22 05:36 Labs: Abnormal Lab Results - Last 24 Hours (Table) 02/18/22 02/21/22 Range/Units 13:17 07:13 BUN 27.5 H (9.0-27.0) mg/dL Est GFR (CKD-EPI)AfAm 59.6 L (60.0-200.0) Est GFR (CKD-EPI)NonAf 51.4 L (60.0-200.0) BUN/Creatinine Ratio 26.44 H (12.00-20.00) Ratio POC Glucose (mg/dL) 114 H (70-110) mg/dL Total Protein 5.5 L (6.2-8.2) g/dL Albumin 3.7 L (3.8-4.9) g/dL Assessment and Plan (1) Altered mental status Status: Acute Priority: High Code(s): R41.82 - ALTERED MENTAL STATUS, UNSPECIFIED SNOMED Code(s): 214338179 (2) Ovarian cancer Status: Acute Priority: High Code(s): C56.9 - MALIGNANT NEOPLASM OF UNSPECIFIED OVARY SNOMED Code(s): 133513612 Plan: Patient has been worked up extensively by Neurology. She will follow up with them in the outpatient setting. She has been provided with medications for seizures. MRI brain was negative for metastatic disease. Patient has follow-up with her primary Oncologist next week. She has been receiving hydration in the office one to 2 times a week. Oncology nurses will be informed that the patient is being discharged and they will contact the patient to resume the same.
--- NOTE | 2022-02-22 22:18 | CDI ---
Documentation Clarification Form Date: 02/22/2022 10:09:49 PM From: Shala Carranza Phone: Admit Date: 02/19/2022 12:28:00 PM Patient Name: Geeta Raymond Visit Number: [id number] Discharge Date: 02/21/2022 04:05:00 PM ATTENTION: The Clinical Documentation Specialists (CDI) and [facility] Coding Staff appreciate your assistance in clarifying documentation. Please respond to the clarification below the line at the bottom and electronically sign. The CDI & [facility] Coding staff will review the response and follow-up if needed. Please note: Queries are made part of the Legal Health Record. If you have any questions, please contact the author of this message via ITS. Dr. Danny Wallace Your patient has diagnostic/radiology results: micro hemorrhages or cerebral amyloid angiopathy per Brain MRI. Please clarify if there is an additional diagnosis and/or clinical significance related to this result. History/Risk Factors: 76yo F, syncope, antineoplastic chemotherapy induced pancytopenia, ovarian Cxr, DMII, Aphasia dehydration LBBB, RA, HTN, HLD Clinical indicators: Unresponsive episode followed by moderate confusion and waxing and waning episodes of aphasia and garbled speech. Scattered foci of blooming artifact Treatment: CVA ruled out. MRI revealed micro hemorrhages. Neurology recommending no aspirin and 23 hour EEG to be completed outpatient. Cardiology placed loop recorder prior to discharge. Patient to follow up outpatient with table tender and neurologist in 1 week and with her primary care provider in 1-2 days. Loop Recorder inserted Is there an additional diagnosis and/or clinical significance related to the above diagnostic/radiology result? [ ] Micro hemorrhages [ ] Cerebral amyloid angiopathy [ ] Result is not clinically significant (no additional diagnosis) [ ] Other, please specify [ ] Unable to determine (Template Last Reviewed: May 2020) Cerebral amyloid angiopathy MTDD
== END 2022-02-21 16:05 | disposition home or self-care (01) | DRG 981 ==
LOC: EC 10:22 → 5NMEDONC 14:19 → OBSVTOIN 02-19 12:28
PROVIDERS: ADMIT Internal Medicine; ATTEND Internal Medicine
PROC: 0JH632Z Insertion of Monitoring Device into Chest Subcutaneous Tissue and Fascia, Percutaneous Approach (ICD-10-PCS; principal; 2022-02-21 07:30)
DX: E85.4 Organ-limited amyloidosis (principal); D61.810 Antineoplastic chemotherapy induced pancytopenia; C56.9 Malignant neoplasm of unspecified ovary; R47.01 Aphasia; E03.9 Hypothyroidism, unspecified; I10 Essential (primary) hypertension; E11.9 Type 2 diabetes mellitus without complications; J44.9 Chronic obstructive pulmonary disease, unspecified; R63.4 Abnormal weight loss; I08.1 Rheumatic disorders of both mitral and tricuspid valves; R54 Age-related physical debility; E86.0 Dehydration; E78.5 Hyperlipidemia, unspecified; I44.7 Left bundle-branch block, unspecified; T45.1X5A Adverse effect of antineoplastic and immunosuppressive drugs, initial encounter; R47.89 Other speech disturbances; I68.0 Cerebral amyloid angiopathy; R29.818 Other symptoms and signs involving the nervous system; R55 Syncope and collapse; Z28.310 Unvaccinated for COVID-19; Z68.27 Body mass index [BMI] 27.0-27.9, adult; Z79.890 Hormone replacement therapy; Z79.84 Long term (current) use of oral hypoglycemic drugs; Z79.899 Other long term (current) drug therapy; Z90.710 Acquired absence of both cervix and uterus; Z88.0 Allergy status to penicillin; Z88.2 Allergy status to sulfonamides
CPT/HCPCS: 33285; 36415; 70450; 70549; 70553; 71046; 80053; 80061; 80306; 81001; 83036; 83735; 84443; 84484; 85025; 85027; 85610; 85730; 93005; 93306; 94760; 95816; 96361; 96374; 96375; 99285

== ENCOUNTER → 2022-03-02 | Outpatient (CLI) | payer MEDICARE ==
--- NOTE | 2022-03-04 00:11 | EEG ---
ELECTROENCEPHALOGRAM REPORT ELECTROENCEPHALOGRAM (EEG) REPORT: TECHNIQUE: This is a report from a prolonged 2.5 hour outpatient digital EEG performed using the 10/20 international placement system. HISTORY: Syncope. CURRENT MEDICATIONS: Flonase, Motrin, loratadine, Zyprexa, Keppra, Tylenol, Ventolin, and others. FINDINGS: Recording start time: 03/02/2022 at 08:18 a.m. Recording end time: 03/02/2022 at 10:53 a.m. EVENTS: During this 2.5 hour outpatient digital EEG, no clinical or electrographic seizures were recorded. BACKGROUND: The background activity consisted of 8 to 9 hertz rhythmic waveforms symmetrically distributed over both posterior quadrants. ACTIVATION: Hyperventilation: Not performed. Photic stimulation: Symmetric driving seen. Sleep: Stages I and II sleep noted. ABNORMALITIES: None. Please note that 1 channel of this EEG was dedicated to EKG. It demonstrated a sinus rhythm. IMPRESSION: Normal 2.5 hour extended video EEG. No clinical or electrographic seizures were recorded. No epileptiform activity was present. MMODL / IJN: [id number] /
== END | disposition home or self-care (01) ==
LOC: NEUROMAIN 07:42
PROVIDERS: ATTEND Student in an Organized Health Care Education/Training Program
DX: R55 Syncope and collapse (principal)
CPT/HCPCS: 95713

== ENCOUNTER 2022-03-15 13:17 | Emergency (ER) | payer MEDICARE ==
[2022-03-15 13:23] VITALS: RESP 16
[2022-03-15] MEDS ORDERED: SODIUM CHLORIDE 0.9% 500 ML 500 ML IV STA (13:39)
--- NOTE | 2022-03-15 14:09 | ED ---
General Adult HPI - General Chief complaint: Syncope Stated complaint: syncope Time Seen by Provider: 03/15/22 13:25 Source: patient, EMS Mode of arrival: EMS Limitations: no limitations - History of Present Illness Initial comments: This patient is 76-year-old woman with history of underlying pulmonary cancer. She was at home today when she had an episode in which she passed out and was unresponsive. This lasted for a few minutes before her son was able to arouse her. There were no reported tonic-clonic movements. There was no reported postictal period. The patient states that she has been feeling weakness and fatigue. Had not noticed any fever or chills. No chest pain, dyspnea. She was feeling clammy at home -: minutes(s) Severity scale (1-10): 0 Consistency: now resolved Improves with: none Worsens with: none Associated Symptoms: diaphoresis, syncope, weakness Treatments Prior to Arrival: none - Related Data Home Medications Medication Instructions Recorded Confirmed Levothyroxine Sodium [Synthroid] 50 mcg PO DAILY 02/08/18 02/17/22 Evolocumab [Repatha Sureclick] 140 mg SQ Q14D 07/16/20 02/17/22 Albuterol Sulfate [Ventolin HFA] 1 - 2 puff INHALATION RT-Q6H PRN 09/22/21 02/17/22 Docusate [Colace] 100 mg PO DAILY PRN 11/16/21 02/17/22 L.acidoph,Paracasei, B.lactis 1 cap PO DAILY 11/16/21 02/17/22 [Probiotic] OLANZapine [ZyPREXA] 2.5 mg PO DIRECTED 11/16/21 02/17/22 Ondansetron [Zofran] 4 mg PO Q8H PRN 11/16/21 02/17/22 Sennosides/Docusate Sodium [Senna 2 tab PO HS PRN 11/16/21 02/17/22 Plus 8.6-50 mg Tablet] Acetaminophen Tab [Tylenol] 1,000 mg PO Q6HR PRN 11/18/21 02/17/22 Dicyclomine HCl 10 mg PO TID PRN 11/18/21 02/17/22 HYDROcodone/APAP 10-325MG [[place] 1 tab PO Q6H PRN 11/18/21 02/17/22 10-325] Loratadine [Claritin] 10 mg PO DAILY 11/18/21 02/17/22 Omeprazole 20 mg PO DAILY 12/29/21 02/17/22 Pioglitazone [Actos] 15 mg PO DAILY 12/29/21 02/17/22 Previous Rx's Medication Instructions Recorded amLODIPine [Norvasc] 5 mg PO DAILY #7 tab 12/30/21 Atorvastatin [Lipitor] 40 mg PO HS 30 Days #30 tab 02/21/22 levETIRAcetam [Keppra] 500 mg PO Q12HR 30 Days #60 tab 02/21/22 Cephalexin [Keflex] 500 mg PO Q6HR #28 cap 03/15/22 Allergies Allergy/AdvReac Type Severity Reaction Status Date / Time amoxicillin [From Augmentin] Allergy Rash/Hives/ Verified 03/15/22 13:23 itching chocolate flavor Allergy Unknown Verified 03/15/22 13:24 clavulanic acid Allergy Rash/Hives/ Verified 03/15/22 13:23 [From Augmentin] itching gluten Allergy Abdominal Verified 03/15/22 13:24 Pain Sulfa (Sulfonamide Allergy Itching Verified 03/15/22 13:23 Antibiotics) Flour Allergy Unknown Uncoded 03/15/22 13:24 Review of Systems ROS Statement: Those systems with pertinent positive or pertinent negative responses have been documented in the HPI. ROS Other: All systems not noted in ROS Statement are negative. Constitutional: Reports: weakness. Denies: fever, chills Eyes: Denies: vision change Respiratory: Denies: cough, dyspnea, wheezes Cardiovascular: Reports: syncope. Denies: chest pain, palpitations, orthopnea, edema Gastrointestinal: Denies: abdominal pain, nausea, vomiting, diarrhea, melena, hematochezia Genitourinary: Denies: dysuria, frequency, hematuria Musculoskeletal: Denies: back pain Skin: Denies: rash Neurological: Denies: headache, weakness Past Medical History Past Medical History: Cancer, Diabetes Mellitus, GERD/Reflux, Hyperlipidemia, Osteoarthritis (OA), Thyroid Disorder Additional Past Medical History / Comment(s): Ovarian cancer(started Chemo 11/14/21), constipation, hx hiatal hernia, "Dr watching liver enzymes", urinary incontinence, vertigo History of Any Multi-Drug Resistant Organisms: None Reported Past Surgical History: Adenoidectomy, Bladder Surgery, Section, Cholecystectomy, Hysterectomy, Tonsillectomy Additional Past Surgical History / Comment(s): x 3, 2 bladder suspen matt and 1 bowel lift; ureter stent in september 2021 Past Anesthesia/Blood Transfusion Reactions: Previous Problems w/ Anesthesia, Postoperative Nausea & Vomiting (PONV) Additional Past Anesthesia/Blood Transfusion Reaction / Comment(s): years ago had a problem with anesthesia(vomiting) in [place], but has had anesthesia several times since then and has had no problem, recent vertigo Past Psychological History: No Psychological Hx Reported Smoking Status: Never smoker Past Alcohol Use History: None Reported Past Drug Use History: None Reported - Past Family History Father Family Medical History: Hypertension Brother(s) Family Medical History: Cancer General Exam Limitations: no limitations General appearance: alert, in no apparent distress Head exam: Present: atraumatic, normocephalic Eye exam: Present: normal appearance. Absent: scleral icterus, conjunctival injection Neck exam: Present: normal inspection, full ROM Respiratory exam: Present: normal lung sounds bilaterally. Absent: respiratory distress, wheezes, rales, rhonchi, stridor Cardiovascular Exam: Present: regular rate, normal rhythm, normal heart sounds. Absent: systolic murmur, diastolic murmur, rubs, gallop GI/Abdominal exam: Present: soft. Absent: distended, tenderness, guarding, rebound, rigid, mass Extremities exam: Present: normal inspection, normal capillary refill. Absent: pedal edema, calf tenderness Back exam: Present: normal inspection. Absent: CVA tenderness (R), CVA tenderness (L) Neurological exam: Present: alert, oriented X3, CN II-XII intact. Absent: motor sensory deficit Skin exam: Present: warm, dry, intact, normal color. Absent: rash Course Vital Signs 03/15/22 03/15/22 03/15/22 13:19 15:20 17:20 Temperature 97.2 F L 96.9 F L Pulse Rate 64 55 L 60 Respiratory 16 16 16 Rate Blood Pressure 135/67 159/55 163/67 O2 Sat by Pulse 98 100 99 Oximetry EKG Findings - EKG Results: EKG: interpreted by ERMD, sinus rhythm, no acute changes EKG shows: bradycardia (Rate 57 bpm) - Blocks, [place], Hypertrophy, ST Abn: AV and intraventricular conduction: left bundle branch block (fixed/intermittent, complete/incomplete) QRS axis and voltage: left axis deviation (-30 to -90) Medical Decision Making - Medical Decision Making This patient is 76-year-old woman with history of ovarian cancer. She had syncopal episode at home. The workup here reveals that patient is mildly dehydrated and has urinary tract infection. Patient is given fluid bolus and antibiotics and is feeling better. She would like to go home. I did discuss admission but she states she would prefer not to be in the hospital. She will return should symptoms worsen in any way. We discussed appropriate further care and follow-up. - Lab Data Result diagrams: 03/15/22 14:14 03/15/22 14:14 Lab Results 03/15/22 03/15/22 03/15/22 Range/Units 14:14 14:14 14:14 WBC 3.6 L (3.8-10.6) k/uL RBC 3.18 L (3.80-5.40) m/uL Hgb 10.4 L (11.4-16.0) gm/dL Hct 29.9 L (34.0-46.0) % MCV 93.9 (80.0-100.0) fL MCH 32.5 (25.0-35.0) pg MCHC 34.6 (31.0-37.0) g/dL RDW 15.2 (11.5-15.5) % Plt Count 151 (150-450) k/uL MPV 9.0 Neutrophils % 52 % Lymphocytes % 37 % Monocytes % 7 % Eosinophils % 1 % Basophils % 0 % Neutrophils # 1.9 (1.3-7.7) k/uL Lymphocytes # 1.3 (1.0-4.8) k/uL Monocytes # 0.3 (0-1.0) k/uL Eosinophils # 0.0 (0-0.7) k/uL Basophils # 0.0 (0-0.2) k/uL PT 10.4 (9.0-12.0) sec INR 1.0 (<1.2) APTT 26.6 (22.0-30.0) sec Sodium 140 (137-145) mmol/L Potassium 4.1 (3.5-5.1) mmol/L Chloride 111 H (98-107) mmol/L Carbon Dioxide 24 (22-30) mmol/L Anion Gap 5 mmol/L BUN 19 H (7-17) mg/dL Creatinine 0.85 (0.52-1.04) mg/dL Est GFR (CKD-EPI)AfAm 76 (>60 ml/min/1.73 sqM) Est GFR (CKD-EPI)NonAf 66 (>60 ml/min/1.73 sqM) Glucose 124 H (74-99) mg/dL Calcium 8.6 (8.4-10.2) mg/dL Total Bilirubin 0.4 (0.2-1.3) mg/dL AST 26 (14-36) U/L ALT 16 (4-34) U/L Alkaline Phosphatase 76 (38-126) U/L Troponin I (0.000-0.034) ng/mL Total Protein 5.9 L (6.3-8.2) g/dL Albumin 3.7 (3.5-5.0) g/dL Urine Color Urine Appearance (Clear) Urine pH (5.0-8.0) Ur Specific [place] (1.001-1.035) Urine Protein (Negative) Urine Glucose (UA) (Negative) Urine Ketones (Negative) Urine Blood (Negative) Urine Nitrite (Negative) Urine Bilirubin (Negative) Urine Urobilinogen (<2.0) mg/dL Ur Leukocyte Esterase (Negative) Urine RBC (0-5) /hpf Urine WBC (0-5) /hpf Ur Squamous Epith Cells (0-4) /hpf Urine Bacteria (None) /hpf Hyaline Casts (0-2) /lpf Urine Mucus (None) /hpf 03/15/22 03/15/22 Range/Units 14:14 15:57 WBC (3.8-10.6) k/uL RBC (3.80-5.40) m/uL Hgb (11.4-16.0) gm/dL Hct (34.0-46.0) % MCV (80.0-100.0) fL MCH (25.0-35.0) pg MCHC (31.0-37.0) g/dL RDW (11.5-15.5) % Plt Count (150-450) k/uL MPV Neutrophils % % Lymphocytes % % Monocytes % % Eosinophils % % Basophils % % Neutrophils # (1.3-7.7) k/uL Lymphocytes # (1.0-4.8) k/uL Monocytes # (0-1.0) k/uL Eosinophils # (0-0.7) k/uL Basophils # (0-0.2) k/uL PT (9.0-12.0) sec INR (<1.2) APTT (22.0-30.0) sec Sodium (137-145) mmol/L Potassium (3.5-5.1) mmol/L Chloride (98-107) mmol/L Carbon Dioxide (22-30) mmol/L Anion Gap mmol/L BUN (7-17) mg/dL Creatinine (0.52-1.04) mg/dL Est GFR (CKD-EPI)AfAm (>60 ml/min/1.73 sqM) Est GFR (CKD-EPI)NonAf (>60 ml/min/1.73 sqM) Glucose (74-99) mg/dL Calcium (8.4-10.2) mg/dL Total Bilirubin (0.2-1.3) mg/dL AST (14-36) U/L ALT (4-34) U/L Alkaline Phosphatase (38-126) U/L Troponin I <0.012 (0.000-0.034) ng/mL Total Protein (6.3-8.2) g/dL Albumin (3.5-5.0) g/dL Urine Color Yellow Urine Appearance Cloudy H (Clear) Urine pH 5.5 (5.0-8.0) Ur Specific [place] 1.018 (1.001-1.035) Urine Protein Trace H (Negative) Urine Glucose (UA) Negative (Negative) Urine Ketones Negative (Negative) Urine Blood Negative (Negative) Urine Nitrite Positive H (Negative) Urine Bilirubin Negative (Negative) Urine Urobilinogen <2.0 (<2.0) mg/dL Ur Leukocyte Esterase Large H (Negative) Urine RBC 2 (0-5) /hpf Urine WBC 95 H (0-5) /hpf Ur Squamous Epith Cells 5 H (0-4) /hpf Urine Bacteria Rare H (None) /hpf Hyaline Casts 12 H (0-2) /lpf Urine Mucus Few H (None) /hpf Disposition Clinical Impression: UTI (urinary tract infection), Syncope Disposition: HOME SELF-CARE Condition: Good Prescriptions: Cephalexin [Keflex] 500 mg PO Q6HR #28 cap Is patient prescribed a controlled substance at d/c from ED?: No Referrals: Reuben Almeida MD [Primary Care Provider] - 1-2 days Zeferino Sahu MD [STAFF PHYSICIAN] - 1-2 days
[2022-03-15 14:23] LABS: Basophils % (A) 0 %; Eosinophils % (A) 1 %; HCT 29.9 % (34.0-46.0); HGB 10.4 gm/dL (11.4-16.0); Lymphocytes # (A) 1.3 k/uL (1.0-4.8); Lymphocytes % (A) 37 %; MCH 32.5 pg (25.0-35.0); MCHC 34.6 g/dL (31.0-37.0); MCV 93.9 fL (80.0-100.0); Monocytes # (A) 0.3 k/uL (0-1.0); Monocytes % (A) 7 %; Neutrophils # (A) 1.9 k/uL (1.3-7.7); Neutrophils % (A) 52 %; Platelet Count 151 k/uL (150-450); RBC 3.18 m/uL (3.80-5.40); RDW 15.2 % (11.5-15.5); WBC 3.6 k/uL (3.8-10.6)
[2022-03-15 14:35] LABS: Partial Thromboplastin Time 26.6 sec (22.0-30.0); Prothrombin Time 10.4 sec (9.0-12.0)
--- NOTE | 2022-03-15 14:42 | CT ---
EXAMINATION TYPE: CT brain wo con DATE OF EXAM: 03/15/2022 COMPARISON: 02/17/2022 HISTORY: syncope, hx of ovarian ca CT DLP: 1111.[address] of the brain was performed. The ventricles, basal cisterns and sulci overlying the cerebral convexities demonstrate mild enlargem ent. There is no evidence for intracranial hemorrhage or sulcal effacement. There is decreased attenuation about the periventricular white matter and deep white matter of both c erebral hemispheres, compatible with chronic small vessel ischemia. Differential diagnosis does inclu de demyelination. No mass effects are seen.No midline shift. Osseous calvarium is intact. If symptoms persist consider MRI. IMPRESSION: 1. Age related atrophic and chronic small vessel ischemic change without acute intracranial process s een at this time.
--- NOTE | 2022-03-15 14:43 | XR ---
EXAMINATION TYPE: XR chest 2V DATE OF EXAM: 03/15/2022 COMPARISON: 02/17/2022 HISTORY: 76-year-old female syncope TECHNIQUE: PA and lateral views FINDINGS: Heart normal size. Loop recorder device projects over the left heart margin. Right anterior chest wal l injection port. Catheter tip at the upper SVC level. Cholecystectomy clips. Some scattered strandy atelectasis is noted. No consolidation or pleural effusion. IMPRESSION: Left-sided loop recorder device. Right anterior chest wall injection port. No acute process seen.
[2022-03-15 14:48] LABS: Albumin 3.7 g/dL (3.5-5.0); Calcium 8.6 mg/dL (8.4-10.2); Potassium 4.1 mmol/L (3.5-5.1); Total Bilirubin 0.4 mg/dL (0.2-1.3); Total Protein 5.9 g/dL (6.3-8.2)
[2022-03-15 16:09] LABS: Appearance,Urine Cloudy (Clear); Bacteria,Urine Rare /hpf; Bilirubin,Urine Negative (Negative); Blood,Urine Negative (Negative); Color,Urine Yellow; Glucose,Urine (UA) Negative (Negative); Hyaline Casts,Urine 12 /lpf (0-2); Ketones,Urine Negative (Negative); Leukocyte Esterase,Urine Large (Negative); Mucus,Urine Few /hpf; Nitrite,Urine Positive (Negative); PH, Urine 5.5 (5.0-8.0); Protein,Urine Trace (Negative); RBC,Urine 2 /hpf (0-5); Specific Gravity,Urine 1.018 (1.001-1.035); Squamous Epithelial Cell,Urine 5 /hpf (0-4); Urobilinogen,Urine <2.0 mg/dL (<2.0); WBC,Urine 95 /hpf (0-5)
[2022-03-15 17:26] VITALS: BP 163/67; PULSE 60; TEMP 96.9
== END 2022-03-15 17:37 | disposition home or self-care (01) ==
LOC: EC 13:17
DX: N39.0 Urinary tract infection, site not specified (principal); R55 Syncope and collapse; E11.9 Type 2 diabetes mellitus without complications; M19.90 Unspecified osteoarthritis, unspecified site; K21.9 Gastro-esophageal reflux disease without esophagitis; E78.5 Hyperlipidemia, unspecified; E07.9 Disorder of thyroid, unspecified; Z88.0 Allergy status to penicillin; Z88.2 Allergy status to sulfonamides; Z91.018 Allergy to other foods; Z79.890 Hormone replacement therapy; Z79.899 Other long term (current) drug therapy
CPT/HCPCS: 36415; 93005; 80053; 84484; 85025; 85610; 85730; 81001; 87040; 71046; 70450; 99285; 96360; J0696

== ENCOUNTER → 2022-07-22 | Outpatient (CLI) | payer MEDICARE ==
[2022-07-22 15:32] LABS: ALT 14 U/L (8-44); AST 19 U/L (13-35); African American GFR (CKD) 54.1 (60.0-200.0); Albumin 4.3 g/dL (3.8-4.9); Albumin/Globulin Ratio 1.67 (1.60-3.17); Alkaline Phosphatase 105 U/L (41-126); BUN/Creat Ratio 21.96 Ratio (12.00-20.00); Blood Urea Nitrogen 24.6 mg/dL (9.0-27.0); Calcium 9.4 mg/dL (8.7-10.3); Carbon Dioxide 22.6 mmol/L (20.0-27.5); Chloride 106 mmol/L (96-109); Chol/HDL Ratio 4.49 Ratio; Globulin 2.6 g/dL (1.6-3.3); Glucose 137 mg/dL (70-110); LDL Cholesterol,Calculated 69.5 mg/dL (0.0-131.0); Non-African American GFR(CKD) 46.7 (60.0-200.0); Potassium 4.4 mmol/L (3.5-5.5); Sodium 141 mmol/L (135-145); Total Protein 6.8 g/dL (6.2-8.2)
[2022-07-22 23:29] LABS: Urine Creatinine 97.5 mg/dL (28.0-217.0)
== END | disposition home or self-care (01) ==
LOC: LABWHC1 09:10
PROVIDERS: ATTEND Family Medicine
DX: E11.9 Type 2 diabetes mellitus without complications (principal); E78.2 Mixed hyperlipidemia
CPT/HCPCS: 36415; 80053; 80061; 82043; 82570; 83036; 84443

== ENCOUNTER → 2022-09-14 | Outpatient (CLI) | payer MEDICARE ==
[2022-09-14 16:04] LABS: Basophils # (A) 0.03 X 10*3/uL (0.00-0.10); Basophils % (A) 0.6 %; Eosinophils # (A) 0.04 X 10*3/uL (0.04-0.35); Eosinophils % (A) 0.7 %; HCT 37.3 % (37.2-46.3); HGB 11.9 g/dL (12.0-15.0); Immature Grans, Automated 0.2 %; Lymphocytes # (A) 2.11 X 10*3/uL (0.90-5.00); Lymphocytes % (A) 39.4 %; MCH 31.3 pg (27.0-32.0); MCHC 31.9 g/dL (32.0-37.0); MCV 98.2 fL (80.0-97.0); Mean Platelet Volume 10.1 fL (9.5-12.2); Monocytes # (A) 0.44 X 10*3/uL (0.20-1.00); Monocytes % (A) 8.2 %; NRBC Per 100 WBC 0 /100 WBCS (0.0-0.0); Neutrophils # (A) 2.72 X 10*3/uL (1.80-7.70); Neutrophils % (A) 50.9 %; Platelet Count 155 X 10*3/uL (140-440); RDW 13.5 % (11.5-14.5); WBC 5.35 X 10*3/uL (4.50-10.00)
[2022-09-14 16:10] LABS: African American GFR (CKD) 55.3 (60.0-200.0); Anion Gap 13.4 mmol/L (10.00-18.00); BUN/Creat Ratio 18.73 Ratio (12.00-20.00); Blood Urea Nitrogen 20.6 mg/dL (9.0-27.0); Calcium 9.7 mg/dL (8.7-10.3); Carbon Dioxide 24.6 mmol/L (20.0-27.5); Non-African American GFR(CKD) 47.7 (60.0-200.0); Potassium 4.8 mmol/L (3.5-5.5)
[2022-09-14 20:10] LABS: Appearance,Urine Clear (Clear); Bilirubin,Urine Negative (Negative); Blood,Urine Negative (Negative); Color,Urine Yellow (Yellow); Ketones,Urine Negative (Negative); Nitrite,Urine Negative (Negative); PH, Urine 5.5 (5.0-8.0); Specific Gravity,Urine 1.014 (1.001-1.030); Urobilinogen,Urine 0.2 (0.2,1.0)
[2022-09-14 20:25] LABS: Bacteria,Urine None Seen /HPF (None Seen)
== END | disposition home or self-care (01) ==
LOC: LABWHC1 10:33
PROVIDERS: ATTEND Urology
DX: N13.30 Unspecified hydronephrosis (principal)
CPT/HCPCS: 36415; 80048; 81001; 85025; 87077; 87086; 87186

== ENCOUNTER 2022-09-19 08:01 | Emergency (ER) | payer MEDICARE ==
[2022-09-19 08:09] VITALS: RESP 16; TEMP 96.9
--- NOTE | 2022-09-19 08:18 | ED ---
General Adult HPI - General Chief complaint: Fall Stated complaint: fall Time Seen by Provider: 09/19/22 08:01 Source: patient, EMS, RN notes reviewed, old records reviewed Mode of arrival: EMS Limitations: altered mental status - History of Present Illness Initial comments: 77-year-old female presents status post fall. Patient had an unwitnessed fall and had complained of some left-sided occipital headache. Patient is alert and oriented 1 which is off baseline. She has history of ovarian cancer and multiple medical problems. She is not reported to be on any anticoagulation. No vomiting. Paramedics did not notice any external signs of trauma and transported the patient to the emergency department for evaluation. - Related Data Home Medications Medication Instructions Recorded Confirmed Levothyroxine Sodium [Synthroid] 50 mcg PO DAILY 02/08/18 02/17/22 Evolocumab [Repatha Sureclick] 140 mg SQ Q14D 07/16/20 02/17/22 Albuterol Sulfate [Ventolin HFA] 1 - 2 puff INHALATION RT-Q6H PRN 09/22/2108/05 Docusate [Colace] 100 mg PO DAILY PRN 11/16/21 02/17/22 L.acidoph,Paracasei, B.lactis 1 cap PO DAILY 11/16/21 02/17/22 [Probiotic] OLANZapine [ZyPREXA] 2.5 mg PO DIRECTED 11/16/21 02/17/22 Ondansetron [Zofran] 4 mg PO Q8H PRN 11/16/21 02/17/22 Sennosides/Docusate Sodium [Senna 2 tab PO HS PRN 11/16/21 02/17/22 Plus 8.6-50 mg Tablet] Acetaminophen Tab [Tylenol] 1,000 mg PO Q6HR PRN 11/18/21 02/17/22 Dicyclomine HCl 10 mg PO TID PRN 11/18/21 02/17/22 HYDROcodone/APAP 10-325MG [Ewing 1 tab PO Q6H PRN 11/18/21 02/17/22 10-325] Loratadine [Claritin] 10 mg PO DAILY 11/18/21 02/17/22 Omeprazole 20 mg PO DAILY 12/29/21 02/17/22 Pioglitazone [Actos] 15 mg PO DAILY 12/29/21 02/17/22 Previous Rx's Medication Instructions Recorded amLODIPine [Norvasc] 5 mg PO DAILY #7 tab 12/30/21 Atorvastatin [Lipitor] 40 mg PO HS 30 Days #30 tab 02/21/22 levETIRAcetam [Keppra] 500 mg PO Q12HR 30 Days #60 tab 02/21/22 Cephalexin [Keflex] 500 mg PO Q6HR #28 cap 03/15/22 Allergies Allergy/AdvReac Type Severity Reaction Status Date / Time amoxicillin [From Augmentin] Allergy Rash/Hives/ Verified 03/15/22 13:23 itching chocolate flavor Allergy Unknown Verified 03/15/22 13:24 clavulanic acid Allergy Rash/Hives/ Verified 03/15/22 13:23 [From Augmentin] itching gluten Allergy Abdominal Verified 03/15/22 13:24 Pain Sulfa (Sulfonamide Allergy Itching Verified 03/15/22 13:23 Antibiotics) Flour Allergy Unknown Uncoded 03/15/22 13:24 Review of Systems ROS Statement: Those systems with pertinent positive or pertinent negative responses have been documented in the HPI. ROS Other: All systems not noted in ROS Statement are negative. Past Medical History Past Medical History: Cancer, Diabetes Mellitus, GERD/Reflux, Hyperlipidemia, Osteoarthritis (OA), Thyroid Disorder Additional Past Medical History / Comment(s): Ovarian cancer(started Chemo 11/14/21), constipation, hx hiatal hernia, "Dr watching liver enzymes", urinary incontinence, vertigo History of Any Multi-Drug Resistant Organisms: None Reported Past Surgical History: Adenoidectomy, Bladder Surgery, Section, Cholecystectomy, Hysterectomy, Tonsillectomy Additional Past Surgical History / Comment(s): x 3, 2 bladder suspension and 1 bowel lift; ureter stent in september 2021 Past Anesthesia/Blood Transfusion Reactions: Previous Problems w/ Anesthesia, Postoperative Nausea & Vomiting (PONV) Additional Past Anesthesia/Blood Transfusion Reaction / Comment(s): years ago had a problem with anesthesia(vomiting) in [place], but has had anesthesia several times since then and has had no problem, recent vertigo Past Psychological History: No Psychological Hx Reported Smoking Status: Never smoker Past Alcohol Use History: None Reported Past Drug Use History: None Reported - Past Family History Father Family Medical History: Hypertension Brother(s) Family Medical History: Cancer General Exam Limitations: altered mental status General appearance: alert, in no apparent distress Head exam: Present: atraumatic, normocephalic Eye exam: Present: normal appearance, PERRL Neck exam: Present: normal inspection. Absent: tenderness, meningismus Respiratory exam: Absent: respiratory distress Cardiovascular Exam: Present: regular rate, normal rhythm GI/Abdominal exam: Absent: distended, tenderness Extremities exam: Present: normal inspection, normal capillary refill. Absent: pedal edema Neurological exam: Present: alert. Absent: oriented X3, motor sensory deficit Psychiatric exam: Present: anxious Skin exam: Present: warm, dry, intact. Absent: cyanosis, diaphoretic Course Vital Signs 09/19/22 09/19/22 09/19/22 08:02 08:30 09:00 Temperature 96.9 F L Pulse Rate 65 66 66 Respiratory 16 16 16 Rate Blood Pressure 175/82 175/82 188/91 O2 Sat by Pulse 99 97 97 Oximetry - Reevaluation(s) Reevaluation #1: 09/19/22 09:22 Patient reevaluated, resting comfortably, accompanied by her son is able to give additional history. Patient has returned to baseline. Medical Decision Making - Medical Decision Making Was pt. sent in by a medical professional or institution (, PA, ULTRASOUND TECHNOL, urgent care, hospital, or prison...) When possible be specific @ -No Did you speak to anyone other than the patient for history (EMS, parent, family, police, friend...)? What history was obtained from this source @ Paramedics, and patient's son Did you review nursing and triage notes (agree or disagree)? Why? @ -I reviewed and agree with nursing and triage notes Were old charts reviewed (outside hosp., previous admission, EMS record, old EKG, old radiological studies, urgent care reports/EKG's, prison records)? Report findings @ -No old charts were reviewed Differential Diagnosis (chest pain, altered mental status, abdominal pain women, abdominal pain men, vaginal bleeding, weakness, fever, dyspnea, syncope, headache, dizziness, GI bleed, back pain, seizure, CVA, palpatations, mental health, musculoskeletal)? @ -Differential Altered Mental Status: Hypoglycemia, DKA, hypercapnia, ETOH, overdose, CO poisoning, trauma, myxedema coma, HTN encephalopathy, infection, encephalitis, psychosis, intercranial hemorrhage, hepatic encephalopathy, meningitis, CVA, this is not meant to be an all-inclusive list EKG interpreted by me (3pts min.). @ -Sinus rhythm, left axis, rate of 60, LA interval 200, QRS duration 140, QTC 456, left bundle branch block. X-rays interpreted by me (1pt min.). @ -None done CT interpreted by me (1pt min.). @ -brain CT negative for acute hemorrhage or mass effect What testing was considered but not performed or refused? (CT, X-rays, U/S, labs)? Why? @ -None What meds were considered but not given or refused? Why? @ -None Did you discuss the management of the patient with other professionals (professionals i.e. , PA, ULTRASOUND TECHNOL, lab, RT, psych nurse, social science instructor, sleeve maker, teacher, credit risk review officer, casey saw operator)? Give summary @ -No Was smoking cessation discussed for >3mins.? @ -No Was critical care preformed (if so, how long)? @ -No Were there social determinants of health that impacted care today? How? (Homelessness, low income, unemployed, alcoholism, drug addiction, transportation, low edu. Level, literacy, decrease access to med. care, shelter, rehab)? @ -No Was there de-escalation of care discussed even if they declined (Discuss DNR or withdrawal of care, Hospice)? DNR status @ -No What co-morbidities impacted this encounter? (DM, HTN, Smoking, COPD, CAD, Cancer, CVA, ARF, Chemo, Hep., AIDS, mental health diagnosis, sleep apnea, morbid obesity)? @ Ovarian cancer, hypertension Was patient admitted / discharged? Hospital course, mention meds given and route, prescriptions, significant lab abnormalities, going to OR and other pertinent info. @ -77-year-old female status post unwitnessed fall.External signs trauma. There was concern for head injury. Head CT negative for intracranial hemorrhage or mass effect. I did obtain basic laboratory tests including CBC and CMP teacher stable chronic anemia with no other acute abnormality. Patient had been recently started on ciprofloxacin by her urologist and was scheduled for urinary stent replacement today. She will need to reschedule this. She stable for discharge at this time. Undiagnosed new problem with uncertain prognosis? @ -No Drug Therapy requiring intensive monitoring for toxicity (Heparin, Nitro, Insulin, Cardizem)? @ -No Were any procedures done? @ -No Diagnosis/symptom? @ -Fall, head injury Acute, or Chronic, or Acute on Chronic? @ -[Acute Uncomplicated (without systemic symptoms) or Complicated (systemic symptoms)? @ -default Side effects of treatment? @ -No Exacerbation, Progression, or Severe Exacerbation? @ -No Poses a threat to life or bodily function? How? (Chest pain, [place], [place], pneumonia, PE, COPD, DKA, ARF, appy, cholecystitis, CVA, Diverticulitis, Homicidal, Suicidal, threat to staff... and all critical care pts) @ -[Low-risk - Lab Data Result diagrams: 09/19/22 08:21 09/19/22 08:21 Lab Results 09/19/22 09/19/22 Range/Units 08:21 08:21 WBC 5.1 (3.8-10.6) k/uL RBC 3.62 L (3.80-5.40) m/uL Hgb 11.3 L (11.4-16.0) gm/dL Hct 34.6 (34.0-46.0) % MCV 95.5 (80.0-100.0) fL MCH 31.2 (25.0-35.0) pg MCHC 32.7 (31.0-37.0) g/dL RDW 14.4 (11.5-15.5) % Plt Count 125 L (150-450) k/uL MPV 7.8 Neutrophils % 57 % Lymphocytes % 34 % Monocytes % 6 % Eosinophils % 1 % Basophils % 1 % Neutrophils # 2.9 (1.3-7.7) k/uL Lymphocytes # 1.7 (1.0-4.8) k/uL Monocytes # 0.3 (0-1.0) k/uL Eosinophils # 0.0 (0-0.7) k/uL Basophils # 0.0 (0-0.2) k/uL Sodium 142 (137-145) mmol/L Potassium 4.2 (3.5-5.1) mmol/L Chloride 112 H (98-107) mmol/L Carbon Dioxide 22 (22-30) mmol/L Anion Gap 8 mmol/L BUN 21 H (7-17) mg/dL Creatinine 0.98 (0.52-1.04) mg/dL Est GFR (CKD-EPI)AfAm 63 (>60 ml/min/1.73 sqM) Est GFR (CKD-EPI)NonAf 55 (>60 ml/min/1.73 sqM) Glucose 160 H (74-99) mg/dL Calcium 8.4 (8.4-10.2) mg/dL Total Bilirubin 0.4 (0.2-1.3) mg/dL AST 20 (14-36) U/L ALT 14 (4-34) U/L Alkaline Phosphatase 75 (38-126) U/L Total Protein 6.1 L (6.3-8.2) g/dL Albumin 3.7 (3.5-5.0) g/dL Disposition Clinical Impression: Fall, Concussion Disposition: HOME SELF-CARE Condition: Fair Instructions (If sedation given, give patient instructions): Fall Prevention for Older Adults (ED), Concussion (ED) Is patient prescribed a controlled substance at d/c from ED?: No Referrals: Reuben Almeida MD [Primary Care Provider] - 1-2 days Time of Disposition: 09:26
[2022-09-19 08:35] LABS: Basophils % (A) 1 %; Eosinophils % (A) 1 %; HCT 34.6 % (34.0-46.0); HGB 11.3 gm/dL (11.4-16.0); Lymphocytes # (A) 1.7 k/uL (1.0-4.8); Lymphocytes % (A) 34 %; MCH 31.2 pg (25.0-35.0); MCHC 32.7 g/dL (31.0-37.0); MCV 95.5 fL (80.0-100.0); Mean Platelet Volume 7.8; Monocytes # (A) 0.3 k/uL (0-1.0); Monocytes % (A) 6 %; Neutrophils # (A) 2.9 k/uL (1.3-7.7); Neutrophils % (A) 57 %; Platelet Count 125 k/uL (150-450); RBC 3.62 m/uL (3.80-5.40); RDW 14.4 % (11.5-15.5); WBC 5.1 k/uL (3.8-10.6)
--- NOTE | 2022-09-19 08:49 | CT ---
EXAMINATION TYPE: CT brain ezequiel wo con DATE OF EXAM: 09/19/2022 COMPARISON: 03/15/2022 HISTORY: Fall, AMS CT DLP: 1416.[address] of the brain was performed. The ventricles, basal cisterns and sulci overlying the cerebral convexities demonstrate mild enlargem ent. There is no evidence for intracranial hemorrhage or sulcal effacement. There is decreased attenuatio n about the periventricular white matter and deep white matter of both cerebral hemispheres, compatib le with chronic small vessel ischemia. No mass effects are seen. If symptoms persist consider MRI. Osseous calvarium is intact. IMPRESSION: 1. Age related atrophic and chronic small vessel ischemic change without acute intracranial process seen at this time. CT Cervical Spine: Unenhanced CT of the cervical spine was performed with bone and soft tissue window settings submitted . Coronal and sagittal reconstruction is obtained. There is normal alignment and prevertebral soft tissues. No evidence for acute cervical fracture . Scattered degenerative disc disease and spondylosis. Biapical scarring. IMPRESSION: 1. No evidence for acute fracture or subluxation of the cervical spine.
[2022-09-19 08:50] LABS: ALT 14 U/L (4-34); AST 20 U/L (14-36); African American GFR (CKD) 63 (>60 ml/min/1.73 sqM); Albumin 3.7 g/dL (3.5-5.0); Alkaline Phosphatase 75 U/L (38-126); Anion Gap 8 mmol/L; Blood Urea Nitrogen 21 mg/dL (7-17); Calcium 8.4 mg/dL (8.4-10.2); Carbon Dioxide 22 mmol/L (22-30); Chloride 112 mmol/L (98-107); Glucose 160 mg/dL (74-99); Non-African American GFR(CKD) 55 (>60 ml/min/1.73 sqM); Potassium 4.2 mmol/L (3.5-5.1); Sodium 142 mmol/L (137-145); Total Bilirubin 0.4 mg/dL (0.2-1.3); Total Protein 6.1 g/dL (6.3-8.2)
[2022-09-19 09:22] VITALS: BP 188/91; PULSE 66
== END 2022-09-19 09:36 | disposition home or self-care (01) ==
LOC: EC 08:01
DX: S06.0X0A Concussion without loss of consciousness, initial encounter (principal); K21.9 Gastro-esophageal reflux disease without esophagitis; M19.90 Unspecified osteoarthritis, unspecified site; E11.9 Type 2 diabetes mellitus without complications; E78.5 Hyperlipidemia, unspecified; E07.9 Disorder of thyroid, unspecified; I10 Essential (primary) hypertension; C56.9 Malignant neoplasm of unspecified ovary; Z88.2 Allergy status to sulfonamides; Z88.0 Allergy status to penicillin; Z88.1 Allergy status to other antibiotic agents; Z88.8 Allergy status to other drugs, medicaments and biological substances; Z91.018 Allergy to other foods; Z79.890 Hormone replacement therapy; Z79.899 Other long term (current) drug therapy; Z79.84 Long term (current) use of oral hypoglycemic drugs; W19.XXXA Unspecified fall, initial encounter
CPT/HCPCS: 36415; 70450; 72125; 80053; 85025; 93005; 99285

== ENCOUNTER 2023-04-14 10:16 | Emergency (ER) | payer MEDICARE ==
[2023-04-14 10:24] VITALS: TEMP 97.8
[2023-04-14 11:33] VITALS: RESP 16
[2023-04-14 12:58] LABS: Basophils % (A) 1 %; Eosinophils # (A) 0.1 k/uL (0-0.7); Eosinophils % (A) 1 %; HCT 28.3 % (34.0-46.0); HGB 9.2 gm/dL (11.4-16.0); Lymphocytes # (A) 1.6 k/uL (1.0-4.8); Lymphocytes % (A) 21 %; MCH 28.9 pg (25.0-35.0); MCHC 32.4 g/dL (31.0-37.0); Mean Platelet Volume 7.4; Monocytes # (A) 0.4 k/uL (0-1.0); Monocytes % (A) 5 %; Neutrophils # (A) 5.3 k/uL (1.3-7.7); Neutrophils % (A) 70 %; Platelet Count 214 k/uL (150-450); RBC 3.18 m/uL (3.80-5.40); RDW 14.9 % (11.5-15.5); WBC 7.6 k/uL (3.8-10.6)
[2023-04-14 13:07] LABS: Appearance,Urine Cloudy (Clear); Bacteria,Urine Rare /hpf; Bilirubin,Urine Negative (Negative); Blood,Urine Small (Negative); Color,Urine Colorless; Glucose,Urine (UA) Negative (Negative); Ketones,Urine Negative (Negative); Leukocyte Esterase,Urine Moderate (Negative); Mucus,Urine Rare /hpf; Nitrite,Urine Negative (Negative); Protein,Urine Trace (Negative); RBC,Urine 5 /hpf (0-5); Specific Gravity,Urine 1.007 (1.001-1.035); Urobilinogen,Urine <2.0 mg/dL (<2.0); WBC,Urine 44 /hpf (0-5)
[2023-04-14 13:15] LABS: Partial Thromboplastin Time 25.6 sec (22.0-30.0); Prothrombin Time 10.8 sec (10.0-12.5)
[2023-04-14 13:23] LABS: ALT 11 U/L (4-34); AST 22 U/L (14-36); African American GFR (CKD) 27 (>60 ml/min/1.73 sqM); Albumin 3.4 g/dL (3.5-5.0); Alkaline Phosphatase 83 U/L (38-126); Amylase 43 U/L (30-110); Anion Gap 15 mmol/L; Blood Urea Nitrogen 30 mg/dL (7-17); Calcium 8.8 mg/dL (8.4-10.2); Carbon Dioxide 15 mmol/L (22-30); Chloride 108 mmol/L (98-107); Glucose 126 mg/dL (74-99); Lipase 22 U/L (23-300); Non-African American GFR(CKD) 24 (>60 ml/min/1.73 sqM); Potassium 5.1 mmol/L (3.5-5.1); Sodium 138 mmol/L (137-145); Total Bilirubin 0.5 mg/dL (0.2-1.3); Total Protein 6.2 g/dL (6.3-8.2)
--- NOTE | 2023-04-14 13:44 | CT ---
EXAMINATION TYPE: CT abdomen pelvis wo con CT DLP: 481.3 mGycm, Automated exposure control for dose reduction was used. DATE OF EXAM: 04/14/2023 1:01 PM COMPARISON: CT abdomen pelvis most recent from 10/23/2021. CLINICAL INDICATION:Female, 77 years old with history of flank pain, hx ovarian ca; flank pain, hx ov mehreen ca, UTI TECHNIQUE: Axial CT abdomen pelvis wo con;Sagittal and coronal reformats were created on a separate workstation. Contrast used: mL of , (none if empty) Oral contrast used: without Oral Contrast (none if empty) FINDINGS: LOWER CHEST: Trace right pleural effusions. Right pleural calcification. ABDOMEN LIVER: Unremarkable GALLBLADDER AND BILE DUCTS: Gallbladder surgically absent. PANCREAS: Unremarkable. SPLEEN: . Calcifications along the splenic capsule. ADRENAL GLANDS: Unremarkable. KIDNEYS AND URETERS: Bilateral moderate to severe hydronephrosis. This secondary to obstructing large cystic mass. Right ureteral stent with proximal and pigtail in the mid right ureter. The distal pigt ail terminating in the urinary bladder. PELVIS BLADDER: Unremarkable REPRODUCTIVE: Large cystic abdominal mass is increase in size from 10/23/2021. Now measuring 20.6 x 13 .3 x 14.7 cm previously measuring 16.7 x 11.0 x 9.8 cm on 10/23/2021 ABDOMEN & PELVIS STOMACH AND BOWEL: No evidence of bowel obstruction. There is mass effect of the large cystic mass on the sigmoid colon/rectum PERITONEUM/RETROPERITONEUM: No evidence of pneumoperitoneum. Scattered Free fluid throughout the abdo men. Soft tissue with high density calcifications extending away from the anterior aspect of this mas s near the umbilicus is unchanged from prior etiology uncertain appears to represent possibly omentum which is scarred down. VASCULATURE: No evidence of aortic aneurysm. MUSCULOSKELETAL: No acute osseous abnormalities LYMPH NODES: No gross evidence for lymphadenopathy. SOFT TISSUE/ABDOMINAL WALL: Unremarkable IMPRESSION: Increasing size of cystic pelvic mass with extension superiorly measuring up to 20.6 cm and moderate to severe bilateral hydronephrosis. There remains a trace right pleural effusion and ascites. A right ureteral stent terminates in the right mid ureter with inferior portion the bladder.
--- NOTE | 2023-04-14 14:48 | ED ---
General Adult HPI - General Chief complaint: Urogenital Stated complaint: UTI Time Seen by Provider: 04/14/23 11:06 Source: patient, RN notes reviewed Mode of arrival: wheelchair Limitations: no limitations - History of Present Illness Initial comments: 77-year-old female presents to the emergency department for evaluation of low back pain. Patient and daughter are concerned of the patient has a urinary tract infection as she typically gets back pain when she has these. Patient states that she was on levofloxacin about 1 month ago and is currently on it again. She has taken one dose so far. Patient follows with Dr. Dickerson urology. Patient also reports a history of ovarian cancer for which she has not currently being treated for. She follows with Dr. Sahu. She denies recent fever, chills. Denies nausea, vomiting. - Related Data Home Medications Medication Instructions Recorded Confirmed Levothyroxine Sodium [Synthroid] 50 mcg PO DAILY 02/08/18 02/17/22 Evolocumab [Repatha Sureclick] 140 mg SQ Q14D 07/16/20 02/17/22 Albuterol Sulfate [Ventolin HFA] 1 - 2 puff INHALATION RT-Q6H PRN 09/22/21 02/17/22 Docusate [Colace] 100 mg PO DAILY PRN 11/16/21 02/17/22 L.acidoph,Paracasei, B.lactis 1 cap PO DAILY 11/16/21 02/17/22 [Probiotic] OLANZapine [ZyPREXA] 2.5 mg PO DIRECTED 11/16/21 02/17/22 Ondansetron [Zofran] 4 mg PO Q8H PRN 11/16/21 02/17/22 Sennosides/Docusate Sodium [Senna 2 tab PO HS PRN 11/16/21 02/17/22 Plus 8.6-50 mg Tablet] Acetaminophen Tab [Tylenol] 1,000 mg PO Q6HR PRN 11/18/21 02/17/22 Dicyclomine HCl 10 mg PO TID PRN 11/18/21 02/17/22 HYDROcodone/APAP 10-325MG [[place] 1 tab PO Q6H PRN 11/18/21 02/17/22 10-325] Loratadine [Claritin] 10 mg PO DAILY 11/18/21 02/17/22 Omeprazole 20 mg PO DAILY 12/29/21 02/17/22 Pioglitazone [Actos] 15 mg PO DAILY 12/29/21 02/17/22 Previous Rx's Medication Instructions Recorded amLODIPine [Norvasc] 5 mg PO DAILY #7 tab 12/30/21 Atorvastatin [Lipitor] 40 mg PO HS 30 Days #30 tab 02/21/22 levETIRAcetam [Keppra] 500 mg PO Q12HR 30 Days #60 tab 02/21/22 Cephalexin [Keflex] 500 mg PO Q6HR #28 cap 03/15/22 Allergies Allergy/AdvReac Type Severity Reaction Status Date / Time amoxicillin [From Augmentin] Allergy Rash/Hives/ Verified 04/14/23 10:21 itching clavulanic acid Allergy Rash/Hives/ Verified 04/14/23 10:21 [From Augmentin] itching gluten Allergy Abdominal Verified 04/14/23 10:21 Pain Sulfa (Sulfonamide Allergy Itching Verified 04/14/23 10:21 Antibiotics) Flour Allergy Unknown Uncoded 04/14/23 10:21 Review of Systems ROS Statement: Those systems with pertinent positive or pertinent negative responses have been documented in the HPI. ROS Other: All systems not noted in ROS Statement are negative. Past Medical History Past Medical History: Cancer, Diabetes Mellitus, GERD/Reflux, Hyperlipidemia, Osteoarthritis (OA), Thyroid Disorder Additional Past Medical History / Comment(s): Ovarian cancer(started Chemo 11/14/21), constipation, hx hiatal hernia, "Dr watching liver enzymes", urinary incontinence, vertigo History of Any Multi-Drug Resistant Organisms: None Reported Past Surgical History: Adenoidectomy, Bladder Surgery, Section, Cholecystectomy, Hysterectomy, Tonsillectomy Additional Past Surgical History / Comment(s): x 3, 2 bladder suspe nsion and 1 bowel lift; ureter stent in september 2021 Past Anesthesia/Blood Transfusion Reactions: Previous Problems w/ Anesthesia, Postoperative Nausea & Vomiting (PONV) Additional Past Anesthesia/Blood Transfusion Reaction / Comment(s): years ago had a problem with anesthesia(vomiting) in [place], but has had anesthesia several times since then and has had no problem, recent vertigo Past Psychological History: No Psychological Hx Reported Smoking Status: Never smoker Past Alcohol Use History: None Reported Past Drug Use History: None Reported - Past Family History Father Family Medical History: Hypertension Brother(s) Family Medical History: Cancer General Exam Limitations: no limitations General appearance: alert, in no apparent distress Head exam: Present: atraumatic, normocephalic, normal inspection Eye exam: Present: normal appearance, PERRL, EOMI. Absent: scleral icterus, conjunctival injection, periorbital swelling ENT exam: Present: normal exam, mucous membranes moist Neck exam: Present: normal inspection. Absent: tenderness, meningismus, lymphadenopathy Respiratory exam: Present: normal lung sounds bilaterally. Absent: respiratory distress, wheezes, rales, rhonchi, stridor Cardiovascular Exam: Present: regular rate, normal rhythm, normal heart sounds. Absent: systolic murmur, diastolic murmur, rubs, gallop, clicks GI/Abdominal exam: Present: distended, diminished bowel sounds, other (palpable mass on right-sided abdomen) Extremities exam: Present: normal inspection, full ROM, normal capillary refill Back exam: Present: normal inspection. Absent: CVA tenderness (R), CVA tenderness (L) Neurological exam: Present: alert, oriented X3 Psychiatric exam: Present: normal affect, normal mood Skin exam: Present: warm, dry, intact, normal color. Absent: rash Course Vital Signs 04/14/23 04/14/23 04/14/23 10:17 11:20 11:21 Temperature 97.8 F Pulse Rate 72 58 L Respiratory 18 16 Rate Blood Pressure 163/69 146/66 146/66 O2 Sat by Pulse 99 96 Oximetry 04/14/23 04/14/23 04/14/23 11:30 12:00 12:30 Temperature Pulse Rate Respiratory Rate Blood Pressure 146/66 149/69 142/72 O2 Sat by Pulse Oximetry 04/14/23 04/14/23 04/14/23 13:00 13:30 14:00 Temperature Pulse Rate Respiratory Rate Blood Pressure 142/65 146/64 134/54 O2 Sat by Pulse Oximetry 04/14/23 04/14/23 14:30 15:52 Temperature 97.8 F Pulse Rate 64 Respiratory 16 Rate Blood Pressure 127/65 139/74 O2 Sat by Pulse 97 Oximetry Medical Decision Making - Medical Decision Making Was pt. sent in by a medical professional or institution (, PA, FORGE [employer], urgent ca re, hospital, or intermediate...) When possible be specific @ -No Did you speak to anyone other than the patient for history (EMS, parent, family, police, friend...)? What history was obtained from this source @ -No Did you review nursing and triage notes (agree or disagree)? Why? @ -I reviewed and agree with nursing and triage notes Were old charts reviewed (outside hosp., previous admission, EMS record, old EKG, old radiological studies, urgent care reports/EKG's, intermediate records)? Report findings @ -No old charts were reviewed Differential Diagnosis (chest pain, altered mental status, abdominal pain women, abdominal pain men, vaginal bleeding, weakness, fever, dyspnea, syncope, headache, dizziness, GI bleed, back pain, seizure, CVA, palpatations, mental health, musculoskeletal)? @ -Differential Back Pain: Strain, zoster, cauda equina syndrome, epidural abscess, vertebral osteomyelitis, discitis, fracture, subluxation, disc herniation, DJD, spinal stenosis, dissection, AAA, pancreatitis, peptic ulcer disease, pyelonephritis, kidney stone, this is not meant to be an all-inclusive list. EKG interpreted by me (3pts min.). @ -none X-rays interpreted by me (1pt min.). @ -None done CT interpreted by me (1pt min.). @ -CT abdomen and pelvis obtained. Large pelvic mass with superior extension and moderate to severe bilateral hydronephrosis, ureteral stent from right mid ureter to inferior portion of bladder U/S interpreted by me (1pt. min.). @ -None done What testing was considered but not performed or refused? (CT, X-rays, U/S, labs)? Why? @ -None What meds were considered but not given or refused? Why? @ -None Did you discuss the management of the patient with other professionals (professionals i.e. , PA, [employer], lab, RT, psych nurse, protective services social worker, skip hoist engineer, teacher, sales and service officer, transplant case manager)? Give summary @ -Management discussed with urology, Dr. Reyes, including patient's increased creatinine, UA results and moderate to severe hydronephrosis on the right side, who recommends outpatient follow up with Dr. Dickerson Was smoking cessation discussed for >3mins.? @ -No Was critical care preformed (if so, how long)? @ -No Were there social determinants of health that impacted care today? How? (Homelessness, low income, unemployed, alcoholism, drug addiction, transportation, low edu. Level, literacy, decrease access to med. care, skilled nursing, rehab)? @ -No Was there de-escalation of care discussed even if they declined (Discuss DNR or withdrawal of care, Hospice)? DNR status @ -No What co-morbidities impacted this encounter? (DM, HTN, Smoking, COPD, CAD, Cancer, CVA, ARF, Chemo, Hep., AIDS, mental health diagnosis, sleep apnea, morbid obesity)? @ -cancer Was patient admitted / discharged? Hospital course, mention meds given and route, prescriptions, significant lab abnormalities, going to OR and other pertinent info. @ -Discharged. Patient presented to the emergency department for evaluation of low back pain. Patient was recently diagnosed with a urinary tract infection and has been on antibiotic prescribed by her urologist. The patient has a history of ovarian cancer which she is not currently receiving treatment for. She follows closely with her oncologist. Laboratory studies obtained. CBC shows a CBC 7.6, hemoglobin 9.2 which is typical for the patient. Cranial-7 is within normal limits; CMP shows sodium 138, potassium 5.1, creatinine 1.97 which is worsened from her prior in October. UA shows moderate leukocyte esterase, 24 WBC, negative nitrate;, Covid, influenza, RSV negative. Patient is currently on antibiotics for her urinary tract infection. CT abdomen and pelvis is obtained which shows a large pelvic mass extending superiorly with moderate to severe hydronephrosis and laterally. These findings were discussed with Dr. Reyes neurology who recommends outpatient follow-up with the patient's urologist, Dr. Dickerson. Advised patient to follow up with her primary care provider, oncologist. Discussed findings of laboratory studies and CT. Patient understanding and agreeable with discharge plan. Patient stable at time of discharge. Case discussed with Dr. Renee. Undiagnosed new problem with uncertain prognosis? @ -No Drug Therapy requiring intensive monitoring for toxicity (Heparin, Nitro, Insulin, Cardizem)? @ -No Were any procedures done? @ -No Diagnosis/symptom? @ -ovarian cancer, hydronephrosis Acute, or Chronic, or Acute on Chronic? @ -acute Uncomplicated (without systemic symptoms) or Complicated (systemic symptoms)? @ -uncomplicated Side effects of treatment? @ -No Exacerbation, Progression, or Severe Exacerbation? @ -No Poses a threat to life or bodily function? How? (Chest pain, [place], CA, pneumonia, PE, COPD, DKA, ARF, appy, cholecystitis, CVA, Diverticulitis, Homicidal, Suicidal, threat to staff... and all critical care pts) @ -No - Lab Data Result diagrams: 04/14/23 12:14 04/14/23 12:14 Lab Results 04/14/23 04/14/23 04/14/23 Range/Units 12:14 12:14 12:14 WBC 7.6 (3.8-10.6) k/uL RBC 3.18 L (3.80-5.40) m/uL Hgb 9.2 L (11.4-16.0) gm/dL Hct 28.3 L (34.0-46.0) % MCV 89.0 (80.0-100.0) fL MCH 28.9 (25.0-35.0) pg MCHC 32.4 (31.0-37.0) g/dL RDW 14.9 (11.5-15.5) % Plt Count 214 (150-450) k/uL MPV 7.4 Neutrophils % 70 % Lymphocytes % 21 % Monocytes % 5 % Eosinophils % 1 % Basophils % 1 % Neutrophils # 5.3 (1.3-7.7) k/uL Lymphocytes # 1.6 (1.0-4.8) k/uL Monocytes # 0.4 (0-1.0) k/uL Eosinophils # 0.1 (0-0.7) k/uL Basophils # 0.0 (0-0.2) k/uL PT 10.8 (10.0-12.5) sec INR 1.0 (<1.2) APTT 25.6 (22.0-30.0) sec Sodium (137-145) mmol/L Potassium (3.5-5.1) mmol/L Chloride (98-107) mmol/L Carbon Dioxide (22-30) mmol/L Anion Gap mmol/L BUN (7-17) mg/dL Creatinine (0.52-1.04) mg/dL Est GFR (CKD-EPI)AfAm (>60 ml/min/1.73 sqM) Est GFR (CKD-EPI)NonAf (>60 ml/min/1.73 sqM) Glucose (74-99) mg/dL Plasma Lactic Acid Renaldo (0.7-2.0) mmol/L Calcium (8.4-10.2) mg/dL Total Bilirubin (0.2-1.3) mg/dL AST (14-36) U/L ALT (4-34) U/L Alkaline Phosphatase (38-126) U/L Total Protein (6.3-8.2) g/dL Albumin (3.5-5.0) g/dL Amylase (30-110) U/L Lipase (23-300) U/L Urine Color Colorless Urine Appearance Cloudy H (Clear) Urine pH 5.0 (5.0-8.0) Ur Specific [place] 1.007 (1.001-1.035) Urine Protein Trace H (Negative) Urine Glucose (UA) Negative (Negative) Urine Ketones Negative (Negative) Urine Blood Small H (Negative) Urine Nitrite Negative (Negative) Urine Bilirubin Negative (Negative) Urine Urobilinogen <2.0 (<2.0) mg/dL Ur Leukocyte Esterase Moderate H (Negative) Urine RBC 5 (0-5) /hpf Urine WBC 44 H (0-5) /hpf Urine WBC Clumps Few H (None) /hpf Urine Bacteria Rare H (None) /hpf Urine Mucus Rare H (None) /hpf Influenza Type A (PCR) (Not Detectd) Influenza Type B (PCR) (Not Detectd) RSV (PCR) (Not Detectd) SARS-CoV-2 (PCR) (Not Detectd) 04/14/23 04/14/23 04/14/23 Range/Units 12:14 12:14 12:14 WBC (3.8-10.6) k/uL RBC (3.80-5.40) m/uL Hgb (11.4-16.0) gm/dL Hct (34.0-46.0) % MCV (80.0-100.0) fL MCH (25.0-35.0) pg MCHC (31.0-37.0) g/dL RDW (11.5-15.5) % Plt Count (150-450) k/uL MPV Neutrophils % % Lymphocytes % % Monocytes % % Eosinophils % % Basophils % % Neutrophils # (1.3-7.7) k/uL Lymphocytes # (1.0-4.8) k/uL Monocytes # (0-1.0) k/uL Eosinophils # (0-0.7) k/uL Basophils # (0-0.2) k/uL PT (10.0-12.5) sec INR (<1.2) APTT (22.0-30.0) sec Sodium 138 (137-145) mmol/L Potassium 5.1 (3.5-5.1) mmol/L Chloride 108 H (98-107) mmol/L Carbon Dioxide 15 L (22-30) mmol/L Anion Gap 15 mmol/L BUN 30 H (7-17) mg/dL Creatinine 1.97 H (0.52-1.04) mg/dL Est GFR (CKD-EPI)AfAm 27 (>60 ml/min/1.73 sqM) Est GFR (CKD-EPI)NonAf 24 (>60 ml/min/1.73 sqM) Glucose 126 H (74-99) mg/dL Plasma Lactic Acid [place] 0.8 (0.7-2.0) mmol/L Calcium 8.8 (8.4-10.2) mg/dL Total Bilirubin 0.5 (0.2-1.3) mg/dL AST 22 (14-36) U/L ALT 11 (4-34) U/L Alkaline Phosphatase 83 (38-126) U/L Total Protein 6.2 L (6.3-8.2) g/dL Albumin 3.4 L (3.5-5.0) g/dL Amylase 43 (30-110) U/L Lipase 22 L (23-300) U/L Urine Color Urine Appearance (Clear) Urine pH (5.0-8.0) Ur Specific [place] (1.001-1.035) Urine Protein (Negative) Urine Glucose (UA) (Negative) Urine Ketones (Negative) Urine Blood (Negative) Urine Nitrite (Negative) Urine Bilirubin (Negative) Urine Urobilinogen (<2.0) mg/dL Ur Leukocyte Esterase (Negative) Urine RBC (0-5) /hpf Urine WBC (0-5) /hpf Urine WBC Clumps (None) /hpf Urine Bacteria (None) /hpf Urine Mucus (None) /hpf Influenza Type A (PCR) Not Detected (Not Detectd) Influenza Type B (PCR) Not Detected (Not Detectd) RSV (PCR) Not Detected (Not Detectd) SARS-CoV-2 (PCR) Not Detected (Not Detectd) Disposition Clinical Impression: Hydronephrosis, UTI (urinary tract infection) Disposition: HOME SELF-CARE Condition: Stable Instructions (If sedation given, give patient instructions): Urinary Tract Infection in Women (ED) Additional Instructions: Please follow up with Dr. Dickerson and Dr. Sahu. Return to the emergency department for new or worsening symptoms. Is patient prescribed a controlled substance at d/c from ED?: No Referrals: Reuben Almeida MD [Primary Care Provider] - 1-2 days Jesse Dickerson MD [STAFF PHYSICIAN] - 1-2 days
[2023-04-14] MEDS ORDERED: cefTRIAXone IN SWFI 1,000 MG/10 ML SYRINGE IVP STA (14:59)
[2023-04-14 15:59] VITALS: BP 139/74; PULSE 64
== END 2023-04-14 15:53 | disposition home or self-care (01) ==
LOC: EC 10:16
DX: N39.0 Urinary tract infection, site not specified (principal); N13.30 Unspecified hydronephrosis; B97.0 Adenovirus as the cause of diseases classified elsewhere; E11.9 Type 2 diabetes mellitus without complications; K21.9 Gastro-esophageal reflux disease without esophagitis; E78.5 Hyperlipidemia, unspecified; M19.90 Unspecified osteoarthritis, unspecified site; E07.9 Disorder of thyroid, unspecified; Z79.890 Hormone replacement therapy; Z79.899 Other long term (current) drug therapy; Z88.0 Allergy status to penicillin; Z88.2 Allergy status to sulfonamides; Z91.018 Allergy to other foods; Z88.8 Allergy status to other drugs, medicaments and biological substances; Z20.822 Contact with and (suspected) exposure to COVID-19
CPT/HCPCS: 36415; 80053; 82150; 83605; 83690; 85025; 85610; 85730; 81001; 87086; 87636; 74176; 99284; 96374; J0696